=== PATIENT | male | born 1945 | race Caucasian/White ===

== ENCOUNTER 2020-01-22 16:27 | Inpatient (IN) | payer MEDICARE, SELFPAY ==
--- NOTE | ~2020-01-22 | NM_ITS ---
EXAMINATION: NM pulmonary perfusion DATE: 01/27/2020 12:18 INDICATION: Chest pain. TECHNIQUE: 5.2 mCi Tc-99m MAA was administered intravenously for perfusion images. Scintigraphic im ages of the chest were obtained. COMPARISON: chest single view 01/26/20 FINDINGS: Perfusion images show matched large defects throughout the lower lobes. There are matched moderate-si zed defects in the upper lobes. ] IMPRESSION: 1. Nondiagnostic (intermediate probability for pulmonary embolism). Reviewed, dictated and finalized at location B. RAFT INSPECTOR
--- NOTE | ~2020-01-22 | CT_ITS ---
EXAMINATION: CT abdomen pelvis w con DATE: 02/04/2020 10:04 INDICATION: Abdominal abscess. Increased drainage. TECHNIQUE: Computed tomography (CT) of the abdomen and pelvis was performed with 100 mL Omnipaque 350 intravenous contrast. Automated exposure control and iterative reconstruction technique were employe d. The dose-length product was 779.47 mGy-cm. COMPARISON: CT abdomen and pelvis 02/01/2020 FINDINGS: The visualized portions of the lung bases demonstrate emphysema. There are moderate-sized p leural effusions. There is dependent atelectasis bilaterally. Calcified left lung nodules and calcifi ed bilateral hilar and mediastinal lymph nodes are consistent with old granulomatous disease. The hea rt size is normal. There are coronary artery calcifications. No pericardial effusion. There are calci fications of aortic valve. The liver and spleen are normal. The gallbladder is normal in size. There is wall thickening of the gallbladder, likely serosal inflammation or interstitial edema. The pancrea s, adrenal glands, and kidneys are normal. There is a 4.4 cm infrarenal aortic aneurysm with hyperden se crescent sign. There is moderate stenosis of the common iliac arteries and external iliac arteries . There is severe stenosis of right superficial femoral artery and moderate stenosis of left superfic ial femoral artery. There is diffuse fat stranding in the peritoneum, consistent with inflammation an d edema. There are numerous small rim-enhancing fluid collections around the liver. There is a rim-en hancing fluid collection between and deep to the right abdominal muscles measuring up to 5.6 x 1.5 cm . There is a percutaneous drain within this collection. There is an anterior midline incision with sk in samson. There is a small volume of fluid and gas within the incision. There is a rim-enhancing fl uid collection in the pelvis measuring 4.4 x 2.2 cm. There is a percutaneous surgical drain with tip in the left abdomen. There is no fluid next to this drain. There is a percutaneous drain in left uppe r quadrant. There is no residual fluid adjacent to this drain. There is wall thickening of many areas of bowel, consistent with serosal inflammation. There is mild dilatation of a loop of small bowel, c onsistent with adynamic ileus. There is a small right inguinal hernia containing fat. There are no pa thologically enlarged lymph nodes. There is severe thoracic and lumbar spondylosis. IMPRESSION: 1. Multiple intra-abdominal abscesses, most of which are small. The largest abscess without a drain m easures 4.4 x 2.2 cm in the pelvis. 2. 4.4 cm fusiform infrarenal aortic aneurysm with hyperdense crescent sign, stable from 01/22/2020. T he hyperdense crescent sign may be a sign of impending rupture. 3. Stable moderate-sized pleural effusions. 4. Peripheral arterial disease. Reviewed, dictated and finalized at location A. NOMY RESEARCH MANAGER IMPRESSION: 1. Multiple intra-abdominal abscesses, most of which are small. The largest abs cess without a drain measures 4.4 x 2.2 cm in the pelvis. 2. 4.4 cm fusiform infrarenal aortic aneurysm with hyperdense crescent sign, st able from 01/22/2020. The hyperdense crescent sign may be a sign of impending ru pture. 3. Stable moderate-sized pleural effusions. 4. Peripheral arterial disease.
--- NOTE | ~2020-01-22 | US_ITS ---
EXAMINATION: US renal BI DATE: 01/23/2020 16:57 INDICATION: Acute kidney injury. TECHNIQUE: Multiple ultrasound grayscale images of the kidneys were obtained. COMPARISON: CT abdomen and pelvis 01/22/2020 FINDINGS: The right kidney measures 9.0 x 3.8 x 5.6 cm. The left kidney measures 10.1 x 4.5 x 6.1 cm. The kidne ys demonstrate normal parenchymal echogenicity. There is no hydronephrosis. The bladder is decompress ed and not visualized. IMPRESSION: 1. Normal kidney sizes. No hydronephrosis. Reviewed, dictated and finalized at location A. L BLENDER
--- NOTE | ~2020-01-22 | XR_ITS ---
EXAMINATION: XR abdomen NG/feed tube insert INDICATION: Nasogastric tube insertion TECHNIQUE: Portable AP KUB-NG at 0349 hours COMPARISON: None available FINDINGS: The nasogastric tube is in the stomach. There are multiple dilated loops of small bowel. Th ere is atelectasis of the left lung base. No free intraperitoneal gas is identified. IMPRESSION: 1. Nasogastric tube in the stomach. 2. Dilated small bowel, consistent with obstruction. Reviewed, dictated and finalized at location A. F COMMUNICATIONS OFFICER
--- NOTE | ~2020-01-22 | CT_ITS ---
EXAMINATION: CT abdomen pelvis w con EXAM DATE: 02/01/2020 14:59 INDICATION: Ileus, leukocytosis. TECHNIQUE: Spiral CT of the abdomen and pelvis was performed following intravenous injection of 100 m L Omnipaque 350. Axial, coronal and sagittal images were reviewed. The dose-length product (DLP) fo r this examination was 1238.44 mGy-cm. The exposure was tailored according to patient size (auto mA exposure control), and iterative reconstruction (ASIR) was used as additional dose reduction techniqu e. Comparison is made to prior examination from 01/24/2020. FINDINGS: There are laparotomy samson. There is a pelvic drain. Small bowel anastomosis sites. Along the left side of the abdomen there is phlegmonous appearance to several small bowel loops, which hav e wall thickening. Multiple loops of moderately distended air-filled small bowel with small amount of fluid, probably ileus. There is extensive mesenteric fat stranding, with small scattered pockets of fluid along the liver, some causing scalloping of the liver margin. There is small pocket of fluid in the left upper quadrant where there is substantial inflammation, having a thin enhancing wall and me asuring about 3.5 cm in diameter (see axial image 56). Couple of other tracks of fluid suspected in t he left upper quadrant, one identified on image 95. Contained pocket of gas and fluid anterior to the gastric antrum measuring up to 5 cm (axial image 65). Contained pocket of fluid along the right side of the anterior abdominal wall measuring about 1 cm in thickness, and up to about 8 cm in diameter ( see axial image 111). Some small pockets of mesenteric fluid which are not contained. Small amount of pelvic fluid without continuous organized wall. Colonic fluid, correlate for diarrhea. No free intra peritoneal gas. The liver, spleen, adrenal glands and pancreas are unremarkable. Gallbladder is unremarkable. No bi liary obstruction. Portal and splenic veins are patent. Kidneys enhance symmetrically. There is no hydronephrosis. The prostate is unremarkable. The bladder is unremarkable. There is no retroperi toneal or pelvic lymphadenopathy. There is 4.4 cm fusiform infrarenal aneurysm. There is near compl ete occlusion of the right common iliac arteries, and moderate to severe stenosis of the left common iliac artery. There is severe stenosis of the left external iliac artery. Hypodensity within the cent ral aspects of both iliac veins most likely unopacified blood. Probable 4 cm duodenal diverticulum. The heart is normal in size. There are no pericardial or pleural effusions. Small to moderate bilat eral pleural effusions with nearly collapsed lower lobes bilaterally. There is mild emphysema. Ther e are no osteoblastic or osteolytic lesions identified. IMPRESSION: 1. Development of multiple scattered contained pockets of abdominal fluid, appearance is suspicious for early abscesses. 2. Dilated small bowel probably postoperative ileus. Left upper quadrant loop of small bowel with in flammation, wall thickening. 3. Fusiform infrarenal abdominal aortic 4.4 cm aneurysm. 4. Severe arterial sclerosis with significant iliac narrowing. After acute symptoms resolve, a follo w-up vascular consult is recommended. 5. Increasing pleural effusions, now small to moderate, with near collapse of both lower lobes. Reviewed, dictated and finalized at location A. ING DIE FINISHER IMPRESSION: 1. Development of multiple scattered contained pockets of abdominal fluid, nj earance is suspicious for early abscesses. 2. Dilated small bowel probably postoperative ileus. Left upper quadrant loop of small bowel with inflammation, wall thickening. 3. Fusiform infrarenal abdominal aortic 4.4 cm aneurysm. 4. Severe arterial sclerosis with signif
--- NOTE | ~2020-01-22 | XR_ITS ---
EXAMINATION: XR abdomen NG/feed tube insert EXAM DATE: 02/04/2020 16:43 INDICATION: Nasogastric tube placement. TECHNIQUE: Frontal projection(s) of the abdomen for interpretation. Comparison is made to prior exami nation from 01/31/2020. FINDINGS: Feeding tube tip and side-port project over left upper quadrant, expected position of oneyda glen cardia, adequate. There is a surgical drain. Laparotomy samson. Cardiomegaly, left pleural effus ion and adjacent atelectasis. Nonobstructive upper abdominal bowel gas pattern. IMPRESSION: 1. Feeding tube in position. 2. Cardiomegaly, left pleural effusion, adjacent atelectasis. Reviewed, dictated and finalized at location A. AL FUND SALES AGENT
--- NOTE | ~2020-01-22 | XR_ITS ---
EXAMINATION: XR chest 1V portable DATE: 02/09/2020 12:49 INDICATION: Shortness of breath. TECHNIQUE: A single frontal view of the chest was obtained on 2 radiographs. COMPARISON: Chest single view 02/01/2020, CT abdomen and pelvis 02/04/2020 FINDINGS: The patient is rotated to his left. There are lucencies in the lungs, consistent with emphy sema. A calcified right lung nodule is consistent with old granulomatous disease. There are airspace opacities in the lower lung zones. There are small pleural effusions. No pneumothorax. The heart size is normal. The nasogastric tube tip is in the stomach. IMPRESSION: 1. Airspace opacities in the lower lung zones, consistent with atelectasis versus pneumonia. 2. Emphysema. 3. Small pleural effusions. Reviewed, dictated and finalized at location A. OR MANAGING DIRECTOR IMPRESSION: 1. Airspace opacities in the lower lung zones, consistent with atelectasis vers us pneumonia. 2. Emphysema. 3. Small pleural effusions.
--- NOTE | ~2020-01-22 | XR_ITS ---
EXAMINATION: XR chest 1V portable INDICATION: Leukocytosis TECHNIQUE: Portable AP chest at 0859 hours COMPARISON: 01/26/2020 FINDINGS: A nasogastric tube is in the stomach. A right upper extremity PICC has been inserted which ends with its tip in the midsuperior vena cava. The heart size is normal for technique. There are sma ll pleural effusions. Bibasilar airspace opacities persist with slight worsening. No pneumothorax is identified. IMPRESSION: 1. Small pleural effusions with interval worsening. 2. Bibasilar airspace opacities, consistent with atelectasis versus pneumonia. Reviewed, dictated and finalized at location A. OSIVES MIXER OPERATOR
--- NOTE | ~2020-01-22 | CT_ITS ---
EXAMINATION: CT abdomen pelvis wo con DATE: 01/22/2020 18:15 INDICATION: Abdominal pain. Nausea and vomiting. TECHNIQUE: Computed tomography (CT) of the abdomen and pelvis was performed without intravenous contr ast. Automated exposure control and iterative reconstruction technique were employed. The dose-length product was 460.53 mGy-cm. COMPARISON: None. FINDINGS: The visualized portions of the lung bases demonstrate emphysema. There is elevation of left hemidiaphragm. There are airspace opacities in basilar left lower lobe with volume loss, likely atel ectasis. No pleural effusion. The heart size is normal. There are coronary artery calcifications. No pericardial effusion. The liver is normal. Calcifications in the spleen are consistent with old granu lomatous disease. Calcifications in the tail of the pancreas are consistent with chronic pancreatitis . The adrenal glands are normal. There is a 6 mm hemorrhagic cyst in right kidney. A 9 mm mass in lef t kidney is too small to characterize, but likely a cyst. There is a 4.4 cm fusiform aneurysm of infr arenal aorta. There is diverticulosis of the colon without evidence of diverticulitis. There is a div erticulum of the second portion of the duodenum. There are multiple dilated loops of small bowel with transition point in right abdomen. The distal small bowel is decompressed. The appendix is not visua lized. There are no pathologically enlarged lymph nodes. There is no free intraperitoneal fluid. Ther e is severe lumbar spondylosis. IMPRESSION: 1. High-grade small bowel obstruction with transition point in right abdomen. 2. 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 3. Emphysema. Reviewed, dictated and finalized at location A. SPOTTER
--- NOTE | ~2020-01-22 | XR_ITS ---
EXAMINATION: XR chest 1V portable DATE: 01/25/2020 07:55 INDICATION: Hypoxia. TECHNIQUE: A single frontal view of the chest was obtained. COMPARISON: CT abdomen and pelvis 01/24/2020 FINDINGS: There are lucencies in the lungs, consistent with emphysema. There are airspace opacities i n the mid and lower lung zones with a basilar predominance, left worse than right. There is a small l eft pleural effusion. No pneumothorax. The heart size is normal. The nasogastric tube tip is in the s tomach. IMPRESSION: 1. Airspace opacities in the mid and lower lung zones with a basilar predominance, left worse than ri ght, consistent with atelectasis versus pneumonia. 2. Small left pleural effusion. 3. Emphysema. Reviewed, dictated and finalized at location A. NDIARIES SUPERVISOR IMPRESSION: 1. Airspace opacities in the mid and lower lung zones with a basilar predominan ce, left worse than right, consistent with atelectasis versus pneumonia. 2. Small left pleural effusion. 3. Emphysema.
--- NOTE | ~2020-01-22 | CT_ITS ---
EXAMINATION: 1. CT guide absc cath placement 2. CT guide absc cath placement DATE: 02/02/2020 14:07 INDICATION: Intra-abdominal abscesses. TECHNIQUE: The procedure including the risks, benefits, and alternatives was discussed with the patie nt. Risks discussed included bleeding and infection. The patient understood the risks and benefits an d agreed to proceed. The patient was confirmed to be receiving appropriate antibiotic coverage. The skin overlying the abdomen was prepped and draped in usual sterile fashion. Anesthetic was administe red with 1% lidocaine subcutaneously. Mild sedation was achieved with 100 mcg fentanyl IV. An 18 gaug e trochar needle was inserted into the right abdominal abscess with CT guidance. The needle was excha nged over a wire for 6 Mexican, 8 Mexican, and 9 Mexican dilators and then for an 8.5 Mexican pigtail cat heter. The catheter was stitched to the skin, and a sterile dressing was applied. An 18 gauge trochar needle was inserted into the left abdominal abscess with CT guidance. The needle was exchanged over a wire for 6 Mexican, 8 Mexican, and 9 Mexican dilators and then for an 8.5 Mexican pi gtail catheter. The catheter was stitched to the skin, and a sterile dressing was applied. The mA was adjusted according to patient size. Iterative reconstruction technique was employed. The dose-lengt h product was 263.73 mGy-cm. There were no immediate complications. FINDINGS: CT images demonstrate the catheter within the right abdominal abscess. 5 mL foul-smelling, opaque red fluid was aspirated. CT images demonstrate the catheter within the left upper quadrant abd ominal abscess. 10 mL foul-smelling opaque lopez fluid was aspirated. IMPRESSION: 1. Successful CT-guided right abdominal abscess drainage. 2. Successful CT-guided left abdominal abscess drainage. 3. 10 mL foul-smelling, opaque, lopez fluid from the left abdominal abscess was sent for aerobic and an aerobic cultures. Reviewed, dictated and finalized at location A. ING METER INSTALLER IMPRESSION: 1. Successful CT-guided right abdominal abscess drainage. 2. Successful CT-guided left abdominal abscess drainage. 3. 10 mL foul-smelling, opaque, lopez fluid from the left abdominal abscess was s ent for aerobic and anaerobic cultures.
--- NOTE | ~2020-01-22 | XR_ITS ---
EXAMINATION: XR chest 1V portable DATE: 01/26/2020 09:05 INDICATION: Pneumonia. TECHNIQUE: A single frontal view of the chest was obtained. COMPARISON: Chest single view 01/25/2020, CT abdomen and pelvis 01/24/2020 FINDINGS: There are small pleural effusions. There are airspace opacities at the lung bases. There is a diffuse interstitial pattern in the lungs, consistent with mild pulmonary edema. No pneumothorax. The heart size is normal. The nasogastric tube tip is in the stomach. IMPRESSION: 1. Small pleural effusions. 2. Airspace opacities at the lung bases, consistent with atelectasis versus pneumonia. 3. Mild pulmonary edema. Reviewed, dictated and finalized at location B. RYING MANAGER IMPRESSION: 1. Small pleural effusions. 2. Airspace opacities at the lung bases, consistent with atelectasis versus pne umonia. 3. Mild pulmonary edema.
--- NOTE | ~2020-01-22 | XR_ITS ---
EXAMINATION: XR abdomen obstructive series DATE: 01/26/2020 09:05 INDICATION: Adynamic ileus. TECHNIQUE: Upright and supine views of the abdomen were obtained. COMPARISON: CT abdomen and pelvis 01/24/2020 FINDINGS: There are multiple dilated loops of small bowel. There is free intraperitoneal gas, consist ent with recent surgery. Skin samson are noted. The nasogastric tube tip is in the stomach. There is a right groin central venous catheter. There is a surgical drain with tip in left abdomen. IMPRESSION: 1. Dilated small bowel, consistent with adynamic ileus. Reviewed, dictated and finalized at location B. UTER INFORMATION SYSTEMS INSTRUCTOR
--- NOTE | ~2020-01-22 | XR_ITS ---
EXAMINATION: XR abdomen/kub 1V INDICATION: Abdominal distention, ileus TECHNIQUE: Supine view of the abdomen is obtained. COMPARISON: 01/26/2020 FINDINGS: Persistent mildly dilated loop of small bowel are again noted. A surgical drain is present in the left abdomen. No free intraperitoneal gas is identified. Surgical skin samson are noted. The previously described right groin central venous catheter has been removed. There is severe lumbar spo ndylosis. IMPRESSION: 1. Unchanged mildly dilated small bowel, consistent with adynamic ileus. Reviewed, dictated and finalized at location A. S PRODUCT ANALYST
--- NOTE | ~2020-01-22 | XR_ITS ---
EXAMINATION: XR abdomen/kub 1V EXAM DATE: 02/08/2020 13:05 INDICATION: Postoperative ileus, bleeding from drain site. Left lower abdominal pain. TECHNIQUE: Frontal projection of the upper abdomen, frontal projection lower abdomen/pelvis for inter pretation. Comparison is made to prior examination from 02/04/2020. FINDINGS: Feeding tube is in position. There is a surgical drain position unchanged. Small amount of dense material in the colon. No dilated small bowel. There is no organomegaly. There are bony degene rative changes. IMPRESSION: 1. Tubes in position. 2. Nonobstructive bowel gas pattern. Reviewed, dictated and finalized at location A. KDOWN MILL OPERATOR
--- NOTE | ~2020-01-22 | CT_ITS ---
EXAMINATION: CT abdomen pelvis wo con DATE: 01/24/2020 19:48 INDICATION: Generalized abdominal pain. TECHNIQUE: Computed tomography (CT) of the abdomen and pelvis was performed without intravenous contr ast. Automated exposure control and iterative reconstruction technique were employed. The dose-length product was 521.52 mGy-cm. COMPARISON: CT abdomen and pelvis 01/22/2020 FINDINGS: The visualized portions of the lung bases demonstrate moderate emphysema. Calcified lung no dules and calcified hilar lymph nodes are consistent with old granulomatous disease. There are depend ent airspace opacities in the lower lobes, left worse than right. There are small pleural effusions. The heart size is normal. There are coronary artery calcifications. No pericardial effusion. The naso gastric tube tip is in the stomach. Again seen is elevation of left hemidiaphragm. The liver and sple en are normal. There is contrast in the gallbladder. The pancreas, adrenal glands, and left kidney ar e normal. There is a 6 mm hyperdense cyst in right kidney. There is a small right inguinal hernia con taining fat. The prostate is mildly enlarged. There is a Whiting catheter in expected position. There a re multiple dilated loops of small bowel. There are anastomoses in the small bowel. There is a small volume of free intraperitoneal gas and gas in the body wall, consistent with recent surgery. Anterior skin samson are noted. There is trace ascites. There is widespread fat stranding in the peritoneum, consistent with inflammation versus edema. There is a surgical drain in left abdomen. There are no p athologically enlarged lymph nodes. There is a 4.4 cm fusiform aneurysm of infrarenal aorta. There is severe thoracolumbar spondylosis. IMPRESSION: 1. Dilated small bowel, consistent with adynamic ileus. 2. Widespread fat stranding in the peritoneum, consistent with inflammation versus edema. Trace ascit es. 3. 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 4. Small pleural effusions. 5. Dependent airspace opacities in the lower lobes, consistent with atelectasis versus pneumonia. 6. Emphysema. Reviewed, dictated and finalized at location A. TE CASE MANAGER IMPRESSION: 1. Dilated small bowel, consistent with adynamic ileus. 2. Widespread fat stranding in the peritoneum, consistent with inflammation lori earnest edema. Trace ascites. 3. 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 4. Small pleural effusions. 5. Dependent airspace opacities in the lower lobes, consistent with atelectasis versus pneumonia. 6. Emphysema.
--- NOTE | ~2020-01-22 | XR_ITS ---
EXAMINATION: XR sm bowel follow through DATE: 01/23/2020 18:07 INDICATION: Small bowel obstruction. TECHNIQUE: Oral contrast was administered, and a time course of radiographs of the abdomen was obtain ed. Fluoroscopy of the small bowel was performed. Fluoroscopy exposure time was 0.6 minutes. The tota l number of images was 14. COMPARISON: CT abdomen and pelvis 01/22/2020 FINDINGS: The nasogastric tube tip is in the stomach. There are multiple dilated loops of small bowel. Contrast remained in dilated proximal small bowel at 4.5 hours. There is a diverticulum of the third portion of the duodenum. IMPRESSION: 1. Small bowel obstruction. Reviewed, dictated and finalized at location A. INUOUS IMPROVEMENT DIRECTOR IMPRESSION: 1. Small bowel obstruction.
--- NOTE | ~2020-01-22 | US_ITS ---
EXAMINATION: US venous doppler [facility] DATE: 01/27/2020 09:55 INDICATION: Chest pain TECHNIQUE: Grayscale ultrasound images without and with compression and Doppler ultrasound images of the bilateral lower extremity veins were obtained. COMPARISON: None. FINDINGS: The visualized portions of right common femoral vein, profunda (deep) femoral vein, femoral vein, pop liteal vein, posterior tibial veins, peroneal veins, gastrocnemius vein and greater saphenous vein ou tflow are patent. The visualized portions of left common femoral vein, profunda femoral vein, femoral vein, popliteal v ein, posterior tibial veins, peroneal veins, gastrocnemius vein and greater saphenous vein outflow ar e patent. IMPRESSION: 1. No deep venous thrombosis in either lower limb. Reviewed, dictated and finalized at location A. RACTER
--- NOTE | ~2020-01-22 | US_ITS ---
EXAMINATION: US venous doppler [facility] DATE: 02/16/2020 15:26 INDICATION: Lower limb pain. TECHNIQUE: Grayscale ultrasound images without and with compression and Doppler ultrasound images of the bilateral lower extremity veins were obtained. COMPARISON: Ultrasound 01/27/2020 FINDINGS: The visualized portions of right common femoral vein, profunda (deep) femoral vein, femoral vein, pop liteal vein, peroneal veins, posterior tibial veins, and greater saphenous vein outflow are patent. The visualized portions of left common femoral vein, profunda femoral vein, femoral vein, popliteal v ein, peroneal veins, posterior tibial veins, and greater saphenous vein outflow are patent. IMPRESSION: 1. No deep venous thrombosis. Reviewed, dictated and finalized at location A. OGEN PLANT OPERATOR
[2020-01-22 16:29] VITALS: BP 125/77; PULSE 94; RESP 18; TEMP 36.4; O2SAT 95
[2020-01-22] MEDS: ONDANSETRON INJ 4 MG/2 ML VIAL IV PUSH ×2 (17:20→20:19)
[2020-01-22 17:24] LABS: Basophils Percent Auto 0.2 % (0.2-1.2); Eosinophils Percent Auto 0.2 % (0-4.4); Hematocrit 53.6 % (42.0-52.0); Hemoglobin 18.9 g/dL (14.0-18.0); Immature Granulocyte Absolute 0.02 K/mm3 (0.00-0.031); Immature Granulocyte Percent A 0.2 % (0-0.5); Lymphocytes Percent Auto 15.7 % (18.3-44.2); Mean Corpuscular HGB Conc 35.3 g/dl (32-36); Mean Platelet Volume 11.3 fl (7.4-10.4); Monocytes Absolute Auto 1.4 K/mm3 (0.1-0.6); Monocytes Percent Auto 13.7 % (2.6-8.5); Neutrophils Absolute Auto 7.2 K/mm3 (1.3-6.7); Platelet Count Result 245 k/mm3 (150-375); Red Blood Count 6.09 M/mm3 (4.6-6.20); Red Cell Distribution Width 13.6 % (11.5-14.5); White Blood Count 10.2 K/mm3 (4.5-10.0)
[2020-01-22 17:38] LABS: Alanine Aminotransferase 21 U/L (4-50); Albumin Level 4.7 g/dL (3.5-5.1); Alkaline Phosphatase 69 U/L (38-126); Anion Gap 14 mmol/L (8-16); Aspartate Amino Transferase 31 U/L (17-59); Bilirubin,Total 1.3 mg/dL (0.2-1.3); Blood Urea Nitrogen 62 mg/dL (9-20); Carbon Dioxide 29 mmol/L (22-30); Chloride 91 mmol/L (98-107); Estimated CRCL calculation 26 ml/min; Estimated Glomerular Filt Rate 28; Glucose 132 mg/dL (75-110); Lipase 81 U/L (23-300); Potassium 4.7 mmol/L (3.4-5.0); Sodium 134 mmol/L (137-145)
[2020-01-22] MEDS: SODIUM CHLORIDE 0.9% IV 1,000 ML 999 ML IV CONT (18:15)
--- NOTE | 2020-01-22 18:32 | ED.GENADULT ---
HPI - General Adult General Chief complaint: Nausea/Vomiting/Diarrhea Stated complaint: vomiting Time Seen by Provider: 01/22/20 16:37 Source: patient Mode of arrival: ambulatory Limitations: no limitations History of Present Illness HPI narrative: Patient presents with chief complaint of abdominal pain, bloating, nausea, vomiting, constipation for the past 3 days. Patient states that he took some milk of magnesia today and it made him vomit. Patient states that he has been taking some Maalox which has helped him feel a little more comfortable but has not completely relieved his symptoms. Patient denies fever, chills. Patient denies drinking alcohol and denies recreational drug usage. Patient denies having symptoms such as this before patient reports that the majority of his discomfort is in the right upper quadrant. Patient denies chest pain or shortness of breath. Patient denies syncope, dizziness, lethargy. Related Data Home Medications Medication Instructions Recorded Confirmed lisinopril 01/22/20 Allergies Allergy/AdvReac Type Severity Reaction Status Date / Time No Known Allergies Allergy Unknown NONE Verified 01/22/20 16:32 Review of Systems Review of Systems: Narrative: CONSTITUTIONAL: Denies fever, chills, or sweats. EYES: Denies visual changes, redness, or discharge. ENT: Denies rhinorrhea, congestion, sore throat, or otalgia. CARDIOVASCULAR: Denies chest pain, palpitations, or edema. RESPIRATORY: Denies cough or dyspnea. GASTROINTESTINAL: Reports abdominal pain, nausea, vomiting, constipation denies diarrhea. GENITOURINARY: Denies dysuria or hematuria. SKIN: Denies rash or itching. MUSCULOSKELETAL: Denies back pain, joint pain, or myalgia. NEUROLOGIC: Denies headache, numbness, dizziness, or weakness. PSYCHIATRIC: Denies anxiety or depression. [facility] Past Medical History Medical History (Updated 01/22/20 @ 19:12 by Emre Parisi PA-C) Hypertension Surgical History Surgical History (Updated 01/22/20 @ 18:53 by Emre Parisi PA-C) History of appendectomy Social History Social History (Updated 01/22/20 @ 18:53 by Emre Parisi PA-C) Smoking status: Current every day smoker Alcohol intake: former Substance use: never Gender identity (if verbalized by the patient): Male Exam Narrative: Exam Narrative: GENERAL: Patient appears unkempt and disheveled. HEAD: Normocephalic, atraumatic. EYES: PERRLA and EOMI. ENT: Nares clear, no rhinorrhea or epistaxis. Mucous membranes moist. Oropharynx without tonsillar hypertrophy exudate or other lesions. Bilateral TMs pearly siegel nonbulging CHEST: Clear to auscultation. No respiratory distress. HEART: Regular rate and rhythm. ABDOMEN: Firm, distended, tender to palpation in the right upper quadrant, hyper active bowel sounds in upper abdomen. EXTREMITIES: Normal range of motion. No edema. SKIN: Warm, dry, no rash. NEURO: No focal deficits. Alert and oriented x3. PSYCH: Normal mood and affect. Course Vital Signs Vital signs: Vital Signs Temperature 97.6 F 01/22/20 16:29 Pulse Rate 94 01/22/20 16:29 Respiratory Rate 18 01/22/20 16:29 Blood Pressure 125/77 01/22/20 16:29 Pulse Oximetry 95 01/22/20 16:29 Temperature 97.6 F 01/22/20 16:29 Pulse Rate 94 01/22/20 16:29 Respiratory Rate 18 01/22/20 16:29 Blood Pressure 125/77 01/22/20 16:29 Pulse Oximetry 95 01/22/20 16:29 Medical Decision Making MDM Narrative Medical decision making narrative: Consult with general surgeon Dr. Perez who states to observe patient overnight and they will evaluate in the morning after small bowel series was performed. He states that since the patient has not been vomiting while in the emergency department we can hold off on the NG tube. Patient has been started on fluids as it appears he may have some acute renal injury. Consult with hospitalist Dr. Conrad and inform him that Dr. Perez wants a small bowel series ordere
[2020-01-22 19:00] VITALS: BP 104/59; PULSE 80; RESP 15; O2SAT 91
--- NOTE | 2020-01-22 19:34 | PM.IMHP ---
H&P: HPI History of Present Illness Date/Time: 01/22/20 19:34 Chief complaint: Small Bowel Obstr w/acute on Chronic Renal Injury Narrative: This is a pleasant 74 year old male with known history of HTN and who is a chronic smoker who presented to the hospital with a complaint of diffuse abdominal discomfort, bloating, nausea, vomiting and constipation for the past 3 days. He noticed on Sunday that he was getting nauseated with food and fluid intake. His last meal was tuvaluan fries today which he states he managed to keep down. He last vomited this morning. The patient is known to have had a prior appendectomy but denies any previous bowel obstructions or history of hernias. He denies any fevers, chills, coughing, shortness of breath, chest pain, dysuria, hematuria or rectal bleeding. CT abd/pelvis demonstrated a hiigh-grade small bowel obstruction with transition point in right abdomen. General surgery was consulted by ER provider. The patient was also found to be in acute renal failure with a Cr of 2.30. He was treated w/ IV fluids. We have been asked to admit him to the hospital for further care. He has no other complaints. Review of Systems Review of Systems: All systems reviewed & are unremarkable except as noted in HPI and below PMFSH Past Medical History Medical History Hypertension Surgical History Surgical History History of appendectomy Family History Family History (Updated 01/22/20 @ 21:08 by Joanne Salcido RN) Mother Acute myocardial infarction Congestive heart failure Diabetes mellitus Hypertension Father Chronic obstructive pulmonary disease Sibling Congestive heart failure Sibling Diabetes mellitus Social History Social History Smoking packs per day: 1.5 Smoking cigarettes per day: 30.0 Smoking status: Current every day smoker Tobacco type: cigarettes Alcohol intake: never Substance use: never Gender identity (if verbalized by the patient): Male Sexual Orientation (if Verbalized by the Patient): Straight or Heterosexual Spiritual care concerns: No Meds Home Medications and Allergies Home Medications Medication Instructions Recorded Confirmed Type lisinopril 30 mg PO DAILY 11/05/20 11/05/20 History Allergies Allergy/AdvReac Type Severity Reaction Status Date / Time No Known Allergies Allergy Unknown NONE Verified 01/22/20 21:20 Vital Signs Vital Signs - 24 hr 01/22/20 16:29 Temperature 36.4 C Pulse Rate 94 Respiratory Rate 18 Blood Pressure 125/77 Pulse Oximetry 95 Exam Const: General: cooperative, alert and awake Nutritional Appearance: well nourished Orientation/consciousness: patient oriented x3 HENMT: Head: normal to inspection General nose exam: Normal external nose present Face and sinus: normal facial exam Mouth: Yes Normal oral and palatal mucosa present and Yes oropharynx normal Eyes: Pupils: Equal, round and reactive pupils present EOM: EOMs intact bilaterally Neck: Neck: supple and no JVD Thyroid: thyroid normal Lymphatic: lymphadenopathy not noted Resp: Effort & Inspection: normal respiratory effort Auscultation: clear to auscultation bilaterally Cardio: Rate: regular rate Rhythm: regular rhythm Heart sounds: no murmurs GI: Inspection: distended GI Palp: Yes abdominal tenderness (diffuse w/ light palpation++ ), Yes Tenderness to palpation present (GI) and No Guarding due to palpation present (GI) Auscultation: Hypoactive bowel sounds present Rectal Exam: deferred Skin: General skin exam: normal color and no rashes or lesions noted Neuro: General: patient oriented x3 Cranial nerves: Yes CN's II-XII intact bilaterally and Yes Equal, round and reactive pupils present Speech: normal speech Motor exam (neuro): 5/5 motor strength present throughout
[2020-01-22 19:50] LABS: Add Urine Microscopic? YES; Appearance Urine Cloudy (Clear); Bacteria Urine Trace /hpf; Bilirubin Urine 1+ (Negative); Blood Urine Negative (Negative); Color Urine Amber (Yellow); Glucose Urine UA Negative (Negative); Ketones Urine Negative (Negative); Leukocyte Esterase Ur 1+ LEU/UL (Negative); Mucus Urine Rare /lpf; Nitrate Urine Negative (Negative); Protein Urine 1+ mg/dL (Negative); RBC Urine 0-2 /hpf (0-2); Specific Grav Ur 1.021 (1.001-1.035); Squamous Epithelial Cell Urine Many /hpf (Few)
--- NOTE | 2020-01-22 20:04 | PC.NURSE ---
Assumed care of pt. Report from kayla Jacome RN
[2020-01-22 20:40] VITALS: BP 104/53; PULSE 75; RESP 15; O2SAT 92
--- NOTE | 2020-01-22 21:05 | ADMGEN ---
This patient, Jacob Tam, was admitted to Medical Room 255-. Patient/family oriented to hospital policies and general routines including ID bracelet, bed and alarms, visiting hours, pain management, procedures, bathroom and other care routines, personal items, smoking policy, room service/diet, and visiting hours. Information on how to activate the Rapid Response Team has been discussed. Patient/Family are encouraged to report perceived risks to care and to ask questions if they do not understand what they are told or what they should do.
[2020-01-22] MEDS: SODIUM CHLORIDE 0.9% IV 1,000 ML 100 ML IV CONT (21:26)
[2020-01-22] MEDS: MORPHINE SULFATE (*CRX) 2 MG/ML INJ IV PUSH (21:26)
[2020-01-22 22:00] VITALS: BP 121/61; PULSE 84; RESP 16; TEMP 36.4; O2SAT 93
[2020-01-23] VITALS (13 sets, daily range): BP systolic 118–168; BP diastolic 54–74; PULSE 20–110; RESP 16–93; TEMP 35.9–36.6; O2SAT 90–98
[2020-01-23] MEDS: MORPHINE SULFATE (*CRX) 2 MG/ML INJ IV PUSH ×3 (01:28→22:52)
[2020-01-23] MEDS: ONDANSETRON INJ 4 MG/2 ML VIAL IV PUSH (01:28)
[2020-01-23 05:53] LABS: Basophils Percent Auto 0.3 % (0.2-1.2); Eosinophils Percent Auto 0.1 % (0-4.4); Hematocrit 55.1 % (42.0-52.0); Hemoglobin 18.5 g/dL (14.0-18.0); Immature Granulocyte Absolute 0.02 K/mm3 (0.00-0.031); Immature Granulocyte Percent A 0.2 % (0-0.5); Lymphocytes Absolute Auto 1.05 K/mm3 (0.9-3.2); Lymphocytes Percent Auto 10.5 % (18.3-44.2); Mean Corpuscular HGB Conc 33.6 g/dl (32-36); Mean Corpuscular Volume 89.3 fl (80-100); Mean Platelet Volume 10.8 fl (7.4-10.4); Monocytes Absolute Auto 1.3 K/mm3 (0.1-0.6); Monocytes Percent Auto 13.4 % (2.6-8.5); Neutrophils Absolute Auto 7.5 K/mm3 (1.3-6.7); Neutrophils Percent Auto 75.5 % (45.5-73.1); Platelet Count Result 205 k/mm3 (150-375); Red Blood Count 6.17 M/mm3 (4.6-6.20); Red Cell Distribution Width 13.5 % (11.5-14.5)
[2020-01-23] MEDS: SODIUM CHLORIDE 0.9% IV 1,000 ML 100 ML IV CONT ×2 (05:57→16:07)
[2020-01-23 06:00] LABS: Anion Gap 12 mmol/L (8-16); Blood Urea Nitrogen 72 mg/dL (9-20); Calcium 9.2 mg/dL (8.4-10.2); Carbon Dioxide 30 mmol/L (22-30); Chloride 93 mmol/L (98-107); Estimated CRCL calculation 30 ml/min; Estimated Glomerular Filt Rate 33; Glucose 131 mg/dL (75-110); Potassium 5.1 mmol/L (3.4-5.0); Sodium 135 mmol/L (137-145)
--- NOTE | 2020-01-23 08:58 | PM.CNGS ---
Assessment and Plan Assessment and plan (1) Small bowel obstruction: Code(s): K56.609 - Unspecified intestinal obstruction, unspecified as to partial versus complete obstruction Status: Acute Assessment and Plan: NG decompression, bowel rest, will get SBS for further eval (2) Acute kidney injury: Code(s): N17.9 - Acute kidney failure, unspecified Status: Acute Assessment and Plan: IV hydration (3) Tobacco dependence: Code(s): F17.200 - Nicotine dependence, unspecified, uncomplicated Status: Chronic Assessment and Plan: will discuss cessation (4) Aortic aneurysm: Qualifiers: Aortic location: abdominal aorta Presence of rupture: without rupture Qualified Code(s): I71.4 - Abdominal aortic aneurysm, without rupture Code(s): I71.9 - Aortic aneurysm of unspecified site, without rupture Status: Acute Assessment and Plan: stable (5) Hypertension: Qualifiers: Hypertension type: unspecified Qualified Code(s): I10 - Essential (primary) hypertension Code(s): I10 - Essential (primary) hypertension Status: Chronic Assessment and Plan: stable, cont meds per primary team History of Present Illness Consult details Consult date: 01/23/20 Reason for consult: abdominal pain Requesting physician: Bishop Conrad MD Narrative: Pt is a 74 y/o M presenting c crampy abd pain, intractable N/V over last few days. Pt reports pain is now largely constant and quite severe. Pt reports abd bloating, dist. Pt reports last good bowel movt was at least a few days ago and not really passing any gas. Pt denies previous episodes. Pt reports only abd surgery was open appendectomy. Review of Systems Constitutional: Constitutional: Reports anorexia, Denies chills, Denies fatigue, Denies fever(s), Denies headache(s), Denies increased appetite, Denies lethargy, Denies malaise, Reports poor appetite, Denies weakness, Denies weight gain and Denies weight loss Eyes: Eyes: Reports no additional eye complaints ENT: Reports system reviewed and no additional complaints, except as documented and Reports Normal hearing present Cardiovascular: Cardiovascular: Reports no additional cardiovascular complaints Respiratory: Respiratory: Reports no additional respiratory complaints Gastrointestinal: Gastrointestinal: Reports abdominal pain, Reports belching, Reports bloating, Reports change in bowel habits, Reports constipation, Reports early satiety, Reports dyspepsia, Reports heartburn, Reports nausea and Reports vomiting Genitourinary: Genitourinary: Reports no additional male genitourinary complaints Musculoskeletal: Musculoskeletal: Reports no additional musculoskeletal complaints Integumentary/Breasts: Skin/Breast: Reports system reviewed and no additional complaints, except as docu Neurologic: Reports system reviewed and no additional complaints, except as documented Psychiatric: Psychiatric: Reports no additional psychiatric complaints Endocrine: Endocrine: Reports no additional endocrine complaints Hematologic/Lymphatic: Hematologic/Lymphatic: Reports no additional hematologic/lymphatic complaints Allergic/Immunologic: Allergic/Immunologic: Reports no additional allergic/immunologic complaints [facility] Past Medical History Medical History Hypertension Surgical History Surgical History History of appendectomy Family History Family History Mother Acute myocardial infarction Congestive heart failure Diabetes mellitus Hypertension Father Chronic obstructive pulmonary disease Sibling Congestive heart failure Sibling Diabetes mellitus Social History Social History Smoking packs per day: 1.5 Smoking cigarettes
--- NOTE | 2020-01-23 10:39 | PM.IMPN ---
Progress Note: A&P Assessment and Plan (1) Small bowel obstruction: Code(s): K56.609 - Unspecified intestinal obstruction, unspecified as to partial versus complete obstruction Status: Acute Assessment and Plan: CT abd/pelvis demonstrates high-grade small bowel obstruction with transition point in the right abdomen. He has a hx of open appendectomy so etiology may be adhesions. He has no other hx of abdominal surgeries. Continue NPO, bowel rest with NG tube decompression, and IV fluids. Continue IV morphine as needed for pain. Continue IV antiemetics as needed. General surgery is following. Management per general surgery. He is undergoing small bowel series with follow through today. (2) Acute kidney injury: Code(s): N17.9 - Acute kidney failure, unspecified Status: Acute Assessment and Plan: Likely secondary to acute dehydration from decreased PO intake. BUN is very high at 72 with ratio >20:1 suggesting pre-renal etiology. Cr has improved to 2.0 today with IV fluids. Will request records to determine baseline renal function from Dr. Pepe's office. Continue gentle IV fluids. Continue to monitor renal function and urine output. Avoid nephrotoxic agents. Will order renal ultrasound. (3) Aortic aneurysm: Qualifiers: Aortic location: abdominal aorta Presence of rupture: without rupture Qualified Code(s): I71.4 - Abdominal aortic aneurysm, without rupture Code(s): I71.9 - Aortic aneurysm of unspecified site, without rupture Status: Acute Assessment and Plan: Infrarenal 4.4 cm fusiform aneurysm of the infrarenal aorta was visualized on CT abd/pelvis. He will need repeat imaging in 6 months - 1 year and would benefit from referral to vascular surgery at discharge. (4) Hypertension: Qualifiers: Hypertension type: unspecified Qualified Code(s): I10 - Essential (primary) hypertension Code(s): I10 - Essential (primary) hypertension Status: Chronic Assessment and Plan: Blood pressures are reasonably controlled. Lisinopril is currently held given JOHNNIE and NPO status. Resume when clinically appropriate. (5) Tobacco dependence: Code(s): F17.200 - Nicotine dependence, unspecified, uncomplicated Status: Chronic Assessment and Plan: I advised that the patient needs to stop smoking immediately. I discussed potential risks including adverse cardiopulmonary and . (6) Renal cyst: Code(s): N28.1 - Cyst of kidney, acquired Status: Acute Assessment and Plan: 6mm hemorrhagic cyst of right kidney and 9mm mass in left kidney read by radiology as too small to characterize but likely a cyst . He will need outpatient follow-up for surveillance. (7) Chronic pancreatitis: Code(s): K86.1 - Other chronic pancreatitis Status: Acute Assessment and Plan: Noted on CT abd/pelvis with pancreatic tail calcifications. He will need to follow-up with his PCP outpatient. Lipase was normal. Subjective Date/time seen: 01/23/20 10:39 Mr. Tam is a 74 y.o. male with PMH significant for hypertension, aortic aneurysm, and tobacco dependence who is seen in follow-up for small bowel obstruction. His primary complaint is discomfort from his NG tube. He notes no nausea today. He states lower abdominal pain is rated 2-3. Pain is cramping in nature. He denies fever and chills. He is not passing flatus and his last bowel movement was 3 days ago. He notes bloating and distention. He is not interested in smoking cessation and is uninterested in listening to me discuss reasons it is important to stop smoking. I reiterated the risk of adverse cardiopulmonary outcomes including . He notes that his urine has been a darker yellow recently with minimal output and he thinks he is dehydrated as he noted very poor PO intake given his GI discomfort. He is not having any shortness of breath or estella
[2020-01-23 14:26] LABS: Potassium 4.9 mmol/L (3.4-5.0)
--- NOTE | 2020-01-23 17:40 | PC.NURSE ---
IV protonix and acetaminophen were not available on the floor at 1740 when the PACU nurse called for report on the patient. I notified the nurse that I would not be able to administer these medications to the patient before he was taken for surgery. I will pass it along to the nightshift nurse that these medications were not administered to the patient due to being unavailable.
--- NOTE | 2020-01-23 17:55 | PC.NURSE ---
Addendum entered by Stephanie Knott RN 01/23/20 17:57: FRANCISCO Johnson stated that he would have the patient sign the consent for the exploratory laparotomy in the preop area. Original Note: To OR per bed, IV saline locked. Report given to FRANCISCO Johnson .
--- NOTE | 2020-01-23 18:01 | WPDANESEPPF ---
Anes - Initial Pre Proc Eval Procedure: Operation Date: 01/23/20 19:00 Proposed Procedures p Exploratory Laparotomy, Possible Bowel Resection, Possible Ostomy - Eulalia Perez MD Date/Time: 01/23/20 18:01 Surgeon: Stacey Cruz PA-C Pre Op Diagnosis: Small Bowel Obstr w/acute on Chronic Renal Injury Patient Data Age: 74 Gender: M Height: 1.78 m Weight: 76.4 kg Last Vital Signs Temp 36.1 C L 01/23/20 14:00 Pulse 80 01/23/20 14:00 Resp 18 01/23/20 14:00 BP 133/74 01/23/20 14:00 Pulse Ox 91 01/23/20 14:00 Allergies Allergy/AdvReac Type Severity Reaction Status Date / Time No Known Allergies Allergy Unknown NONE Verified 01/22/20 21:20 Home Medications Medication Instructions Recorded Confirmed Type lisinopril 30 mg PO DAILY 01/22/20 01/22/20 History Laboratory Tests 01/22/20 01/23/20 01/23/20 19:40 05:32 05:32 WBC 10.0 K/mm3 K/mm3 (4.5-10.0) RBC 6.17 M/mm3 M/mm3 (4.6-6.20) Hgb 18.5 g/dL H g/dL (14.0-18.0) Hct 55.1 % H % (42.0-52.0) MCV 89.3 fl fl (80-100) MCH 30.0 pg pg (26-34) MCHC 33.6 g/dl g/dl (32-36) RDW 13.5 % % (11.5-14.5) Plt Count 205 k/mm3 k/mm3 (150-375) MPV 10.8 fl H fl (7.4-10.4) Immature Gran % (Auto) 0.2 % % (0-0.5) Neut % (Auto) 75.5 % H % (45.5-73.1) Lymph % (Auto) 10.5 % L % (18.3-44.2) [place] % (Auto) 13.4 % H % (2.6-8.5) Eos % (Auto) 0.1 % % (0-4.4) Baso % (Auto) 0.3 % % (0.2-1.2) Lymph # (Auto) 1.05 K/mm3 K/mm3 (0.9-3.2) [place] # (Auto) 1.3 K/mm3 H K/mm3 (0.1-0.6) Eos # (Auto) 0.0 K/mm3 K/mm3 (0-0.3) Baso # (Auto) 0.0 K/mm3 K/mm3 (0.0-0.1) Abs Immat Gran (auto) 0.02 K/mm3 K/mm3 (0.00-0.031) Absolute Neuts (auto) 7.5 K/mm3 H K/mm3 (1.3-6.7) Absolute Nucleated RBC 0.0 K/mm3 K/mm3 (0.0-0.012) Nucleated RBC % 0.0 % % (0.0-0.2) Sodium 135 mmol/L L mmol/L (137-145) Potassium 5.1 mmol/L H mmol/L (3.4-5.0) Chloride 93 mmol/L L mmol/L (98-107) Carbon Dioxide 30 mmol/L mmol/L (22-30) Anion Gap 12 mmol/L mmol/L (8-16) BUN 72 mg/dL H D mg/dL (9-20) Creatinine 2.00 mg/dL H mg/dL (0.7-1.3) Estim Creat Clear Calc 30 ml/min ml/min Estimated GFR 33 L (59 - ) Glucose 131 mg/dL H mg/dL (75-110) Calcium 9.2 mg/dL mg/dL (8.4-10.2) Urine Color [place] (Yellow) Urine Appearance Cloudy H (Clear) Urine pH 5.0 (5.0-9.0) Ur Specific [place] 1.021 (1.001-1.035) Urine Protein 1+ mg/dL H mg/dL (Negative) Urine Glucose (UA) Negative mg/dL mg/dL (Negative) Urine Ketones Negative mg/dL mg/dL (Negative) Ur Blood (Man) Negative (Negative) Urine Nitrate Negative (Negative) Urine Bilirubin 1+ H (Negative) Urine Urobilinogen 4.0 mg/dL H mg/dL (<2.0) Leukocyte Esterase Rfl 1+ ALONA/UL H ALONA/UL (Negative) Urine RBC 0-2 /hpf /hpf (0-2) Urine WBC 7-9 /hpf H /hpf Ur Squamous Epith Cells Many /hpf H /hpf (Few) Urine Bacteria Trace /hpf /hpf Hyaline Casts 3-4 /lpf H /lpf (None) Urine Mucus Rare /lpf /lpf 01/23/20 14:08 WBC RBC Hgb Hct MCV MCH MCHC RDW Plt Count MPV Immature Gran % (Auto) Neut % (Auto) Lymph % (Auto) [place] % (Auto) Eos % (Auto) Baso % (Auto) Lymph # (Auto) [place] # (Auto) Eos # (Auto) Baso # (Auto) Abs Immat Gran (auto) Absolute Neuts (auto) Absolute Nucleated RBC Nucleated RBC % Sodium Potassium
[2020-01-23] MEDS: LACTATED RINGERS 1,000 ML 30 ML IV CONT (18:21)
[2020-01-23] MEDS: ceFAZolin 2 GM/D5W 50 ML 2 GM/50 ML BAG IVPB (18:23)
--- NOTE | 2020-01-23 20:07 | P.OP_ITS ---
Procedure Note - Detailed Date of procedure: 01/23/20 Pre-op diagnosis: Small Bowel Obstr w/acute on Chronic Renal Injury Post-op diagnosis: other (sbo c evidence of necrosis, perforation) Procedure performed: Exploratory laparotomy with extensive lysis of adhesion of approximately 1/2 hour, small bowel resection x2 Description of procedure: The patient was taken to the operating room placed in the supine position. After adequate induction of general anesthesia, the patient was prepped and draped in the normal sterile fashion. A time-out was then done to verify the patient's identity, as well as the procedure being performed. I began by making a midline incision around the umbilicus. Was taken down into the peritoneal cavity. Upon entering the peritoneal cavity, there was noted to be a moderate amount of ascitic fluid. It was noted that the bowel was massively distended. Upon running the small intestine, there is noted to be dense adhesion in the right lower quadrant at the area of his previous open appendectomy. Upon doing some gentle traction of the adhesed bowel, areas of necrosis and perforation were noted. This was largely due to the amount of pressure and distention of the small intestine. The small intestine was noted to be very friable and there was evidence of necrosis. A large amount of succus was decompressed at this point. This was noted to be around 2 L. I was able to take down all the adhesions in this area with both blunt and sharp dissection. This took approximately 1/2 hour. Once done, there is noted to be multiple perforations and necrosis in the proximal ileum. Most of this was centered around a approximately 20 cm segment. At this point, I went ahead and resected this segment. I then did a [id number] functional end-to-end anastomosis. I did over-sew the staple line with interrupted 3 0 silk sutures. The anastomosis was noted to be widely patent. There was a another small perforation distal to this area. I went ahead and resected this area which measured approximately 9 cm. Again a [id number] functional end-to-end anastomosis was done. I again over sewed the staple line with 3 0 silk sutures. At this point is able to run the entirety of the small bowel. No other adhesions or pathology was noted. An extensive washout was then done and no other pathology. I then left a 19 [place] drain in the right lower quadrant given the large amount of contamination. I then closed the fascia with a 1. PDS. The skin was closed with skin samson. The patient tolerated the procedure well and was extubated in the operating room postoperatively. He will be transferred to the recovery room in stable condition. Implants: none Anesthesia: GETA Surgeon: Eulalia Perez MD Estimated blood loss (mL): 50 Drains: Yes Packing: No Pathology: yes Complications: No immediate complications Condition: stable Disposition: PACU Findings: extensive adhesions in right lower quadrant proximal ileum with evidence of necrosis and perforation
[2020-01-23] MEDS: fentaNYL CITRATE INJ (*CRX) 100 MCG/2 ML VIAL 25 MCG IV PUSH ×4 (20:25→20:53)
[2020-01-23] MEDS: PANTOPRAZOLE SODIUM IV 40 MG VIAL IV PUSH (22:55)
[2020-01-23] MEDS: ENOXAPARIN 40 MG/0.4 ML SYRINGE SUB-Q (22:56)
[2020-01-24] VITALS (27 sets, daily range): BP systolic 53–105; BP diastolic 30–82; PULSE 83–110; RESP 16–24; TEMP 35.8–36.4; O2SAT 91–100
[2020-01-24] MEDS: HYDROmorphone HCL INJ (*CRX) 1 MG/ML SYR IV PUSH ×6 (00:01→12:37)
--- NOTE | 2020-01-24 03:11 | PC.NURSE ---
patient back from surgery at 21:40. vital signs stable
--- NOTE | 2020-01-24 05:28 | PC.NURSE ---
dr bowman was notified at 11:30 01/23/2020 because pts pain was not controlled with morphine, see MAR for new pain med order. pts pain has been relieved and is sleeping well.
[2020-01-24] MEDS: SODIUM CHLORIDE 0.9% IV 1,000 ML 100 ML IV CONT ×2 (06:25→17:32)
[2020-01-24 08:11] LABS: Basophils Percent Auto 0.6 % (0.2-1.2); Hematocrit 52.3 % (42.0-52.0); Hemoglobin 17.4 g/dL (14.0-18.0); Immature Granulocyte Absolute 0.06 K/mm3 (0.00-0.031); Immature Granulocyte Percent A 1.7 % (0-0.5); Lymphocytes Absolute Auto 0.37 K/mm3 (0.9-3.2); Lymphocytes Percent Auto 10.3 % (18.3-44.2); Mean Corpuscular HGB Conc 33.3 g/dl (32-36); Mean Corpuscular Hemoglobin 30.2 pg (26-34); Mean Corpuscular Volume 90.6 fl (80-100); Mean Platelet Volume 12.1 fl (7.4-10.4); Monocytes Absolute Auto 0.5 K/mm3 (0.1-0.6); Monocytes Percent Auto 12.6 % (2.6-8.5); Neutrophils Absolute Auto 2.7 K/mm3 (1.3-6.7); Neutrophils Percent Auto 74.8 % (45.5-73.1); Platelet Count Result 151 k/mm3 (150-375); Red Blood Count 5.77 M/mm3 (4.6-6.20); Red Cell Distribution Width 13.7 % (11.5-14.5); White Blood Count 3.6 K/mm3 (4.5-10.0)
[2020-01-24 08:33] LABS: Alanine Aminotransferase 13 U/L (4-50); Albumin Level 2.8 g/dL (3.5-5.1); Alkaline Phosphatase 46 U/L (38-126); Anion Gap 11 mmol/L (8-16); Aspartate Amino Transferase 23 U/L (17-59); Bilirubin,Total 1.4 mg/dL (0.2-1.3); Blood Urea Nitrogen 95 mg/dL (9-20); Calcium 7.9 mg/dL (8.4-10.2); Carbon Dioxide 27 mmol/L (22-30); Chloride 99 mmol/L (98-107); Estimated CRCL calculation 24 ml/min; Estimated Glomerular Filt Rate 25; Glucose 105 mg/dL (75-110); Magnesium 3.8 mg/dL (1.6-2.3); Sodium 137 mmol/L (137-145)
[2020-01-24] MEDS: NICOTINE (*PBKC) 21 MG PATCH 1 PATCH TRANSDERM (09:33)
[2020-01-24] MEDS: PANTOPRAZOLE SODIUM IV 40 MG VIAL IV PUSH (09:36)
--- NOTE | 2020-01-24 09:38 | PM.PNGS ---
Progress Note: A&P Assessment and Plan (1) Small bowel obstruction: Code(s): K56.609 - Unspecified intestinal obstruction, unspecified as to partial versus complete obstruction Status: Acute Assessment and Plan: s/p ex lap, SBR x 2, stable, cont pain control, encourage OOB/IS, cont abx Subjective Subjective Date/Time Seen: 01/24/20 09:38 c/o soreness, incisional pain Review of Systems Review of Systems: All systems reviewed & are unremarkable except as noted in HPI and below Exam Const: General: cooperative and acute distress mild Resp: Effort & Inspection: normal respiratory effort Auscultation: clear to auscultation bilaterally Cardio: Rate: regular rate Rhythm: regular rhythm GI: Inspection: normal to inspection, distended and incision GI Palp: Yes abdominal tenderness, Yes Soft to palpation, Yes Tenderness to palpation present (GI) and No Guarding due to palpation present (GI) Objective Data Vital Signs Vital Signs: Vital Signs - 24 hr 01/23/20 14:00 01/23/20 18:15 01/23/20 20:05 Temperature 36.1 C L 36.2 C L 36.6 C Pulse Rate 80 71 88 Respiratory Rate 18 16 24 H Blood Pressure 133/74 139/72 168/67 H Pulse Oximetry 91 92 96 01/23/20 20:20 01/23/20 20:35 01/23/20 20:50 Temperature Pulse Rate 92 88 88 Respiratory Rate 22 H 23 H 18 Blood Pressure 167/63 H 153/61 H 142/54 H Pulse Oximetry 90 90 01/23/20 21:05 01/23/20 21:20 01/23/20 21:45 Temperature 36.1 C L Pulse Rate 93 90 93 Respiratory Rate 20 22 H 20 Blood Pressure 129/64 140/58 L 136/64 Pulse Oximetry 92 93 92 01/23/20 22:00 01/23/20 22:15 01/23/20 22:45 Temperature 35.9 C L 36.2 C L 36.2 C L Pulse Rate 22 L 20 L 110 H Respiratory Rate 90 H 93 H 20 Blood Pressure 136/67 126/59 L 130/65 Pulse Oximetry 93 90 94 01/24/20 02:09 01/24/20 06:00 Temperature 36.1 C L 36.1 C L Pulse Rate 95 94 Respiratory Rate 20 22 H Blood Pressure 104/62 96/57 L Pulse Oximetry 92 92 Intake/Output Intake/Output: Intake & Output 01/21/20 01/22/20 01/23/20 01/24/20 23:59 23:59 23:59 23:59 Intake Total 1000 2227 1000 Output Total 2440 520 Balance 1000 -213 480 Meds/Results Medications: Active Medications Generic Name Dose Route Start Last Admin Trade Name Freq PRN Reason Stop Dose Admin Enoxaparin Sodium 40 mg 01/23/20 21:00 01/23/20 22:56 Enoxaparin 40 Mg/0.4 Ml Syringe SUB-Q 40 mg HS JORJE Administration Hydromorphone HCl 1 mg 01/23/20 23:36 01/24/20 04:03 Hydromorphone Hcl Inj (*Crx) 1 Mg/Ml Syr IV PUSH 1 mg Q1H PRN Administration Pain Rated 7-10 Sodium Chloride 1,000 mls @ 100 mls/hr 01/22/20 19:05 01/24/20 06:25 Normal Saline Iv IV CONT 100 mls/hr .Q10H JORJE Administration Acetaminophen 1,000 mg in 100 mls @ 400 mls/hr 01/23/20 18:00 01/24/20 06:23 Ofirmev 1,000 Mg Ivpb IVPB 01/24/20 18:01 400 mls/hr Q6HR JORJE Administration Nicotine 1 patch 01/24/20 09:00 01/24/20 09:33 Nicotine (*Pbkc) 21 Mg Patch TRANSDERM 1 patch QAM JORJE Administration Ondansetron HCl 4 mg 01/22/20 19:05 01/23/20 01:28 Ondansetron Inj 4 Mg/2 Ml Vial IV PUSH 4 mg Q4H PRN Administration Nausea Pantoprazole Sodium 40 mg 01/23/20 16:30 01/24/20 09:36 Pantoprazole Sodium Iv 40 Mg Vial IV PUSH 40 mg QAM JORJE Administration Radiology Results: ITS Impressions Abdomen/Pelvis CT 01/22/20 18:16 IMPRESSION: 1. High-grade small bowel obstruction with transition point in right abdomen. 2. 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 3. Emphysema. Abdomen X-Ray 01/23/20 07:50 IMPRESSION: 1. Nasogastric tube in the stomach. 2. Dilated small bowel, consistent with obstruction. Renal Ultrasound 01/23/20 17:05 IMPRESSION: 1. Normal kidney sizes. No hydronephrosis. Small Bowel X-Ray 01/23/20 18:08 IMPRESSION: 1. Small bowel obstruction. Labs Labs: Laboratory Results - last 24 hr 01/23/20 01/24/20
[2020-01-24] MEDS: CIPROFLOXACIN 400 MG/D5W 200ML 200 ML 200 MG IVPB (10:45)
--- NOTE | 2020-01-24 13:27 | PM.IMPN ---
Progress Note: A&P Assessment and Plan (1) Small bowel obstruction: Code(s): K56.609 - Unspecified intestinal obstruction, unspecified as to partial versus complete obstruction Status: Acute Assessment and Plan: CT abd/pelvis demonstrates high-grade small bowel obstruction with transition point in the right abdomen. POD1 ex lap extensive lysis of adhesion, small bowel resection x2 per Dr. Perez. Appears to be overally sedated at time of visit. Continue NPO, bowel rest with NG tube decompression, and IV fluids. Pain management per General Surgery. Continue IV antiemetics as needed. General surgery is following. (2) Acute kidney injury: Code(s): N17.9 - Acute kidney failure, unspecified Status: Acute Assessment and Plan: Likely secondary to acute dehydration from decreased PO intake. BUN is very high at 95 with ratio >20:1 suggesting pre-renal etiology. Cr also elevated at 2.50. Will request records to determine baseline renal function from Dr. Pepe's office. Renal US unremarkable. Will repeat BMP this afternoon to ensure improvement in renal function with IVF Continue gentle IV fluids. Continue to monitor renal function and urine output. Avoid nephrotoxic agents. Consider Nephrology consultation if no improvement (3) Aortic aneurysm: Qualifiers: Aortic location: abdominal aorta Presence of rupture: without rupture Qualified Code(s): I71.4 - Abdominal aortic aneurysm, without rupture Code(s): I71.9 - Aortic aneurysm of unspecified site, without rupture Status: Acute Assessment and Plan: Infrarenal 4.4 cm fusiform aneurysm of the infrarenal aorta was visualized on CT abd/pelvis. He will need repeat imaging in 6 months - 1 year and would benefit from referral to vascular surgery at discharge; this was discussed with Daughter who was at bedside at time of visit. She understood instructions (4) Hypertension: Qualifiers: Hypertension type: unspecified Qualified Code(s): I10 - Essential (primary) hypertension Code(s): I10 - Essential (primary) hypertension Status: Chronic Assessment and Plan: Blood pressures are reasonably controlled but a bit soft this morning; last was 96/57. Lisinopril is currently held given JOHNNIE and NPO status. Resume when clinically appropriate. (5) Tobacco dependence: Code(s): F17.200 - Nicotine dependence, unspecified, uncomplicated Status: Chronic Assessment and Plan: Advised that the patient needs to stop smoking immediately. Discussed potential risks including adverse cardiopulmonary and . (6) Renal cyst: Code(s): N28.1 - Cyst of kidney, acquired Status: Acute Assessment and Plan: 6mm hemorrhagic cyst of right kidney and 9mm mass in left kidney read by radiology as too small to characterize but likely a cyst . He will need outpatient follow-up for surveillance. (7) Chronic pancreatitis: Code(s): K86.1 - Other chronic pancreatitis Status: Acute Assessment and Plan: Noted on CT abd/pelvis with pancreatic tail calcifications. He will need to follow-up with his PCP outpatient. Lipase was normal. Subjective Date/time seen: 01/24/20 13:27 Interval history: Patient is a 74 yo M with PMH significant for hypertension, aortic aneurysm, and tobacco dependence who is seen in follow-up for small bowel obstruction; patient POD 1 exploratory laparotomy with extensive lysis of adhesion of approximately 1/2 hour, small bowel resection x2. Patient is very lethargic and awakes to verbal stimuli but goes back to sleep easily. Daughter in room visiting who states his pain medication
--- NOTE | 2020-01-24 13:53 | P.PNAN_ITS ---
Anes - Prog Note Post-Op Date/Time: 01/24/20 13:53 Cardiovascular status: normal Respiratory status: normal Airway patency: baseline Mental status: baseline Post-Op hydration status: normal Vital Signs: Last Vital Signs Temp 36.1 C L 01/24/20 06:00 Pulse 94 01/24/20 06:00 Resp 22 H 01/24/20 06:00 BP 96/57 L 01/24/20 06:00 Pulse Ox 92 01/24/20 06:00 Pain Score (VAS): 04/28 I/O: Intake & Output 01/23/20 01/24/20 01/24/20 23:59 07:59 15:59 Intake Total 400 1100 Output Total 140 520 Balance 260 580 Laboratory Tests 01/24/20 07:51 01/24/20 07:51 01/23/20 01/24/20 01/24/20 14:08 07:51 07:51 WBC 3.6 L RBC 5.77 Hgb 17.4 Hct 52.3 H MCV 90.6 MCH 30.2 MCHC 33.3 RDW 13.7 Plt Count 151 MPV 12.1 H Immature Gran % (Auto) 1.7 H Neut % (Auto) 74.8 H Lymph % (Auto) 10.3 L [place] % (Auto) 12.6 H Eos % (Auto) 0.0 Baso % (Auto) 0.6 Lymph # (Auto) 0.37 L [place] # (Auto) 0.5 Eos # (Auto) 0.0 Baso # (Auto) 0.0 Abs Immat Gran (auto) 0.06 H Absolute Neuts (auto) 2.7 Absolute Nucleated RBC 0.0 Nucleated RBC % 0.0 Sodium 137 Potassium 4.9 4.0 Chloride 99 Carbon Dioxide 27 Anion Gap 11 BUN 95 H D Creatinine 2.50 H Estim Creat Clear Calc 24 Estimated GFR 25 L Glucose 105 Calcium 7.9 L Magnesium 3.8 H Total Bilirubin 1.4 H AST 23 ALT 13 Alkaline Phosphatase 46 Total Protein 5.0 L Albumin 2.8 L Microbiology 01/22/20 19:40 Urine Clean Catch Urine Culture - Final Post-procedural complaints: none Patient Feedback: Patient satisfied with anesthetic care.
[2020-01-24 14:10] LABS: Anion Gap 11 mmol/L (8-16); Blood Urea Nitrogen 96 mg/dL (9-20); Calcium 7.7 mg/dL (8.4-10.2); Carbon Dioxide 26 mmol/L (22-30); Chloride 98 mmol/L (98-107); Estimated CRCL calculation 19 ml/min; Estimated Glomerular Filt Rate 19; Glucose 90 mg/dL (75-110); Magnesium 3.8 mg/dL (1.6-2.3); Potassium 4.4 mmol/L (3.4-5.0); Sodium 135 mmol/L (137-145)
[2020-01-24] MEDS: NALOXONE HCL 0.4 MG/ML VIAL IV PUSH (14:20)
[2020-01-24] MEDS: SODIUM CHLORIDE 0.9% IV 1,000 ML 999 ML IV CONT ×4 (14:20→19:26)
[2020-01-24 16:14] LABS: Glucose Point of Care 83 (65-105)
[2020-01-24] MEDS: metroNIDAZOLE 500 MG/ISO 100ML 500 MG/100 ML BAG 100 MG IVPB ×2 (17:32→21:38)
--- NOTE | 2020-01-24 17:36 | PC.NURSE ---
Patient transferred from 255 to 231. Patient belongings transferred with patient.
[2020-01-24 19:09] LABS: Hematocrit 48.1 % (42.0-52.0); Mean Corpuscular HGB Conc 33.3 g/dl (32-36); Mean Corpuscular Hemoglobin 30.4 pg (26-34); Mean Corpuscular Volume 91.4 fl (80-100); Mean Platelet Volume 12.1 fl (7.4-10.4); Platelet Count Result 118 k/mm3 (150-375); Red Blood Count 5.26 M/mm3 (4.6-6.20); White Blood Count 5.8 K/mm3 (4.5-10.0)
[2020-01-24] MEDS: SODIUM CHLORIDE 0.9% IV 1,000 ML 150 ML IV CONT (20:09)
--- NOTE | 2020-01-24 21:09 | P.PCNBED_ITS ---
Procedures Central Line Placement Left Femoral: Central Line Date: 01/24/20 Central Line Time: 21:10 Discussed w/ the patient/family/POA,the placement of a central venous catheter, including its clinical necessity/indication & associated potential risks, benifits and alternatives.: Yes Time Out Performed: Yes Patient Position: supine Patient placed on monitor/pulse ox: Yes Provider Prep: mask, sterile gown, sterile gloves, Max. sterile barrier precautions, cap and hand hygiene with conventional soap/water or alcohol based hand rub Central line prep: 2% Chlorhexidine scrub and sterile full body sheet applied Local anesthesia used: lidocaine 1% Amount of anesthesia used (ml): 4 Sterile US Technique with sterile gel/sterile probe covers: Yes Portuguese: 7 Length (cm): 20 Depth of Insertion (cm): 20 Post procedure: sutured in place, good blood return, all ports aspirated, flushed, capped, tegaderm and aseptic technique maintained throughout procedure Patient tolerated procedure: well Complications: none Additional comments: Date of service was 01/24/2020 at 20:50 hrs.
[2020-01-24] MEDS: NOREPINEPHRINE 8 MG/D5W 250 ML 8 MG/250 ML BAG 9.38 MG IV CONT (21:37)
--- NOTE | 2020-01-24 22:21 | PC.NURSE ---
[facility]ra held tonight per Dr Conrad, PLT trending down.
[2020-01-25] VITALS (35 sets, daily range): BP systolic 71–181; BP diastolic 46–79; PULSE 79–108; RESP 17–32; TEMP 36.2–36.7; O2SAT 91–96
[2020-01-25] MEDS: SODIUM CHLORIDE 0.9% IV 1,000 ML 150 ML IV CONT (03:56)
[2020-01-25 05:16] LABS: Basophils Percent Auto 0.3 % (0.2-1.2); Eosinophils Percent Auto 0.2 % (0-4.4); Hematocrit 47.6 % (42.0-52.0); Hemoglobin 15.7 g/dL (14.0-18.0); Immature Granulocyte Absolute 0.52 K/mm3 (0.00-0.031); Immature Granulocyte Percent A 8.2 % (0-0.5); Lymphocytes Absolute Auto 0.37 K/mm3 (0.9-3.2); Lymphocytes Percent Auto 5.8 % (18.3-44.2); Mean Corpuscular Hemoglobin 29.6 pg (26-34); Mean Corpuscular Volume 89.8 fl (80-100); Mean Platelet Volume 12.7 fl (7.4-10.4); Monocytes Absolute Auto 0.4 K/mm3 (0.1-0.6); Monocytes Percent Auto 6.3 % (2.6-8.5); Neutrophils Percent Auto 79.2 % (45.5-73.1); Platelet Count Result 128 k/mm3 (150-375); White Blood Count 6.4 K/mm3 (4.5-10.0)
[2020-01-25 05:58] LABS: Glucose Point of Care 49 (65-105)
[2020-01-25] MEDS: DEXTROSE 50% 25 GM/50 ML SYRINGE IV PUSH (06:12)
[2020-01-25] MEDS: metroNIDAZOLE 500 MG/ISO 100ML 500 MG/100 ML BAG 100 MG IVPB ×2 (06:13→14:33)
[2020-01-25] MEDS: DEXTROSE 5% 1,000 ML 1,000 ML 100 ML IV CONT (06:38)
[2020-01-25 06:48] LABS: Glucose Point of Care 73 (65-105)
[2020-01-25] MEDS: NOREPINEPHRINE 8 MG/D5W 250 ML 8 MG/250 ML BAG 24.38 MG IV CONT (08:15)
[2020-01-25 08:20] LABS: Glucose Point of Care 87 (65-105)
[2020-01-25 08:48] LABS: Lactic Acid Reflex 3.7 mmol/L (0.7-2.1)
[2020-01-25 08:54] LABS: NT Pro B Type Natriuretic Pept 4600 PG/ML (5-100)
[2020-01-25 09:21] LABS: Anion Gap 8 mmol/L (8-16); Blood Urea Nitrogen 81 mg/dL (9-20); Calcium 6.9 mg/dL (8.4-10.2); Carbon Dioxide 24 mmol/L (22-30); Chloride 106 mmol/L (98-107); Estimated CRCL calculation 27 ml/min; Estimated Glomerular Filt Rate 29; Glucose 114 mg/dL (75-110); Magnesium 3.3 mg/dL (1.6-2.3); Phosphorus 4.9 mg/dL (2.5-4.5); Potassium 4.7 mmol/L (3.4-5.0); Sodium 138 mmol/L (137-145)
[2020-01-25 09:27] LABS: Creatine Kinase 2130 U/L (55-170)
[2020-01-25] MEDS: CIPROFLOXACIN 400 MG/D5W 200ML 200 ML 200 MG IVPB (09:43)
[2020-01-25] MEDS: NICOTINE (*PBKC) 21 MG PATCH 1 PATCH TRANSDERM (09:44)
[2020-01-25] MEDS: PANTOPRAZOLE SODIUM IV 40 MG VIAL IV PUSH (09:44)
--- NOTE | 2020-01-25 09:47 | WPDCNINT ---
Assessment and Plan Assessment and plan (1) Shock: Code(s): R57.9 - Shock, unspecified Status: Acute Assessment and Plan: septic versus hypovolemia versus cardiogenic versus combination CTA IMPRESSION: 1. Dilated small bowel, consistent with adynamic ileus. 2. Widespread fat stranding in the peritoneum, consistent with inflammation versus edema. Trace ascites. 3. 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 4. Small pleural effusions. 5. Dependent airspace opacities in the lower lobes, consistent with atelectasis versus pneumonia. 6. Emphysema. CXR 1. Airspace opacities in the mid and lower lung zones with a basilar predominance, left worse than right, consistent with atelectasis versus pneumonia. 2. Small left pleural effusion. 3. Emphysema. ? Aspiration check blood, UA and urine culture check lactic acid level patient on ciprofloxacin and Flagyl. changed to vancomycin and Zosyn received close to 4 L of fluid bolus yesterday. continue maintenance IV fluids continue Levophed titration to maintain map [place]et[place]/ NICOM assessment for fluid responsiveness as BNP is elevated at 4600 check echocardiogram (2) Small bowel obstruction: Code(s): K56.609 - Unspecified intestinal obstruction, unspecified as to partial versus complete obstruction Status: Acute Assessment and Plan: CT abd/pelvis demonstrates high-grade small bowel obstruction with transition point in the right abdomen. 01/22 ex lap extensive lysis of adhesion, small bowel resection x2 per Dr. Perez. now has adynamic ileus Continue NPO, bowel rest with NG tube decompression, and IV fluids. Continue IV antiemetics as needed. General surgery is following. (3) Acute kidney injury: Code(s): N17.9 - Acute kidney failure, unspecified Status: Acute Assessment and Plan: Likely secondary to acute dehydration from decreased PO intake which may now has progress to ATN. patient also has mild rhabdo continue cautious IV fluid baseline creatinine unknown at this time Renal US unremarkable. (4) Aortic aneurysm: Qualifiers: Aortic location: abdominal aorta Presence of rupture: without rupture Qualified Code(s): I71.4 - Abdominal aortic aneurysm, without rupture Code(s): I71.9 - Aortic aneurysm of unspecified site, without rupture Status: Acute Assessment and Plan: Infrarenal 4.4 cm fusiform aneurysm of the infrarenal aorta was visualized on CT abd/pelvis. He will need follow-up as an up. Patient and use family is aware of the findings (5) Tobacco dependence: Code(s): F17.200 - Nicotine dependence, unspecified, uncomplicated Status: Chronic Assessment and Plan: patient has nicotine patch on I have encouraged him to quit (6) Chronic pancreatitis: Code(s): K86.1 - Other chronic pancreatitis Status: Acute Assessment and Plan: lipase was normal on presentation NPO (7) Ileus: Code(s): K56.7 - Ileus, unspecified Status: Acute Assessment and Plan: NG tube to suction NPO (8) Rhabdomyolysis: Code(s): M62.82 - Rhabdomyolysis Status: Acute Assessment and Plan: continue IV fluids monitor CK level Additional Plan DVT prophylaxis - change Lovenox dose Stress ulcer prophylaxis - PPI Nutrition - NPO Code Status - Full Code Total Critical Care Time - 35 minutes Due to a high probability of clinically significant, life threatening deterioration, the patient required my highest level of preparedness to intervene emergently and I personally spent this critical care time directly and personally managing the patient. This critical care time included obtaining a history; examining the patient; pulse oximetry; ordering and review of studies; arranging urgent treatment with development of a management plan; evaluation of patient's response to treatment; frequent reassessm
[2020-01-25] MEDS: CALCIUM CHLOR 1,000MG/100ML NS 1,000 MG/100 ML BAG 100 MG IVPB (11:18)
[2020-01-25] MEDS: DEXTROSE 5%/0.9% SOD CHL 1,000 ML 50 ML IV CONT (11:18)
[2020-01-25 11:32] LABS: Reflex Lactic Acid Yes or No Add Lactic
[2020-01-25 12:00] LABS: Glucose Point of Care 77 (65-105)
--- NOTE | 2020-01-25 12:10 | PM.PNGS ---
Progress Note: A&P Assessment and Plan (1) Shock: Code(s): R57.9 - Shock, unspecified Status: Acute Assessment and Plan: likely secondary to volume depletion, cont resus, wean pressor as rosendo (2) Acute kidney injury: Code(s): N17.9 - Acute kidney failure, unspecified Status: Acute Assessment and Plan: see above (3) Small bowel obstruction: Code(s): K56.609 - Unspecified intestinal obstruction, unspecified as to partial versus complete obstruction Status: Acute Assessment and Plan: cont NG decompression, await bowel fxn Subjective Subjective Date/Time Seen: 01/25/20 12:10 feels sl improved today, very weak and sore Review of Systems Review of Systems: All systems reviewed & are unremarkable except as noted in HPI and below Exam Const: General: alert, awake, acute distress mild and ill appearing Resp: Effort & Inspection: normal respiratory effort Auscultation: diminished lung sounds Cardio: Rate: regular rate Rhythm: regular rhythm GI: Inspection: normal to inspection, Abdominal wall edema, distended and incision GI Palp: Yes abdominal tenderness, Yes Soft to palpation, Yes Tenderness to palpation present (GI) and No Guarding due to palpation present (GI) Objective Data Vital Signs Vital Signs: Vital Signs - 24 hr 01/24/20 14:00 01/24/20 14:25 01/24/20 14:30 Temperature 36.2 C L Pulse Rate 89 85 85 Respiratory Rate 16 24 H 24 H Blood Pressure 53/33 L 67/48 L 63/39 L Pulse Oximetry 96 95 96 01/24/20 14:45 01/24/20 14:50 01/24/20 15:05 Temperature 36.2 C L Pulse Rate 83 88 89 Respiratory Rate 20 20 20 Blood Pressure 63/40 L 97/48 L 68/46 L Pulse Oximetry 96 98 98 01/24/20 15:30 01/24/20 15:59 01/24/20 16:00 Temperature Pulse Rate 85 90 Respiratory Rate 24 H Blood Pressure 87/45 L 70/30 L Pulse Oximetry 95 01/24/20 16:43 01/24/20 18:00 01/24/20 18:46 Temperature 35.8 C L Pulse Rate 90 84 Respiratory Rate 24 H Blood Pressure 105/82 78/43 L Pulse Oximetry 100 01/24/20 19:38 01/24/20 20:00 01/24/20 20:35 Temperature 36.4 C L Pulse Rate 94 97 Respiratory Rate 18 Blood Pressure 88/45 L 75/52 L Pulse Oximetry 95 95 91 01/24/20 21:37 01/24/20 21:41 01/24/20 21:55 Temperature Pulse Rate 97 98 101 H Respiratory Rate Blood Pressure 81/50 L 84/53 L 86/53 L Pulse Oximetry 01/24/20 22:00 01/24/20 22:07 01/24/20 22:24 Temperature Pulse Rate 100 100 100 Respiratory Rate Blood Pressure 90/56 L 97/52 L Pulse Oximetry 01/24/20 22:38 01/24/20 22:53 01/24/20 23:04 Temperature Pulse Rate 97 Respiratory Rate Blood Pressure 93/61 L 94/59 L 101/59 L Pulse Oximetry 01/24/20 23:30 01/25/20 00:00 01/25/20 01:00 Temperature 36.3 C L Pulse Rate 110 H 102 H 100 Respiratory Rate 24 H 20 20 Blood Pressure 101/58 L 109/61 97/54 L Pulse Oximetry 93 93 96 01/25/20 02:00 01/25/20 02:56 01/25/20 03:00 Temperature Pulse Rate 105 H 105 H 106 H Respiratory Rate 20 20 Blood Pressure 99/66 L 99/66 L 103/63 Pulse Oximetry 91 95 01/25/20 04:00 01/25/20 05:00 01/25/20 06:00 Temperature 36.2 C L Pulse Rate 107 H 108 H 100 Respiratory Rate 24 H 20 24 H Blood Pressure 99/63 L 99/57 L 109/62 Pulse Oximetry 92 92 92 01/25/20 08:00 01/25/20 08:15 01/25/20 08:51 Temperature 36.7 C Pulse Rate 104 H 103 H 104 H Respiratory Rate 32 H Blood Pressure 103/63 103/61 103/63 Pulse Oximetry 91 01/25/20 09:33 01/25/20 10:00 01/25/20 10:06 Temperature Pulse Rate 106 H 103 H 104 H Respiratory Rate 17 Blood Pressure 111/62 111/67 111/67 Pulse Oximetry 92 01/25/20 11:00 01/25/20 11:50 Temperature 36.4 C Pulse Rate 103 H 96 Respiratory Rate 28 H 28 H Blood Pressure 97/57 L 107/63 Pulse Oximetry 91 92 Intake/Output Intake/Output: Intake & Output 01/22/20 01/23/20 01/24/20 01/25/20 23:59 23:59 23:59 23:59 Intake Total 1000 2227 7
[2020-01-25 12:14] LABS: Lactic Acid 3.3 mmol/L (0.7-2.1)
[2020-01-25 12:38] LABS: Add Urine Microscopic? YES; Appearance Urine Clear (Clear); Bacteria Urine Trace /hpf; Bilirubin Urine Negative (Negative); Blood Urine 3+ (Negative); Color Urine Yellow (Yellow); Glucose Urine UA Negative (Negative); Ketones Urine Negative (Negative); Leukocyte Esterase Ur Negative LEU/UL (Negative); Nitrate Urine Negative (Negative); Protein Urine 2+ mg/dL (Negative); Specific Grav Ur 1.024 (1.001-1.035); Urobilinogen Urine Negative mg/dL (<2.0)
--- NOTE | 2020-01-25 13:18 | PM.IMPN ---
Progress Note: A&P Assessment and Plan (1) Small bowel obstruction: Code(s): K56.609 - Unspecified intestinal obstruction, unspecified as to partial versus complete obstruction Status: Acute Assessment and Plan: CT abd/pelvis demonstrates high-grade small bowel obstruction with transition point in the right abdomen. POD2 ex lap extensive lysis of adhesion, small bowel resection x2 per Dr. Perez. Continue NPO, bowel rest with NG tube decompression, and IV fluids. Pain management per General Surgery. Continue IV antiemetics as needed. IV fluids and pressors now (2) Acute kidney injury: Code(s): N17.9 - Acute kidney failure, unspecified Status: Acute Assessment and Plan: Likely secondary to acute dehydration from decreased PO intake. BUN is very high at 95 with ratio >20:1 suggesting pre-renal etiology. Cr decreased to 2.2 today.. Renal US unremarkable. CK also elevated and continue hydration Continue IV fluids. Continue to monitor renal function and urine output. Avoid nephrotoxic agents. pressors to maitain bp (3) Aortic aneurysm: Qualifiers: Aortic location: abdominal aorta Presence of rupture: without rupture Qualified Code(s): I71.4 - Abdominal aortic aneurysm, without rupture Code(s): I71.9 - Aortic aneurysm of unspecified site, without rupture Status: Acute Assessment and Plan: Infrarenal 4.4 cm fusiform aneurysm of the infrarenal aorta was visualized on CT abd/pelvis. He will need repeat imaging in 6 months - 1 year and would benefit from referral to vascular surgery at discharge; this was discussed with Daughter who was at bedside at time of visit. She understood instructions should be on beta-jadyn and statin also (4) Hypertension: Qualifiers: Hypertension type: unspecified Qualified Code(s): I10 - Essential (primary) hypertension Code(s): I10 - Essential (primary) hypertension Status: Chronic Assessment and Plan: Blood pressures still low this morning; last was 104/62 o levophed . Lisinopril is currently held given JOHNNIE and NPO status. Resume when clinically appropriate. (5) Tobacco dependence: Code(s): F17.200 - Nicotine dependence, unspecified, uncomplicated Status: Chronic Assessment and Plan: Advised that the patient needs to stop smoking immediately. Discussed potential risks including adverse cardiopulmonary and . (6) Renal cyst: Code(s): N28.1 - Cyst of kidney, acquired Status: Acute Assessment and Plan: 6mm hemorrhagic cyst of right kidney and 9mm mass in left kidney read by radiology as too small to characterize but likely a cyst . He will need outpatient follow-up for surveillance. (7) Chronic pancreatitis: Code(s): K86.1 - Other chronic pancreatitis Status: Acute Assessment and Plan: Noted on CT abd/pelvis with pancreatic tail calcifications. He will need to follow-up with his PCP outpatient. Lipase was normal. (8) Shock: Code(s): R57.9 - Shock, unspecified Status: Acute Assessment and Plan: still appears secondary to volume depletion. But echo has been ordered and continue antibiotics continue hydration and pressors (9) DVT prophylaxis: Code(s): Z29.9 - Encounter for prophylactic measures, unspecified Status: Acute Assessment and Plan: Lovenox Subjective Date/time seen: 01/25/20 13:18 Interval history: date of visit 01/24. Patient is a 74 yo M with PMH significant for hypertension, aortic aneurysm, and tobacco dependence who is seen in follow-up for small bowel obstruction; patient POD 2 exploratory laparot
[2020-01-25 15:54] LABS: Glucose Point of Care 88 (65-105)
[2020-01-25] MEDS: NOREPINEPHRINE 8 MG/D5W 250 ML 8 MG/250 ML BAG 30 MG IV CONT (18:04)
[2020-01-25 18:56] LABS: Glucose Point of Care 91 (65-105)
[2020-01-25 19:07] LABS: Alveolar/Arterial O2 Gradient 162.2 mmHg; Base Excess ABG -3.1 mEq/l (+/-2.0); Device NASAL CANNULA; Fractional Inspired Oxygen 40 %; HCO3 ABG 22.4 mEq/l (22.0-26.0); Modified Allen's Test Pass; Oxygen Content ABG 20.7 %vol (16.0-22.0); Oxygen Saturation ABG 94.4 % (95.0-100.0); Oxyhemoglobin 93.1 % THb (90.0-100.0); PCO2 ABG 41.8 mmHg (35.0-45.0); PO2 ABG 74.9 mmHg (80.0-100.0); PO2 FiO2 Ratio Arterial Blood 1.87 %; Site Drawn LEFT RADIAL; Total Hemoglobin 15.8 g/dL (12.0-18.0); pH ABG 7.347 (7.350-7.450)
[2020-01-25] MEDS: SODIUM CHLORIDE 0.9% IV 500 ML IV CONT ×2 (19:20→19:55)
[2020-01-25 19:22] LABS: Lactic Acid Reflex 3.1 mmol/L (0.7-2.1)
--- NOTE | 2020-01-25 19:26 | PC.NURSE ---
Stat abg and lactic called to Dr. Escobedo. Orders obtained to increase D5NS to 100 ml/hr, obtain a Lactic with am labs 01/26/20, and an additional Normal Saline 500 ml iv bolus, for a total bolus of 1,000 ml.
[2020-01-25] MEDS: HYDROCORTISONE SODIUM SUCCINATE 100 MG/2 ML VIAL 50 MG IV PUSH (19:49)
[2020-01-25] MEDS: VASOPRESSIN INJ 100 UNITS in DEXTROSE 5% 95 ML IV CONT (19:49)
[2020-01-25] MEDS: ENOXAPARIN 30 MG/0.3 ML SYRINGE SUB-Q (19:58)
[2020-01-25 23:44] LABS: Glucose Point of Care 101 (65-105)
[2020-01-26] VITALS (38 sets, daily range): BP systolic 103–140; BP diastolic 40–84; PULSE 58–93; RESP 20–29; TEMP 36.3–37.1; O2SAT 88–98; BMI 26.2
--- NOTE | 2020-01-26 | ECHO_ITS ---
Patient Info Name: Jacob Tam Age: 74 years : 1945 Gender: Male Ht: 70 in Wt: 168 lbs BSA: 1.95 m2 HR: 97 bpm BP: 130 / 74 mmHg Heart Rhythm: Sinus Rhythm Technical Quality: Good Exam Date: 01/26/2020 2:08 PM Exam Location: [facility] Patient Status: Inpatient Admit Date: 01/22/2020 Staff Ordering Physician: Kendell Escobedo MD Industrial Robotics Mechanic: Bro Ocasio, BYRONCS, RT Attending Provider: Gunner Rhoades MD Exam Type: CA echo doppler color flow Study Info Indications R06.02 - Shortness of breath Complete two-dimensional, color flow and Doppler transthoracic echocardiogram is performed. Summary 1. Complete two-dimensional, color flow and Doppler transthoracic echocardiogram is performed. 2. Left ventricular systolic function is normal, estimated at 55-60%. 3. There is no increased left ventricular wall thickness. 4. Left ventricular septal wall motion is abnormal with septal motion related to bundle branch block. 5. The left ventricular diastolic function is grade I diastolic dysfunction. 6. Right atrial chamber dimension is mildly enlarged. 7. There is no aortic valve regurgitation. 8. There is trace mitral valve regurgitation. 9. Unable to estimate PA systolic pressure due to poor spectral resolution of tricuspid regurgitant jet velocity. 10. Dilated inferior vena cava with <50% collapse upon inspiration consistent with normal right atrial pressure, 10 mmHg. Left Ventricle Left ventricular chamber dimension is normal. Left ventricular systolic function is normal, estimated at 55-60%. There is no increased left ventricular wall thickness. Left ventricular septal wall motion is abnormal with septal motion related to bundle branch block. The left ventricular diastolic function is grade I diastolic dysfunction. Right Ventricle Right ventricular chamber dimension is normal. Right ventricular systolic function is normal. Left Atria Left atrial chamber dimension is normal. Right Atria Right atrial chamber dimension is mildly enlarged. Aortic Valve The aortic valve is trileaflet. There is no aortic valve stenosis. There is no aortic valve regurgitation. There is mild aortic valve calcification. Pulmonic Valve The pulmonic valve is not well visualized. There is trace pulmonic regurgitation. Mitral Valve The mitral valve has normal leaflets. There is trace mitral valve regurgitation. The mitral valve annulus is mildly calcified. Tricuspid Valve The tricuspid valve leaflets are normal. There is trace tricuspid valve regurgitation. Unable to estimate PA systolic pressure due to poor spectral resolution of tricuspid regurgitant jet velocity. Pericardium/Pleural The pericardium appears normal. There is trivial pericardial effusion. Inferior Vena Cava Dilated inferior vena cava with <50% collapse upon inspiration consistent with normal right atrial pressure, 10 mmHg. Aorta The aortic root size at the sinus of Valsalva is normal. Left Ventricular Outflow Tract Name Value Normal LVOT 2D LVOT Diameter 2.1 cm LVOT Doppler LVOT Peak Gradient 4 mmHg
[2020-01-26] MEDS: HYDROCORTISONE SODIUM SUCCINATE 100 MG/2 ML VIAL 50 MG IV PUSH ×5 (00:34→23:16)
[2020-01-26] MEDS: NOREPINEPHRINE 8 MG/D5W 250 ML 8 MG/250 ML BAG 22.5 MG IV CONT (03:09)
[2020-01-26] MEDS: DEXTROSE 5%/0.9% SOD CHL 1,000 ML 100 ML IV CONT ×2 (05:04→15:33)
[2020-01-26 05:15] LABS: Hemoglobin 14.4 g/dL (14.0-18.0); Mean Corpuscular HGB Conc 32.7 g/dl (32-36); Mean Corpuscular Volume 91.7 fl (80-100); Mean Platelet Volume 12.6 fl (7.4-10.4); Platelet Count Result 103 k/mm3 (150-375); Red Cell Distribution Width 14.3 % (11.5-14.5); White Blood Count 9.7 K/mm3 (4.5-10.0)
[2020-01-26 05:23] LABS: Lactic Acid Reflex 2.7 mmol/L (0.7-2.1)
[2020-01-26 05:35] LABS: Alanine Aminotransferase 16 U/L (4-50); Albumin Level 2.3 g/dL (3.5-5.1); Alkaline Phosphatase 36 U/L (38-126); Anion Gap 6 mmol/L (8-16); Aspartate Amino Transferase 62 U/L (17-59); Bilirubin,Total 0.6 mg/dL (0.2-1.3); Blood Urea Nitrogen 66 mg/dL (9-20); Calcium 7.6 mg/dL (8.4-10.2); Carbon Dioxide 25 mmol/L (22-30); Chloride 108 mmol/L (98-107); Estimated CRCL calculation 37 ml/min; Estimated Glomerular Filt Rate 42; Glucose 144 mg/dL (75-110); Potassium 4.6 mmol/L (3.4-5.0); Sodium 139 mmol/L (137-145)
[2020-01-26 08:08] LABS: Reflex Lactic Acid Yes or No Add Lactic
[2020-01-26] MEDS: PANTOPRAZOLE SODIUM IV 40 MG VIAL IV PUSH (09:09)
[2020-01-26] MEDS: SODIUM CHLORIDE 0.9% IV 500 ML IV CONT (09:09)
[2020-01-26] MEDS: NICOTINE (*PBKC) 21 MG PATCH 1 PATCH TRANSDERM (09:09)
[2020-01-26 09:22] LABS: Lactic Acid 2.5 mmol/L (0.7-2.1)
--- NOTE | 2020-01-26 11:50 | PM.PNGS ---
Progress Note: A&P Assessment and Plan (1) Shock: Code(s): R57.9 - Shock, unspecified Status: Acute Assessment and Plan: Likely due to volume depletion. Continue IV fluids. Wean vasopressors as tolerated per Outside Collector. Echo ordered. (2) Small bowel obstruction: Code(s): K56.609 - Unspecified intestinal obstruction, unspecified as to partial versus complete obstruction Status: Acute Assessment and Plan: Abd x-ray this morning shows dilated small bowel. Continue NG tube decompression and await return of bowel function. Post-op ileus is not surprising. Discussed with Dr. Patel and Dr. Perez, will add Reglan IV. Encouraged IS. Initiate ambulation once safe. PT/OT evaluating for bed exercises. (3) Acute kidney injury: Code(s): N17.9 - Acute kidney failure, unspecified Status: Acute Assessment and Plan: Creatinine improving. Likely related to dehydration. Continue IV fluids. See plan above. Additional Plan Discussed the patient's case and plan of care with Dr. Perez. Subjective Subjective Date/Time Seen: 01/26/20 11:50 Post Op day: 3 Patient reports: pain is less, no flatus and no bowel movement Interval history: Patient seen and examined. Reports feeling thirsty. Reports abdominal pain has improved some. Reports nausea earlier today with NG tube on suction. No other complaints at this time. Has not ambulated due to right femoral line. Still on vasopressors. Per the nurse, vasopressin was discontinued this morning and he is currently on levophed. Review of Systems Review of Systems: All systems reviewed & are unremarkable except as noted in HPI and below Constitutional: Constitutional: Denies chills, Denies fever(s) and Denies headache(s) Cardiovascular: Cardiovascular: Reports no additional cardiovascular complaints, Denies chest pain and Denies leg edema Respiratory: Respiratory: Reports no additional respiratory complaints, Denies cough and Denies dyspnea Gastrointestinal: Gastrointestinal: Reports as per HPI and Reports no additional gastrointestinal complaints Genitourinary: Genitourinary: Reports other (Whiting in place) Neurologic: Denies Abnormal speech present, Denies confusion, Denies dizziness and Denies headache(s) Exam Const: General: comfortable, no acute distress, alert and awake Orientation/consciousness: patient oriented x3 Resp: Effort & Inspection: normal respiratory effort Auscultation: rhonchi Cardio: Rate: regular rate Rhythm: regular rhythm GI: Inspection: incision (Midline incision clean, dry, and samson intact, no signs of infection) and other (mildly distended) GI Palp: Yes Soft to palpation, Yes Tenderness to palpation present (GI) (diffusely tender, worse at incision), No Guarding due to palpation present (GI), No Rebound tenderness present and Yes Other GI palpation findings present (RLQ MAHAD drain serosanguineous output) Auscultation: Hypoactive bowel sounds present Urinary Catheter: Urinary Catheter: patent and draining and urine dark Skin: General skin exam: normal color Rashes: no rashes Neuro: General: patient oriented x3 and moves all extremities Cranial nerves: Yes CN's II-XII intact bilaterally Speech: normal speech Extrem: General: no calf tenderness and no edema Psych: Mental Status: mental status grossly normal Attitude: cooperative Thought process: Normal thought process present Thought content: Yes Normal thought content present Objective Data Vital Signs Vital Signs: Vital Signs - 24 hr 01/25/20 12:00 01/25/20 13:04 01/25/20 14:00 Temperature Pulse Rate 96 98 96 Respiratory Rate 28 H 24 H Blood Pressure 107/63 88/47 L 100/60 Pulse Oximetry 92 91 01/25/20 15:00 01/25/20 16:00 01/25/20 16:02 Temperature 98.0 F Pulse Rate 99 98 98 Respiratory Rate 28 H Blood Pressure 113/56 L 71/55 L 71/55 L Pulse Oximetry 92 01/25/20 16:40 01/25/20 17:27 01/25/20 18:00 Temperature Pulse Rate
[2020-01-26 11:56] LABS: Glucose Point of Care 138 (65-105)
[2020-01-26] MEDS: METOCLOPRAMIDE HCL INJ 10 MG/2 ML VIAL 5 MG IV PUSH ×3 (12:23→23:16)
[2020-01-26] MEDS: CENTRAL LINE FLUSH 10 ML IV PUSH ×3 (15:34→19:23)
--- NOTE | 2020-01-26 16:35 | PM.IMPN ---
Progress Note: A&P Assessment and Plan (1) Small bowel obstruction: Code(s): K56.609 - Unspecified intestinal obstruction, unspecified as to partial versus complete obstruction Status: Acute Assessment and Plan: CT abd/pelvis demonstrated high-grade small bowel obstruction with transition point in the right abdomen. POD 3 ex lap extensive lysis of adhesion, small bowel resection x2 per Dr. Perez. Continue NPO, bowel rest with NG tube decompression, . Continue IV antiemetics as needed. IV fluids and pressors still but have taper pressor almost off (2) Acute kidney injury: Code(s): N17.9 - Acute kidney failure, unspecified Status: Acute Assessment and Plan: Likely secondary to acute dehydration from decreased PO intake. BUN was very high at 95 with ratio >20:1 suggesting pre-renal etiology. Cr decreased to 1.6 today.. Renal US unremarkable. CK also elevated and continue hydration Continue IV fluids. 100 mL/hour and a receive another L bolus last p.m. Continue to monitor renal function and urine output. pressors to maitain bp and tapering today recheck CK a.m. (3) Aortic aneurysm: Qualifiers: Aortic location: abdominal aorta Presence of rupture: without rupture Qualified Code(s): I71.4 - Abdominal aortic aneurysm, without rupture Code(s): I71.9 - Aortic aneurysm of unspecified site, without rupture Status: Acute Assessment and Plan: Infrarenal 4.4 cm fusiform aneurysm of the infrarenal aorta was visualized on CT abd/pelvis. He will need repeat imaging in 6 months - 1 year and would benefit from referral to vascular surgery at discharge; this was discussed with Daughter . She understood instructions should be on beta-jadyn and statin also (4) Hypertension: Qualifiers: Hypertension type: unspecified Qualified Code(s): I10 - Essential (primary) hypertension Code(s): I10 - Essential (primary) hypertension Status: Chronic Assessment and Plan: Blood pressures still low this morning; last was 118/62 on low dose levophed . Lisinopril is currently held given JOHNNIE and NPO status. (5) Tobacco dependence: Code(s): F17.200 - Nicotine dependence, unspecified, uncomplicated Status: Chronic Assessment and Plan: Advised that the patient needs to stop smoking immediately. Discussed potential risks including adverse cardiopulmonary and . (6) Renal cyst: Code(s): N28.1 - Cyst of kidney, acquired Status: Acute Assessment and Plan: 6mm hemorrhagic cyst of right kidney and 9mm mass in left kidney read by radiology as too small to characterize but likely a cyst . He will need outpatient follow-up for surveillance. (7) Chronic pancreatitis: Code(s): K86.1 - Other chronic pancreatitis Status: Acute Assessment and Plan: Noted on CT abd/pelvis with pancreatic tail calcifications. He will need to follow-up with his PCP outpatient. Lipase was normal. (8) Shock: Code(s): R57.9 - Shock, unspecified Status: Acute Assessment and Plan: still appears secondary to volume depletion. But continue antibiotics, vanc and zosyn continue hydration and pressors echo normal EF 55% (9) DVT prophylaxis: Code(s): Z29.9 - Encounter for prophylactic measures, unspecified Status: Acute Assessment and Plan: Lovenox Subjective Date/time seen: 01/26/20 16:35 Interval history: date of visit 01/25. Patient is a 74 yo M with PMH significant for hypertension, aortic aneurysm, and tobacco dependence who is seen in follow-up for small bowel obstruction; patient POD 3 exploratory laparo
--- NOTE | 2020-01-26 17:00 | WPDINTPN ---
Progress Note: A&P Assessment and Plan (1) Shock: Code(s): R57.9 - Shock, unspecified Status: Acute Assessment and Plan: septic versus hypovolemia versus cardiogenic versus combination CT a and chest x-ray reviewed - adequately fluid-resuscitated, continue maintenance IV fluids - continue vasopressin and Levophed. Will wean vasopressin to off and thereafter titrate Levophed ? Aspiration UA within normal limits, blood cultures pending lactic acid elevated but trending down this morning patient currently on vancomycin and Zosyn echocardiogram done on 01/26/2020 showed EF of 55-60% LV septal wall motion is abnormal with septal motion related to bundle branch block. Grade 1 diastolic dysfunction (2) Small bowel obstruction: Code(s): K56.609 - Unspecified intestinal obstruction, unspecified as to partial versus complete obstruction Status: Acute Assessment and Plan: CT abd/pelvis demonstrates high-grade small bowel obstruction with transition point in the right abdomen. 01/22 ex lap extensive lysis of adhesion, small bowel resection x2 per Dr. Perez. now has adynamic ileus Continue NPO, bowel rest with NG tube decompression, and IV fluids. Continue IV antiemetics as needed. discuss with surgery regarding Reglan which was started this morning. (3) Acute kidney injury: Code(s): N17.9 - Acute kidney failure, unspecified Status: Acute Assessment and Plan: Likely secondary to acute dehydration from decreased PO intake which may now has progress to ATN. patient also has mild rhabdo continue cautious IV fluid baseline creatinine unknown at this time Renal US unremarkable. - Creatinine trending down 1.6 this morning from 3.2 on 01/24/2020 (4) Aortic aneurysm: Qualifiers: Aortic location: abdominal aorta Presence of rupture: without rupture Qualified Code(s): I71.4 - Abdominal aortic aneurysm, without rupture Code(s): I71.9 - Aortic aneurysm of unspecified site, without rupture Status: Acute Assessment and Plan: Infrarenal 4.4 cm fusiform aneurysm of the infrarenal aorta was visualized on CT abd/pelvis. He will need follow-up as an up. Patient and family is aware of the findings (5) Tobacco dependence: Code(s): F17.200 - Nicotine dependence, unspecified, uncomplicated Status: Chronic Assessment and Plan: patient has nicotine patch on I have encouraged him to quit (6) Chronic pancreatitis: Code(s): K86.1 - Other chronic pancreatitis Status: Acute Assessment and Plan: lipase was normal on presentation NPO (7) Ileus: Code(s): K56.7 - Ileus, unspecified Status: Acute Assessment and Plan: NG tube to suction NPO (8) Rhabdomyolysis: Code(s): M62.82 - Rhabdomyolysis Status: Acute Assessment and Plan: continue IV fluids monitor CK level Additional Plan DVT prophylaxis - change Lovenox dose Stress ulcer prophylaxis - PPI Nutrition - NPO discussed with patient and his daughter and updated them with patient's condition and plan of care. I answered all questions Code Status - Full Code Total Critical Care Time - 34 minutes Due to a high probability of clinically significant, life threatening deterioration, the patient required my highest level of preparedness to intervene emergently and I personally spent this critical care time directly and personally managing the patient. This critical care time included obtaining a history; examining the patient; pulse oximetry; ordering and review of studies; arranging urgent treatment with development of a management plan; evaluation of patient's response to treatment; frequent reassessment; and discussions with other providers. It was exclusive of separately billable procedures and treating other patients and teaching time. Please see Assessment and Plan section and the rest of the note
[2020-01-26 18:03] LABS: Glucose Point of Care 112 (65-105)
--- NOTE | 2020-01-26 19:15 | ECG_ITS ---
Measurements Intervals [place] Rate: 86 P: 34 MD: 167 QRS: 15 QRSD: 118 T: -5 QT: 364 QTc: 437 Interpretive Statements SINUS RHYTHM INTRAVENTRICULAR CONDUCTION DELAY DELAYED PRECORDIAL R/S TRANSITION BORDERLINE T WAVE ABNORMALITY- INFERIOR LEADS BORDERLINE ECG Electronically Signed On 01-26-2020 20:12:00 [employer]IC[employer] by Ashish Salguero D.O.
[2020-01-26] MEDS: ENOXAPARIN 30 MG/0.3 ML SYRINGE SUB-Q (20:26)
[2020-01-26] MEDS: ALBUTEROL SULFATE (*SP) AEROSOL 1 PUFF 2 PUFF INHALATION (20:28)
[2020-01-26 20:34] LABS: Anion Gap 3 mmol/L (8-16); Blood Urea Nitrogen 56 mg/dL (9-20); Calcium 7.8 mg/dL (8.4-10.2); Carbon Dioxide 28 mmol/L (22-30); Chloride 111 mmol/L (98-107); Estimated CRCL calculation 45 ml/min; Estimated Glomerular Filt Rate 54; Glucose 120 mg/dL (75-110); Magnesium 2.7 mg/dL (1.6-2.3); Potassium 4.2 mmol/L (3.4-5.0); Sodium 142 mmol/L (137-145)
--- NOTE | 2020-01-26 20:37 | PC.NURSE ---
Irregular cardiac rhythm noted at 1900. Santa Flannery NP notified - orders obtained for stat ekg, mag, troponin, cardiology consult. Dr. Patel also notified,and orders obtained to stat bmp. Patient did not have complaints of chest pain or shortness of breath at that time. Will continue to monitor closely.
[2020-01-26 20:54] LABS: Troponin I 0.704 ng/mL (0.000-0.034)
[2020-01-27] VITALS (14 sets, daily range): BP systolic 110–174; BP diastolic 52–86; PULSE 62–85; RESP 18–28; TEMP 36.1–36.9; O2SAT 92–97
[2020-01-27] MEDS: DEXTROSE 5%/0.9% SOD CHL 1,000 ML 100 ML IV CONT ×3 (01:18→20:43)
[2020-01-27] MEDS: HYDROCORTISONE SODIUM SUCCINATE 100 MG/2 ML VIAL 50 MG IV PUSH ×3 (05:57→17:37)
[2020-01-27] MEDS: METOCLOPRAMIDE HCL INJ 10 MG/2 ML VIAL 5 MG IV PUSH ×3 (05:57→23:36)
[2020-01-27] MEDS: CENTRAL LINE FLUSH 10 ML IV PUSH ×2 (05:58→19:26)
[2020-01-27 06:05] LABS: Hematocrit 43.3 % (42.0-52.0); Hemoglobin 14.5 g/dL (14.0-18.0); Mean Corpuscular HGB Conc 33.5 g/dl (32-36); Mean Corpuscular Hemoglobin 30.1 pg (26-34); Mean Platelet Volume 12.8 fl (7.4-10.4); Platelet Count Result 95 k/mm3 (150-375); Red Blood Count 4.81 M/mm3 (4.6-6.20); Red Cell Distribution Width 14.6 % (11.5-14.5); White Blood Count 10.2 K/mm3 (4.5-10.0)
[2020-01-27 06:26] LABS: Alanine Aminotransferase 16 U/L (4-50); Albumin Level 2.2 g/dL (3.5-5.1); Alkaline Phosphatase 38 U/L (38-126); Anion Gap 4 mmol/L (8-16); Aspartate Amino Transferase 48 U/L (17-59); Bilirubin,Total 0.7 mg/dL (0.2-1.3); Blood Urea Nitrogen 53 mg/dL (9-20); Carbon Dioxide 27 mmol/L (22-30); Chloride 112 mmol/L (98-107); Creatine Kinase 199 U/L (55-170); Estimated CRCL calculation 48 ml/min; Estimated Glomerular Filt Rate 59; Glucose 115 mg/dL (75-110); Magnesium 2.6 mg/dL (1.6-2.3); Potassium 4.3 mmol/L (3.4-5.0); Sodium 143 mmol/L (137-145)
[2020-01-27 06:29] LABS: Lactic Acid Reflex 1.7 mmol/L (0.7-2.1)
--- NOTE | 2020-01-27 08:12 | PM.IMPN ---
Progress Note: A&P Assessment and Plan (1) Non-ST elevation DC (NSTEMI): Code(s): I21.4 - Non-ST elevation (NSTEMI) myocardial infarction Status: Acute Assessment and Plan: Patietn with CP and associated VTach at that time. EKG showing delayed R wave progression with R strain (S1Q3T3). No old EKG to compare. Trop up to 2.25. Mag 2.7 and K+ 4.2 at the time of the VTach, CP. On Reglan which we will hold. Echo yesterday showing EF 55-60% and grade I DD. Unable to assess PASP but normal RAP. Cards consulted. Add rectal ASA. Renal function better but plt count now 95K. Check LE dopplers and VQ scan (in case [facility] planned and try to minimize dye exposure). VQ nondiagnostic for PE. Doppler of the LE negative for DVT. Repeat plt count 94K. Spoke with nuclear monitoring technician with plans to change to Arixtra. Reluctant to fully anticoagulate given recent surgery, low plt. Repeat Trop 3.02 (2) Shock: Code(s): R57.9 - Shock, unspecified Status: Acute Assessment and Plan: Still appears secondary to volume depletion but can not exclude sepsis. Pressors weaned off. Continue antibiotics with vanc and zosyn. Continue hydration. Echo normal EF 55%. Remove central line later today if remains stable. If BP remains okay, start to wean off steroids. (3) Small bowel obstruction: Code(s): K56.609 - Unspecified intestinal obstruction, unspecified as to partial versus complete obstruction Status: Acute Assessment and Plan: CT abd/pelvis 01/22/20 demonstrated high-grade small bowel obstruction with transition point in the right abdomen. POD 4 ex lap extensive lysis of adhesion, small bowel resection x2 per Dr. Perez on 01/23/20. NGT output 500mL yesterday but 600mL overnight. Hold Reglan related to above. Continue NPO and bowel rest with NG tube decompression. Continue IV antiemetics as needed. Have patient up to chair and ambulating once central line is out. PT/OT (4) Acute kidney injury: Code(s): N17.9 - Acute kidney failure, unspecified Status: Acute Assessment and Plan: Likely secondary to acute dehydration from decreased PO intake. BUN was very high at 95 with ratio >20:1 suggesting pre-renal etiology. Cr decreased to 1.2 today. BUN still elevated but related to steroids. Renal US unremarkable. TCK elevated at 2130 but better to 199 today with hydration Continue IV fluids. 100 mL/hour Continue to monitor renal function and urine output. (5) Aortic aneurysm: Qualifiers: Aortic location: abdominal aorta Presence of rupture: without rupture Qualified Code(s): I71.4 - Abdominal aortic aneurysm, without rupture Code(s): I71.9 - Aortic aneurysm of unspecified site, without rupture Status: Acute Assessment and Plan: Infrarenal 4.4 cm fusiform aneurysm of the infrarenal aorta was visualized on CT abd/pelvis. He will need repeat imaging in 6 months - 1 year and would benefit from referral to vascular surgery at discharge; this has been discussed with Daughter . She understood instructions. (6) Hypertension: Qualifiers: Hypertension type: unspecified Qualified Code(s): I10 - Essential (primary) hypertension Code(s): I10 - Essential (primary) hypertension Status: Chronic Assessment and Plan: As above. Blood pressures stable off pressors. Lisinopril is currently held given shock, JOHNNIE and NPO status. (7) Tobacco dependence: Code(s): F17.200 - Nicotine dependence, unspecified, uncomplicated Status: Chronic Assessment and Plan: Pt has been advised the need to stop smoking immediately. Potential risks including adverse cardiopulmonary and discussed. (8) Renal cyst: Code(s)
--- NOTE | 2020-01-27 08:47 | ECG_ITS ---
Measurements Intervals [place] Rate: 79 P: 56 [place]: 166 QRS: 49 QRSD: 114 T: 6 QT: 391 QTc: 449 Interpretive Statements SINUS RHYTHM INTRAVENTRICULAR CONDUCTION DELAY DELAYED PRECORDIAL R/S TRANSITION BORDERLINE T WAVE ABNORMALITY- INFERIOR LEADS BASELINE WANDER- V3 BORDERLINE ECG Electronically Signed On 01-27-2020 9:25:16 CRISIS MANAGER by Ashish Salguero D.O.
[2020-01-27] MEDS: ALBUTEROL SULFATE (*SP) AEROSOL 1 PUFF 2 PUFF INHALATION ×4 (09:03→21:39)
[2020-01-27] MEDS: NICOTINE (*PBKC) 21 MG PATCH 1 PATCH TRANSDERM (09:25)
[2020-01-27] MEDS: PANTOPRAZOLE SODIUM IV 40 MG VIAL IV PUSH (09:25)
--- NOTE | 2020-01-27 10:21 | PM.CNCAR ---
Assessment and Plan Assessment and plan (1) Non-ST elevation VT (NSTEMI): Code(s): I21.4 - Non-ST elevation (NSTEMI) myocardial infarction Status: Acute Assessment and Plan: Transient symptoms in association with elevated troponin several days postop without concomitant shock or hypotension. As such, this appears to be consistent with ACS/NSTEMI. Currently asymptomatic, hemodynamically stable. EKG without ST elevation or significant depression. Aspirin per rectum. Ideally, would recommend systemic anticoagulation with heparin gtt, however, progressive thrombocytopenia and recent postoperative status place patient at significant bleeding risk. Clarify with surgery if systemic A/C an option, but will hold off until platelet trend stabilizes. In other circumstances, I would initial DAPT, A/C, and proceed to coronary angiography if no surgical contraindication. Discussed with pt extensively Verbalized understanding and agreed with plan of care. Discussed with Dr. Saucedo. -Low dose BB as BP allows particularly if recurrent ventricular arrhythmias. 12 lead EKG in AM. -Repeat Trop I for trend. Suspect next Trop to be lightly higher but near plateau. -Conservative management and observation most appropriate given circumstances, asymptomatic status, and hemodynamic stability. (2) AIVR (accelerated idioventricular rhythm): Code(s): I44.2 - Atrioventricular block, complete Status: Acute Assessment and Plan: Telemetry revealed transient episodes of aberrantly conducted sinus rhythm with ventricular bigeminy followed by wide complex ventricular couplet probable idioventricular rhythm returning to sinus rhythm with aberrancy transiently. no sustained or clear nonsustained VT thus far. Continue telemetry. Potassium and magnesium stable. Likely consequence of myocardial ischemia. Continue to observe closely. LV function preserved on echo prior to NSTEMI. If significant recurrence and/or ventricular tachycardia repeat 2D echocardiogram. (3) Thrombocytopenia: Code(s): D69.6 - Thrombocytopenia, unspecified Status: Acute Assessment and Plan: Etiology unclear less likely DIC, HIT although normal at admission with progressive decline to 95 this AM. Patient received DVT dose of Enoxaparin on January 22, January 24, and . Continue to follow platelet count closely. Mild coagulopathy INR 1.3. Workup underway. (4) Acute kidney injury: Code(s): N17.9 - Acute kidney failure, unspecified Status: Acute Assessment and Plan: Creatinine peaked at 3.2 on January 23 1.1 today, resolving nicely. continue to follow routine. (5) Shock: Code(s): R57.9 - Shock, unspecified Status: Acute Assessment and Plan: Resolved. Off pressors as of 01/26/2020. (6) Aortic aneurysm: Qualifiers: Aortic location: abdominal aorta Presence of rupture: without rupture Qualified Code(s): I71.4 - Abdominal aortic aneurysm, without rupture Code(s): I71.9 - Aortic aneurysm of unspecified site, without rupture Status: Acute Assessment and Plan: Stable. (7) Tobacco dependence: Code(s): F17.200 - Nicotine dependence, unspecified, uncomplicated Status: Chronic Assessment and Plan: Smoking cessation. (8) Rhabdomyolysis: Code(s): M62.82 - Rhabdomyolysis Status: Acute Assessment and Plan: CK initially over 1999, 199 today. (9) Small bowel obstruction: Code(s): K56.609 - Unspecified intestinal obstruction, unspecified as to partial versus complete obstruction Status: Acute Assessment and Plan: As above, resolved postop adhesiolysis. History of Present Illness History of Present Illness Consult date/time: Date of Service: 01/27/20 10:21 Cardiology consultation [facility] elevated troponin, chest pain,
--- NOTE | 2020-01-27 10:33 | PM.PNGS ---
Progress Note: A&P Assessment and Plan (1) Small bowel obstruction: Code(s): K56.609 - Unspecified intestinal obstruction, unspecified as to partial versus complete obstruction Status: Acute Assessment and Plan: POD#4 Continue NG tube decompression and bowel rest. Await return of bowel function. It will benefit patient to start ambulating once femoral line is removed. May consider trickle tube feedings tomorrow depending on how the patient progresses. IV Reglan now on hold. PT/OT following patient. Encouraged IS use. (2) Shock: Code(s): R57.9 - Shock, unspecified Status: Acute Assessment and Plan: Likely due to volume depletion. He was fluid resuscitated, continue IV fluids. On broad spectrum IV abx to cover for possible sepsis. Vasopressors were weaned off around 7 pm last night and BP stable. Hopefully his femoral central line can be removed today if okay with other services. (3) Acute kidney injury: Code(s): N17.9 - Acute kidney failure, unspecified Status: Acute Assessment and Plan: Creatinine continues to improve, 1.2 today. Likely related to dehydration. Continue IV fluids and monitor. (4) Non-ST elevation VT (NSTEMI): Code(s): I21.4 - Non-ST elevation (NSTEMI) myocardial infarction Status: Acute Assessment and Plan: Episode of chest pain last night. Elevated troponins and echo results noted. Appreciate Hospitalist help. Cardiology has been consulted. (5) Thrombocytopenia: Code(s): D69.6 - Thrombocytopenia, unspecified Status: Acute Additional Plan Discussed the patient's case and plan of care with Dr. Perez. Subjective Subjective Date/Time Seen: 01/27/20 09:30 Post Op day: 4 Patient reports: no new complaints, no flatus and no bowel movement Interval history: Patient reports feeling better this morning. He had an episode of chest pain last night, which has since resolved. He denies flatus. Still unable to ambulate due to right femoral line. Denies shortness of breath or chest pain for me this morning. No other complaints at this time. Review of Systems Review of Systems: All systems reviewed & are unremarkable except as noted in HPI and below Constitutional: Constitutional: Denies chills and Denies fever(s) Cardiovascular: Cardiovascular: Reports no additional cardiovascular complaints, Denies chest pain and Denies leg edema Respiratory: Respiratory: Reports no additional respiratory complaints, Denies cough and Denies dyspnea Gastrointestinal: Gastrointestinal: Reports as per HPI and Reports no additional gastrointestinal complaints Genitourinary: Genitourinary: Reports other (Whiting in place) Neurologic: Denies confusion, Denies dizziness and Denies headache(s) Exam Const: General: comfortable, no acute distress, alert and awake Orientation/consciousness: patient oriented x3 Resp: Effort & Inspection: normal respiratory effort Auscultation: rhonchi Cardio: Rate: regular rate Rhythm: regular rhythm GI: Inspection: other (mildly distended) GI Palp: Yes Soft to palpation, Yes Tenderness to palpation present (GI) (diffusely tender, worse near incision), No Guarding due to palpation present (GI) and No Rebound tenderness present Auscultation: Hypoactive bowel sounds present Other: Midline incision with serosanguineous drainage from the base, no erythema or signs of infection, samson intact. RLQ MAHAD drain with serous drainage in bulb Urinary Catheter: Urinary Catheter: patent and draining and urine dark Neuro: General: patient oriented x3, moves all extremities and No confusion Speech: normal speech Extrem: General: normal to inspection, no calf tenderness and no edema Psych: Appearance: grossly normal Mental Status: mental status grossly normal Attitude: cooperative Thought process: Normal thought process present Objective Data Vital Signs Vital Signs: Vital Signs - 24 hr 01/26/20 10:34 01/26/20 10:35
--- NOTE | 2020-01-27 10:48 | PCOTNOTE ---
per RN hold occupational therapy today due to medical condition. will attempt OT treatment tomorrow
--- NOTE | 2020-01-27 11:05 | PCPTNOTE ---
Per RN: Hold therapy for today due to medical condition.
[2020-01-27 12:10] LABS: Platelet Count Result 94 k/mm3 (150-375)
[2020-01-27 12:20] LABS: INR 1.3; Prothrombin Time 16.6 Seconds (11.1-14.7)
[2020-01-27 12:59] LABS: Glucose Point of Care 140 (65-105)
[2020-01-27] MEDS: ASPIRIN 300 MG SUPPOSITORY RECTAL (13:43)
--- NOTE | 2020-01-27 15:07 | WPDINTPN ---
Progress Note: A&P Assessment and Plan (1) AIVR (accelerated idioventricular rhythm): Code(s): I44.2 - Atrioventricular block, complete Status: Acute Assessment and Plan: ventricular arrhythmia on the tele - likely related to ischemic disease given elevation of troponins, chest pain. LV function preserved on echo prior to NSTEMI. - Will repeat 2D echo if recurrent ventricular arrhythmias occur (2) Non-ST elevation CA (NSTEMI): Code(s): I21.4 - Non-ST elevation (NSTEMI) myocardial infarction Status: Acute Assessment and Plan: patient with ventricular arrhythmia overnight, elevated troponins, EKG did not show any ST elevations. - Diagnosed with NSTEMI, Cardiology has evaluated the patient, - awaiting surgery clearance for anticoagulation for NSTEMI, coronary angiogram - cardiology recommended low-dose beta-jadyn if blood pressures tolerate (3) Thrombocytopenia: Code(s): D69.6 - Thrombocytopenia, unspecified Status: Acute Assessment and Plan: platelets have dropped over the last 5 days which could be related DIC, HIT. patient has received Lovenox for DVT prophylaxis on 01/22, 01/24, 01/25 - HIT antibodies and JON has been ordered - will discontinue enoxaparin and start fondaparinux, (4) Shock: Code(s): R57.9 - Shock, unspecified Status: Acute Assessment and Plan: septic versus hypovolemia versus cardiogenic versus combination CT a and chest x-ray reviewed - adequately fluid-resuscitated, continue maintenance IV fluids - OFF PRESSORS since 01/26/2020 in the evening UA within normal limits, blood cultures pending lactic acid elevated but trending down this morning patient currently on vancomycin and Zosyn - will decrease stress dose steroids echocardiogram done on 01/26/2020 showed EF of 55-60% LV septal wall motion is abnormal with septal motion related to bundle branch block. Grade 1 diastolic dysfunction (5) Small bowel obstruction: Code(s): K56.609 - Unspecified intestinal obstruction, unspecified as to partial versus complete obstruction Status: Acute Assessment and Plan: CT abd/pelvis demonstrates high-grade small bowel obstruction with transition point in the right abdomen. 01/22 ex lap extensive lysis of adhesion, small bowel resection x2 per Dr. Perez. now has adynamic ileus Continue NPO, bowel rest with NG tube decompression, and IV fluids. Continue IV antiemetics as needed. continue Reglan (6) Acute kidney injury: Code(s): N17.9 - Acute kidney failure, unspecified Status: Acute Assessment and Plan: Likely secondary to acute dehydration from decreased PO intake which may now has progress to ATN. continue cautious IV fluid baseline creatinine unknown at this time Renal US unremarkable. - Creatinine trending down 1.2 this morning from 3.2 on 01/24/2020 (7) Aortic aneurysm: Qualifiers: Aortic location: abdominal aorta Presence of rupture: without rupture Qualified Code(s): I71.4 - Abdominal aortic aneurysm, without rupture Code(s): I71.9 - Aortic aneurysm of unspecified site, without rupture Status: Acute Assessment and Plan: Infrarenal 4.4 cm fusiform aneurysm of the infrarenal aorta was visualized on CT abd/pelvis. He will need follow-up as an up. Patient and family is aware of the findings (8) Tobacco dependence: Code(s): F17.200 - Nicotine dependence, unspecified, uncomplicated Status: Chronic Assessment and Plan: patient has nicotine patch on I have encouraged him to quit (9) Chronic pancreatitis: Code(s): K86.1 - Other chronic pancreatitis Status: Acute Assessment and Plan: lipase was normal on presentation NPO (10) Ileus: Code(s): K56.7 - Ileus, unspecified Status: Acute Assessment and Plan: NG tube to suction NPO (11) Rhabdomyolysis: Code(s
--- NOTE | 2020-01-27 16:05 | PC.NURSE ---
CHANGED TO IMU STATUS ORDERED
[2020-01-27 18:01] LABS: Glucose Point of Care 96 (65-105)
[2020-01-27 23:33] LABS: Glucose Point of Care 98 (65-105)
[2020-01-28] VITALS (18 sets, daily range): BP systolic 110–180; BP diastolic 60–88; PULSE 64–742; RESP 18–24; TEMP 36.2–36.9; O2SAT 90–96
[2020-01-28 04:47] LABS: Hematocrit 50.7 % (42.0-52.0); Hemoglobin 16.9 g/dL (14.0-18.0); Mean Corpuscular HGB Conc 33.3 g/dl (32-36); Mean Corpuscular Hemoglobin 30.5 pg (26-34); Mean Corpuscular Volume 91.4 fl (80-100); Mean Platelet Volume 12.4 fl (7.4-10.4); Platelet Count Result 108 k/mm3 (150-375); Red Blood Count 5.55 M/mm3 (4.6-6.20); Red Cell Distribution Width 14.7 % (11.5-14.5); White Blood Count 10.4 K/mm3 (4.5-10.0)
[2020-01-28 04:55] LABS: INR 1.3; Prothrombin Time 16.7 Seconds (11.1-14.7)
[2020-01-28 05:05] LABS: Alanine Aminotransferase 18 U/L (4-50); Albumin Level 2.5 g/dL (3.5-5.1); Alkaline Phosphatase 59 U/L (38-126); Anion Gap 5 mmol/L (8-16); Aspartate Amino Transferase 51 U/L (17-59); Bilirubin,Total 1.2 mg/dL (0.2-1.3); Blood Urea Nitrogen 52 mg/dL (9-20); Calcium 8.2 mg/dL (8.4-10.2); Carbon Dioxide 30 mmol/L (22-30); Chloride 112 mmol/L (98-107); Estimated CRCL calculation 57 ml/min; Estimated Glomerular Filt Rate > 60; Glucose 98 mg/dL (75-110); Magnesium 2.1 mg/dL (1.6-2.3); Phosphorus 3.1 mg/dL (2.5-4.5); Potassium 3.8 mmol/L (3.4-5.0); Sodium 147 mmol/L (137-145)
[2020-01-28] MEDS: LABETALOL HCL INJ 100 MG/20 ML VIAL 10 MG IV PUSH (05:24)
[2020-01-28] MEDS: HYDROCORTISONE SODIUM SUCCINATE 100 MG/2 ML VIAL 50 MG IV PUSH ×2 (05:24→17:21)
[2020-01-28] MEDS: METOCLOPRAMIDE HCL INJ 10 MG/2 ML VIAL 5 MG IV PUSH ×4 (05:24→23:27)
[2020-01-28] MEDS: DEXTROSE 5%/0.9% SOD CHL 1,000 ML 100 ML IV CONT (05:25)
[2020-01-28] MEDS: NICOTINE (*PBKC) 21 MG PATCH 1 PATCH TRANSDERM (08:30)
[2020-01-28] MEDS: ASPIRIN 300 MG SUPPOSITORY RECTAL (08:30)
[2020-01-28] MEDS: PANTOPRAZOLE SODIUM IV 40 MG VIAL IV PUSH (08:31)
[2020-01-28] MEDS: FONDAPARINUX SODIUM 2.5 MG/0.5 ML SYRINGE SUB-Q (08:31)
[2020-01-28] MEDS: ONDANSETRON INJ 4 MG/2 ML VIAL IV PUSH (08:38)
[2020-01-28] MEDS: ALBUTEROL SULFATE (*SP) AEROSOL 1 PUFF 2 PUFF INHALATION ×4 (09:23→21:27)
--- NOTE | 2020-01-28 09:39 | PCOTNOTE ---
Attempted to see patient for OT, patient very irritable and asking for food. Therapist unable to encourage patient to participate in any exercises, etc. at this time. Will attempt later today if time permits.
--- NOTE | 2020-01-28 11:05 | PM.PNGS ---
Progress Note: A&P Assessment and Plan (1) Small bowel obstruction: Code(s): K56.609 - Unspecified intestinal obstruction, unspecified as to partial versus complete obstruction Status: Acute Assessment and Plan: await bowel fxn, cont NG decompression for now, will get PICC and start TPN (2) Non-ST elevation ME (NSTEMI): Code(s): I21.4 - Non-ST elevation (NSTEMI) myocardial infarction Status: Acute Assessment and Plan: observation per cardiology Subjective Subjective Date/Time Seen: 01/28/20 11:05 still awaiting bowel fxn, NG clamped overnight and pt c nausea, bloating Review of Systems Review of Systems: All systems reviewed & are unremarkable except as noted in HPI and below Exam Const: General: alert, awake, Physically active and acute distress mild Orientation/consciousness: patient oriented x3 and lethargic Resp: Effort & Inspection: normal respiratory effort Auscultation: diminished lung sounds Cardio: Rate: regular rate Rhythm: regular rhythm GI: Inspection: normal to inspection, distended and incision GI Palp: Yes abdominal tenderness, Yes Soft to palpation, Yes Tenderness to palpation present (GI) and No Guarding due to palpation present (GI) Objective Data Vital Signs Vital Signs: Vital Signs - 24 hr 01/27/20 12:00 01/27/20 14:00 01/27/20 16:00 Temperature 36.2 C L 36.1 C L 36.9 C Pulse Rate 76 77 76 Respiratory Rate 23 H 28 H 22 H Blood Pressure 140/79 149/70 H 174/84 H Pulse Oximetry 97 94 93 01/27/20 19:39 01/27/20 20:00 01/27/20 22:00 Temperature 36.4 C Pulse Rate 85 82 77 Respiratory Rate 20 18 Blood Pressure 163/86 H Pulse Oximetry 93 94 01/27/20 23:53 01/28/20 00:00 01/28/20 01:58 Temperature 36.7 C Pulse Rate 62 76 72 Respiratory Rate 18 20 Blood Pressure 165/79 H Pulse Oximetry 95 93 01/28/20 04:00 01/28/20 05:00 01/28/20 05:24 Temperature 36.6 C Pulse Rate 81 81 85 Respiratory Rate 20 Blood Pressure 166/77 H 166/77 H Pulse Oximetry 96 01/28/20 06:00 01/28/20 06:43 01/28/20 08:00 Temperature 36.9 C Pulse Rate 64 74 Respiratory Rate 22 H Blood Pressure 158/72 H 180/88 H Pulse Oximetry 01/28/20 09:27 Temperature Pulse Rate 82 Respiratory Rate Blood Pressure Pulse Oximetry 92 Intake/Output Intake/Output: Intake & Output 01/25/20 01/26/20 01/27/20 01/28/20 23:59 23:59 23:59 23:59 Intake Total 4845 2930 3200 1100 Output Total 2260 2610 3070 1760 Balance 2585 320 130 -660 Meds/Results Medications: Active Medications Generic Name Dose Route Start Last Admin Trade Name Freq PRN Reason Stop Dose Admin Albuterol 2 puff 01/26/20 20:00 01/28/20 09:23 Albuterol Sulfate (*Sp) Aerosol 1 Puff INHALATION 2 puff QIDRT JORJE Administration Aspirin 300 mg 01/27/20 09:00 01/28/20 08:30 Aspirin 300 Mg Suppository RECTAL 300 mg DAILY JORJE Administration Dextrose 12.5 gm 01/25/20 06:01 01/25/20 06:12 Dextrose 50% 25 Gm/50 Ml Syringe IV PUSH 12.5 gm PRN PRN Administration Hypoglycemia Protocol Fondaparinux 2.5 mg 01/28/20 09:00 01/28/20 08:31 Fondaparinux Sodium 2.5 Mg/0.5 Ml Syringe SUB-Q 2.5 mg DAILY JORJE Administration Glucagon 1 mg 01/25/20 06:01 Glucagon For Inj 1 Mg Vial IM PRN PRN Hypoglycemia Protocol Glucose 15 gm 01/25/20 06:01 Glucose Oral Gel 15 Gm Of Glucse In 37.5 Gm Tube PO PRN PRN Hypoglycemia Protocol Hydrocortisone Sodium Succinate 50 mg 01/27/20 18:00 01/28/20 05:24 Hydrocortisone Sodium Succinate 100 Mg/2 Ml Vial IV PUSH 50 mg Q12H JORJE Administration Hydromorphone HCl 1 mg 01/23/20 23:36 01/24/20 12:37 Hydromorphone Hcl Inj (*Crx) 1 Mg/Ml Syr IV PUSH 1 mg Q1H PRN Administration Pain Rated 7-10 Dextrose/Sodium Chloride 1,000 mls @ 100 mls/hr 01/25/20 10:00 01/28/20 05:25 Dextrose 5% Sodium Chloride 0.9% IV CONT 100 mls/hr .Q10H JORJE A
--- NOTE | 2020-01-28 11:40 | PM.IMPN ---
Progress Note: A&P Assessment and Plan (1) Non-ST elevation MD (NSTEMI): Code(s): I21.4 - Non-ST elevation (NSTEMI) myocardial infarction Status: Acute Assessment and Plan: Patient with VTach and associated CP on 01/25. EKG showing delayed R wave progression with Rt strain (S1Q3T3). No old EKG to compare. Trop up to 3.0. Mag 2.7 and K+ 4.2 at the time of the VTach, CP. On Reglan which was held but resumed by surgery- no further episodes of prolonged VTach. Echo 01/25 showing EF 55-60% and grade I DD. LE doppler negative and VQ scan nondiagnostic for PE. Continue telemetry. If BP more elevated at a sustained level, will add metoprolol. (2) Shock: Code(s): R57.9 - Shock, unspecified Status: Acute Assessment and Plan: Still appears secondary to volume depletion but can not exclude sepsis. Pressors weaned off. Continue antibiotics with vanc and zosyn. Echo normal EF 55%. Central line has been removed. Steroids decreased yesterday. Will stop IV fluids in lieu of TPN. If BP remains okay, wean steroids tomorrow. (3) Small bowel obstruction: Code(s): K56.609 - Unspecified intestinal obstruction, unspecified as to partial versus complete obstruction Status: Acute Assessment and Plan: CT abd/pelvis 01/22/20 demonstrated high-grade small bowel obstruction with transition point in the right abdomen. POD 5 from exploratory lap with extensive lysis of adhesion, small bowel resection x2 per Dr. Perez on 01/23/20. NGT output 1000mL yesterday but only 50mL recorded for today so far. Reglan was held related to above but resumed. Continue NPO and bowel rest with NG tube decompression. Continue IV antiemetics as needed. Continue PT/OT. Continue to have patient up to the chair and walking as much as possible (4) Acute kidney injury: Code(s): N17.9 - Acute kidney failure, unspecified Status: Acute Assessment and Plan: Cr peaked at 3.2. Likely secondary to acute dehydration from decreased PO intake. BUN was very high at 95 with ratio >20:1 suggesting pre-renal etiology. Cr decreased to 1.0 today with hydration. BUN still elevated but related to steroids. Renal US unremarkable. TCK elevated at 2130 but better to 199 with hydration. Agree with TPN. Stop IV fluids. (5) Aortic aneurysm: Qualifiers: Aortic location: abdominal aorta Presence of rupture: without rupture Qualified Code(s): I71.4 - Abdominal aortic aneurysm, without rupture Code(s): I71.9 - Aortic aneurysm of unspecified site, without rupture Status: Acute Assessment and Plan: Infrarenal 4.4 cm fusiform aneurysm of the infrarenal aorta was visualized on CT abd/pelvis. He will need repeat imaging in 6 months - 1 year and would benefit from referral to vascular surgery at discharge; this has been discussed with Daughter . She understood instructions. (6) Hypertension: Qualifiers: Hypertension type: unspecified Qualified Code(s): I10 - Essential (primary) hypertension Code(s): I10 - Essential (primary) hypertension Status: Chronic Assessment and Plan: Blood pressure reviewed on 01/27 BP more elevated overnight but better this afternoon. Lisinopril is currently held given shock, JOHNNIE and NPO status. Continue to monitor. (7) Tobacco dependence: Code(s): F17.200 - Nicotine dependence, unspecified, uncomplicated Status: Chronic Assessment and Plan: Pt has been advised the need to stop smoking immediately. Potential risks including adverse cardiopulmonary and discussed. (8) Renal cyst: Code(s): N28.1 - Cyst of kidney, acquired Status: Acute Assessment and Plan: 6mm hemorrhagic cyst of right
--- NOTE | 2020-01-28 12:42 | PM.PNCARD ---
Progress Note: A&P Assessment and Plan (1) Non-ST elevation ME (NSTEMI): Code(s): I21.4 - Non-ST elevation (NSTEMI) myocardial infarction Status: Acute Assessment and Plan: Transient symptoms in association with elevated troponin several days postop without concomitant shock or hypotension. As such, this appears to be consistent with ACS/NSTEMI. Currently asymptomatic, hemodynamically stable. Statin, BB when able. Intermittently bradycardic overnight. PT still has significant drainage per NG, NPO, no flatus as yet pt relates. -Conservative management and observation most appropriate given circumstances, asymptomatic status, and hemodynamic stability. -Continue telemetry (2) AIVR (accelerated idioventricular rhythm): Code(s): I44.2 - Atrioventricular block, complete Status: Acute Assessment and Plan: Telemetry with only occ PVC's, no recurrent ventricular bigeminy, ventricular couplets, idioventricular rhythm. no sustained or clear nonsustained VT thus far. Continue telemetry. Potassium and magnesium stable. Likely consequence of myocardial ischemia. Continue to observe closely. LV function preserved on echo prior to NSTEMI. If significant recurrence and/or ventricular tachycardia repeat 2D echocardiogram. (3) Thrombocytopenia: Code(s): D69.6 - Thrombocytopenia, unspecified Status: Acute Assessment and Plan: Etiology unclear less likely DIC, HIT although normal at admission with progressive declined mild improvement today 108. ASA per rectum, monitor platelets very closely. (4) Acute kidney injury: Code(s): N17.9 - Acute kidney failure, unspecified Status: Acute Assessment and Plan: Creatinine peaked at 3.2, resolved now at baseline. (5) Shock: Code(s): R57.9 - Shock, unspecified Status: Acute Assessment and Plan: Resolved. Off pressors as of 01/26/2020. (6) Aortic aneurysm: Qualifiers: Aortic location: abdominal aorta Presence of rupture: without rupture Qualified Code(s): I71.4 - Abdominal aortic aneurysm, without rupture Code(s): I71.9 - Aortic aneurysm of unspecified site, without rupture Status: Acute Assessment and Plan: Stable. BB when able. (7) Tobacco dependence: Code(s): F17.200 - Nicotine dependence, unspecified, uncomplicated Status: Chronic Assessment and Plan: Smoking cessation. (8) Rhabdomyolysis: Code(s): M62.82 - Rhabdomyolysis Status: Acute Assessment and Plan: CK initially over 2000 initially, resolved. (9) Small bowel obstruction: Code(s): K56.609 - Unspecified intestinal obstruction, unspecified as to partial versus complete obstruction Status: Acute Assessment and Plan: As above, resolved postop adhesiolysis. Nutritional support per Surgery/Primary service. Subjective Date/time seen: Date of service: 01/28/20 12:42 Follow-up for NSTEMI with transient chest pain and elevated troponin. Feels fatigued, weak and would like to eat. Denies recurrent chest pain, shortness of breath. No new issues overnight. Abdominal discomfort persists although improving. Denies flatus. NG tube remains in place. Apparently, was not to continuous suction overnight significant amount of bilious drainage this morning with improvement in generalized ill feeling. Review of Systems Review of Systems: All systems reviewed & are unremarkable except as noted in HPI and below Constitutional: Constitutional: Reports as per HPI, Reports no additional constitutional complaints, Denies excessive sweating, Reports fatigue and Reports weakness Eyes: Eyes: Reports as per HPI and Reports no additional eye complaints ENT: Reports system reviewed and no additional complaints, except as documented and Reports as per HPI Cardiovascular: Cardiovascular: Reports as per HPI, Reports no additional cardiovascular complaints, Reports
--- NOTE | 2020-01-28 12:46 | ECG_ITS ---
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
[2020-01-28 12:53] LABS: Glucose Point of Care 102 (65-105)
[2020-01-28] MEDS: LIDOCAINE HCL 1% PF INJ 5 ML VIAL INFILTRATE (14:00)
--- NOTE | 2020-01-28 14:15 | PCOTNOTE ---
Attempted OT treatment, but unable to complete as patient getting a PICC line placed.
[2020-01-28] MEDS: FAT EMULSIONS IV 20% 250 ML 20.83 ML IVPB (17:18)
[2020-01-28 18:13] LABS: Glucose Point of Care 114 (65-105)
[2020-01-28] MEDS: CENTRAL LINE FLUSH 10 ML IV PUSH (20:36)
[2020-01-29] VITALS (17 sets, daily range): BP systolic 144–173; BP diastolic 55–73; PULSE 62–93; RESP 16–20; TEMP 35.8–36.6; O2SAT 92–98
[2020-01-29] MEDS: ONDANSETRON INJ 4 MG/2 ML VIAL IV PUSH (00:32)
[2020-01-29 00:43] LABS: Glucose Point of Care 137 (65-105)
[2020-01-29] MEDS: HYDROCORTISONE SODIUM SUCCINATE 100 MG/2 ML VIAL 50 MG IV PUSH ×2 (04:43→18:17)
[2020-01-29] MEDS: METOCLOPRAMIDE HCL INJ 10 MG/2 ML VIAL 5 MG IV PUSH (04:43)
[2020-01-29] MEDS: CENTRAL LINE FLUSH 10 ML IV PUSH ×3 (04:44→20:36)
[2020-01-29 04:58] LABS: Basophils Absolute Auto 0.1 K/mm3 (0.0-0.1); Basophils Percent Auto 0.7 % (0.2-1.2); Eosinophils Percent Auto 0.2 % (0-4.4); Hematocrit 48.2 % (42.0-52.0); Hemoglobin 15.6 g/dL (14.0-18.0); Immature Granulocyte Absolute 0.31 K/mm3 (0.00-0.031); Immature Granulocyte Percent A 2.2 % (0-0.5); Lymphocytes Absolute Auto 0.84 K/mm3 (0.9-3.2); Lymphocytes Percent Auto 5.9 % (18.3-44.2); Mean Corpuscular HGB Conc 32.4 g/dl (32-36); Mean Corpuscular Hemoglobin 30.1 pg (26-34); Mean Corpuscular Volume 93.1 fl (80-100); Mean Platelet Volume 12.1 fl (7.4-10.4); Monocytes Absolute Auto 0.8 K/mm3 (0.1-0.6); Monocytes Percent Auto 5.4 % (2.6-8.5); Neutrophils Absolute Auto 12.2 K/mm3 (1.3-6.7); Neutrophils Percent Auto 85.6 % (45.5-73.1); Nucleated Red Blood Cells Perc 0.1 % (0.0-0.2); Platelet Count Result 112 k/mm3 (150-375); Red Blood Count 5.18 M/mm3 (4.6-6.20); Red Cell Distribution Width 14.6 % (11.5-14.5); White Blood Count 14.2 K/mm3 (4.5-10.0)
[2020-01-29 05:16] LABS: Alanine Aminotransferase 21 U/L (4-50); Albumin Level 2.3 g/dL (3.5-5.1); Alkaline Phosphatase 47 U/L (38-126); Anion Gap 4 mmol/L (8-16); Aspartate Amino Transferase 33 U/L (17-59); Bilirubin,Total 1.2 mg/dL (0.2-1.3); Blood Urea Nitrogen 40 mg/dL (9-20); Calcium 8.2 mg/dL (8.4-10.2); Carbon Dioxide 30 mmol/L (22-30); Chloride 115 mmol/L (98-107); Estimated CRCL calculation 71 ml/min; Estimated Glomerular Filt Rate > 60; Glucose 110 mg/dL (75-110); Magnesium 1.9 mg/dL (1.6-2.3); Phosphorus 3.6 mg/dL (2.5-4.5); Sodium 149 mmol/L (137-145)
[2020-01-29] MEDS: ALBUTEROL SULFATE (*SP) AEROSOL 1 PUFF 2 PUFF INHALATION ×4 (08:27→21:15)
[2020-01-29 08:41] LABS: Vancomycin Trough 5.5 ug/mL (10.0-20.0)
[2020-01-29 09:14] LABS: Glucose Point of Care 124 (65-105)
[2020-01-29] MEDS: NICOTINE (*PBKC) 21 MG PATCH 1 PATCH TRANSDERM (10:29)
[2020-01-29] MEDS: FONDAPARINUX SODIUM 2.5 MG/0.5 ML SYRINGE SUB-Q (10:29)
[2020-01-29] MEDS: PANTOPRAZOLE SODIUM IV 40 MG VIAL IV PUSH (10:30)
[2020-01-29] MEDS: ASPIRIN 300 MG SUPPOSITORY RECTAL (10:30)
[2020-01-29 11:28] LABS: Triglycerides 250 mg/dL (<150)
--- NOTE | 2020-01-29 11:52 | PM.PNCARD ---
Progress Note: A&P Assessment and Plan (1) Non-ST elevation [place] (NSTEMI): Code(s): I21.4 - Non-ST elevation (NSTEMI) myocardial infarction Status: Acute Assessment and Plan: Transient symptoms in association with elevated troponin several days postop without concomitant shock or hypotension. As such, this appears to be consistent with ACS/NSTEMI. Currently asymptomatic, hemodynamically stable. Intermittently bradycardic overnight. Patient remains NPO. begin statin when able. Continue aspirin per rectum. Off systemic anticoagulation due to thrombocytopenia. PT intermittently bradycardic HR 40's, hold off on BB for now. -Conservative management and observation most appropriate given circumstances provided patient remains hemodynamically stable and asymptomatic. -Continue telemetry (2) AIVR (accelerated idioventricular rhythm): Code(s): I44.2 - Atrioventricular block, complete Status: Acute Assessment and Plan: No recurrence. Telemetry with only occ PVC's (3) Thrombocytopenia: Code(s): D69.6 - Thrombocytopenia, unspecified Status: Acute Assessment and Plan: Remains low but stable. ASA per rectum, continue to monitor platelets. (4) Acute kidney injury: Code(s): N17.9 - Acute kidney failure, unspecified Status: Acute Assessment and Plan: resolved. (5) Shock: Code(s): R57.9 - Shock, unspecified Status: Acute Assessment and Plan: Resolved. Off pressors as of 01/26/2020. (6) Aortic aneurysm: Qualifiers: Aortic location: abdominal aorta Presence of rupture: without rupture Qualified Code(s): I71.4 - Abdominal aortic aneurysm, without rupture Code(s): I71.9 - Aortic aneurysm of unspecified site, without rupture Status: Acute Assessment and Plan: Stable. BB when able as tolerated. (7) Tobacco dependence: Code(s): F17.200 - Nicotine dependence, unspecified, uncomplicated Status: Chronic Assessment and Plan: Smoking cessation. (8) Rhabdomyolysis: Code(s): M62.82 - Rhabdomyolysis Status: Acute Assessment and Plan: CK initially over 2000 initially, resolved. (9) Small bowel obstruction: Code(s): K56.609 - Unspecified intestinal obstruction, unspecified as to partial versus complete obstruction Status: Acute Assessment and Plan: As above, resolved postop adhesiolysis. Nutritional support per Surgery/Primary service. Subjective Date/time seen: date of service: 01/29/20 11:52 Follow-up for NSTEMI, chest pain, ventricular arrhythmia new issues overnight. Patient denies recurrent chest pain or shortness of breath. Feels weak. Notes some abdominal discomfort. No BM as yet. Started on TPN yesterday. No nausea vomiting. NG tube in place. Review of Systems Review of Systems: All systems reviewed & are unremarkable except as noted in HPI and below Constitutional: Constitutional: Reports as per HPI, Reports no additional constitutional complaints, Denies excessive sweating, Reports fatigue and Reports weakness Eyes: Eyes: Reports as per HPI and Reports no additional eye complaints ENT: Reports system reviewed and no additional complaints, except as documented and Reports as per HPI Cardiovascular: Cardiovascular: Reports as per HPI, Reports no additional cardiovascular complaints, Reports chest pain and Reports dyspnea on exertion Respiratory: Respiratory: Reports as per HPI, Reports no additional respiratory complaints and Reports dyspnea on exertion Gastrointestinal: Gastrointestinal: Reports as per HPI, Reports no additional gastrointestinal complaints, Reports abdominal pain, Denies melena, Denies hematochezia and Reports heartburn Genitourinary: Genitourinary: Reports no additional male genitourinary complaints, Reports as per HPI and Denies hematuria Musculoskeletal: Musculoskeletal: Reports no additional muscul
--- NOTE | 2020-01-29 13:01 | PM.IMPN ---
Progress Note: A&P Assessment and Plan (1) Non-ST elevation [place] (NSTEMI): Code(s): I21.4 - Non-ST elevation (NSTEMI) myocardial infarction Status: Acute Assessment and Plan: Patient with VTach and associated CP on 01/25. EKG showing delayed R wave progression with Rt strain (S1Q3T3). No old EKG to compare. Trop up to 3.0. Mag 2.7 and K+ 4.2 at the time of the VTach, CP. On Reglan which was held but resumed by surgery - no further episodes of prolonged VTach by tele. Echo 01/25 showing EF 55-60% and grade I DD. LE doppler negative and VQ scan nondiagnostic for PE. Continue telemetry. Bradycardic at times so need to be careful about betablocker. (2) Shock: Code(s): R57.9 - Shock, unspecified Status: Acute Assessment and Plan: Still appears secondary to volume depletion but can not exclude sepsis. Pressors weaned off. Continue antibiotics with vanc and zosyn. Echo normal EF 55%. Central line has been removed. Weaning steroids. (3) Small bowel obstruction: Code(s): K56.609 - Unspecified intestinal obstruction, unspecified as to partial versus complete obstruction Status: Acute Assessment and Plan: CT abd/pelvis 01/22/20 demonstrated high-grade small bowel obstruction with transition point in the right abdomen. POD 6 from exploratory lap with extensive lysis of adhesion, small bowel resection x2 per Dr. Perez on 01/23/20. NGT output 650mL yesterday and 800mL recorded for today so far. Reglan was held related to above but resumed. Continue NPO and bowel rest with NG tube decompression. Continue IV antiemetics as needed. Continue PT/OT. Continue to have patient up to the chair and walking as much as possible (4) Acute kidney injury: Code(s): N17.9 - Acute kidney failure, unspecified Status: Acute Assessment and Plan: Cr peaked at 3.2. Likely secondary to acute dehydration from decreased PO intake. BUN was very high at 95 with ratio >20:1 suggesting pre-renal etiology. Cr decreased to 0.8 today with hydration. BUN still elevated but related to steroids. Renal US unremarkable. TCK elevated at 2130 but better to 199 with hydration. Continue TPN. (5) Aortic aneurysm: Qualifiers: Aortic location: abdominal aorta Presence of rupture: without rupture Qualified Code(s): I71.4 - Abdominal aortic aneurysm, without rupture Code(s): I71.9 - Aortic aneurysm of unspecified site, without rupture Status: Acute Assessment and Plan: Infrarenal 4.4 cm fusiform aneurysm of the infrarenal aorta was visualized on CT abd/pelvis. He will need repeat imaging in 6 -12 months and would benefit from referral to vascular surgery at discharge; this has been discussed with salome . She understood instructions. (6) Hypertension: Qualifiers: Hypertension type: unspecified Qualified Code(s): I10 - Essential (primary) hypertension Code(s): I10 - Essential (primary) hypertension Status: Chronic Assessment and Plan: Blood pressure reviewed on 01/28 BP more elevated overnight again. Lisinopril is currently held given shock, JOHNNIE and NPO status. Probably mobilizing fluids and/.or related to steroids. Wean steroids which should help. Continue to monitor. (7) Tobacco dependence: Code(s): F17.200 - Nicotine dependence, unspecified, uncomplicated Status: Chronic Assessment and Plan: Pt has been advised the need to stop smoking immediately. Potential risks including adverse cardiopulmonary and discussed. (8) Renal cyst: Code(s): N28.1 - Cyst of kidney, acquired Status: Acute Assessment and Plan: 6mm hemorrhagic cyst of right kidney and 9mm mass in left kidney read by
[2020-01-29] MEDS: FAT EMULSIONS IV 20% 250 ML 20.83 ML IVPB (13:54)
--- NOTE | 2020-01-29 13:54 | PM.PNGS ---
Progress Note: A&P Assessment and Plan (1) Small bowel obstruction: Code(s): K56.609 - Unspecified intestinal obstruction, unspecified as to partial versus complete obstruction Status: Acute Assessment and Plan: Continue NG decompression and bowel rest for now. Awaiting return of bowel function. Continue TPN for nutrition. Encouraged increased activity/ambulation. Enocuraged IS use. (2) Non-ST elevation [place] (NSTEMI): Code(s): I21.4 - Non-ST elevation (NSTEMI) myocardial infarction Status: Acute Assessment and Plan: Observation per cardiology Additional Plan Discussed the patient's case and plan of care with Dr. Perez. Subjective Subjective Date/Time Seen: 01/29/20 11:50 Post Op day: 6 Patient reports: no new complaints, no flatus and no bowel movement Interval history: Patient lying in bed and states he feels about the same. Reports abdominal pain has improved, no nausea or bloating. He was able to get up and walk in the room to the bathroom yesterday. Reports sitting in the chair this morning for under an hour. No other complaints at this time. Review of Systems Review of Systems: All systems reviewed & are unremarkable except as noted in HPI and below Constitutional: Constitutional: Reports as per HPI, Reports no additional constitutional complaints and Denies fever(s) Cardiovascular: Cardiovascular: Reports no additional cardiovascular complaints and Denies chest pain Respiratory: Respiratory: Reports no additional respiratory complaints, Denies cough and Denies dyspnea Gastrointestinal: Gastrointestinal: Reports as per HPI and Reports no additional gastrointestinal complaints Exam Const: General: comfortable, no acute distress, alert and awake Orientation/consciousness: patient oriented x3 Resp: Effort & Inspection: normal respiratory effort Auscultation: clear to auscultation bilaterally Cardio: Rate: regular rate Rhythm: regular rhythm GI: Inspection: incision (Midline incision clean, dry, intact. minimal serosang. drainage) and other (mildly distended) GI Palp: Yes Soft to palpation, Yes Tenderness to palpation present (GI) (incisional), No Guarding due to palpation present (GI) and No Rebound tenderness present Auscultation: Hypoactive bowel sounds present Other: RLQ MAHAD drain with minimal serosang. drainage Skin: General skin exam: normal color Neuro: General: patient oriented x3 and moves all extremities Cranial nerves: Yes CN's II-XII intact bilaterally Speech: normal speech Extrem: General: no calf tenderness and no edema Psych: Mental Status: mental status grossly normal Attitude: cooperative Thought process: Normal thought process present Thought content: Yes Normal thought content present Objective Data Vital Signs Vital Signs: Vital Signs - 24 hr 01/28/20 14:00 01/28/20 16:00 01/28/20 18:00 Temperature 97.2 F L Pulse Rate 88 78 85 Respiratory Rate 24 H Blood Pressure 110/66 Pulse Oximetry 92 01/28/20 19:58 01/28/20 20:00 01/28/20 22:00 Temperature 97.8 F Pulse Rate 80 80 80 Respiratory Rate 20 18 Blood Pressure 158/75 H Pulse Oximetry 93 94 01/28/20 23:27 01/29/20 00:00 01/29/20 02:00 Temperature 97.7 F Pulse Rate 85 62 80 Respiratory Rate 20 18 Blood Pressure 154/76 H Pulse Oximetry 91 95 01/29/20 04:00 01/29/20 05:46 01/29/20 07:40 Temperature 97.9 F 97.9 F Pulse Rate 77 91 84 Respiratory Rate 20 18 Blood Pressure 148/73 H 169/69 H Pulse Oximetry 93 92 01/29/20 08:00 01/29/20 10:07 01/29/20 12:00 Temperature 96.5 F L Pulse Rate 84 86 Respiratory Rate 18 16 Blood Pressure 144/55 H Pulse Oximetry 92 92 98 Intake/Output Intake/Output: Intake & Output 01/26/20 01/27/20 01/28/20 01/29/20 23:59 23:59 23:59 23:59 Intake Total 2930 3200 1650 350 Output Total 2610 3070 3167 1655 Balance 320 727 -[phone] -[phone] Meds/Results Medications: Active Medications Generic Name Dose Rout
[2020-01-29 15:04] LABS: UFH SRA Result Interpretation Negative (Negative)
--- NOTE | 2020-01-29 15:36 | PCDIET ---
Nutrition Consult Complete: Inadequate oral intake related to small bowel obstruction, ileus as evidenced by day 5 NPO diet. Patient to meet estimated nutritional needs. Goal: Progressing towards goal. Continue goal. Pt current nutrition is 2000ml Clinimix 5/15 +250ml 20% lipids at 40m/hr Nutrition recommendation: Recommend goal of 70ml/hr to better meet pt needs Last recorded weight is 83 kg, steady from assessed wt of 82.9kg Bowel Motility: No BM since 01/18 Labs Reviewed:WBC 14.2, Albumin 2.3, Protein 5.0, Na 149, BUN 40, 250 triglycerides, 124 glucose Meds Noted:Albumin, Zofran, Protonix, Vancomycin, Reglan Additional Notes: Pt with TPN added due to inability to feed into gut due to obstruction. Pt is tolerating TPN at 40ml/hr providing 1182 calories meeting 63% of kcal needs. Recommend increasing to goal of 70ml/hr of Clinimix 5/15 with 250ml 20 lipids to provide 1693 calories, 84g protein and 1930ml of free water. We will f/u tomorrow.
[2020-01-29 17:40] LABS: Glucose Point of Care 119 (65-105)
[2020-01-29 21:53] LABS: Heparin Induced Platelet Antib Negative (Negative)
[2020-01-30] VITALS (18 sets, daily range): BP systolic 136–162; BP diastolic 66–83; PULSE 60–84; RESP 14–20; TEMP 36.1–36.7; O2SAT 90–97
[2020-01-30 00:17] LABS: Glucose Point of Care 139 (65-105)
[2020-01-30] MEDS: CENTRAL LINE FLUSH 10 ML IV PUSH ×3 (05:17→21:42)
[2020-01-30 05:24] LABS: Hematocrit 43.4 % (42.0-52.0); Hemoglobin 14.1 g/dL (14.0-18.0); Mean Corpuscular HGB Conc 32.5 g/dl (32-36); Mean Corpuscular Hemoglobin 30.4 pg (26-34); Mean Corpuscular Volume 93.5 fl (80-100); Mean Platelet Volume 11.8 fl (7.4-10.4); Platelet Count Result 124 k/mm3 (150-375); Red Blood Count 4.64 M/mm3 (4.6-6.20); Red Cell Distribution Width 14.3 % (11.5-14.5); White Blood Count 17.2 K/mm3 (4.5-10.0)
[2020-01-30 05:38] LABS: Alanine Aminotransferase 21 U/L (4-50); Albumin Level 2.1 g/dL (3.5-5.1); Alkaline Phosphatase 52 U/L (38-126); Anion Gap 1 mmol/L (8-16); Aspartate Amino Transferase 26 U/L (17-59); Bilirubin,Total 2.4 mg/dL (0.2-1.3); Blood Urea Nitrogen 32 mg/dL (9-20); Calcium 7.9 mg/dL (8.4-10.2); Carbon Dioxide 35 mmol/L (22-30); Chloride 111 mmol/L (98-107); Estimated CRCL calculation 71 ml/min; Estimated Glomerular Filt Rate > 60; Glucose 110 mg/dL (75-110); Magnesium 1.9 mg/dL (1.6-2.3); Phosphorus 3.5 mg/dL (2.5-4.5); Potassium 3.8 mmol/L (3.4-5.0); Sodium 147 mmol/L (137-145)
[2020-01-30 06:19] LABS: Glucose Point of Care 108 (65-105)
[2020-01-30] MEDS: ALBUTEROL SULFATE (*SP) AEROSOL 1 PUFF 2 PUFF INHALATION ×3 (08:16→20:23)
[2020-01-30 08:26] LABS: Glucose Point of Care 116 (65-105)
[2020-01-30] MEDS: FONDAPARINUX SODIUM 2.5 MG/0.5 ML SYRINGE SUB-Q (08:31)
[2020-01-30] MEDS: NICOTINE (*PBKC) 21 MG PATCH 1 PATCH TRANSDERM (08:32)
[2020-01-30] MEDS: PANTOPRAZOLE SODIUM IV 40 MG VIAL IV PUSH (08:32)
[2020-01-30] MEDS: HYDROCORTISONE SODIUM SUCCINATE 100 MG/2 ML VIAL 25 MG IV PUSH ×2 (08:32→21:26)
[2020-01-30] MEDS: ASPIRIN 300 MG SUPPOSITORY RECTAL (08:32)
--- NOTE | 2020-01-30 09:18 | PM.PNCARD ---
Progress Note: A&P Assessment and Plan (1) Non-ST elevation [place] (NSTEMI): Code(s): I21.4 - Non-ST elevation (NSTEMI) myocardial infarction Status: Acute Assessment and Plan: Transient symptoms in association with elevated troponin several days postop without concomitant shock or hypotension. ACS/NSTEMI. Currently asymptomatic, hemodynamically stable. Patient remains NPO. -Continue aspirin per rectum. Off systemic anticoagulation due to thrombocytopenia. -Conservative management and observation most appropriate. -Continue telemetry -Add statin when able. Add BB when able to take po or IV if significant ventricular ectopy. -At this time, plan for ischemic workup when pt has further recovered. (2) AIVR (accelerated idioventricular rhythm): Code(s): I44.2 - Atrioventricular block, complete Status: Acute Assessment and Plan: No recurrence. Telemetry with occ PVC's (3) Thrombocytopenia: Code(s): D69.6 - Thrombocytopenia, unspecified Status: Acute Assessment and Plan: Remains low but stable. ASA per rectum, continue to monitor platelets. Tolerating thus far. (4) Acute kidney injury: Code(s): N17.9 - Acute kidney failure, unspecified Status: Acute Assessment and Plan: Resolved. (5) Shock: Code(s): R57.9 - Shock, unspecified Status: Acute Assessment and Plan: Resolved. Off pressors as of 01/26/2020. (6) Aortic aneurysm: Qualifiers: Aortic location: abdominal aorta Presence of rupture: without rupture Qualified Code(s): I71.4 - Abdominal aortic aneurysm, without rupture Code(s): I71.9 - Aortic aneurysm of unspecified site, without rupture Status: Acute Assessment and Plan: Stable. BB when able as tolerated. (7) Tobacco dependence: Code(s): F17.200 - Nicotine dependence, unspecified, uncomplicated Status: Chronic Assessment and Plan: Smoking cessation. (8) Rhabdomyolysis: Code(s): M62.82 - Rhabdomyolysis Status: Acute Assessment and Plan: Resolved. CK initially over 2000 initially. (9) Small bowel obstruction: Code(s): K56.609 - Unspecified intestinal obstruction, unspecified as to partial versus complete obstruction Status: Acute Assessment and Plan: As above, resolved postop adhesiolysis. Nutritional support per Surgery/Primary service. Mildly progressive leukocytosis, afebrile. Defer to primary service and surgery. Subjective Date/time seen: date of service: 01/30/20 09:18 Follow-up for NSTEMI feels better today. States his energy is improving. No new issues overnight. Denies shortness of breath, chest pain. CT has some gurgling in his abdomen no flatus as yet. Wants to know when his NG tube can be removed. Review of Systems Review of Systems: All systems reviewed & are unremarkable except as noted in HPI and below Constitutional: Constitutional: Reports as per HPI, Reports no additional constitutional complaints, Denies excessive sweating, Reports fatigue and Reports weakness Eyes: Eyes: Reports as per HPI and Reports no additional eye complaints ENT: Reports system reviewed and no additional complaints, except as documented and Reports as per HPI Cardiovascular: Cardiovascular: Reports as per HPI, Reports no additional cardiovascular complaints, Reports chest pain and Reports dyspnea on exertion Respiratory: Respiratory: Reports as per HPI, Reports no additional respiratory complaints and Reports dyspnea on exertion Gastrointestinal: Gastrointestinal: Reports as per HPI, Reports no additional gastrointestinal complaints, Reports abdominal pain, Denies melena, Denies hematochezia and Reports heartburn Genitourinary: Genitourinary: Reports no additional male genitourinary complaints, Reports as per HPI and Denies hematuria Musculoskeletal: Musculoskeletal: Reports no additional musculoskeletal complai
--- NOTE | 2020-01-30 11:09 | PM.PNGS ---
Progress Note: A&P Assessment and Plan (1) Small bowel obstruction: Code(s): K56.609 - Unspecified intestinal obstruction, unspecified as to partial versus complete obstruction Status: Acute Assessment and Plan: cont to await bowel fxn, cont PPN for now, encourage OOB/IS Subjective Subjective Date/Time Seen: 01/30/20 11:09 looks much better today, reports he feels better overall, still awaiting bowel fxn Review of Systems Review of Systems: All systems reviewed & are unremarkable except as noted in HPI and below Exam Const: General: cooperative, comfortable and no acute distress Orientation/consciousness: patient oriented x3 Resp: Effort & Inspection: normal respiratory effort Auscultation: diminished lung sounds Cardio: Rate: regular rate Rhythm: regular rhythm GI: Inspection: normal to inspection and distended GI Palp: Yes Soft to palpation, No Tenderness to palpation present (GI) and No Guarding due to palpation present (GI) Other: soft, decreased dist, nj TTP, incision C/D/I Objective Data Vital Signs Vital Signs: Vital Signs - 24 hr 01/29/20 12:00 01/29/20 14:00 01/29/20 15:05 Temperature 35.8 C L 36.4 C Pulse Rate 86 83 81 Respiratory Rate 16 18 Blood Pressure 144/55 H 152/72 H Pulse Oximetry 98 94 01/29/20 16:00 01/29/20 18:00 01/29/20 20:00 Temperature 35.9 C L Pulse Rate 81 82 71 Respiratory Rate 18 18 Blood Pressure 154/73 H Pulse Oximetry 94 93 01/29/20 21:36 01/29/20 22:00 01/29/20 23:58 Temperature 36.0 C L Pulse Rate 83 81 Respiratory Rate 18 Blood Pressure 173/71 H Pulse Oximetry 92 96 01/30/20 00:00 01/30/20 02:00 01/30/20 03:53 Temperature 36.1 C L Pulse Rate 76 81 64 Respiratory Rate 18 18 Blood Pressure 153/66 H Pulse Oximetry 94 94 01/30/20 04:00 01/30/20 06:00 01/30/20 08:00 Temperature 36.6 C Pulse Rate 72 77 77 Respiratory Rate 18 20 Blood Pressure 162/83 H Pulse Oximetry 95 94 Intake/Output Intake/Output: Intake & Output 11/10/20 01/28/20 01/29/20 01/30/20 23:59 23:59 23:59 23:59 Intake Total 3200 1650 1145 900 Output Total 3070 5711 2478 1405 Balance 019 -2807 -2318 -505 Meds/Results Medications: Active Medications Generic Name Dose Route Start Last Admin Trade Name Freq PRN Reason Stop Dose Admin Albuterol 2 puff 01/26/20 20:00 01/29/20 21:15 Albuterol Sulfate (*Sp) Aerosol 1 Puff INHALATION 2 puff QIDRT JORJE Administration Aspirin 300 mg 01/27/20 09:00 01/30/20 08:32 Aspirin 300 Mg Suppository RECTAL 300 mg DAILY JORJE Administration Dextrose 12.5 gm 01/25/20 06:01 01/25/20 06:12 Dextrose 50% 25 Gm/50 Ml Syringe IV PUSH 12.5 gm PRN PRN Administration Hypoglycemia Protocol Fondaparinux 2.5 mg 01/28/20 09:00 01/30/20 08:31 Fondaparinux Sodium 2.5 Mg/0.5 Ml Syringe SUB-Q 2.5 mg DAILY JORJE Administration Glucagon 1 mg 01/25/20 06:01 Glucagon For Inj 1 Mg Vial IM PRN PRN Hypoglycemia Protocol Glucose 15 gm 01/25/20 06:01 Glucose Oral Gel 15 Gm Of Glucse In 37.5 Gm Tube PO PRN PRN Hypoglycemia Protocol Hydrocortisone Sodium Succinate 25 mg 01/30/20 08:00 01/30/20 08:32 Hydrocortisone Sodium Succinate 100 Mg/2 Ml Vial IV PUSH 25 mg Q12H JORJE Administration Hydromorphone HCl 1 mg 01/23/20 23:36 01/24/20 12:37 Hydromorphone Hcl Inj (*Crx) 1 Mg/Ml Syr IV PUSH 1 mg Q1H PRN Administration Pain Rated 7-10 Piperacillin/Tazobactam/Dextrose 3.375 gm in 50 mls @ 100 mls/hr 01/27/20 12:00 01/30/20 06:34 Zosyn 3.375 Gm/D5w 50ml Pm IVPB Infused Q6HR JORJE Infusion Dextrose 1,000 mls @ 50 mls/hr 01/28/20 11:07 Dextrose 10% IV CONT .Q20H PRN if PN is interrupted Multivitamins 5 ml/ Amino 2,005 mls @ 40 mls/hr 01/28/20 12:00 01/29/20 13:53 Acids/Electrolytes/Dextrose IV CONT 40 mls/hr .Q24H JORJE Administration Protocol Fat Emulsion Intrave
--- NOTE | 2020-01-30 11:54 | PM.IMPN ---
Progress Note: A&P Assessment and Plan (1) Non-ST elevation [place] (NSTEMI): Code(s): I21.4 - Non-ST elevation (NSTEMI) myocardial infarction Status: Acute Assessment and Plan: Patient with VTach and associated CP on 01/25. EKG showing delayed R wave progression with Rt strain (S1Q3T3). No old EKG to compare. Trop up to 3.0. Mag 2.7 and K+ 4.2 at the time of the VTach, CP. On Reglan which was held but resumed by surgery- no further episodes of prolonged VTach. Echo 01/25 showing EF 55-60% and grade I DD. LE doppler negative and VQ scan nondiagnostic for PE. Continue telemetry. Will add metoprolol IV. (2) Shock: Code(s): R57.9 - Shock, unspecified Status: Acute Assessment and Plan: Appears secondary to volume depletion but can not exclude sepsis. Pressors weaned off. Patient was on Flagyl/Cipro 01/23-01/24 but changed to Vanc and Zosyn 01/24 (Day 6). Echo normal EF 55%. Central line has been removed. WBC elevated now as we are weaning steroids - delayed response? Contine to wean steroids. (3) Small bowel obstruction: Code(s): K56.609 - Unspecified intestinal obstruction, unspecified as to partial versus complete obstruction Status: Acute Assessment and Plan: CT abd/pelvis 01/22/20 demonstrated high-grade small bowel obstruction with transition point in the right abdomen. POD 7 from exploratory lap with extensive lysis of adhesion, small bowel resection x2 per Dr. Perez on 01/23/20. NGT output 1700mL yesterday and 750mL recorded for today so far. Reglan was held related to above but resumed. Continue NPO and bowel rest with NG tube decompression. Continue IV antiemetics as needed. Continue PT/OT. Continue to have patient up to the chair and walking as much as possible (4) Acute kidney injury: Code(s): N17.9 - Acute kidney failure, unspecified Status: Acute Assessment and Plan: Cr peaked at 3.2. Likely secondary to acute dehydration from decreased PO intake. BUN was very high at 95 with ratio >20:1 suggesting pre-renal etiology. Cr decreased to 0.8 today with hydration. BUN better but still elevated but related to steroids. Renal US unremarkable. TCK elevated at 2130 but better to 199 with hydration. Continue TPN. (5) Aortic aneurysm: Qualifiers: Aortic location: abdominal aorta Presence of rupture: without rupture Qualified Code(s): I71.4 - Abdominal aortic aneurysm, without rupture Code(s): I71.9 - Aortic aneurysm of unspecified site, without rupture Status: Acute Assessment and Plan: Infrarenal 4.4 cm fusiform aneurysm of the infrarenal aorta was visualized on CT abd/pelvis. He will need repeat imaging in 6 -12 months and would benefit from referral to vascular surgery at discharge; this has been discussed with daughter. She understood instructions. (6) Hypertension: Qualifiers: Hypertension type: unspecified Qualified Code(s): I10 - Essential (primary) hypertension Code(s): I10 - Essential (primary) hypertension Status: Chronic Assessment and Plan: Blood pressure reviewed on 01/29 BP more elevated overnight again. Lisinopril is currently held given shock, JOHNNIE and NPO status. Probably mobilizing fluids and/or related to steroids. Wean steroids which should help. Add Lopressor IV. Continue to monitor. (7) Tobacco dependence: Code(s): F17.200 - Nicotine dependence, unspecified, uncomplicated Status: Chronic Assessment and Plan: Pt has been advised the need to stop smoking immediately. Potential risks including adverse cardiopulmonary and discussed. (8) Renal cyst: Code(s): N28.1 - Cyst of kidney, acquired Status: Acute Ass
[2020-01-30] MEDS: FAT EMULSIONS IV 20% 250 ML 20.83 ML IVPB (12:59)
[2020-01-30] MEDS: METOPROLOL TARTRATE INJ 5 MG/5 ML VIAL IV PUSH ×2 (13:00→17:23)
[2020-01-30] MEDS: METOCLOPRAMIDE HCL INJ 10 MG/2 ML VIAL 5 MG IV PUSH ×3 (13:18→23:26)
--- NOTE | 2020-01-30 13:44 | PCDIET ---
Nutrition follow up Complete: Inadequate oral intake related to small bowel obstruction, ileus as evidenced by day 5 NPO diet. Patient to meet estimated nutritional needs. Goal: Progressing towards goal. Continue goal. Pt current nutrition is 2000ml Clinimix 5/15 +250ml 20% lipids at 40m/hr Nutrition recommendation: Recommend goal of 70ml/hr to better meet pt needs Last recorded weight is 83 kg, unchanged from yesterday Bowel Motility: No BM since 01/18, hypoactive bowel sounds with NG to suction Labs Reviewed:WBC 17.2, Albumin 2.1, Protein 5.0, Na 147, 2.4 bilirubin, BUN 32, Glucose 116, PO4 and potassium normal today Meds Noted:Albumin, Zofran, Protonix, Vancomycin, Zosyn Additional Notes: Agree with TPN at this time due to obstruction and inability to feed into gut. Recommend increasing TPN to 70ml/hr. Pt is tolerating TPN at 40ml/hr providing 1182 calories meeting 63% of kcal needs and no signs of refeeding syndrome. Recommend increasing to goal of 70ml/hr of Clinimix 5/15 with 250ml 20 lipids to provide 1693 calories, 84g protein and 1930ml of free water. Recommend daily weight. Following every T/F.
--- NOTE | 2020-01-30 13:53 | PCOTNOTE ---
OT reviewed patient's medical record and discussed treatment with BARRETT. Patient demonstrates improved tolerance and participation with OT treatment. Increase OT frequency from 2-3 days per week to 5-7 days per week.
[2020-01-30 18:14] LABS: Platelet Antibody, Direct IgG NEGATIVE (NEGATIVE)
[2020-01-30 19:53] LABS: Glucose Point of Care 117 (65-105)
[2020-01-30 23:58] LABS: Glucose Point of Care 145 (65-105)
[2020-01-31] VITALS (16 sets, daily range): BP systolic 129–156; BP diastolic 48–84; PULSE 41–98; RESP 16–24; TEMP 35.9–37; O2SAT 92–96
[2020-01-31] MEDS: METOCLOPRAMIDE HCL INJ 10 MG/2 ML VIAL 5 MG IV PUSH ×4 (05:10→23:27)
[2020-01-31] MEDS: CENTRAL LINE FLUSH 10 ML IV PUSH ×3 (05:11→23:27)
[2020-01-31 05:32] LABS: Glucose Point of Care 123 (65-105)
[2020-01-31 05:48] LABS: Hematocrit 42.1 % (42.0-52.0); Hemoglobin 13.7 g/dL (14.0-18.0); Mean Corpuscular HGB Conc 32.5 g/dl (32-36); Mean Corpuscular Hemoglobin 30.1 pg (26-34); Mean Corpuscular Volume 92.5 fl (80-100); Mean Platelet Volume 11.8 fl (7.4-10.4); Platelet Count Result 172 k/mm3 (150-375); Red Blood Count 4.55 M/mm3 (4.6-6.20); Red Cell Distribution Width 13.7 % (11.5-14.5); White Blood Count 23.2 K/mm3 (4.5-10.0)
[2020-01-31 06:05] LABS: Alanine Aminotransferase 25 U/L (4-50); Albumin Level 2.2 g/dL (3.5-5.1); Alkaline Phosphatase 61 U/L (38-126); Anion Gap 1 mmol/L (8-16); Aspartate Amino Transferase 31 U/L (17-59); Bilirubin Indirect 0.9 mg/dL (0-1.1); Bilirubin,Total 3.3 mg/dL (0.2-1.3); Blood Urea Nitrogen 25 mg/dL (9-20); Calcium 7.9 mg/dL (8.4-10.2); Carbon Dioxide 37 mmol/L (22-30); Chloride 105 mmol/L (98-107); Estimated CRCL calculation 80 ml/min; Estimated Glomerular Filt Rate > 60; Glucose 125 mg/dL (75-110); Phosphorus 3.5 mg/dL (2.5-4.5); Potassium 3.5 mmol/L (3.4-5.0); Sodium 143 mmol/L (137-145)
[2020-01-31] MEDS: PANTOPRAZOLE SODIUM IV 40 MG VIAL IV PUSH (08:33)
[2020-01-31] MEDS: NICOTINE (*PBKC) 21 MG PATCH 1 PATCH TRANSDERM (08:33)
[2020-01-31] MEDS: ASPIRIN 300 MG SUPPOSITORY RECTAL (08:34)
[2020-01-31] MEDS: FONDAPARINUX SODIUM 2.5 MG/0.5 ML SYRINGE SUB-Q (08:34)
[2020-01-31] MEDS: HYDROCORTISONE SODIUM SUCCINATE 100 MG/2 ML VIAL 25 MG IV PUSH (08:34)
[2020-01-31] MEDS: ALBUTEROL SULFATE (*SP) AEROSOL 1 PUFF 2 PUFF INHALATION ×4 (08:40→21:27)
--- NOTE | 2020-01-31 09:38 | PM.PNGS ---
Progress Note: A&P Assessment and Plan (1) Small bowel obstruction: Code(s): K56.609 - Unspecified intestinal obstruction, unspecified as to partial versus complete obstruction Status: Acute Assessment and Plan: WBC up today, removed 4 samson from inferior edge of incision and drained scant serous purulent fluid. Wound tracks deep and superior along incision. Continue IV antibiotics, if WBC still going up tomorrow, will get a repeat CT abd/pelvis (2) Ileus: Code(s): K56.7 - Ileus, unspecified Status: Acute Assessment and Plan: Continue PPN, will clamp NG today and give Milk of Mag Remove NG once ileus resolved Subjective Subjective Date/Time Seen: 01/31/20 09:38 Patient passing some flatus. No BM yet. Pain controlled. No fevers. Exam GI: Inspection: incision (serous purulent drainage coming from inferior edge of incision) and other (MAHAD serosanguinous) Objective Data Vital Signs Vital Signs: Vital Signs - 24 hr 01/30/20 10:00 01/30/20 12:00 01/30/20 13:00 Temperature 36.7 C Pulse Rate 80 78 79 Respiratory Rate 14 Blood Pressure 150/76 H Pulse Oximetry 95 01/30/20 14:00 01/30/20 14:55 01/30/20 16:00 Temperature Pulse Rate 80 60 Respiratory Rate Blood Pressure Pulse Oximetry 90 96 01/30/20 17:23 01/30/20 19:31 01/30/20 20:00 Temperature 36.4 C L Pulse Rate 69 65 73 Respiratory Rate 16 Blood Pressure 136/67 Pulse Oximetry 96 96 01/30/20 20:27 01/30/20 22:00 01/30/20 23:25 Temperature Pulse Rate 72 64 Respiratory Rate Blood Pressure Pulse Oximetry 97 01/31/20 00:00 01/31/20 02:00 01/31/20 03:58 Temperature 36.6 C 37.0 C Pulse Rate 67 79 56 L Respiratory Rate 18 16 Blood Pressure 148/67 H 156/65 H Pulse Oximetry 92 93 01/31/20 04:00 01/31/20 04:52 01/31/20 06:00 Temperature Pulse Rate 72 41 L 75 Respiratory Rate Blood Pressure Pulse Oximetry 93 01/31/20 08:00 01/31/20 08:46 Temperature 36.5 C Pulse Rate 74 Respiratory Rate 24 H Blood Pressure 130/68 Pulse Oximetry 94 94 Intake/Output Intake/Output: Intake & Output 01/28/20 01/29/20 01/30/20 01/31/20 23:59 23:59 23:59 23:59 Intake Total 1650 1145 2127 1359 Output Total 3168 1660 2405 1928 [facility] [id number] -[id number] [id number] [phone] Meds/Results Medications: Active Medications Generic Name Dose Route Start Last Admin Trade Name Freq PRN Reason Stop Dose Admin Albuterol 2 puff 01/26/20 20:00 01/31/20 08:40 Albuterol Sulfate (*Sp) Aerosol 1 Puff INHALATION 2 puff QIDRT JORJE Administration Aspirin 300 mg 01/27/20 09:00 01/31/20 08:34 Aspirin 300 Mg Suppository RECTAL 300 mg DAILY JORJE Administration Dextrose 12.5 gm 01/25/20 06:01 01/25/20 06:12 Dextrose 50% 25 Gm/50 Ml Syringe IV PUSH 12.5 gm PRN PRN Administration Hypoglycemia Protocol Fondaparinux 2.5 mg 01/28/20 09:00 01/31/20 08:34 Fondaparinux Sodium 2.5 Mg/0.5 Ml Syringe SUB-Q 2.5 mg DAILY JORJE Administration Glucagon 1 mg 01/25/20 06:01 Glucagon For Inj 1 Mg Vial IM PRN PRN Hypoglycemia Protocol Glucose 15 gm 01/25/20 06:01 Glucose Oral Gel 15 Gm Of Glucse In 37.5 Gm Tube PO PRN PRN Hypoglycemia Protocol Hydrocortisone Sodium Succinate 25 mg 01/30/20 08:00 01/31/20 08:34 Hydrocortisone Sodium Succinate 100 Mg/2 Ml Vial IV PUSH 25 mg Q12H JORJE Administration Hydromorphone HCl 1 mg 01/23/20 23:36 01/24/20 12:37 Hydromorphone Hcl Inj (*Crx) 1 Mg/Ml Syr IV PUSH 1 mg Q1H PRN Administration Pain Rated 7-10 Piperacillin/Tazobactam/Dextrose 3.375 gm in 50 mls @ 100 mls/hr 01/27/20 12:00 01/31/20 08:07 Zosyn 3.375 Gm/D5w 50ml Pm IVPB Infused Q6HR JORJE Infusion Dextrose 1,000 mls @ 50 mls/hr 01/28/20 11:07 Dextrose 10% IV CONT .Q20H PRN if PN is interrupted Multivitamins 5 ml/ Amino 2,005 mls @ 40 mls/hr 01/28/20 12:00
--- NOTE | 2020-01-31 10:33 | PM.PNCARD ---
Progress Note: A&P Assessment and Plan (1) Non-ST elevation [place] (NSTEMI): Code(s): I21.4 - Non-ST elevation (NSTEMI) myocardial infarction Status: Acute Assessment and Plan: Patient currently does not have any ongoing chest pain. LVEF is preserved on surface echocardiogram. Patient remains NPO. -Continue aspirin per rectum. Off systemic anticoagulation due to thrombocytopenia. -Conservative cardiac management at this time. -Continue telemetry for any recurrent arrhythmias. -may use IV beta jadyn with holding parameters if significant ventricular ectopy. Patient had episodes of sinus bradycardia with heart rate in 30s and 40s on telemetry. -plan for ischemic workup when patient has recovered from current postop surgical status (2) AIVR (accelerated idioventricular rhythm): Code(s): I44.2 - Atrioventricular block, complete Status: Acute Assessment and Plan: No recurrence. Telemetry with occ PVC's (3) Thrombocytopenia: Code(s): D69.6 - Thrombocytopenia, unspecified Status: Acute Assessment and Plan: Remains low but stable. ASA per rectum, continue to monitor platelets. Tolerating thus far. (4) Acute kidney injury: Code(s): N17.9 - Acute kidney failure, unspecified Status: Acute Assessment and Plan: Resolved. (5) Shock: Code(s): R57.9 - Shock, unspecified Status: Acute Assessment and Plan: Resolved. Off pressors as of 01/26/2020. (6) Aortic aneurysm: Qualifiers: Aortic location: abdominal aorta Presence of rupture: without rupture Qualified Code(s): I71.4 - Abdominal aortic aneurysm, without rupture Code(s): I71.9 - Aortic aneurysm of unspecified site, without rupture Status: Acute Assessment and Plan: Stable. BB when able as tolerated. (7) Tobacco dependence: Code(s): F17.200 - Nicotine dependence, unspecified, uncomplicated Status: Chronic Assessment and Plan: Smoking cessation. (8) Rhabdomyolysis: Code(s): M62.82 - Rhabdomyolysis Status: Acute Assessment and Plan: Resolved. CK initially over 2000 initially. (9) Small bowel obstruction: Code(s): K56.609 - Unspecified intestinal obstruction, unspecified as to partial versus complete obstruction Status: Acute Assessment and Plan: Management as per primary team and surgery. Subjective Date/time seen: 01/31/20 10:33 Date of service: 01/31/2020 Chief complaint: Chest congestion Interval history: Patient is status post exploratory lap with extensive lysis of adhesion, small bowel resection. Reports chest congestion. Denies any ongoing chest pain at present. No dyspnea at rest. Is currently NPO and has NG tube in place. On tele, patient had episodes of sinus bradycardia with heart rate in 30s and 40s. Exam Narrative: Exam Narrative: PHYSICAL EXAMINATION: GENERAL: Alert, anxious MENTAL STATUS: Anxious EYES: Extraocular movements intact, pallor EARS: External ears appear normal, hearing grossly normal NOSE: Normal and patent, no discharge MOUTH: Mucous membranes moist, tongue normal NECK: Supple, no JVD CHEST: Decreased breath sounds, decrease of HEART: Normal rate, regular rhythm, normal S1 and S2 ABDOMEN: Surgical wound with dressing in place NEUROLOGICAL: Alert, normal speech MUSCULOSKELETAL: No major deformity, no amputation EXTREMITIES: No pedal edema SKIN: no rash on the exposed area, no cyanosis PSYCHIATRIC: Anxious Objective Data Vital Signs Vital Signs: Vital Signs - 24 hr 01/30/20 12:00 01/30/20 13:00 01/30/20 14:00 Temperature 36.7 C Pulse Rate 78 79 80 Respiratory Rate 14 Blood Pressure 150/76 H Pulse Oximetry 95 01/30/20 14:55 01/30/20 16:00 01/30/20 17:23 Temperature Pulse Rate 60 69 Respiratory Rate Blood Pressure Pulse Oximetry 90 96 01/30/20 19:31 01/30/20 20:00 01/30/20 20
[2020-01-31] MEDS: MAGNESIUM HYDROXIDE SUSP 30 ML UDC FEED TUBE (10:44)
[2020-01-31 10:52] LABS: Triglycerides 211 mg/dL (<150)
--- NOTE | 2020-01-31 12:19 | PM.IMPN ---
Progress Note: A&P Assessment and Plan (1) Non-ST elevation [place] (NSTEMI): Code(s): I21.4 - Non-ST elevation (NSTEMI) myocardial infarction Status: Acute Assessment and Plan: Patient with VTach and associated CP on 01/25. EKG showing delayed R wave progression with Rt strain (S1Q3T3). No old EKG to compare. Trop up to 3.0. Mag 2.7 and K+ 4.2 at the time of the VTach, CP. On Reglan which was held but resumed by surgery- no further episodes of prolonged VTach. Echo 01/25 showing EF 55-60% and grade I DD. LE doppler negative and VQ scan nondiagnostic for PE. Continue ASA. Continue telemetry. metoprolol held. (2) Shock: Code(s): R57.9 - Shock, unspecified Status: Acute Assessment and Plan: Appears secondary to volume depletion but can not exclude sepsis. Pressors weaned off. Patient was on Flagyl/Cipro 01/23-01/24 but changed to Vanc and Zosyn 01/24 (Day 7). Echo normal EF 55%. Central line has been removed. WBC elevated now to 23K as we are weaning steroids - delayed response? occult infection? Abd more tender today. Stop steroids. (3) Small bowel obstruction: Code(s): K56.609 - Unspecified intestinal obstruction, unspecified as to partial versus complete obstruction Status: Acute Assessment and Plan: CT abd/pelvis 01/22/20 demonstrated high-grade small bowel obstruction with transition point in the right abdomen. POD 8 from exploratory lap with extensive lysis of adhesion, small bowel resection x2 per Dr. Perez on 01/23/20. NGT output 1450mL yesterday and 1025mL recorded for today so far. Reglan was held related to above but resumed. Continue NPO and bowel rest. NG tube has been clamped to see how he toelrates. Continue IV antiemetics as needed. Continue TPN. Continue PT/OT. Continue to have patient up to the chair and walking as much as possible (4) Acute kidney injury: Code(s): N17.9 - Acute kidney failure, unspecified Status: Acute Assessment and Plan: Cr peaked at 3.2. Likely secondary to acute dehydration from decreased PO intake. BUN was very high at 95 with ratio >20:1 suggesting pre-renal etiology. Cr decreased to 0.7 today with hydration. BUN better but still mildly elevated but related to steroids. Renal US unremarkable. TCK elevated at 2130 but better to 199 with hydration. Continue TPN. (5) Aortic aneurysm: Qualifiers: Aortic location: abdominal aorta Presence of rupture: without rupture Qualified Code(s): I71.4 - Abdominal aortic aneurysm, without rupture Code(s): I71.9 - Aortic aneurysm of unspecified site, without rupture Status: Acute Assessment and Plan: Infrarenal 4.4 cm fusiform aneurysm of the infrarenal aorta was visualized on CT abd/pelvis. He will need repeat imaging in 6 -12 months and would benefit from referral to vascular surgery at discharge; this was discussed with daughter. She understood instructions. (6) Hypertension: Qualifiers: Hypertension type: unspecified Qualified Code(s): I10 - Essential (primary) hypertension Code(s): I10 - Essential (primary) hypertension Status: Chronic Assessment and Plan: Blood pressure reviewed on 01/30 BP elevated at times. Lisinopril is currently held given shock, JOHNNIE and NPO status. Probably mobilizing fluids and/or related to steroids. Lopressor IV added but caused bradycardia so this was stopped. Will stop steroids. Continue to monitor. Ad hydralaizne prn. (7) Tobacco dependence: Code(s): F17.200 - Nicotine dependence, unspecified, uncomplicated Status: Chronic Assessment and Plan: Pt has been advised the need to stop smoking immediately. (8) Renal cyst: Code(s): N2
[2020-01-31 13:06] LABS: Glucose Point of Care 124 (65-105)
[2020-01-31] MEDS: FAT EMULSIONS IV 20% 250 ML 20.8 ML IVPB (14:35)
[2020-01-31 16:19] LABS: Vancomycin Trough 5.8 ug/mL (10.0-20.0)
[2020-01-31] MEDS: ONDANSETRON INJ 4 MG/2 ML VIAL IV PUSH (16:45)
[2020-01-31 17:19] LABS: Glucose Point of Care 133 (65-105)
--- NOTE | 2020-01-31 18:03 | PC.NURSE ---
This patient, Jacob Tam, was transferred to [facility] on 01/31/20 at 1800. Personal belongings sent with patient. Report given to Desire RN. Appropriate documentation sent with patient.
[2020-02-01] VITALS (15 sets, daily range): BP systolic 104–156; BP diastolic 41–73; PULSE 56–78; RESP 16–20; TEMP 35.6–36.6; O2SAT 85–96
[2020-02-01 00:15] LABS: Glucose Point of Care 40 (65-105)
[2020-02-01 00:15] LABS: Glucose Point of Care 126 (65-105)
[2020-02-01] MEDS: CENTRAL LINE FLUSH 20 ML IV PUSH (05:25)
[2020-02-01] MEDS: METOCLOPRAMIDE HCL INJ 10 MG/2 ML VIAL 5 MG IV PUSH ×4 (05:29→23:04)
[2020-02-01] MEDS: CENTRAL LINE FLUSH 10 ML IV PUSH ×3 (05:30→22:04)
[2020-02-01 06:02] LABS: Basophils Absolute Auto 0.1 K/mm3 (0.0-0.1); Basophils Percent Auto 0.2 % (0.2-1.2); Eosinophils Absolute Auto 0.3 K/mm3 (0-0.3); Eosinophils Percent Auto 1.2 % (0-4.4); Hematocrit 42.1 % (42.0-52.0); Hemoglobin 13.5 g/dL (14.0-18.0); Immature Granulocyte Absolute 0.31 K/mm3 (0.00-0.031); Immature Granulocyte Percent A 1.3 % (0-0.5); Lymphocytes Absolute Auto 0.58 K/mm3 (0.9-3.2); Lymphocytes Percent Auto 2.4 % (18.3-44.2); Mean Corpuscular HGB Conc 32.1 g/dl (32-36); Mean Corpuscular Hemoglobin 29.8 pg (26-34); Mean Corpuscular Volume 92.9 fl (80-100); Mean Platelet Volume 12.1 fl (7.4-10.4); Monocytes Absolute Auto 0.9 K/mm3 (0.1-0.6); Monocytes Percent Auto 3.6 % (2.6-8.5); Neutrophils Absolute Auto 22.2 K/mm3 (1.3-6.7); Neutrophils Percent Auto 91.3 % (45.5-73.1); Platelet Count Result 200 k/mm3 (150-375); Red Blood Count 4.53 M/mm3 (4.6-6.20); Red Cell Distribution Width 13.8 % (11.5-14.5); White Blood Count 24.3 K/mm3 (4.5-10.0)
[2020-02-01] MEDS: HYDROmorphone HCL INJ (*CRX) 1 MG/ML SYR IV PUSH (06:13)
[2020-02-01 06:29] LABS: Anion Gap 3 mmol/L (8-16); Blood Urea Nitrogen 24 mg/dL (9-20); Calcium 7.7 mg/dL (8.4-10.2); Carbon Dioxide 38 mmol/L (22-30); Chloride 103 mmol/L (98-107); Estimated CRCL calculation 92 ml/min; Estimated Glomerular Filt Rate > 60; Glucose 127 mg/dL (75-110); Phosphorus 3.5 mg/dL (2.5-4.5); Potassium 3.5 mmol/L (3.4-5.0); Sodium 144 mmol/L (137-145)
[2020-02-01 06:48] LABS: Glucose Point of Care 134 (65-105)
[2020-02-01] MEDS: ALBUTEROL SULFATE (*SP) AEROSOL 1 PUFF 2 PUFF INHALATION ×3 (07:57→22:14)
[2020-02-01] MEDS: FONDAPARINUX SODIUM 2.5 MG/0.5 ML SYRINGE SUB-Q (08:35)
[2020-02-01] MEDS: ASPIRIN 300 MG SUPPOSITORY RECTAL (08:35)
[2020-02-01] MEDS: NICOTINE (*PBKC) 21 MG PATCH 1 PATCH TRANSDERM (08:35)
[2020-02-01] MEDS: PANTOPRAZOLE SODIUM IV 40 MG VIAL IV PUSH (08:51)
[2020-02-01 09:44] LABS: Alanine Aminotransferase 30 U/L (4-50); Albumin Level 2.1 g/dL (3.5-5.1); Alkaline Phosphatase 64 U/L (38-126); Aspartate Amino Transferase 34 U/L (17-59); Bilirubin Direct 0.1 mg/dL (0-0.3); Bilirubin,Total 2.1 mg/dL (0.2-1.3)
[2020-02-01 10:49] LABS: Glucose Point of Care 107 (65-105)
--- NOTE | 2020-02-01 11:00 | PM.IMPN ---
Progress Note: A&P Assessment and Plan (1) Altered mental status: Code(s): R41.82 - Altered mental status, unspecified Status: Acute Assessment and Plan: Patietn arouses and no focal weakness. Suspect related to narcotics. Will give Narcan once to ensure he improves. Stop Dilaudid. Tylenol available for pain now (2) AIVR (accelerated idioventricular rhythm): Code(s): I44.2 - Atrioventricular block, complete Status: Acute Assessment and Plan: Patient with VTach/AIVR and associated CP on 01/25. EKG showing delayed R wave progression with Rt strain (S1Q3T3). No old EKG to compare. Trop up to 3.0. Mag 2.7 and K+ 4.2 at the time of the event. On Reglan which was held but resumed by surgery- no further episodes of the AIVR. Echo 01/25 showing EF 55-60% and grade I DD. LE doppler negative and VQ scan nondiagnostic for PE. Continue ASA. Continue telemetry. (3) Non-ST elevation [place] (NSTEMI): Code(s): I21.4 - Non-ST elevation (NSTEMI) myocardial infarction Status: Acute Assessment and Plan: Patient with CP on 01/25 associated with the AIVR. EKG showing delayed R wave progression with Rt strain (S1Q3T3). No old EKG to compare. Trop up to 3.0. Continue ASA. Continue telemetry. Metoprolol started but patient became bradycardic so this was stopped. (4) Shock: Code(s): R57.9 - Shock, unspecified Status: Acute Assessment and Plan: Appears secondary to volume depletion but can not exclude sepsis. Weaned off ARBORER and then Levophed on the evening on 01/25. Patient was on Flagyl/Cipro 01/23-01/24 but changed to Vanc and Zosyn 01/24 (Day 8). Echo normal EF 55%. Central line has been removed. WBC elevated now to 24K and now off steroids. BP remaining stable off steroids. Discussed with surgeon who stated that there was spillage so concern for occult abd infection of fungal infection. Continue IV abx for now. Follow up on CT scan results. (5) Small bowel obstruction: Code(s): K56.609 - Unspecified intestinal obstruction, unspecified as to partial versus complete obstruction Status: Acute Assessment and Plan: CT abd/pelvis 01/22/20 demonstrated high-grade small bowel obstruction with transition point in the right abdomen. The SB was distended with areas of necrosis and perforation. POD 9 from exploratory lap with extensive lysis of adhesion, small bowel resection x2 per Dr. Perez on 01/23/20. NGT output 1375mL yesterday and 850mL recorded for today so far. Reglan was held related to above but resumed. Continue NPO and bowel rest. Continue IV antiemetics as needed. Continue TPN. Continue PT/OT. Continue to have patient up to the chair and walking as much as possible once his mental status improves. (6) Ileus: Code(s): K56.7 - Ileus, unspecified Status: Acute Assessment and Plan: Post-op ileus related to SBO. As above. (7) Acute kidney injury: Code(s): N17.9 - Acute kidney failure, unspecified Status: Acute Assessment and Plan: Cr peaked at 3.2. Likely secondary to acute dehydration from decreased PO intake. BUN was very high at 95 with ratio >20:1 suggesting pre-renal etiology. Cr decreased to 0.6 today with hydration. BUN almost normal as well. Renal US unremarkable. Continue TPN. (8) Rhabdomyolysis: Code(s): M62.82 - Rhabdomyolysis Status: Acute Assessment and Plan: TCK elevated at 2130 but better to 199 with hydration. Etiology unclear but felt related to the sepsis. (9) Aortic aneurysm: Qualifiers: Aortic location: abdominal aorta Presence of rupture: without rupture Qualified Code(s): I71.4 - Abdominal aortic aneurysm, without rupture Code(s): I71.9 - Aortic aneurysm of unspecified site, without rupture Status: Acute Assessment and Plan
--- NOTE | 2020-02-01 11:09 | PM.PNGS ---
Progress Note: A&P Assessment and Plan (1) Small bowel obstruction: Code(s): K56.609 - Unspecified intestinal obstruction, unspecified as to partial versus complete obstruction Status: Acute Assessment and Plan: Still no resolution of ileus and WBC continues to rise, will get a CT abd/pelvis today. Continue daily dressing changes Continue Zosyn and Vancomycin, discussed with Dr. Saucedo--could consider antifungal coverage but will await CT results (2) Ileus: Code(s): K56.7 - Ileus, unspecified Status: Acute Subjective Subjective Date/Time Seen: 02/01/20 11:09 Patient somnolent this AM. Received Dilaudid overnight. No BM or Flatus. Says he's hungry and thirsty. Exam GI: Inspection: distended, incision (mostly serous drainage coming from inferior edge of incision, no erythema) and other (MAHAD serosanguinous) GI Palp: Yes Tenderness to palpation present (GI) (mild lower) and No Guarding due to palpation present (GI) Auscultation: Hypoactive bowel sounds present Objective Data Vital Signs Vital Signs: Vital Signs - 24 hr 01/31/20 11:54 01/31/20 12:00 01/31/20 16:00 Temperature 36.3 C L 35.9 C L Pulse Rate 98 64 50 L Respiratory Rate 20 22 H Blood Pressure 153/84 H 129/48 L Pulse Oximetry 93 94 93 01/31/20 19:51 01/31/20 20:00 01/31/20 21:28 Temperature 36.8 C Pulse Rate 78 78 95 Respiratory Rate 20 Blood Pressure 136/52 L Pulse Oximetry 93 96 02/01/20 00:00 02/01/20 04:00 02/01/20 04:09 Temperature 36.6 C 36.3 C L Pulse Rate 78 75 76 Respiratory Rate 18 20 Blood Pressure 121/51 L 156/73 H Pulse Oximetry 91 92 02/01/20 07:57 02/01/20 07:59 02/01/20 08:00 Temperature Pulse Rate 60 Respiratory Rate 18 Blood Pressure Pulse Oximetry 85 L 92 91 02/01/20 08:53 Temperature 35.7 C L Pulse Rate 60 Respiratory Rate 18 Blood Pressure 116/55 L Pulse Oximetry 91 Intake/Output Intake/Output: Intake & Output 11/1201/30/20 01/31/20 02/01/20 23:59 23:59 23:59 23:59 Intake Total 1145 2127 3945.2 471.8 Output Total 3463 9310 1785 1150 [facility]8936 -964 808.2 -678.2 Meds/Results Medications: Active Medications Generic Name Dose Route Start Last Admin Trade Name Freq PRN Reason Stop Dose Admin Albuterol 2 puff 01/26/20 20:00 02/01/20 07:57 Albuterol Sulfate (*Sp) Aerosol 1 Puff INHALATION 2 puff QIDRT JORJE Administration Aspirin 300 mg 01/27/20 09:00 02/01/20 08:35 Aspirin 300 Mg Suppository RECTAL 300 mg DAILY JORJE Administration Dextrose 12.5 gm 01/25/20 06:01 01/25/20 06:12 Dextrose 50% 25 Gm/50 Ml Syringe IV PUSH 12.5 gm PRN PRN Administration Hypoglycemia Protocol Fondaparinux 2.5 mg 01/28/20 09:00 02/01/20 08:35 Fondaparinux Sodium 2.5 Mg/0.5 Ml Syringe SUB-Q 2.5 mg DAILY JORJE Administration Glucagon 1 mg 01/25/20 06:01 Glucagon For Inj 1 Mg Vial IM PRN PRN Hypoglycemia Protocol Glucose 15 gm 01/25/20 06:01 Glucose Oral Gel 15 Gm Of Glucse In 37.5 Gm Tube PO PRN PRN Hypoglycemia Protocol Hydralazine HCl 10 mg 01/31/20 12:35 Hydralazine Hcl 20 Mg/Ml Vial IV PUSH Q8H PRN Blood Pressure - High Piperacillin/Tazobactam/Dextrose 3.375 gm in 50 mls @ 100 mls/hr 01/27/20 12:00 02/01/20 05:55 Zosyn 3.375 Gm/D5w 50ml Pm IVPB Infused Q6HR JORJE Infusion Dextrose 1,000 mls @ 50 mls/hr 01/28/20 11:07 Dextrose 10% IV CONT .Q20H PRN if PN is interrupted Multivitamins 5 ml/ Amino 2,005 mls @ 40 mls/hr 01/28/20 12:00 01/31/20 17:55 Acids/Electrolytes/Dextrose IV CONT 40 mls/hr .Q24H JORJE Infusion Protocol Fat Emulsion Intravenous 250 mls @ 20.833 mls/hr 01/28/20 12:00 02/01/20 02:44 Lipids 20% IVPB Infused Q24H JORJE Infusion Vancomycin HCl 1,250 mg in 250 mls @ 200 mls/hr 02/01/20 04:00 02/01/20 07:00 Vancomycin 1,250 Mg/D5w 250 Ml IVPB 200 mls/hr Q12H JORJE Infusi
--- NOTE | 2020-02-01 11:25 | PM.PNCARD ---
Progress Note: A&P Assessment and Plan (1) Non-ST elevation [place] (NSTEMI): Code(s): I21.4 - Non-ST elevation (NSTEMI) myocardial infarction Status: Acute Assessment and Plan: Patient currently does not have any ongoing chest pain. LVEF is preserved on surface echocardiogram. Patient remains NPO. -Continue aspirin per rectum. Off systemic anticoagulation due to thrombocytopenia. -Conservative cardiac management at this time. -Continue telemetry for any recurrent arrhythmias. -may use IV beta jadyn with holding parameters if significant ventricular ectopy. Patient had episodes of sinus bradycardia with heart rate in 30s and 40s on telemetry, currently heart rates are in 60s. -plan for ischemic workup when patient has recovered from current postop surgical status (2) AIVR (accelerated idioventricular rhythm): Code(s): I44.2 - Atrioventricular block, complete Status: Acute Assessment and Plan: No recurrence. <del>Telem</del>etry sinus rhythm (3) Thrombocytopenia: Code(s): D69.6 - Thrombocytopenia, unspecified Status: Acute Assessment and Plan: Remains low but stable. ASA per rectum, continue to monitor platelets. Tolerating thus far. (4) Acute kidney injury: Code(s): N17.9 - Acute kidney failure, unspecified Status: Acute Assessment and Plan: Resolved. (5) Shock: Code(s): R57.9 - Shock, unspecified Status: Acute Assessment and Plan: Resolved. Off pressors as of 01/26/2020. (6) Aortic aneurysm: Qualifiers: Aortic location: abdominal aorta Presence of rupture: without rupture Qualified Code(s): I71.4 - Abdominal aortic aneurysm, without rupture Code(s): I71.9 - Aortic aneurysm of unspecified site, without rupture Status: Acute Assessment and Plan: Stable. BB when able as tolerated. (7) Tobacco dependence: Code(s): F17.200 - Nicotine dependence, unspecified, uncomplicated Status: Chronic Assessment and Plan: Smoking cessation. (8) Rhabdomyolysis: Code(s): M62.82 - Rhabdomyolysis Status: Acute Assessment and Plan: Resolved. CK initially over 2000 initially. (9) Small bowel obstruction: Code(s): K56.609 - Unspecified intestinal obstruction, unspecified as to partial versus complete obstruction Status: Acute Assessment and Plan: Management as per primary team and surgery. Subjective Date/time seen: 02/01/20 11:25 date of service 02/01/2020-patient was transferred to the telemetry floor. He is somnolent, denies any ongoing chest pain or shortness of breath. He has NG tube in place. Yesterday, his heart rates but low in 30s and 40s. Today on telemetry, his heart rates are in 60s in sinus rhythm. Exam Narrative: Exam Narrative: PHYSICAL EXAMINATION: GENERAL: Somnolent MENTAL STATUS: somnolent EYES: pallor EARS: External ears appear normal, hearing grossly normal NOSE: NG tube in place MOUTH: dry mucous membrane NECK: Supple, no JVD CHEST: Decreased breath sounds, decrease effort HEART: Normal rate, regular rhythm, normal S1 and S2 ABDOMEN: Surgical wound with dressing in place NEUROLOGICAL: somnolent MUSCULOSKELETAL: No major deformity, no amputation EXTREMITIES: No pedal edema SKIN: no rash on the exposed area, no cyanosis PSYCHIATRIC: somnolent Objective Data Vital Signs Vital Signs: Vital Signs - 24 hr 01/31/20 11:54 01/31/20 12:00 01/31/20 16:00 Temperature 36.3 C L 35.9 C L Pulse Rate 98 64 50 L Respiratory Rate 20 22 H Blood Pressure 153/84 H 129/48 L Pulse Oximetry 93 94 93 01/31/20 19:51 01/31/20 20:00 01/31/20 21:28 Temperature 36.8 C Pulse Rate 78 78 95 Respiratory Rate 20 Blood Pressure 136/52 L Pulse Oximetry 93 96 02/01/20 00:00 02/01/20 04:00 02/01/20 04:09 Temperature 36.6 C 36.3 C L Pulse Rate 78 75 76 Respiratory Rate 18 20
[2020-02-01] MEDS: NALOXONE HCL 0.4 MG/ML VIAL 0.1 MG IV PUSH (11:28)
[2020-02-01 12:02] LABS: Glucose Point of Care 106 (65-105)
[2020-02-01] MEDS: FAT EMULSIONS IV 20% 250 ML 20.8 ML IVPB (12:19)
[2020-02-01 13:27] LABS: Add Urine Microscopic? YES; Appearance Urine Clear (Clear); Bilirubin Urine Negative (Negative); Blood Urine Negative (Negative); Color Urine Amber (Yellow); Glucose Urine UA Negative (Negative); Ketones Urine Negative (Negative); Leukocyte Esterase Ur Negative LEU/UL (Negative); Mucus Urine Rare /lpf; Nitrate Urine Negative (Negative); Protein Urine 1+ mg/dL (Negative); RBC Urine 0-2 /hpf (0-2); Squamous Epithelial Cell Urine Few /hpf (Few); Urobilinogen Urine Negative mg/dL (<2.0)
[2020-02-01 13:39] LABS: Specific Grav Ur 1.032 (1.001-1.035)
[2020-02-01 17:26] LABS: Glucose Point of Care 106 (65-105)
--- NOTE | 2020-02-01 17:43 | PCRCNOTE ---
Window of time for administration has passed. See next scheduled administration.
[2020-02-01] MEDS: MICAFUNGIN SODIUM 100 MG in SODIUM CHLORIDE 0.9% IV 100 ML IVPB (18:29)
[2020-02-02] VITALS (25 sets, daily range): BP systolic 122–151; BP diastolic 45–75; PULSE 64–83; RESP 15–23; TEMP 36.1–36.8; O2SAT 91–99
[2020-02-02 00:16] LABS: Glucose Point of Care 120 (65-105)
[2020-02-02] MEDS: CENTRAL LINE FLUSH 20 ML IV PUSH (03:15)
[2020-02-02 03:42] LABS: Basophils Absolute Auto 0.1 K/mm3 (0.0-0.1); Basophils Percent Auto 0.2 % (0.2-1.2); Eosinophils Absolute Auto 0.3 K/mm3 (0-0.3); Eosinophils Percent Auto 1.4 % (0-4.4); Hematocrit 38.7 % (42.0-52.0); Hemoglobin 12.4 g/dL (14.0-18.0); Immature Granulocyte Absolute 0.27 K/mm3 (0.00-0.031); Immature Granulocyte Percent A 1.2 % (0-0.5); Lymphocytes Percent Auto 2.7 % (18.3-44.2); Mean Corpuscular Hemoglobin 30.1 pg (26-34); Mean Corpuscular Volume 93.9 fl (80-100); Mean Platelet Volume 12.1 fl (7.4-10.4); Monocytes Percent Auto 4.5 % (2.6-8.5); Partial Thromboplastin Time 31.5 SECONDS (22.3-36.8); Platelet Count Result 193 k/mm3 (150-375); Prothrombin Time 13.8 Seconds (11.1-14.7); Red Blood Count 4.12 M/mm3 (4.6-6.20); Red Cell Distribution Width 14.1 % (11.5-14.5); White Blood Count 22.2 K/mm3 (4.5-10.0)
[2020-02-02 03:57] LABS: Alanine Aminotransferase 18 U/L (4-50); Albumin Level 2.1 g/dL (3.5-5.1); Alkaline Phosphatase 53 U/L (38-126); Anion Gap 1 mmol/L (8-16); Aspartate Amino Transferase 21 U/L (17-59); Bilirubin,Total 2.2 mg/dL (0.2-1.3); Blood Urea Nitrogen 23 mg/dL (9-20); Calcium 7.8 mg/dL (8.4-10.2); Carbon Dioxide 37 mmol/L (22-30); Chloride 101 mmol/L (98-107); Estimated CRCL calculation 80 ml/min; Estimated Glomerular Filt Rate > 60; Glucose 216 mg/dL (75-110); Magnesium 2.3 mg/dL (1.6-2.3); Phosphorus 3.7 mg/dL (2.5-4.5); Potassium 3.9 mmol/L (3.4-5.0); Sodium 139 mmol/L (137-145)
[2020-02-02 04:04] LABS: Transferrin 119 mg/dL (206-381)
[2020-02-02 04:25] LABS: Vancomycin Trough 13.3 ug/mL (10.0-20.0)
[2020-02-02 05:39] LABS: Glucose Point of Care 123 (65-105)
[2020-02-02] MEDS: METOCLOPRAMIDE HCL INJ 10 MG/2 ML VIAL 5 MG IV PUSH ×4 (06:00→23:15)
[2020-02-02] MEDS: CENTRAL LINE FLUSH 10 ML IV PUSH ×3 (06:00→20:13)
--- NOTE | 2020-02-02 08:32 | PM.IMPN ---
Progress Note: A&P Assessment and Plan (1) Altered mental status: Code(s): R41.82 - Altered mental status, unspecified Status: Acute Assessment and Plan: Patient difficult to arouse yesterday felt related to narcotics. Narcotcs stopped. Mental status back to normal now. Tylenol available for pain now (2) AIVR (accelerated idioventricular rhythm): Code(s): I44.2 - Atrioventricular block, complete Status: Acute Assessment and Plan: Patient with VTach/AIVR and associated CP on 01/25. EKG showing delayed R wave progression with Rt strain (S1Q3T3). No old EKG to compare. Trop up to 3.0. Mag 2.7 and K+ 4.2 at the time of the event. On Reglan which was held but resumed by surgery- no further episodes of the AIVR. Echo 01/25 showing EF 55-60% and grade I DD. LE doppler negative and VQ scan nondiagnostic for PE. Continue ASA. Continue telemetry. Cardiology following (3) Non-ST elevation [place] (NSTEMI): Code(s): I21.4 - Non-ST elevation (NSTEMI) myocardial infarction Status: Acute Assessment and Plan: Patient with CP on 01/25 associated with the AIVR. EKG showing delayed R wave progression with Rt strain (S1Q3T3). No old EKG to compare. Trop up to 3.0. Continue ASA. Continue telemetry. Metoprolol started but patient became bradycardic so this was stopped. Appearing more fluid overloaded so will give Lasix IV once. (4) Shock: Code(s): R57.9 - Shock, unspecified Status: Acute Assessment and Plan: Appears secondary to volume depletion but can not exclude sepsis. Weaned off [employer] and then Levophed on the evening on 01/25. Patient was on Flagyl/Cipro 01/23-01/24 but changed to Vanc and Zosyn 01/24 (Day 9). Echo normal EF 55%. Central line has been removed. WBC better at 22K and now off steroids. BP remaining stable off steroids. Continue IV abx for now. Antifungal treatment started. Drains placed. Pedro consult ID. (5) Small bowel obstruction: Code(s): K56.609 - Unspecified intestinal obstruction, unspecified as to partial versus complete obstruction Status: Acute Assessment and Plan: CT abd/pelvis 01/22/20 demonstrated high-grade small bowel obstruction with transition point in the right abdomen. The SB was distended with areas of necrosis and perforation. POD 10 from exploratory lap with extensive lysis of adhesion, small bowel resection x2 per Dr. Perez on 01/23/20. NGT output 1100mL yesterday and 1300mL recorded for today so far. Reglan was held related to above but resumed. Repeat CT Abd/pelvis 01/31 showing multiple scattered pockets of abdominal fluid suspicious of abscess. Continue NPO and bowel rest. Continue IV antiemetics as needed. Continue TPN. Continue PT/OT. Continue to have patient up to the chair and walking as much as possible. (6) Ileus: Code(s): K56.7 - Ileus, unspecified Status: Acute Assessment and Plan: CT scan yesterday showing dilated small bowel probably postoperative ileus and left upper quadrant loop of small bowel with inflammation, wall thickening. As above. (7) Acute kidney injury: Code(s): N17.9 - Acute kidney failure, unspecified Status: Acute Assessment and Plan: Cr peaked at 3.2. Likely secondary to acute dehydration from decreased PO intake. BUN was very high at 95 with ratio >20:1 suggesting pre-renal etiology. Cr decreased to 0.7 today with hydration. BUN almost normal as well. Renal US unremarkable. Continue TPN. (8) Rhabdomyolysis: Code(s): M62.82 - Rhabdomyolysis Status: Acute Assessment and Plan: TCK elevated at 2130 but better to 199 with hydration. Etiology unclear but felt related to the sepsis. (9) Aortic aneurysm: Qualifiers: Aortic location: abdominal aorta Presence of rupture: without rupture Qualified Code(s): I71.4 - Abdominal aortic aneurysm, without rupture Code(s): I71.9 - Aort
[2020-02-02] MEDS: ALBUTEROL SULFATE (*SP) AEROSOL 1 PUFF 2 PUFF INHALATION ×4 (08:34→21:36)
[2020-02-02] MEDS: NICOTINE (*PBKC) 21 MG PATCH 1 PATCH TRANSDERM (09:05)
[2020-02-02] MEDS: FONDAPARINUX SODIUM 2.5 MG/0.5 ML SYRINGE SUB-Q (09:05)
[2020-02-02] MEDS: PANTOPRAZOLE SODIUM IV 40 MG VIAL IV PUSH (09:05)
[2020-02-02] MEDS: FUROSEMIDE INJ 40 MG/4 ML VIAL 20 MG IV PUSH (09:06)
[2020-02-02] MEDS: ASPIRIN 300 MG SUPPOSITORY RECTAL (09:06)
--- NOTE | 2020-02-02 09:39 | PCOTNOTE ---
Per RN, try back later to see patient. Will attempt later today to see for OT.
[2020-02-02 11:51] LABS: Glucose Point of Care 102 (65-105)
[2020-02-02 12:10] LABS: Triglycerides 146 mg/dL (<150)
--- NOTE | 2020-02-02 12:11 | WPDMODSED ---
Moderate Sedation Note-Pt Data Patient Data Diagnosis: Abdominal abscesses. Present Complaint: Abdominal abscesses. Procedure to be performed/Plan: CT-guided abdominal abscess drainage. Allergies Allergy/AdvReac Type Severity Reaction Status Date / Time No Known Allergies Allergy Unknown NONE Verified 01/22/20 21:20 Home Medications Medication Instructions Recorded Confirmed Type lisinopril 30 mg PO DAILY 01/22/20 01/22/20 History Current Medications: Active Medications Albuterol (Albuterol Sulfate (*Sp) Aerosol 1 Puff) 2 puff INHALATION QIDRT [facility] Last Admin: 02/02/20 11:42 Dose: 2 puff Documented by: Aspirin (Aspirin 300 Mg Suppository) 300 mg RECTAL DAILY [facility] Last Admin: 02/02/20 09:06 Dose: 300 mg Documented by: Dextrose (Dextrose 50% 25 Gm/50 Ml Syringe) 12.5 gm IV PUSH PRN PRN; Protocol PRN Reason: Hypoglycemia Last Admin: 01/25/20 06:12 Dose: 12.5 gm Documented by: Fondaparinux (Fondaparinux Sodium 2.5 Mg/0.5 Ml Syringe) 2.5 mg SUB-Q DAILY [facility] Last Admin: 02/02/20 09:05 Dose: 2.5 mg Documented by: Glucagon (Glucagon For Inj 1 Mg Vial) 1 mg IM PRN PRN; Protocol PRN Reason: Hypoglycemia Glucose (Glucose Oral Gel 15 Gm Of Glucse In 37.5 Gm Tube) 15 gm PO PRN PRN; Protocol PRN Reason: Hypoglycemia Hydralazine HCl (Hydralazine Hcl 20 Mg/Ml Vial) 10 mg IV PUSH Q8H PRN PRN Reason: Blood Pressure - High Piperacillin/Tazobactam/Dextrose (Zosyn 3.375 Gm/D5w 50ml Pm) 3.375 gm in 50 mls @ 100 mls/hr IVPB Q6HR [facility] Last Infusion: 02/02/20 06:29 Dose: Infused Documented by: Dextrose (Dextrose 10%) 1,000 mls @ 50 mls/hr IV CONT .Q20H PRN PRN Reason: if PN is interrupted Multivitamins 5 ml/ Amino (Acids/Electrolytes/Dextrose) 2,005 mls @ 40 mls/hr IV CONT .Q24H JORJE; Protocol Last Infusion: 02/02/20 06:49 Dose: 40 mls/hr Documented by: Fat Emulsion Intravenous (Lipids 20%) 250 mls @ 20.833 mls/hr IVPB Q24H [facility] Last Infusion: 02/02/20 00:21 Dose: Infused Documented by: Vancomycin HCl (Vancomycin 1,250 Mg/D5w 250 Ml) 1,250 mg in 250 mls @ 200 mls/hr IVPB Q12H [facility] Last Infusion: 02/02/20 05:47 Dose: Infused Documented by: Micafungin Sodium 100 mg/ (Sodium Chloride) 100 mls @ 100 mls/hr IVPB QPM [facility] Last Infusion: 02/01/20 19:29 Dose: Infused Documented by: Metoclopramide HCl (Metoclopramide Hcl Inj 10 Mg/2 Ml Vial) 5 mg IV PUSH Q6HR [facility] Last Admin: 02/02/20 06:00 Dose: 5 mg Documented by: Naloxone HCl (Naloxone Hcl 0.4 Mg/Ml Vial) 0.1 mg IV PUSH Q5MIN PRN PRN Reason: Sedation Last Admin: 02/01/20 11:28 Dose: 0.1 mg Documented by: Nicotine (Nicotine (*Pbkc) 21 Mg Patch) 1 patch TRANSDERM QAM [facility] Last Admin: 02/02/20 09:05 Dose: 1 patch Documented by: Ondansetron HCl (Ondansetron Inj 4 Mg/2 Ml Vial) 4 mg IV PUSH Q4H PRN PRN Reason: Nausea Last Admin: 01/31/20 16:45 Dose: 4 mg Documented by: Pantoprazole Sodium (Pantoprazole Sodium Iv 40 Mg Vial) 40 mg IV PUSH QAM [facility] Last Admin: 02/02/20 09:05 Dose: 40 mg Documented by: Sodium Chloride (Central Line Flush) 20 ml IV PUSH PRN PRN PRN Reason: after blood draws Last Admin: 02/02/20 03:15 Dose: 20 ml Documented by: Sodium Chloride (Central Line Flush) 10 ml IV PUSH Q8HR [facility] Last Admin: 02/02/20 06:00 Dose: 10 ml Documented by: Sodium Chloride (Central Line Flush) 10 ml IV PUSH PRN PRN PRN Reason: with TPN bag changes Sodium Chloride (Central Line Flush) 20 ml IV PUSH PRN PRN PRN Reason: after blood draws Sedation/Anesthesia: No previous sedation/anesthesia problems (including family history). PMFSH Past Medical History Medical History Acute kidney injury Hypertension Surgical History Surgical History History of appendectomy Family History Family History Mother Acute myocardial infarction Congestive heart failure Diabet
--- NOTE | 2020-02-02 12:25 | PM.PNGS ---
Progress Note: A&P Assessment and Plan (1) Small bowel obstruction: Code(s): K56.609 - Unspecified intestinal obstruction, unspecified as to partial versus complete obstruction Status: Acute Assessment and Plan: CT abd/pelvis reviewed and discussed with the patient. Dr. Perez reviewed the CT with the Radiologist. Will plan for percutaneous drain placement today into [address] MAHAD drain output dark brown/green today. Will await the results of CT-guided perc. drain placement. Continue IV Zosyn/Vancomycin and IV Micafungin. WBC down to 22,000 today. Remains afebrile. Dressing changes daily to midline incision. (2) Ileus: Code(s): K56.7 - Ileus, unspecified Status: Acute Assessment and Plan: Still with high NG output but now with flatus and BM this morning. Continue NG tube decompression and bowel rest today for procedure. Will continue TPN/lipids for nutrition. Encouraged increased activity, OOB/ambulation, IS use. (3) Non-ST elevation [place] (NSTEMI): Code(s): I21.4 - Non-ST elevation (NSTEMI) myocardial infarction Status: Acute Assessment and Plan: Cardiology following. Conservative treatment and rectal ASA at this time. Additional Plan Discussed the patient's case and plan of care with Dr. Perez. Subjective Subjective Date/Time Seen: 02/02/20 10:05 Post Op day: 10 Patient reports: flatus, bowel movement and nausea Interval history: Patient seen and examined. Reports flatus and had a BM this morning. Patient has been able to sit up in chair but very minimal ambulation in room due to generalized weakness. Reports nausea with NG in place but no vomiting. Reports feeling bloated and some mild abdominal pain. No other complaints at this time. Review of Systems Review of Systems: All systems reviewed & are unremarkable except as noted in HPI and below Constitutional: Constitutional: Denies chills and Denies fever(s) Cardiovascular: Cardiovascular: Reports no additional cardiovascular complaints, Denies chest pain and Denies pedal edema Respiratory: Respiratory: Reports no additional respiratory complaints and Denies dyspnea Gastrointestinal: Gastrointestinal: Reports as per HPI and Reports no additional gastrointestinal complaints Exam Const: General: no acute distress, alert and awake Orientation/consciousness: patient oriented x3 Resp: Auscultation: rhonchi and diminished lung sounds Cardio: Rate: regular rate Rhythm: regular rhythm GI: Inspection: distended and other (MAHAD dark brown bilious-appearing output) GI Palp: Yes Soft to palpation, Yes Tenderness to palpation present (GI) (diffusely tender, no focal tenderness), No Guarding due to palpation present (GI) and No Rebound tenderness present Auscultation: Hypoactive bowel sounds present Other: Midline incision with opening at the base of the incision and mostly serosanguineous drainage, samson above the opening are intact. Minimal erythema noted around the base of the incision. Neuro: General: patient oriented x3 and moves all extremities Speech: normal speech Extrem: General: normal to inspection, no calf tenderness and no edema Psych: Appearance: grossly normal Mental Status: mental status grossly normal Attitude: cooperative Thought process: Normal thought process present Objective Data Vital Signs Vital Signs: Vital Signs - 24 hr 02/01/20 14:25 02/01/20 16:00 02/01/20 16:43 Temperature 96.0 F L 96.9 F L Pulse Rate 74 67 63 Respiratory Rate 18 16 Blood Pressure 104/41 L 107/51 L Pulse Oximetry 91 96 02/01/20 20:00 02/01/20 20:16 02/01/20 22:09 Temperature 97 F L Pulse Rate 64 56 L Respiratory Rate 18 Blood Pressure 112/60 Pulse Oximetry 96 96 02/01/20 22:14 02/02/20 00:00 02/02/20 04:18 Temperature Pulse Rate 67 83 Respiratory Rate Blood Pressure Pulse Oximetry 90 02/02/20 05:14 02/02/20 08:00 02/02/20 08:39 Temperature 9
--- NOTE | 2020-02-02 13:06 | PCOTNOTE ---
Patient unavailable to be seen for OT this date. In procedure to place drains. Will continue plan of care tomorrow, 02/03/2020.
[2020-02-02] MEDS: FAT EMULSIONS IV 20% 250 ML 20.8 ML IVPB (14:27)
--- NOTE | 2020-02-02 15:44 | PM.PNCARD ---
Progress Note: A&P Assessment and Plan (1) Non-ST elevation [place] (NSTEMI): Code(s): I21.4 - Non-ST elevation (NSTEMI) myocardial infarction Status: Acute Assessment and Plan: Denies chest pain. LVEF is preserved on surface echocardiogram. Remains NPO. Continue aspirin per rectum. Off systemic anticoagulation due to thrombocytopenia. Conservative cardiac management at this time. Continue telemetry for any recurrent arrhythmias. May use IV beta jadyn with holding parameters if significant ventricular ectopy. He had episodes of sinus bradycardia with heart rate in 30s and 40s on telemetry, currently heart rates are in 60s. Plan for ischemic workup when he has recovered from current surgical status (2) AIVR (accelerated idioventricular rhythm): Code(s): I44.2 - Atrioventricular block, complete Status: Acute Assessment and Plan: No recurrence. Telemetry reviewed. Sinus rhythm occasional PVCs including bigeminy. No sustained episodes. (3) Thrombocytopenia: Code(s): D69.6 - Thrombocytopenia, unspecified Status: Acute Assessment and Plan: Stable. ASA per rectum, continue to monitor platelets. (4) Acute kidney injury: Code(s): N17.9 - Acute kidney failure, unspecified Status: Acute Assessment and Plan: Resolved. (5) Shock: Code(s): R57.9 - Shock, unspecified Status: Acute Assessment and Plan: Resolved. Off pressors as of 01/26/2020. (6) Aortic aneurysm: Qualifiers: Aortic location: abdominal aorta Presence of rupture: without rupture Qualified Code(s): I71.4 - Abdominal aortic aneurysm, without rupture Code(s): I71.9 - Aortic aneurysm of unspecified site, without rupture Status: Acute Assessment and Plan: Stable. BB when able as tolerated. (7) Tobacco dependence: Code(s): F17.200 - Nicotine dependence, unspecified, uncomplicated Status: Chronic Assessment and Plan: Smoking cessation. (8) Rhabdomyolysis: Code(s): M62.82 - Rhabdomyolysis Status: Acute Assessment and Plan: Resolved. CK initially over 1999. (9) Small bowel obstruction: Code(s): K56.609 - Unspecified intestinal obstruction, unspecified as to partial versus complete obstruction Status: Acute Assessment and Plan: Management as per primary team and surgery. Still has NG tube to suction. Additional Plan Plan discussed with Dr. Ramirez [id number] 02/02/2020 Subjective Date/time seen: 02/02/20 15:44 Interval history: Follow-up for: HTN, aortic aneurysm, tobacco dependence here for small bowel obstruction s/p exploratory laparotomy with extensive lysis of adhesions, small bowel resection x2. Non ST-elevation myocardial infarction Review of Systems Constitutional: Constitutional: Reports as per HPI, Denies excessive sweating, Reports fatigue and Reports weakness Eyes: Eyes: Denies blind spots and Denies blurry vision ENT: Denies dizziness and Reports hearing loss Cardiovascular: Cardiovascular: Denies chest pain, Denies pedal edema, Denies leg edema, Denies palpitations and Denies dyspnea on exertion Respiratory: Respiratory: Denies dyspnea on exertion and Denies wheezing Gastrointestinal: Gastrointestinal: Reports abdominal pain, Denies melena, Denies hematochezia and Denies heartburn Genitourinary: Genitourinary: Denies hematuria Musculoskeletal: Musculoskeletal: Denies back pain Integumentary/Breasts: Skin/Breast: Denies pruritus, Denies erythema and Denies rash Neurologic: Reports abnormal gait, Reports confusion and Reports weakness Psychiatric: Psychiatric: Reports confusion Endocrine: Endoc
[2020-02-02 16:34] LABS: Glucose Point of Care 120 (65-105)
[2020-02-02] MEDS: MICAFUNGIN SODIUM 100 MG in SODIUM CHLORIDE 0.9% IV 100 ML IVPB (19:09)
[2020-02-02] MEDS: ONDANSETRON INJ 4 MG/2 ML VIAL IV PUSH (20:14)
[2020-02-02 23:23] LABS: Glucose Point of Care 122 (65-105)
[2020-02-03] VITALS (10 sets, daily range): BP systolic 115–134; BP diastolic 49–51; PULSE 57–76; RESP 16–20; TEMP 36.1–37.1; O2SAT 91–96
[2020-02-03] MEDS: CENTRAL LINE FLUSH 10 ML IV PUSH ×3 (05:41→22:04)
[2020-02-03] MEDS: CENTRAL LINE FLUSH 20 ML IV PUSH (05:41)
[2020-02-03] MEDS: METOCLOPRAMIDE HCL INJ 10 MG/2 ML VIAL 5 MG IV PUSH ×4 (05:42→23:13)
[2020-02-03 05:55] LABS: Glucose Point of Care 136 (65-105)
[2020-02-03 06:02] LABS: Basophils Percent Auto 0.2 % (0.2-1.2); Eosinophils Absolute Auto 0.2 K/mm3 (0-0.3); Hematocrit 39.1 % (42.0-52.0); Hemoglobin 12.4 g/dL (14.0-18.0); Immature Granulocyte Absolute 0.12 K/mm3 (0.00-0.031); Immature Granulocyte Percent A 0.7 % (0-0.5); Lymphocytes Percent Auto 2.8 % (18.3-44.2); Mean Corpuscular HGB Conc 31.7 g/dl (32-36); Mean Corpuscular Hemoglobin 30.1 pg (26-34); Mean Corpuscular Volume 94.9 fl (80-100); Mean Platelet Volume 11.9 fl (7.4-10.4); Monocytes Absolute Auto 1.1 K/mm3 (0.1-0.6); Monocytes Percent Auto 5.9 % (2.6-8.5); Neutrophils Percent Auto 89.4 % (45.5-73.1); Platelet Count Result 229 k/mm3 (150-375); Red Blood Count 4.12 M/mm3 (4.6-6.20); Red Cell Distribution Width 13.8 % (11.5-14.5); White Blood Count 17.9 K/mm3 (4.5-10.0)
[2020-02-03 06:15] LABS: Anion Gap 1 mmol/L (8-16); Blood Urea Nitrogen 21 mg/dL (9-20); Calcium 7.6 mg/dL (8.4-10.2); Carbon Dioxide 38 mmol/L (22-30); Chloride 98 mmol/L (98-107); Estimated CRCL calculation 80 ml/min; Estimated Glomerular Filt Rate > 60; Glucose 145 mg/dL (75-110); Magnesium 2.3 mg/dL (1.6-2.3); Phosphorus 4.5 mg/dL (2.5-4.5); Potassium 3.7 mmol/L (3.4-5.0); Sodium 137 mmol/L (137-145)
[2020-02-03] MEDS: FONDAPARINUX SODIUM 2.5 MG/0.5 ML SYRINGE SUB-Q (08:40)
[2020-02-03] MEDS: NICOTINE (*PBKC) 21 MG PATCH 1 PATCH TRANSDERM (08:42)
[2020-02-03] MEDS: PANTOPRAZOLE SODIUM IV 40 MG VIAL IV PUSH (08:46)
[2020-02-03] MEDS: ASPIRIN 300 MG SUPPOSITORY RECTAL (08:57)
--- NOTE | 2020-02-03 09:18 | PM.PNCARD ---
Progress Note: A&P Assessment and Plan (1) Non-ST elevation [place] (NSTEMI): Code(s): I21.4 - Non-ST elevation (NSTEMI) myocardial infarction Status: Acute Assessment and Plan: Denies chest pain. LVEF is preserved on surface echocardiogram. Remains NPO. Continue aspirin per rectum. Off systemic anticoagulation due to thrombocytopenia. Conservative cardiac management at this time. Continue telemetry for any recurrent arrhythmias. Beta-jadyn on hold. He had episodes of sinus bradycardia with heart rate in 30s and 40s on telemetry, currently heart rates are in 60s. Plan for ischemic workup when he has recovered from current surgical status. Discussed the recent AR with the patient. (2) Pleural effusion: Code(s): J90 - Pleural effusion, not elsewhere classified Status: Acute Assessment and Plan: Volume overload w/ increasing pleural effusions noted. Tolerated Fursemide 20mg IVP yesterday; will give another dose today. (3) AIVR (accelerated idioventricular rhythm): Code(s): I44.2 - Atrioventricular block, complete Status: Acute Assessment and Plan: AIVR, Bradycardia, PVCs. No recurrence. Telemetry reviewed. Sinus rhythm occasional PVCs persist. No sustained episodes. (4) Small bowel obstruction: Code(s): K56.609 - Unspecified intestinal obstruction, unspecified as to partial versus complete obstruction Status: Acute Assessment and Plan: Management as per primary team and surgery. Still has NG tube to suction. (5) Thrombocytopenia: Code(s): D69.6 - Thrombocytopenia, unspecified Status: Acute Assessment and Plan: Resolved. ASA per rectum. (6) Acute kidney injury: Code(s): N17.9 - Acute kidney failure, unspecified Status: Acute Assessment and Plan: Resolved. (7) Shock: Code(s): R57.9 - Shock, unspecified Status: Acute Assessment and Plan: Resolved. Off pressors as of 01/26/2020. (8) Aortic aneurysm: Qualifiers: Aortic location: abdominal aorta Presence of rupture: without rupture Qualified Code(s): I71.4 - Abdominal aortic aneurysm, without rupture Code(s): I71.9 - Aortic aneurysm of unspecified site, without rupture Status: Acute Assessment and Plan: 4.4 cm AAA found on this admission. Also has claudication and bilateral iliac stenosis. Stable. BB when able as tolerated. (9) Tobacco dependence: Code(s): F17.200 - Nicotine dependence, unspecified, uncomplicated Status: Chronic Assessment and Plan: Smoking cessation. (10) Rhabdomyolysis: Code(s): M62.82 - Rhabdomyolysis Status: Acute Assessment and Plan: Resolved. CK initially over 1999. Subjective Date/time seen: 02/03/20 09:18 Interval history: Follow-up for: Non ST-elevation myocardial infartction. Admitted with small bowel obstruction s/p exploratory laparotomy with extensive lysis of adhesions, small bowel resection Also: HTN, aortic aneurysm, tobacco dependence. x2. Date of service: 02/03/2020 ?When do I get to eat? Patient is concerned because he says he hasn't eaten for week. Patient had 2 more drains placed is abdomen yesterday by Radiology for abscesses. Has some abdominal pain particularly the left lateral rib area drain is bothering him. No shortness of breath or chest discomfort. Received furosemide 20 mg IV push yesterday x1, I's and O's yesterday were: 2600 cc's In, 2600 cc's Out. Chest x-ray 02/01/2020 shows small pleural effusions and bibasilar airspace opacities consistent with atelectasis versus pneumonia, personally reviewed. CT of the chest a
[2020-02-03] MEDS: ALBUTEROL SULFATE (*SP) AEROSOL 1 PUFF 2 PUFF INHALATION ×3 (09:58→16:40)
[2020-02-03] MEDS: FUROSEMIDE INJ 40 MG/4 ML VIAL 20 MG IV PUSH (11:20)
--- NOTE | 2020-02-03 11:33 | PM.PNGS ---
Progress Note: A&P Assessment and Plan (1) Small bowel obstruction: Code(s): K56.609 - Unspecified intestinal obstruction, unspecified as to partial versus complete obstruction Status: Acute Assessment and Plan: CT-guided perc. drain x 2 placed yesterday. WBC continues to trend down to 17,900 today and patient remains afebrile. Very minimal dark brown/green output from both the MAHAD drain and LUQ perc. drain - no concerning findings on CT. Discussed with Dr. Perez. Continue to monitor output. Continue IV Zosyn/Vancomycin and IV Micafungin. Encouraged increased activity/ambulation and OOB with meals, encouraged IS. (2) Ileus: Code(s): K56.7 - Ileus, unspecified Status: Acute Assessment and Plan: Showing some signs of clinical improvement. 1 BM yesterday morning with flatus, NG output declining. Will try NG clamping trial today to see how the patient tolerates. If he does well, may be able to remove and start clear liquids. Continue TPN until tolerating a substantial diet. (3) Non-ST elevation [place] (NSTEMI): Code(s): I21.4 - Non-ST elevation (NSTEMI) myocardial infarction Status: Acute Assessment and Plan: Cardiology following. Conservative treatment and rectal ASA at this time. Additional Plan Discussed the patient's case and plan of care with Dr. Perez. Subjective Subjective Date/Time Seen: 02/03/20 11:33 Post Op day: 11 Patient reports: still having pain and bowel movement (x 1 yesterday) Interval history: Patient sitting in the chair today. He reports feeling tired today and with the same amount of generalized abdominal pain as yesterday. He reports that most of his pain is coming from the new percutaneous drain in the LUQ. He denies flatus today, but was having a lot of flatus and had one BM yesterday morning. No nausea today. NG output decreased to 225 cc overnight. No other complaints at this time. Review of Systems Review of Systems: All systems reviewed & are unremarkable except as noted in HPI and below Constitutional: Constitutional: Reports as per HPI, Denies chills and Denies fever(s) Cardiovascular: Cardiovascular: Reports no additional cardiovascular complaints, Denies chest pain, Denies leg edema and Denies dyspnea Respiratory: Respiratory: Reports no additional respiratory complaints, Denies cough and Denies dyspnea Gastrointestinal: Gastrointestinal: Reports as per HPI and Reports no additional gastrointestinal complaints Exam Const: General: no acute distress, alert and awake Orientation/consciousness: patient oriented x3 Resp: Effort & Inspection: normal respiratory effort and able to speak in complete sentences Auscultation: diminished lung sounds bilateral in the lower lung herrera Cardio: Rate: regular rate Rhythm: regular rhythm GI: Inspection: distended and other (MAHAD drain with dark brown bilious-appearing output) GI Palp: Yes Soft to palpation, Yes Tenderness to palpation present (GI) (diffusely tender, no focal tenderness), No Guarding due to palpation present (GI) and No Rebound tenderness present Auscultation: Hypoactive bowel sounds present Other: Midline incision with opening at the base of the incision and minimal purulent drainage, samson above the opening are intact. Improved erythema around base of the incision, no warmth. Perc. drain x 2 - #1 in RUQ with serosanguineous drainage and #2 in the lateral LUQ with dark brown/green appearing drainage. Skin: General skin exam: normal color Neuro: General: patient oriented x3, moves all extremities and no focal motor deficits Extrem: General: normal to inspection, no calf tenderness and no edema Psych: Appearance: grossly normal Mental Status: mental status grossly normal Attitude: cooperative Thought process: Normal thought process present Objective Data Vital Signs Vital Signs: Vital Signs - 24 hr 02/02/20 12:00 02/02/20 12:30 02/02/20 13:00 Temperature Pulse Rate 69 7
[2020-02-03 11:54] LABS: Glucose Point of Care 92 (65-105)
--- NOTE | 2020-02-03 11:56 | PM.IMPN ---
Progress Note: A&P Assessment and Plan (1) Altered mental status: Code(s): R41.82 - Altered mental status, unspecified Status: Acute Assessment and Plan: Patient arouses and no focal weakness. Suspect related to narcotics. . Stopped Dilaudid. Tylenol available for pain now (2) AIVR (accelerated idioventricular rhythm): Code(s): I44.2 - Atrioventricular block, complete Status: Acute Assessment and Plan: Patient with VTach/AIVR and associated CP on 01/25. EKG showing delayed R wave progression with Rt strain (S1Q3T3). No old EKG to compare. On Reglan which was held but resumed by surgery- no further episodes of the AIVR. Echo 01/25 showing EF 55-60% and grade I DD. LE doppler negative and VQ scan nondiagnostic for PE. Continue ASA. Continue telemetry. (3) Non-ST elevation OR (NSTEMI): Code(s): I21.4 - Non-ST elevation (NSTEMI) myocardial infarction Status: Acute Assessment and Plan: Patient with CP on 01/25 associated with the AIVR. EKG showing delayed R wave progression with Rt strain (S1Q3T3). No old EKG to compare. Trop up to 3.0. Continue ASA. Continue telemetry. Metoprolol started but patient became bradycardic so this was stopped. (4) Shock: Code(s): R57.9 - Shock, unspecified Status: Acute Assessment and Plan: Appears secondary to volume depletion but can not exclude sepsis. 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 Patient was on Flagyl/Cipro 01/23-01/24 but changed to Vanc and Zosyn 01/24 (Day 11). Echo normal EF 55%. Central line has been removed. WBC decreased and now off steroids. BP remaining stable off steroids. Discussed with surgeon who stated that there was spillage so concern for occult abd infection of fungal infection. Continue IV abx for now. Drains placed and abscess drained 02/01 in IR. Micafungin started and ID consulted. (5) Small bowel obstruction: Code(s): K56.609 - Unspecified intestinal obstruction, unspecified as to partial versus complete obstruction Status: Acute Assessment and Plan: CT abd/pelvis 01/22/20 demonstrated high-grade small bowel obstruction with transition point in the right abdomen. The SB was distended with areas of necrosis and perforation. POD 11 from exploratory lap with extensive lysis of adhesion, small bowel resection x2 per Dr. Perez on 01/23/20. NGT output 1375mL yesterday and 850mL recorded for today so far. Reglan was held related to above but resumed. Continue NPO and bowel rest. Continue IV antiemetics as needed. Continue TPN. Continue PT/OT. Continue to have patient up to the chair and walking as much as possible once his mental status improves. (6) Ileus: Code(s): K56.7 - Ileus, unspecified Status: Acute Assessment and Plan: Post-op ileus related to SBO. As above. (7) Acute kidney injury: Code(s): N17.9 - Acute kidney failure, unspecified Status: Acute Assessment and Plan: Cr peaked at 3.2. Likely secondary to acute dehydration from decreased PO intake. BUN was very high at 95 with ratio >20:1 suggesting pre-renal etiology. Cr decreased to 0.7 today with hydration. BUN almost normal as well. Renal US unremarkable. Continue TPN. (8) Rhabdomyolysis: Code(s): M62.82 - Rhabdomyolysis Status: Acute Assessment and Plan: TCK elevated at 2130 but better to 199 with hydration. Etiology unclear but felt related to the sepsis. (9) Aortic aneurysm: Qualifiers: Aortic location: abdominal aorta Presence of rupture: without rupture Qualified Code(s): I71.4 - Abdominal aortic aneurysm, without rupture Code(s): I71.9 - Aortic aneurysm of unspecified site, without rupture Status: Acute Assessment and Plan: Infrarenal 4.4 cm fusiform aneurysm of the infrarenal
[2020-02-03] MEDS: FAT EMULSIONS IV 20% 250 ML 20.8 ML IVPB (12:14)
--- NOTE | 2020-02-03 12:33 | WPDINFPN2 ---
Progress Note: A&P Assessment and Plan (1) Postoperative intra-abdominal abscess: Code(s): T81.43XA - Infection following a procedure, organ and space surgical site, initial encounter Status: Acute Assessment and Plan: Post op abscess. SBO POD #11. REC PipTazo #8. Modify based on result of fluid culture. Subjective Date/time seen: 02/03/20 12:33 Objective Data Vital Signs Vital Signs: Vital Signs - 24 hr 02/02/20 13:00 02/02/20 13:05 02/02/20 13:10 Temperature Pulse Rate 72 70 72 Respiratory Rate 17 19 18 Blood Pressure 133/75 130/64 142/74 H Pulse Oximetry 96 98 96 02/02/20 13:15 02/02/20 13:20 02/02/20 13:25 Temperature Pulse Rate 71 78 73 Respiratory Rate 17 21 H 20 Blood Pressure 130/64 130/61 139/68 Pulse Oximetry 98 98 98 02/02/20 13:30 02/02/20 13:35 02/02/20 13:40 Temperature Pulse Rate 66 77 71 Respiratory Rate 19 23 H 19 Blood Pressure 125/56 L 128/68 131/71 Pulse Oximetry 97 99 98 02/02/20 13:45 02/02/20 13:50 02/02/20 14:10 Temperature 36.8 C Pulse Rate 78 77 70 Respiratory Rate 16 15 16 Blood Pressure 134/74 140/66 133/51 L Pulse Oximetry 98 98 96 02/02/20 14:25 02/02/20 16:00 02/02/20 20:00 Temperature 36.3 C L Pulse Rate 64 68 67 Respiratory Rate 16 Blood Pressure 122/50 L Pulse Oximetry 95 02/02/20 20:57 02/02/20 21:37 02/03/20 00:00 Temperature 36.1 C L Pulse Rate 76 76 65 Respiratory Rate 16 20 Blood Pressure 151/71 H Pulse Oximetry 96 91 02/03/20 04:19 02/03/20 04:51 02/03/20 09:59 Temperature 36.1 C L Pulse Rate 57 L 70 76 Respiratory Rate 17 20 Blood Pressure 134/50 L Pulse Oximetry 95 91 Intake/Output Intake/Output: Intake & Output 01/31/20 02/01/20 02/02/20 02/03/20 23:59 23:59 23:59 23:59 Intake Total 3945.2 2890.8 2572 2755 Output Total 7658 2305 2640 595 Balance 808.2 585.8 -68 2160 Meds/Results Medications: Active Medications Generic Name Dose Route Start Last Admin Trade Name Freq PRN Reason Stop Dose Admin Albuterol 2 puff 01/26/20 20:00 02/03/20 09:58 Albuterol Sulfate (*Sp) Aerosol 1 Puff INHALATION 2 puff QIDRT JORJE Administration Aspirin 300 mg 01/27/20 09:00 02/03/20 08:57 Aspirin 300 Mg Suppository RECTAL 300 mg DAILY JORJE Administration Dextrose 12.5 gm 01/25/20 06:01 01/25/20 06:12 Dextrose 50% 25 Gm/50 Ml Syringe IV PUSH 12.5 gm PRN PRN Administration Hypoglycemia Protocol Fondaparinux 2.5 mg 01/28/20 09:00 02/03/20 08:40 Fondaparinux Sodium 2.5 Mg/0.5 Ml Syringe SUB-Q 2.5 mg DAILY JORJE Administration Glucagon 1 mg 01/25/20 06:01 Glucagon For Inj 1 Mg Vial IM PRN PRN Hypoglycemia Protocol Glucose 15 gm 01/25/20 06:01 Glucose Oral Gel 15 Gm Of Glucse In 37.5 Gm Tube PO PRN PRN Hypoglycemia Protocol Hydralazine HCl 10 mg 01/31/20 12:35 Hydralazine Hcl 20 Mg/Ml Vial IV PUSH Q8H PRN Blood Pressure - High Piperacillin/Tazobactam/Dextrose 3.375 gm in 50 mls @ 100 mls/hr 01/27/20 12:00 02/03/20 12:32 Zosyn 3.375 Gm/D5w 50ml Pm IVPB 100 mls/hr Q6HR JORJE Administration Dextrose 1,000 mls @ 50 mls/hr 01/28/20 11:07 Dextrose 10% IV CONT .Q20H PRN if PN is interrupted Multivitamins 5 ml/ Amino 2,005 mls @ 70 mls/hr 01/28/20 12:00 02/03/20 12:13 Acids/Electrolytes/Dextrose IV CONT 70 mls/hr .Q24H JORJE Administration Protocol Fat Emulsion Intravenous 250 mls @ 20.833 mls/hr 01/28/20 12:00 02/03/20 12:14 Lipids 20% IVPB 20.8 mls/hr Q24H JORJE Administration Acetaminophen 1,000 mg in 100 mls @ 400 mls/hr 02/02/20 17:45 02/03/20 11:41 Ofirmev 1,000 Mg Ivpb IVPB 02/03/20 17:46 Infused Q6H PRN Infusion Pain Rated 4-6 Metoclopramide HCl 5 mg 01/26/20 12:00 02/03/20 12:28 Metoclopramide Hcl Inj 10 Mg/2 Ml Vial IV PUSH 5 mg Q6HR JORJE Administration Naloxone HCl 0.1 mg 02/01/20 11:16 02/01/20
--- NOTE | 2020-02-03 14:51 | CONS_ITS ---
DATE OF CONSULTATION: 02/03/2020 REASON FOR CONSULTATION: Abdominal abscess. HISTORY OF PRESENT ILLNESS: A 74-year-old male who has been hospitalized since January 21 re-presenting with abdominal bloating and abdominal pain. He was found to have a small-bowel obstruction, was taken to the operating room, is now postop day 11 from that procedure. Findings included small bowel obstruction, several areas of perforation, which were repaired and with bowel resection. He has had a drain in the right lower quadrant ever since. His postop course has been complicated by a brief episode of shock, which was believed to be due to sepsis. He received a brief course of vasopressors along with IV fluids. He has had no further shock or hypotension. Blood cultures drawn at that time, final no growth. He has been on a variety of antibiotics while here including piperacillin day #8 along with at various times, ciprofloxacin, metronidazole, vancomycin, and micafungin. Consultation requested late last evening after he had a CT-guided drainage procedure yesterday morning. The patient has pain in the left costal area at the site of one of his drains. He has poor appetite, generalized weakness. Denies any fever, chills, or sweats subjectively. ALLERGIES: NONE KNOWN. PRESENT MEDICATIONS: No immunosuppressants. No antibiotics prior to admission. HABITS: No alcohol. 1-1/2 packs of cigarettes per day actively. PAST MEDICAL HISTORY: Appendectomy and hypertension. FAMILY HISTORY: Heart disease, diabetes, COPD. SOCIAL HISTORY: Customarily sees Dr. Stanton. , retired, lives locally. REVIEW OF SYSTEMS: 14-point review otherwise negative. PHYSICAL EXAMINATION: GENERAL: This is an elderly male who appears in no respiratory distress. VITAL SIGNS: He has been afebrile throughout his hospital stay, currently 36.1, 134/50, 70, 17, 95% on 2-1/2 L. SKIN: Few ecchymoses, which appear traumatic in nature, not pathologic. No rashes. Warm and dry. NODES: No cervical adenopathy. EENT: Pupils equal, round, reactive to light. No petechial injection. Dry mucous membranes. No thrush. No ulcerations. Teeth in fair repair. NECK: No masses or thyromegaly. LUNGS: Diminished breath sounds, both lung bases. Clear to auscultation and percussion otherwise. CHEST: Equal expansion. Normal AP diameter. He has a PICC in the right upper extremity. CARDIAC: Regular rate and rhythm. No murmur, gallop, or ectopy. ABDOMEN: Distended. He has 3 drains, 1 in the right flank, 1 in the left subcostal area, and 1 in the right lower quadrant draining respectively black fluid, thin yellow fluid, and serosanguineous fluid. He has no bowel sounds. Abdomen is tender diffusely. No guarding. No masses. EXTREMITIES: No clubbing, cyanosis, edema. Muscle wasting. LABORATORY DATA: Blood cultures 01/24, final no growth. Gram stain of the fluid from yesterday, few white cells, few gram-negative rods. Culture in process. No cultures obtained at the time of his operation. Histopathology showed perforation, adhesions, ischemic mucosal changes, and viable margins. White blood cell count low on admission, has been high since 26 January, 17.9 today; hemoglobin 12.4; platelets are 229. Left shift is demonstrated. Chemistry with BUN 21, creatinine 0.7, glucose 145. Hemoglobin A1c not obtained. This urinalysis no evidence of infection. Albumin 2.1. RADIOLOGY: Multiple CTs and other studies as noted. His CT yesterday demonstrated left abdominal abscess, right abdominal abscess, dilated small bowel, left upper quadrant small-bowel inflammation, fusiform infrarenal aneurysm, atherosclerosis, pleural effusions. ASSESSMENT: 1. Postoperative intraabdominal abscesses, multiple, now drained the lar
--- NOTE | 2020-02-03 15:15 | PCDIET ---
Nutrition Follow-Up Complete: Inadequate oral intake related to small bowel obstruction, ileus as evidenced by day 5 NPO diet. Patient to meet estimated nutritional needs. Goal: Goal met. Continue goal. Pt current nutrition is Clinimix 07/31 with 20% lipids at 70ml/hr Nutrition recommendation: agree, consider starting PO intake of a regular diet when appropriate Last recorded weight is 84.2 kg (up from 82.9kg on assessment) I/O +1098ml today Bowel Motility: 02/01 Labs Reviewed:WBC 12.4, Glucose 145, BUN 21, Triglycerides 146 yesterday Meds Noted:Reglan, Zofran, Protonix, Vancomycin Additional Notes: Pt tolerating TPN at 70ml/hr providing 1693kcals, 84 g protein, and 1930ml of free water. Bowels moving. Intermittent emesis, with NG to suction. Recommend slowly increasing oral intake with regular diet when appropriate while titrating off of TPN. We will continue to follow every t/f. Follow up in 3 days.
[2020-02-03 18:24] LABS: Glucose Point of Care 116 (65-105)
[2020-02-03 23:32] LABS: Glucose Point of Care 119 (65-105)
[2020-02-04] VITALS (25 sets, daily range): BP systolic 90–182; BP diastolic 47–90; PULSE 55–77; RESP 18–26; TEMP 35.7–36.3; O2SAT 93–100
[2020-02-04] MEDS: METOCLOPRAMIDE HCL INJ 10 MG/2 ML VIAL 5 MG IV PUSH ×2 (05:29→12:16)
[2020-02-04] MEDS: CENTRAL LINE FLUSH 10 ML IV PUSH ×3 (05:30→20:39)
[2020-02-04] MEDS: CENTRAL LINE FLUSH 20 ML IV PUSH (05:30)
[2020-02-04 05:45] LABS: Anion Gap -1 mmol/L (8-16); Blood Urea Nitrogen 23 mg/dL (9-20); Calcium 7.6 mg/dL (8.4-10.2); Carbon Dioxide 38 mmol/L (22-30); Chloride 96 mmol/L (98-107); Estimated CRCL calculation 80 ml/min; Estimated Glomerular Filt Rate > 60; Glucose 120 mg/dL (75-110); Phosphorus 2.8 mg/dL (2.5-4.5); Sodium 133 mmol/L (137-145)
[2020-02-04] MEDS: ALBUTEROL SULFATE (*SP) AEROSOL 1 PUFF 2 PUFF INHALATION (08:44)
[2020-02-04 08:57] LABS: Glucose Point of Care 127 (65-105)
[2020-02-04] MEDS: PANTOPRAZOLE SODIUM IV 40 MG VIAL IV PUSH (09:14)
--- NOTE | 2020-02-04 09:14 | PM.PNGS ---
Progress Note: A&P Assessment and Plan (1) Small bowel obstruction: Code(s): K56.609 - Unspecified intestinal obstruction, unspecified as to partial versus complete obstruction Status: Acute Assessment and Plan: CT-guided perc. drain x 2 on 02/02/20. Now with bilious-appearing drainage from the LUQ perc drain, increased bilious-appearing drainage in the MAHAD drain and large amount of bilious-appearing drainage from the midline incision. Dr. Perez at the bedside to assess patient as well. Will get a stat CT abd/pelvis with contrast today. Ordered labs. Made NPO. Renewed TPN. Continue IV Zosyn/Vancomycin and IV Micafungin. Encouraged increased activity/ambulation and OOB with meals, encouraged IS. (2) Ileus: Code(s): K56.7 - Ileus, unspecified Status: Acute Assessment and Plan: Still showing some signs of improvement but now with bilious output from 2 drains and midline incision. See plan above. Continue TPN until tolerating a substantial diet. (3) Non-ST elevation [place] (NSTEMI): Code(s): I21.4 - Non-ST elevation (NSTEMI) myocardial infarction Status: Acute Assessment and Plan: Cardiology following. Conservative treatment and rectal ASA at this time. Additional Plan Discussed the patient's case and plan of care with Dr. Perez. Subjective Subjective Date/Time Seen: 02/04/20 09:14 Post Op day: 12 Patient reports: no new complaints, feels better, tolerating liquids well, no flatus and no bowel movement Interval history: Patient sitting in chair today. Overall feeling better and stronger. No flatus or BM since 2 days ago, but requesting the commode stating he feels like he could have a BM. Denies nausea, vomiting, or bloating. Per the nurse, when the patient got up to the bed, he had a sudden large amount of output that was dark/green drainage. Review of Systems Review of Systems: All systems reviewed & are unremarkable except as noted in HPI and below Constitutional: Constitutional: Reports no additional constitutional complaints, Denies chills and Denies fever(s) Cardiovascular: Cardiovascular: Reports no additional cardiovascular complaints, Denies chest pain and Reports pedal edema (minimal bilaterally) Respiratory: Respiratory: Reports as per HPI and Reports no additional respiratory complaints Gastrointestinal: Gastrointestinal: Reports as per HPI and Reports no additional gastrointestinal complaints Exam Const: General: no acute distress, alert and awake Orientation/consciousness: patient oriented x3 Resp: Auscultation: diminished lung sounds bilateral in the lower lung herrera Cardio: Rate: regular rate Rhythm: regular rhythm GI: Inspection: distended GI Palp: Yes Firmness to palpation present (GI), Yes Tenderness to palpation present (GI) (diffusely tender), No Guarding due to palpation present (GI) and No Rebound tenderness present Auscultation: normal bowel sounds Other: Midline incision with opening at the base of the incision with now copious amounts of bilious-appearing drainage. Perc. drain x 2 - #1 in RUQ with purulent dark red drainage and #2 in the lateral LUQ with dark brown/green appearing drainage. MAHAD drain with a full bulb of bilious-appearing drainage. Skin: General skin exam: normal color Neuro: General: moves all extremities, no focal motor deficits and No confusion Speech: normal speech Extrem: General: no calf tenderness and edema bilateral (mild, dependent) Psych: Appearance: grossly normal Mental Status: mental status grossly normal Attitude: cooperative Thought process: Normal thought process present Objective Data Vital Signs Vital Signs: Vital Signs - 24 hr 02/03/20 09:59 02/03/20 12:00 02/03/20 15:32 Temperature 97.7 F Pulse Rate 76 67 66 Respiratory Rate 20 16 Blood Pressure 117/49 L Pulse Oximetry 91 94 02/03/20 16:00 02/03/20 20:00 02/03/20 23:33 Temperature 98.8 F Pulse Rate 60 72 70 Respirato
[2020-02-04] MEDS: ASPIRIN 300 MG SUPPOSITORY RECTAL (09:17)
[2020-02-04] MEDS: FONDAPARINUX SODIUM 2.5 MG/0.5 ML SYRINGE SUB-Q (09:18)
[2020-02-04] MEDS: NICOTINE (*PBKC) 21 MG PATCH 1 PATCH TRANSDERM (09:18)
--- NOTE | 2020-02-04 09:36 | PCOTNOTE ---
Going for procedure, will attempt to see later for OT if available.
[2020-02-04 10:35] LABS: Basophils Percent Auto 0.2 % (0.2-1.2); Eosinophils Absolute Auto 0.2 K/mm3 (0-0.3); Hematocrit 35.6 % (42.0-52.0); Hemoglobin 11.6 g/dL (14.0-18.0); Immature Granulocyte Absolute 0.12 K/mm3 (0.00-0.031); Immature Granulocyte Percent A 0.8 % (0-0.5); Lymphocytes Absolute Auto 0.58 K/mm3 (0.9-3.2); Mean Corpuscular HGB Conc 32.6 g/dl (32-36); Mean Corpuscular Hemoglobin 30.4 pg (26-34); Mean Corpuscular Volume 93.2 fl (80-100); Mean Platelet Volume 12.3 fl (7.4-10.4); Monocytes Absolute Auto 1.1 K/mm3 (0.1-0.6); Monocytes Percent Auto 7.6 % (2.6-8.5); Neutrophils Absolute Auto 12.5 K/mm3 (1.3-6.7); Neutrophils Percent Auto 86.4 % (45.5-73.1); Platelet Count Result 267 k/mm3 (150-375); Red Blood Count 3.82 M/mm3 (4.6-6.20); Red Cell Distribution Width 13.6 % (11.5-14.5); White Blood Count 14.5 K/mm3 (4.5-10.0)
--- NOTE | 2020-02-04 11:00 | PC.NURSE ---
Dr. Perez's office called with cat scan results. Spoke with office and notified them we need to speak with Dr. Perez or Eulalia izquierdo in regards to CT report.
[2020-02-04 11:53] LABS: Glucose Point of Care 118 (65-105)
[2020-02-04] MEDS: FAT EMULSIONS IV 20% 250 ML 20.8 ML IVPB (12:26)
--- NOTE | 2020-02-04 13:00 | PM.IMPN ---
Progress Note: A&P Assessment and Plan (1) Altered mental status: Code(s): R41.82 - Altered mental status, unspecified Status: Acute Assessment and Plan: Patient arouses and no focal weakness. Suspect related to narcotics. . Stopped Dilaudid. Tylenol available for pain now (2) AIVR (accelerated idioventricular rhythm): Code(s): I44.2 - Atrioventricular block, complete Status: Acute Assessment and Plan: Patient with VTach/AIVR and associated CP on 01/25. EKG showing delayed R wave progression with Rt strain (S1Q3T3). No old EKG to compare. On Reglan which was held but resumed by surgery- no further episodes of the AIVR. Echo 01/25 showing EF 55-60% and grade I DD. LE doppler negative and VQ scan nondiagnostic for PE. Continue ASA. Continue telemetry. (3) Non-ST elevation CA (NSTEMI): Code(s): I21.4 - Non-ST elevation (NSTEMI) myocardial infarction Status: Acute Assessment and Plan: Patient with CP on 01/25 associated with the AIVR. EKG showing delayed R wave progression with Rt strain (S1Q3T3). No old EKG to compare. Trop up to 3.0. Continue ASA. Continue telemetry. Metoprolol started but patient became bradycardic so this was stopped. (4) Shock: Code(s): R57.9 - Shock, unspecified Status: Acute Assessment and Plan: Appears secondary to volume depletion but can not exclude sepsis. 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 Patient was on Flagyl/Cipro 01/23-01/24 but changed to Vanc and Zosyn 01/24 (Day 12). Echo normal EF 55%. Central line has been removed. WBC decreased and now off steroids. BP remaining stable off steroids. surgeon stated that there was spillage so concern for occult abd infection or fungal infection. Continue IV abx for now. Drains placed and abscess drained 02/01 in IR. ID consulted and continued zosyn.. (5) Small bowel obstruction: Code(s): K56.609 - Unspecified intestinal obstruction, unspecified as to partial versus complete obstruction Status: Acute Assessment and Plan: CT abd/pelvis 11/5/20 demonstrated high-grade small bowel obstruction with transition point in the right abdomen. The SB was distended with areas of necrosis and perforation. POD 12 from exploratory lap with extensive lysis of adhesion, small bowel resection x2 per Dr. Perez on 01/23/20. Reglan was held related to above but resumed. Given clear liquids this am. Continue IV antiemetics as needed. Continue TPN. Continue PT/OT. Continue to have patient up to the chair and walking as much as possible once his mental status improves. surgery to reevaluate wound today for fistula (6) Ileus: Code(s): K56.7 - Ileus, unspecified Status: Acute Assessment and Plan: Post-op ileus related to SBO. As above. (7) Acute kidney injury: Code(s): N17.9 - Acute kidney failure, unspecified Status: Acute Assessment and Plan: Cr peaked at 3.2. Likely secondary to acute dehydration from decreased PO intake. BUN was very high at 95 with ratio >20:1 suggesting pre-renal etiology. Cr decreased to 0.7 again today with hydration. BUN almost normal as well. Renal US unremarkable. Continue TPN. (8) Rhabdomyolysis: Code(s): M62.82 - Rhabdomyolysis Status: Acute Assessment and Plan: TCK elevated at 2130 but better to 199 with hydration. Etiology unclear but felt related to the sepsis. (9) Aortic aneurysm: Qualifiers: Aortic location: abdominal aorta Presence of rupture: without rupture Qualified Code(s): I71.4 - Abdominal aortic aneurysm, without rupture Code(s): I71.9 - Aortic aneurysm of unspecified site, without rupture Status: Acute Assessment and Plan: Infrarenal 4.4 cm fusiform aneurysm of the infrarenal aorta was visualized on CT ab
--- NOTE | 2020-02-04 13:41 | WPDINFPN2 ---
Progress Note: A&P Assessment and Plan (1) Postoperative intra-abdominal abscess: Code(s): T81.43XA - Infection following a procedure, organ and space surgical site, initial encounter Status: Acute Assessment and Plan: 1. Post op abscess. No predominant laron on culture of aspirate. WBC slow decline toward normal but incomplete 2. SBO POD #12. REC PipTazo #9. Anticipate another 5-7 days, depending on clinical course/repeat CT/drain monitoring. Subjective Date/time seen: 02/04/20 13:41 Interval history: L anterior costal pain better with analgesics Exam Narrative: Exam Narrative: afebrile Const: General: no acute distress Resp: Effort & Inspection: normal respiratory effort Auscultation: clear to auscultation bilaterally Other: LUQ drain site mildly tender to palpation Cardio: Rate: regular rate Rhythm: regular rhythm Heart sounds: no murmurs GI: Inspection: distended GI Palp: Yes Firmness to palpation present (GI), No Tenderness to palpation present (GI) and No Guarding due to palpation present (GI) Skin: General skin exam: normal color and no rashes or lesions noted Objective Data Vital Signs Vital Signs: Vital Signs - 24 hr 02/03/20 15:32 02/03/20 16:00 02/03/20 20:00 Temperature 36.5 C Pulse Rate 66 60 72 Respiratory Rate 16 Blood Pressure 117/49 L Pulse Oximetry 94 02/03/20 23:33 02/04/20 00:00 02/04/20 04:00 Temperature 37.1 C Pulse Rate 70 68 71 Respiratory Rate 16 Blood Pressure 115/51 L Pulse Oximetry 96 02/04/20 06:57 02/04/20 08:00 02/04/20 08:46 Temperature 36.1 C L Pulse Rate 66 67 Respiratory Rate 18 Blood Pressure 123/54 L Pulse Oximetry 93 93 02/04/20 09:10 02/04/20 10:36 02/04/20 12:00 Temperature 35.7 C L Pulse Rate 62 67 Respiratory Rate 18 Blood Pressure 128/53 L Pulse Oximetry 93 93 Intake/Output Intake/Output: Intake & Output 02/01/20 02/02/20 02/03/20 02/04/20 23:59 23:59 23:59 23:59 Intake Total 2890.8 2572 2905 2605 Output Total 2305 2640 1500 1155 Balance 585.8 -68 1405 1450 Meds/Results Medications: Active Medications Generic Name Dose Route Start Last Admin Trade Name Freq PRN Reason Stop Dose Admin Albuterol 2 puff 01/26/20 20:00 02/04/20 08:44 Albuterol Sulfate (*Sp) Aerosol 1 Puff INHALATION 2 puff QIDRT JORJE Administration Aspirin 300 mg 01/27/20 09:00 02/04/20 09:17 Aspirin 300 Mg Suppository RECTAL 300 mg DAILY JORJE Administration Dextrose 12.5 gm 01/25/20 06:01 01/25/20 06:12 Dextrose 50% 25 Gm/50 Ml Syringe IV PUSH 12.5 gm PRN PRN Administration Hypoglycemia Protocol Fondaparinux 2.5 mg 01/28/20 09:00 02/04/20 09:18 Fondaparinux Sodium 2.5 Mg/0.5 Ml Syringe SUB-Q 2.5 mg DAILY JORJE Administration Glucagon 1 mg 01/25/20 06:01 Glucagon For Inj 1 Mg Vial IM PRN PRN Hypoglycemia Protocol Glucose 15 gm 01/25/20 06:01 Glucose Oral Gel 15 Gm Of Glucse In 37.5 Gm Tube PO PRN PRN Hypoglycemia Protocol Hydralazine HCl 10 mg 01/31/20 12:35 Hydralazine Hcl 20 Mg/Ml Vial IV PUSH Q8H PRN Blood Pressure - High Piperacillin/Tazobactam/Dextrose 3.375 gm in 50 mls @ 100 mls/hr 01/27/20 12:00 02/04/20 12:49 Zosyn 3.375 Gm/D5w 50ml Pm IVPB Infused Q6HR JORJE Infusion Dextrose 1,000 mls @ 50 mls/hr 01/28/20 11:07 Dextrose 10% IV CONT .Q20H PRN if PN is interrupted Multivitamins 5 ml/ Amino 2,005 mls @ 70 mls/hr 01/28/20 12:00 02/04/20 12:23 Acids/Electrolytes/Dextrose IV CONT 70 mls/hr .Q24H JORJE Administration Protocol Fat Emulsion Intravenous 250 mls @ 20.833 mls/hr 01/28/20 12:00 02/04/20 12:26 Lipids 20% IVPB 20.8 mls/hr Q24H JORJE Administration Acetaminophen 1,000 mg in 100 mls @ 400 mls/hr 02/04/20 12:12 02/04/20 13:30 Ofirmev 1,000 Mg Ivpb IVPB 02/05/20 12:13 400 mls/hr Q6H PRN Administration Pain Rated 4-6 Me
--- NOTE | 2020-02-04 13:44 | PCPTNOTE ---
The PT treatment was unable to be completed today due to patient in procedure. Will continue per Plan of Care frequency and duration.
--- NOTE | 2020-02-04 14:19 | PCOTNOTE ---
Patient unavailable, in surgery. Will continue plan of care tomorrow for OT.
[2020-02-04] MEDS: LACTATED RINGERS 1,000 ML 30 ML IV CONT ×2 (14:25→16:30)
--- NOTE | 2020-02-04 14:26 | WPDANESEPPF ---
Anes - Initial Pre Proc Eval Procedure: Operation Date: 01/23/20 19:00 Proposed Procedures p Exploratory Laparotomy, Possible Bowel Resection, Possible Ostomy - Eulalia Perez MD Operation Date: 02/02/20 13:00 Proposed Procedures p Radiology Procedure Mod.Sed.Rn- Abscess Drain Placement - Prasad Villagran MD Operation Date: 02/04/20 14:45 Proposed Procedures p Closure Abdominal Wound Dehiscence - Eulalia Perez MD Date/Time: 02/04/20 14:26 Surgeon: Sanford Saucedo MD Pre Op Diagnosis: Small Bowel Obstr w/acute on Chronic Renal Injury Patient Data Age: 74 Gender: M Height: 1.78 m Weight: 82.4 kg Last Vital Signs Temp 35.7 C L 02/04/20 10:36 Pulse 67 02/04/20 12:00 Resp 18 02/04/20 10:36 BP 128/53 L 02/04/20 10:36 Pulse Ox 93 02/04/20 10:36 Allergies Allergy/AdvReac Type Severity Reaction Status Date / Time No Known Allergies Allergy Unknown NONE Verified 01/22/20 21:20 Home Medications Medication Instructions Recorded Confirmed Type lisinopril 30 mg PO DAILY 01/22/20 01/22/20 History Laboratory Tests 02/03/20 02/03/20 02/04/20 18:22 23:25 05:25 WBC RBC Hgb Hct MCV MCH MCHC RDW Plt Count MPV Immature Gran % (Auto) Neut % (Auto) Lymph % (Auto) [place] % (Auto) Eos % (Auto) Baso % (Auto) Lymph # (Auto) [place] # (Auto) Eos # (Auto) Baso # (Auto) Abs Immat Gran (auto) Absolute Neuts (auto) Absolute Nucleated RBC Nucleated RBC % Sodium 133 mmol/L L mmol/L (137-145) Potassium 4.0 mmol/L mmol/L (3.4-5.0) Chloride 96 mmol/L L mmol/L (98-107) Carbon Dioxide 38 mmol/L H mmol/L (22-30) Anion Gap -1 mmol/L L mmol/L (8-16) BUN 23 mg/dL H mg/dL (9-20) Creatinine 0.70 mg/dL mg/dL (0.7-1.3) Estim Creat Clear Calc 80 ml/min ml/min Estimated GFR > 60 (59 - ) Glucose 120 mg/dL H mg/dL (75-110) POC Capillary Glucose 116 mg/dl H mg/dl 119 mg/dl H mg/dl (65-105) (65-105) Calcium 7.6 mg/dL L mg/dL (8.4-10.2) Phosphorus 2.8 mg/dL mg/dL (2.5-4.5) 02/04/20 02/04/20 02/04/20 05:42 10:28 11:44 WBC 14.5 K/mm3 H K/mm3 (4.5-10.0) RBC 3.82 M/mm3 L M/mm3 (4.6-6.20) Hgb 11.6 g/dL L g/dL (14.0-18.0) Hct 35.6 % L % (42.0-52.0) MCV 93.2 fl fl (80-100) MCH 30.4 pg pg (26-34) MCHC 32.6 g/dl g/dl (32-36) RDW 13.6 % % (11.5-14.5) Plt Count 267 k/mm3 k/mm3 (150-375) MPV 12.3 fl H fl (7.4-10.4) Immature Gran % (Auto) 0.8 % H % (0-0.5) Neut % (Auto) 86.4 % H % (45.5-73.1) Lymph % (Auto) 4.0 % L % (18.3-44.2) [place] % (Auto) 7.6 % % (2.6-8.5) Eos % (Auto) 1.0 % % (0-4.4) Baso % (Auto) 0.2 % % (0.2-1.2) Lymph # (Auto) 0.58 K/mm3 L K/mm3 (0.9-3.2) [place] # (Auto) 1.1 K/mm3 H K/mm3 (0.1-0.6) Eos # (Auto) 0.2 K/mm3 K/mm3 (0-0.3) Baso # (Auto) 0.0 K/mm3 K/mm3 (0.0-0.1) Abs Immat Gran (auto) 0.12 K/mm3 H K/mm3 (0.00-0.031) Absolute Neuts (auto) 12.5 K/mm3 H K/mm3 (1.3-6.7) Absolute Nucleated RBC 0.0 K/mm3 K/mm3 (0.0-0.012) Nucleated RBC % 0.0 % % (0.0-0.2) Sodium Potassium Chloride Carbon Dioxide Anion Gap BUN Creatinine Estim Creat Clear Calc Estimated GFR Glucose POC Capillary Glucose 127 mg/dl H mg/dl 118 mg/dl H mg/dl (65-105) (65-105) Calcium P
[2020-02-04 14:39] LABS: Glucose Point of Care 95 (65-105)
--- NOTE | 2020-02-04 14:42 | WPDHPUPDATE1 ---
History and Physical Update Update Date/Time: 02/04/20 14:42 History and Physical has been reviewed, including an updated exam of the patient. There are NO changes in the patient's condition. Risks, benefits, and alternatives have been discussed and questions answered. Patient agrees to proceed with procedure. Pt c fascial dehiscence and bilious drainage, long d/w pt and decision to proceed to OR for ex lap, washout, possible further bowel resection, and possible fascial closure.
--- NOTE | 2020-02-04 14:47 | PCRCNOTE ---
Addendum entered by Adali Fragoso, [employer]UCKPOINTER [employer]KER 02/04/20 16:20: Pt. still in surgery, MDI not given. Original Note: Pt. in surgery, MDI not done at this time.
[2020-02-04] MEDS: metroNIDAZOLE 500 MG/ISO 100ML 500 MG/100 ML BAG 100 MG IVPB (15:50)
--- NOTE | 2020-02-04 16:28 | P.OP_ITS ---
Procedure Note - Detailed Date of procedure: 02/04/20 Pre-op diagnosis: Small Bowel Obstr w/acute on Chronic Renal Injury fascial dehiscence, bilious wound drainage Post-op diagnosis: other ( fascial dehiscence, noted enterotomy at previous anastomosis x2, incidental enterotomy x2, hostile abdomen) Procedure performed: exploratory laparotomy, extensive of lysis of adhesion of approximately 30 minutes, closure of enterotomy x4, washout, placement of drains x2, fascial closure Description of procedure: The patient was taken the operating room placed in a supine position. After adequate induction of general anesthesia, the patient was prepped and draped in the normal sterile fashion. A time-out was then done to verify the patient's identity, as well as the procedure being performed. I began by examining the wound. I noted that the patient had a fascial dehiscence with the previously placed suture unraveling. I removed the old suture and gained access into the abdominal cavity. Immediately there was noted to be some bilious drainage coming from enterotomy x2 near the previous anastomosis. It was also noted that the patient had a hostile abdomen. The abdomen was very inflamed and adhesed, as well as a very friable. I began by doing an extensive lysis of adhesions. I initially tried to take down the adhesions to the small bowel in an attempt to run the entirety of the small bowel, however the small bowel was noted to be friable and incidental enterotomy x2 was noted from just gentle traction. Given this, I aborted trying to take down these adhesions after about half an hour. The patient was also noted to be somewhat hypotensive and phenylephrine drip was started by Anesthesia. The decision was then made to close these enterotomies primarily and cover with omentum. This was done without issue with interrupted 3 0 silk sutures. I then extensively washed out the abdominal cavity removing all previous drains. Once done, I went ahead and placed 2x 19 [place] drains in the abdomen. I then closed the fascial with 1. PDS suture x2. The skin was closed with loosely approximated skin samson as well as Telfa reyes in between. The patient tolerated the procedure well and was extubated in the operating room postop. He was sent to the recovery room in stable condition. Implants: Anesthesia: GETA Surgeon: Eulalia Perez MD Estimated blood loss (mL): 10 Drains: Yes Packing: No Pathology: none sent Complications: No immediate complications Condition: stable Disposition: PACU Findings: fascial dehiscence, enterotomy x2 of previous anastomosis, incidental enterotomy x2
[2020-02-04] MEDS: LABETALOL HCL INJ 100 MG/20 ML VIAL IV PUSH ×2 (16:52→17:05)
[2020-02-04 17:15] LABS: Alveolar/Arterial O2 Gradient 79.4 mmHg; Base Excess ABG 3.3 mEq/l (+/-2.0); Fractional Inspired Oxygen 44 %; Oxygen Saturation ABG 93.7 % (95.0-100.0); Oxyhemoglobin 93.1 % THb (90.0-100.0); PO2 ABG 95.8 mmHg (80.0-100.0); PO2 FiO2 Ratio Arterial Blood 2.18 %; Total Hemoglobin 13.7 g/dL (12.0-18.0)
[2020-02-04 17:16] LABS: Device SIMPLE MASK; PCO2 ABG 121.5 mmHg (35.0-45.0); Site Drawn LEFT BRACHIAL; pH ABG 7.102 (7.350-7.450)
--- NOTE | 2020-02-04 17:25 | SUR.PHASEI ---
1630 - pt to pacu. dr. maguire and ambar LARRY at bedside. pt open eyes to verbal stimuli. 1635 - pt indicates pain. iv medication given for pain control by KENDY villalta 1642 - KUB for NG placement 1645 - b/p elevated. order received by dr maguire 1700 - pt restless, attempts to pull on tubes. nursing staff at bedside 1710 - ABGs obtained. 1715 - ABGs resulted, Ambar Espana aware 1720 - dr. bowman called and updated. order received for IMU 1725 - pt placed on Bipap
[2020-02-04 18:22] LABS: Alveolar/Arterial O2 Gradient 90.5 mmHg; Base Excess ABG 0.5 mEq/l (+/-2.0); Fractional Inspired Oxygen 40 %; HCO3 ABG 31.9 mEq/l (22.0-26.0); Oxygen Content ABG 18.1 %vol (16.0-22.0); PO2 ABG 90.4 mmHg (80.0-100.0); PO2 FiO2 Ratio Arterial Blood 2.26 %; Total Hemoglobin 13.8 g/dL (12.0-18.0)
[2020-02-04 18:23] LABS: Device NON-INVASIVE VENT; Non-Invasive Expiratory Pressure 8 CMH2O; Non-Invasive Inspiratory Pressure 18 CMH2O; Non-Invasive Vent Rate 15 /MIN; PCO2 ABG 90.7 mmHg (35.0-45.0); Site Drawn LEFT BRACHIAL; pH ABG 7.164 (7.350-7.450)
--- NOTE | 2020-02-04 18:25 | SUR.PHASEI ---
1823 - [facility] results noted. Tika Espana CRNA aware. ok for pt to go to floor
--- NOTE | 2020-02-04 18:30 | PC.NURSE ---
Pt not returning to pre surgery floor, report given to receiving nurse in IMU, Manuel SINGH.
[2020-02-04 19:58] LABS: Alveolar/Arterial O2 Gradient 126.7 mmHg; Base Excess ABG 1.2 mEq/l (+/-2.0); Carboxyhemoglobin 0.5 % THb (0-2.0); Fractional Inspired Oxygen 45 %; HCO3 ABG 31.6 mEq/l (22.0-26.0); Methemoglobin ABG 0.1 %THb (0-1.5); Modified Allen's Test Unable to perform; Oxygen Content ABG 18.5 %vol (16.0-22.0); Oxyhemoglobin 95.4 % THb (90.0-100.0); PCO2 ABG 81.9 mmHg (35.0-45.0); PO2 FiO2 Ratio Arterial Blood 2.24 %; Site Drawn RIGHT RADIAL; Total Hemoglobin 13.7 g/dL (12.0-18.0); pH ABG 7.204 (7.350-7.450)
[2020-02-04 19:59] LABS: Device NON-INVASIVE VENT; Non-Invasive Expiratory Pressure 8 CMH2O; Non-Invasive Inspiratory Pressure 18 CMH2O; Non-Invasive Vent Rate 15 /MIN
--- NOTE | 2020-02-04 20:04 | PCRCNOTE ---
UPON ASSESSING PT, HOSPITALIST JOHANNA JACKSON WAS CALLED AND ABG ORDERED ON SETTINGS OF 18/8 R15 40%. POST ABG RESULTS, PIP INCREASED TO 22 FOR VT NEAR 600MLS. JOHANNA NOTIFIED. BRANDAN VIDAL RN AT BEDSIDE.
[2020-02-04 20:26] LABS: Triglycerides 79 mg/dL (<150)
[2020-02-04 21:32] LABS: Base Excess ABG -0.8 mEq/l (+/-2.0); Fractional Inspired Oxygen 40 %; HCO3 ABG 30.4 mEq/l (22.0-26.0); Oxygen Content ABG 18.2 %vol (16.0-22.0); Oxyhemoglobin 95.1 % THb (90.0-100.0); PO2 ABG 106.4 mmHg (80.0-100.0); PO2 FiO2 Ratio Arterial Blood 2.66 %; Total Hemoglobin 13.5 g/dL (12.0-18.0)
[2020-02-04 21:34] LABS: Device NON-INVASIVE VENT; Non-Invasive Expiratory Pressure 8 CMH2O; Non-Invasive Inspiratory Pressure 22 CMH2O; Non-Invasive Vent Rate 15 /MIN; PCO2 ABG 88.5 mmHg (35.0-45.0); Site Drawn LEFT BRACHIAL; pH ABG 7.154 (7.350-7.450)
[2020-02-04] MEDS: NALOXONE HCL 0.4 MG/ML VIAL IV PUSH (22:04)
[2020-02-04] MEDS: NALOXONE HCL 0.4 MG/ML VIAL 0.1 MG IV PUSH (22:15)
[2020-02-04 23:00] LABS: Alveolar/Arterial O2 Gradient 107.6 mmHg; Base Excess ABG 1.5 mEq/l (+/-2.0); Carboxyhemoglobin 1.6 % THb (0-2.0); Fractional Inspired Oxygen 40 %; HCO3 ABG 30.5 mEq/l (22.0-26.0); Methemoglobin ABG 0.1 %THb (0-1.5); Oxygen Content ABG 17.8 %vol (16.0-22.0); Oxygen Saturation ABG 96.1 % (95.0-100.0); Oxyhemoglobin 94.6 % THb (90.0-100.0); PO2 ABG 96.8 mmHg (80.0-100.0); PO2 FiO2 Ratio Arterial Blood 2.42 %; Reduced Hemoglobin 3.7 %THb (0-5.0); Total Hemoglobin 13.3 g/dL (12.0-18.0)
[2020-02-04 23:01] LABS: Device NON-INVASIVE VENT; PCO2 ABG 70.3 mmHg (35.0-45.0); Site Drawn LEFT BRACHIAL; pH ABG 7.255 (7.350-7.450)
[2020-02-04 23:02] LABS: Non-Invasive Expiratory Pressure 8 CMH2O; Non-Invasive Inspiratory Pressure 22 CMH2O; Non-Invasive Vent Rate 20 /MIN
[2020-02-04 23:52] LABS: Glucose Point of Care 178 (65-105)
[2020-02-05] VITALS (21 sets, daily range): BP systolic 93–134; BP diastolic 42–58; PULSE 20–78; RESP 17–24; TEMP 36.3–37; O2SAT 91–100
[2020-02-05 00:20] LABS: Hematocrit 37.4 % (42.0-52.0); Hemoglobin 11.9 g/dL (14.0-18.0); Mean Corpuscular HGB Conc 31.8 g/dl (32-36); Mean Corpuscular Hemoglobin 30.5 pg (26-34); Mean Corpuscular Volume 95.9 fl (80-100); Mean Platelet Volume 12.1 fl (7.4-10.4); Platelet Count Result 272 k/mm3 (150-375); Red Cell Distribution Width 13.8 % (11.5-14.5); White Blood Count 15.3 K/mm3 (4.5-10.0)
[2020-02-05 00:32] LABS: Alanine Aminotransferase 21 U/L (4-50); Albumin Level 2.1 g/dL (3.5-5.1); Alkaline Phosphatase 60 U/L (38-126); Anion Gap 2 mmol/L (8-16); Aspartate Amino Transferase 22 U/L (17-59); Bilirubin,Total 1.4 mg/dL (0.2-1.3); Blood Urea Nitrogen 32 mg/dL (9-20); Calcium 7.8 mg/dL (8.4-10.2); Carbon Dioxide 34 mmol/L (22-30); Chloride 96 mmol/L (98-107); Estimated CRCL calculation 71 ml/min; Estimated Glomerular Filt Rate > 60; Glucose 188 mg/dL (75-110); Potassium 4.6 mmol/L (3.4-5.0); Sodium 132 mmol/L (137-145)
[2020-02-05 00:33] LABS: Lactic Acid Reflex 1.4 mmol/L (0.7-2.1)
[2020-02-05] MEDS: SODIUM CHLORIDE 0.9% IV 1,000 ML 999 ML IV CONT (01:21)
[2020-02-05] MEDS: CENTRAL LINE FLUSH 10 ML IV PUSH ×3 (05:02→20:24)
[2020-02-05 06:10] LABS: Basophils Percent Auto 0.2 % (0.2-1.2); Eosinophils Percent Auto 0.3 % (0-4.4); Hematocrit 32.3 % (42.0-52.0); Hemoglobin 10.5 g/dL (14.0-18.0); Immature Granulocyte Absolute 0.08 K/mm3 (0.00-0.031); Immature Granulocyte Percent A 0.8 % (0-0.5); Lymphocytes Absolute Auto 0.52 K/mm3 (0.9-3.2); Lymphocytes Percent Auto 5.2 % (18.3-44.2); Mean Corpuscular HGB Conc 32.5 g/dl (32-36); Mean Corpuscular Volume 92.3 fl (80-100); Mean Platelet Volume 12.4 fl (7.4-10.4); Monocytes Absolute Auto 0.8 K/mm3 (0.1-0.6); Monocytes Percent Auto 7.8 % (2.6-8.5); Neutrophils Absolute Auto 8.6 K/mm3 (1.3-6.7); Neutrophils Percent Auto 85.7 % (45.5-73.1); Platelet Count Result 263 k/mm3 (150-375); Red Cell Distribution Width 13.8 % (11.5-14.5)
[2020-02-05 06:16] LABS: Alveolar/Arterial O2 Gradient 133.5 mmHg; Base Excess ABG 1.7 mEq/l (+/-2.0); Fractional Inspired Oxygen 40 %; HCO3 ABG 27.2 mEq/l (22.0-26.0); Methemoglobin ABG 0.1 %THb (0-1.5); Oxygen Content ABG 18.2 %vol (16.0-22.0); Oxygen Saturation ABG 97.4 % (95.0-100.0); Oxyhemoglobin 96.3 % THb (90.0-100.0); PCO2 ABG 46.1 mmHg (35.0-45.0); PO2 ABG 98.7 mmHg (80.0-100.0); PO2 FiO2 Ratio Arterial Blood 2.47 %; Reduced Hemoglobin 2.6 %THb (0-5.0); Total Hemoglobin 13.4 g/dL (12.0-18.0); pH ABG 7.388 (7.350-7.450)
[2020-02-05 06:17] LABS: Device NON-INVASIVE VENT; Modified Allen's Test Pass; Site Drawn LEFT RADIAL
[2020-02-05 06:18] LABS: Non-Invasive Expiratory Pressure 8 CMH2O; Non-Invasive Inspiratory Pressure 22 CMH2O; Non-Invasive Vent Rate 20 /MIN
[2020-02-05 06:33] LABS: Alanine Aminotransferase 18 U/L (4-50); Albumin Level 1.9 g/dL (3.5-5.1); Alkaline Phosphatase 49 U/L (38-126); Anion Gap -3 mmol/L (8-16); Aspartate Amino Transferase 19 U/L (17-59); Bilirubin,Total 1.4 mg/dL (0.2-1.3); Blood Urea Nitrogen 31 mg/dL (9-20); Calcium 7.6 mg/dL (8.4-10.2); Carbon Dioxide 36 mmol/L (22-30); Chloride 99 mmol/L (98-107); Estimated CRCL calculation 63 ml/min; Estimated Glomerular Filt Rate > 60; Glucose 134 mg/dL (75-110); Magnesium 2.1 mg/dL (1.6-2.3); Potassium 4.7 mmol/L (3.4-5.0); Sodium 132 mmol/L (137-145)
--- NOTE | 2020-02-05 08:31 | WPDANESPN ---
Anes - Prog Note Post-Op Date/Time: 02/05/20 08:31 Cardiovascular status: normal Respiratory status: other (on BiPAP) Airway patency: baseline Mental status: baseline Post-Op hydration status: normal Vital Signs: Last Vital Signs Temp 36.5 C 02/05/20 04:00 Pulse 61 02/05/20 06:02 Resp 20 02/05/20 04:00 BP 100/47 L 02/05/20 04:00 Pulse Ox 99 02/05/20 04:00 Pain Score (VAS): 4 I/O: Intake & Output 02/04/20 02/05/20 02/05/20 23:59 07:59 15:59 Intake Total 350 2030 Output Total 305 670 Balance 45 1360 Laboratory Tests 02/05/20 06:00 02/05/20 06:00 02/04/20 02/04/20 02/04/20 05:19 05:42 10:28 WBC 14.5 H RBC 3.82 L Hgb 11.6 L Hct 35.6 L MCV 93.2 MCH 30.4 MCHC 32.6 RDW 13.6 Plt Count 267 MPV 12.3 H Immature Gran % (Auto) 0.8 H Neut % (Auto) 86.4 H Lymph % (Auto) 4.0 L [place] % (Auto) 7.6 Eos % (Auto) 1.0 Baso % (Auto) 0.2 Lymph # (Auto) 0.58 L [place] # (Auto) 1.1 H Eos # (Auto) 0.2 Baso # (Auto) 0.0 Abs Immat Gran (auto) 0.12 H Absolute Neuts (auto) 12.5 H Absolute Nucleated RBC 0.0 Nucleated RBC % 0.0 Puncture Site ABG pH ABG pCO2 ABG pO2 ABG PO2/FiO2 Ratio ABG HCO3 ABG O2 Saturation ABG O2 Content ABG Base Excess A-a Gradient Oxyhemoglobin Carboxyhemoglobin Methemoglobin Reduced Hemoglobin Total Hemoglobin O2 Delivery Device O2 Liters/Min Vent Rate FiO2 Expiratory Pressure Inspiratory Pressure Sodium Potassium Chloride Carbon Dioxide Anion Gap BUN Creatinine Estim Creat Clear Calc Estimated GFR Glucose POC Capillary Glucose 127 H Lactic Acid Calcium Magnesium Total Bilirubin AST ALT Alkaline Phosphatase Total Protein Albumin Triglycerides 79 02/04/20 02/04/20 02/04/20 11:44 14:37 17:09 WBC RBC Hgb Hct MCV MCH MCHC RDW Plt Count MPV Immature Gran % (Auto) Neut % (Auto) Lymph % (Auto) [place] % (Auto) Eos % (Auto) Baso % (Auto) Lymph # (Auto) [place] # (Auto) Eos # (Auto) Baso # (Auto) Abs Immat Gran (auto) Absolute Neuts (auto) Absolute Nucleated RBC Nucleated RBC % Puncture Site Left brachial ABG pH 7.102 L* ABG pCO2 121.5 H* ABG pO2 95.8 ABG PO2/FiO2 Ratio 2.18 ABG HCO3 37.0 H ABG O2 Saturation 93.7 L ABG O2 Content 18.0 ABG Base Excess 3.3 A-a Gradient 79.4 Oxyhemoglobin 93.1 Carboxyhemoglobin Methemoglobin Reduced Hemoglobin Total Hemoglobin 13.7 O2 Delivery Device Simple mask O2 Liters/Min 6.0 Vent Rate FiO2 44 Expiratory Pressure Inspiratory Pressure Sodium Potassium Chloride Carbon Dioxide Anion Gap BUN Creatinine Estim Creat Clear Calc Estimated GFR Glucose POC Capillary Glucose 118 H 95 Lactic Acid Calcium Magnesium Total Bilirubin AST ALT Alkaline Phosphatase Total Protein Albumin Triglycerides 02/04/20 02/04/20 02/04/20 18:12 19:54 21:27 WBC RBC Hgb Hct MCV MCH MCHC RDW Plt Count MPV Immature Gran % (Auto) Neut % (Auto) Lymph % (Auto) [place] % (Auto) Eos % (Auto) Baso % (Auto) Lymph # (Auto) [place] # (Auto) Eos # (Auto) Baso # (Auto) Abs Immat Gran (auto) Absolute Neuts (auto) Absolute Nucleated RBC Nucleated RBC % Puncture Site Left brachial Right radial Left brachial ABG pH 7.164 L* 7.204 L* 7.154 L* ABG pCO2 90.7 H* 81.9 H* 88.5 H* ABG pO2 90.4 101.0 H 106.4 H ABG PO2/FiO2 Ratio 2.26 2.24 2.66 ABG HCO3 31.9 H 31.6 H 30.4 H ABG O2 Saturation 94.0 L 96.0 96.0 ABG O2 Content 18.1 18.5 18.2 ABG Base Excess 0.5 1.2 -0.8 A-a Gradient 90.5 126.7 77.0 Oxyhemoglobin 93.0 95.4 95.1 Carboxyhemogl
--- NOTE | 2020-02-05 08:39 | P.CDI_ITS ---
CDI Query Clarification Request - You documented enterotomy at previous anastamosis X2. Please clarify etiology of enterotomies at anastamosis if known: * Incidental occurence inherent to the surgical procedure * Complication of the procedure * Other cause * Unable to determine <Hilaria Godinez RN - Last Filed: 02/05/20 08:43> complication of procedure, anastomotic breakdown <Eulalia Perez MD - Last Filed: 02/06/20 09:15>
--- NOTE | 2020-02-05 08:39 | WPDCDIQUERY2 ---
CDI Query Clarification Request - You documented enterotomy at previous anastamosis X2. Please clarify etiology of enterotomies at anastamosis if known: Incidental occurence inherent to the surgical procedure Complication of the procedure Other cause Unable to determine <Hilaria Godinez RN - Last Filed: 02/05/20 08:43> complication of procedure, anastomotic breakdown <Eulalia Perez MD - Last Filed: 02/06/20 09:15>
[2020-02-05] MEDS: PANTOPRAZOLE SODIUM IV 40 MG VIAL IV PUSH (09:50)
--- NOTE | 2020-02-05 09:59 | PM.PNGS ---
Progress Note: A&P Assessment and Plan (1) Dehiscence of fascia: Code(s): T81.30XA - Disruption of wound, unspecified, initial encounter Status: Acute Assessment and Plan: Found to have fascial dehiscence after removing samson yesterday and was taken back to the OR. Now POD#1 ex lap, adhesiolysis, closure of enterotomy x4, washout, placement of drains x2, fascial closure. All 3 previous drains were removed in surgery. 2 new MAHAD drains now with serosanguineous output today, continue to monitor output. Initially patient was on BiPAP post-op and is now on 3L NC. Continue PRN analgesics for pain control. Continue dressing changes. Encouraged OOB/IS. (2) Small bowel obstruction: Code(s): K56.609 - Unspecified intestinal obstruction, unspecified as to partial versus complete obstruction Status: Acute Assessment and Plan: Continue bowel rest and NG tube decompression. Absolutely no oral intake. Continue TPN for nutrition. Continue IV Zosyn. WBC now normal today, patient remains afebrile. Appreciate ID recommendations. (3) Ileus: Code(s): K56.7 - Ileus, unspecified Status: Acute Assessment and Plan: See plan above. (4) Non-ST elevation ID (NSTEMI): Code(s): I21.4 - Non-ST elevation (NSTEMI) myocardial infarction Status: Acute Assessment and Plan: Cardiology following. Conservative treatment and rectal ASA at this time. Additional Plan Discussed the patient's case and plan of care with Dr. Perez. Subjective Subjective Date/Time Seen: 02/05/20 09:59 Post Op day: 1 (Ex lap with washout, closure of enterotomies x 4, adhesiolysis, and fascial closure,) Patient reports: still having pain (abdominal pain), no flatus and no bowel movement Interval history: Patient seen and examined sitting in the chair this morning. Reports having abdominal pain. No nausea or bloating. No flatus or BM. Was on BiPAP overnight, now on 3L NC. No shortness of breath. No other complaints at this time. Review of Systems Review of Systems: All systems reviewed & are unremarkable except as noted in HPI and below Constitutional: Constitutional: Reports as per HPI, Reports no additional constitutional complaints, Denies chills and Denies fever(s) Cardiovascular: Cardiovascular: Reports no additional cardiovascular complaints, Denies chest pain and Denies leg edema Respiratory: Respiratory: Reports no additional respiratory complaints, Denies cough, Denies dyspnea and Denies wheezing Gastrointestinal: Gastrointestinal: Reports as per HPI, Reports no additional gastrointestinal complaints, Reports abdominal pain, Denies bloating, Denies nausea and Denies vomiting Genitourinary: Comments: Wh[place] in place. Neurologic: Reports system reviewed and no additional complaints, except as documented, Denies confusion and Denies dizziness Exam Const: General: no acute distress, alert and awake Orientation/consciousness: patient oriented x3 Resp: Effort & Inspection: normal respiratory effort and able to speak in complete sentences Auscultation: diminished lung sounds bilateral in the lower lung herrera Cardio: Rate: regular rate Rhythm: regular rhythm GI: Inspection: other (mildly distended) GI Palp: Yes Tenderness to palpation present (GI) (diffuse), Yes Guarding due to palpation present (GI), No Rigid due to palpation and No Rebound tenderness present Auscultation: Hypoactive bowel sounds present Other: Midline incision with few samson and telfa reyes, serosanguineous drainage. No significant erythema around wound. Two small scabbed openings of RUQ and LUQ from previous perc. drains. MAHAD drain x 2 of RLQ/LLQ with serosanguineous drainage. Urinary Catheter: Urinary Catheter: patent and draining and urine dark Skin: General skin exam: normal color Neuro: General: moves all extremities and no focal motor deficits Extrem: General: normal to inspection, no clubbing, cyanosis or edema a
[2020-02-05] MEDS: ALBUTEROL SULFATE (*SP) AEROSOL 1 PUFF 2 PUFF INHALATION ×4 (10:39→20:39)
[2020-02-05] MEDS: NICOTINE (*PBKC) 21 MG PATCH 1 PATCH TRANSDERM (12:27)
[2020-02-05] MEDS: FAT EMULSIONS IV 20% 250 ML 20.8 ML IVPB (12:27)
[2020-02-05] MEDS: FONDAPARINUX SODIUM 2.5 MG/0.5 ML SYRINGE SUB-Q (12:27)
[2020-02-05 12:55] LABS: Glucose Point of Care 127 (65-105)
--- NOTE | 2020-02-05 16:06 | PM.IMPN ---
Progress Note: A&P Assessment and Plan (1) Altered mental status: Code(s): R41.82 - Altered mental status, unspecified Status: Acute Assessment and Plan: Patient arouses and no focal weakness. Suspect related to narcotics after for surgery. . Stopped Dilaudid and use narcotics sparingly. Tylenol available for pain now (2) AIVR (accelerated idioventricular rhythm): Code(s): I44.2 - Atrioventricular block, complete Status: Acute Assessment and Plan: Patient with VTach/AIVR and associated CP on 01/25. EKG showing delayed R wave progression with Rt strain (S1Q3T3). No old EKG to compare. On Reglan which was held but resumed by surgery- no further episodes of the AIVR. Echo 01/25 showing EF 55-60% and grade I DD. LE doppler negative and VQ scan nondiagnostic for PE. Continue ASA. Continue telemetry. (3) Non-ST elevation [place] (NSTEMI): Code(s): I21.4 - Non-ST elevation (NSTEMI) myocardial infarction Status: Acute Assessment and Plan: Patient with CP on 01/25 associated with the AIVR. EKG showing delayed R wave progression with Rt strain (S1Q3T3). No old EKG to compare. Trop up to 3.0. Continue ASA. Continue telemetry. Metoprolol started but patient became bradycardic so this was stopped. (4) Shock: Code(s): R57.9 - Shock, unspecified Status: Acute Assessment and Plan: Appears secondary to volume depletion but can not exclude sepsis. 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 Patient was on Flagyl/Cipro 01/23-01/24 but changed to Vanc and Zosyn 01/24 (Day 13). Echo normal EF 55%. Central line has been removed. WBC decreased and now off steroids. BP remaining stable off steroids. Continue IV abx for now. Drains placed and abscess drained 02/01 in IR. ID consulted and continued zosyn.. Repeat laparotomy 02/03 with repair of anastomotic leak and washout of abdomen postop day 1. For 2nd surgery (5) Small bowel obstruction: Code(s): K56.609 - Unspecified intestinal obstruction, unspecified as to partial versus complete obstruction Status: Acute Assessment and Plan: CT abd/pelvis 01/22/20 demonstrated high-grade small bowel obstruction with transition point in the right abdomen. The SB was distended with areas of necrosis and perforation. POD 13 from exploratory lap with extensive lysis of adhesion, small bowel resection x2 per Dr. Perez on 01/23/20. Reglan was held related to above but resumed. Continue IV antiemetics as needed. Continue TPN. Continue PT/OT. Continue to have patient up to the chair and walking as much as possible . As above back to OR 02/03 for repair of anastomotic leak and washout of abscesses (6) Ileus: Code(s): K56.7 - Ileus, unspecified Status: Acute Assessment and Plan: Post-op ileus related to SBO. As above. (7) Acute kidney injury: Code(s): N17.9 - Acute kidney failure, unspecified Status: Acute Assessment and Plan: Cr peaked at 3.2. Likely secondary to acute dehydration from decreased PO intake. BUN was very high at 95 with ratio >20:1 suggesting pre-renal etiology. Cr decreased to 0.9 today with hydration. BUN almost normal as well. Renal US unremarkable. Continue TPN. (8) Rhabdomyolysis: Code(s): M62.82 - Rhabdomyolysis Status: Acute Assessment and Plan: TCK elevated at 2130 but better to 199 with hydration. Etiology unclear but felt related to the sepsis. 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
[2020-02-05 19:36] LABS: Platelet Ab,Indirect (IgA) NEGATIVE (NEGATIVE); Platelet Ab,Indirect (IgG) POSITIVE (NEGATIVE); Platelet Ab,Indirect (IgM) NEGATIVE (NEGATIVE)
[2020-02-05] MEDS: ONDANSETRON INJ 4 MG/2 ML VIAL IV PUSH (20:23)
[2020-02-05 23:33] LABS: Glucose Point of Care 122 (65-105)
[2020-02-06] VITALS (18 sets, daily range): BP systolic 112–139; BP diastolic 51–67; PULSE 62–80; RESP 16–28; TEMP 36.1–36.8; O2SAT 90–98
[2020-02-06] MEDS: CENTRAL LINE FLUSH 10 ML IV PUSH ×3 (05:19→20:57)
[2020-02-06 05:34] LABS: Basophils Percent Auto 0.4 % (0.2-1.2); Eosinophils Absolute Auto 0.2 K/mm3 (0-0.3); Eosinophils Percent Auto 2.2 % (0-4.4); Hematocrit 32.5 % (42.0-52.0); Hemoglobin 10.6 g/dL (14.0-18.0); Immature Granulocyte Absolute 0.07 K/mm3 (0.00-0.031); Immature Granulocyte Percent A 0.7 % (0-0.5); Lymphocytes Absolute Auto 0.59 K/mm3 (0.9-3.2); Lymphocytes Percent Auto 6.3 % (18.3-44.2); Mean Corpuscular HGB Conc 32.6 g/dl (32-36); Mean Corpuscular Hemoglobin 30.3 pg (26-34); Mean Corpuscular Volume 92.9 fl (80-100); Mean Platelet Volume 12.3 fl (7.4-10.4); Monocytes Absolute Auto 1.2 K/mm3 (0.1-0.6); Monocytes Percent Auto 12.9 % (2.6-8.5); Neutrophils Absolute Auto 7.3 K/mm3 (1.3-6.7); Neutrophils Percent Auto 77.5 % (45.5-73.1); Platelet Count Result 268 k/mm3 (150-375); Red Cell Distribution Width 13.8 % (11.5-14.5); White Blood Count 9.4 K/mm3 (4.5-10.0)
[2020-02-06 05:35] LABS: Glucose Point of Care 120 (65-105)
[2020-02-06 05:50] LABS: Anion Gap -4.00001 mmol/L (8-16); Blood Urea Nitrogen 24 mg/dL (9-20); Calcium 7.4 mg/dL (8.4-10.2); Carbon Dioxide > 40 mmol/L (22-30); Chloride 96 mmol/L (98-107); Estimated CRCL calculation 80 ml/min; Estimated Glomerular Filt Rate > 60; Glucose 108 mg/dL (75-110); Potassium 4.3 mmol/L (3.4-5.0); Sodium 132 mmol/L (137-145)
[2020-02-06] MEDS: ALBUTEROL SULFATE (*SP) AEROSOL 1 PUFF 2 PUFF INHALATION ×4 (07:26→19:38)
[2020-02-06 08:39] LABS: Glucose Point of Care 113 (65-105)
--- NOTE | 2020-02-06 09:11 | PM.PNGS ---
Progress Note: A&P Assessment and Plan (1) Dehiscence of fascia: Code(s): T81.30XA - Disruption of wound, unspecified, initial encounter Status: Acute Assessment and Plan: cont serial exam, bowel rest, NG decompression, cont drains, abx, TPN, PT/OT (2) Small bowel obstruction: Code(s): K56.609 - Unspecified intestinal obstruction, unspecified as to partial versus complete obstruction Status: Acute Assessment and Plan: see above Subjective Subjective Date/Time Seen: 02/06/20 09:11 feels better, decreased pain, no bowel fxn Review of Systems Review of Systems: All systems reviewed & are unremarkable except as noted in HPI and below Exam Const: General: cooperative, comfortable and no acute distress Resp: Effort & Inspection: normal respiratory effort Auscultation: diminished lung sounds Cardio: Rate: regular rate Rhythm: regular rhythm GI: Inspection: normal to inspection GI Palp: Yes abdominal tenderness, Yes Soft to palpation, Yes Tenderness to palpation present (GI), No Guarding due to palpation present (GI) and No Rigid due to palpation Other: soft, sl dist, nj TTP, incision unpacked, some s/s drainage, drain x 2 c s/s drainage Objective Data Vital Signs Vital Signs: Vital Signs - 24 hr 02/05/20 10:00 02/05/20 10:40 02/05/20 11:31 Temperature 36.9 C Pulse Rate 73 74 Respiratory Rate 17 Blood Pressure 93/42 L Pulse Oximetry 93 98 02/05/20 12:00 02/05/20 14:00 02/05/20 15:14 Temperature 37.0 C Pulse Rate 59 L 73 69 Respiratory Rate 24 H Blood Pressure 113/55 L Pulse Oximetry 98 91 02/05/20 16:00 02/05/20 18:00 02/05/20 19:59 Temperature 36.4 C Pulse Rate 74 72 73 Respiratory Rate 20 Blood Pressure 122/54 L Pulse Oximetry 91 91 02/05/20 20:00 02/05/20 20:41 02/05/20 22:00 Temperature Pulse Rate 71 72 78 Respiratory Rate 18 Blood Pressure Pulse Oximetry 94 93 02/05/20 23:19 02/05/20 23:32 02/06/20 00:00 Temperature 36.7 C Pulse Rate 77 68 Respiratory Rate 20 Blood Pressure 134/58 L Pulse Oximetry 92 94 02/06/20 00:25 02/06/20 02:00 02/06/20 02:32 Temperature Pulse Rate 67 62 Respiratory Rate 20 Blood Pressure Pulse Oximetry 90 97 02/06/20 03:52 02/06/20 03:53 02/06/20 04:00 Temperature 36.4 C L Pulse Rate 74 69 Respiratory Rate 20 Blood Pressure 139/56 L Pulse Oximetry 93 92 02/06/20 05:38 02/06/20 07:27 02/06/20 08:00 Temperature 36.6 C Pulse Rate 77 77 Respiratory Rate 26 H Blood Pressure 138/57 L Pulse Oximetry 94 98 Intake/Output Intake/Output: Intake & Output 02/03/20 02/04/20 02/05/20 02/06/20 23:59 23:59 23:59 23:59 Intake Total 2905 3040 3061 1084 Output Total 1500 1460 1955 1450 Balance 1405 1580 1106 -366 Meds/Results Medications: Active Medications Generic Name Dose Route Start Last Admin Trade Name Freq PRN Reason Stop Dose Admin Albuterol 2 puff 01/26/20 20:00 02/06/20 07:26 Albuterol Sulfate (*Sp) Aerosol 1 Puff INHALATION 2 puff QIDRT JORJE Administration Aspirin 300 mg 01/27/20 09:00 02/05/20 12:27 Aspirin 300 Mg Suppository RECTAL Not Given DAILY JORJE Dextrose 12.5 gm 01/25/20 06:01 01/25/20 06:12 Dextrose 50% 25 Gm/50 Ml Syringe IV PUSH 12.5 gm PRN PRN Administration Hypoglycemia Protocol Fondaparinux 2.5 mg 01/28/20 09:00 02/05/20 12:27 Fondaparinux Sodium 2.5 Mg/0.5 Ml Syringe SUB-Q 2.5 mg DAILY JORJE Administration Glucagon 1 mg 01/25/20 06:01 Glucagon For Inj 1 Mg Vial IM PRN PRN Hypoglycemia Protocol Glucose 15 gm 01/25/20 06:01 Glucose Oral Gel 15 Gm Of Glucse In 37.5 Gm Tube PO PRN PRN Hypoglycemia Protocol Hydralazine HCl 10 mg 01/31/20 12:35 Hydralazine Hcl 20 Mg/Ml Vial IV PUSH Q8H PRN Blood Pressure - High Piperacillin/Tazobactam/Dextrose 3.375 gm in 50 mls @ 100 mls/hr 01/27/20 12:00
--- NOTE | 2020-02-06 09:55 | PCOTNOTE ---
Per RN, patient on hold for today for therapy. Will continue plan of care when appropriate.
[2020-02-06] MEDS: PANTOPRAZOLE SODIUM IV 40 MG VIAL IV PUSH (10:21)
[2020-02-06] MEDS: NICOTINE (*PBKC) 21 MG PATCH 1 PATCH TRANSDERM (10:22)
[2020-02-06] MEDS: WATER FOR IRRIGATION, STERILE 1,000 ML BOTTLE 1000 ML (10:27)
[2020-02-06] MEDS: FONDAPARINUX SODIUM 2.5 MG/0.5 ML SYRINGE SUB-Q (11:30)
[2020-02-06] MEDS: ASPIRIN 300 MG SUPPOSITORY RECTAL (11:31)
[2020-02-06 11:43] LABS: Triglycerides 70 mg/dL (<150)
--- NOTE | 2020-02-06 11:58 | PCNFU ---
Nutrition Follow-Up Complete: Inadequate oral intake related to small bowel obstruction, ileus as evidenced by day 5 NPO diet. Goal:Patient to meet estimated nutritional needs. Progressing towards goal, we will continue current goal. Pt current nutrition is TPN. Last recorded weight is 83.1 kg, up from admit weight of 82.9 kg. Bowel Motility:No bowel function/hypoactive bowel sounds. Labs Reviewed:Na 132,BUN 24,Hct 32.5,Hgb 10.6 Meds Noted:Clinimix E 5/15 at 70 ml/hr and 250 ml 20% Lipid Emulsion,Protonix,Zosyn. Additional Notes: Nutrition follow up. NGT in place. TPN continues at this time providing 1693 kcals and 84 gms protein. Current diet orders are appropriate until bowel function returns and we can advance diet as tolerated. Monitoring: Follow up in Sunday/Sunday.
[2020-02-06 12:00] LABS: Glucose Point of Care 135 (65-105)
--- NOTE | 2020-02-06 12:03 | PM.IMPN ---
Progress Note: A&P Assessment and Plan (1) Altered mental status: Code(s): R41.82 - Altered mental status, unspecified Status: Acute Assessment and Plan: resolved and no focal weakness. Suspect related to narcotics after initial surgery. . Stopped Dilaudid and use narcotics sparingly. Tylenol available for pain now (2) AIVR (accelerated idioventricular rhythm): Code(s): I44.2 - Atrioventricular block, complete Status: Acute Assessment and Plan: Patient with VTach/AIVR and associated CP on 01/25 pm. EKG showing delayed R wave progression with Rt strain (S1Q3T3). No old EKG to compare. On Reglan which was held but resumed by surgery- no further episodes of the AIVR. Echo 01/25 showing EF 55-60% and grade I DD. LE doppler negative and VQ scan nondiagnostic for PE. Continue ASA. Continue telemetry. (3) Non-ST elevation MT (NSTEMI): Code(s): I21.4 - Non-ST elevation (NSTEMI) myocardial infarction Status: Acute Assessment and Plan: Patient with CP on 01/25 associated with the AIVR. EKG showing delayed R wave progression with Rt strain (S1Q3T3). No old EKG to compare. Trop up to 3.0. Continue ASA. Continue telemetry. Metoprolol started but patient became bradycardic so this was stopped. (4) Shock: Code(s): R57.9 - Shock, unspecified Status: Acute Assessment and Plan: Appears secondary to volume depletion but could not exclude sepsis. 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 Patient was on Flagyl/Cipro 01/23-01/24 but changed to Vanc and Zosyn 01/24 (Day 14). Echo normal EF 55%. Central line has been removed. WBC normal and now off steroids. BP remaining stable off steroids. Continue IV abx for now. Drains placed and abscess drained 02/01 in IR. ID consulted and continued zosyn.. Repeat laparotomy 02/03 with repair of anastomotic leak and washout of abdomen postop day 2. For 2nd surgery (5) Small bowel obstruction: Code(s): K56.609 - Unspecified intestinal obstruction, unspecified as to partial versus complete obstruction Status: Acute Assessment and Plan: CT abd/pelvis 01/22/20 demonstrated high-grade small bowel obstruction with transition point in the right abdomen. The SB was distended with areas of necrosis and perforation. POD 14 from exploratory lap with extensive lysis of adhesion, small bowel resection x2 per Dr. Perez on 01/23/20. Reglan was held related to above but resumed. Continue IV antiemetics as needed. Continue TPN. Continue PT/OT. Continue to have patient up to the chair and walking as much as possible . As above back to OR 02/03 for repair of anastomotic leak and washout of abscesses (6) Ileus: Code(s): K56.7 - Ileus, unspecified Status: Acute Assessment and Plan: Post-op ileus related to SBO. As above. (7) Acute kidney injury: Code(s): N17.9 - Acute kidney failure, unspecified Status: Acute Assessment and Plan: Cr peaked at 3.2. Likely secondary to acute dehydration from decreased PO intake. BUN was very high at 95 with ratio >20:1 suggesting pre-renal etiology. Cr decreased to 0.7 today with hydration. BUN almost normal as well. Renal US unremarkable. Continue TPN. (8) Rhabdomyolysis: Code(s): M62.82 - Rhabdomyolysis Status: Acute Assessment and Plan: TCK elevated at 2130 but better to 199 with hydration. Etiology unclear but felt related to the sepsis. (9) Aortic aneurysm: Qualifiers: Aortic location: abdominal aorta Presence of rupture: without rupture Qualified Code(s): I71.4 - Abdominal aortic aneurysm, without rupture Code(s): I71.9 - Aortic aneurysm of unspecified site, without rupture Status: Acute Assessment and Plan: Infrarenal 4.4 cm fusiform aneurysm of the infraren
[2020-02-06 16:40] LABS: Glucose Point of Care 114 (65-105)
[2020-02-06] MEDS: FAT EMULSIONS IV 20% 250 ML 20.8 ML IVPB (17:16)
[2020-02-06] MEDS: ONDANSETRON INJ 4 MG/2 ML VIAL IV PUSH (20:57)
[2020-02-07] VITALS (13 sets, daily range): BP systolic 107–130; BP diastolic 51–56; PULSE 59–90; RESP 16–22; TEMP 36.1–36.2; O2SAT 92–97
[2020-02-07 04:22] LABS: Glucose Point of Care 128 (65-105)
[2020-02-07] MEDS: CENTRAL LINE FLUSH 10 ML IV PUSH ×3 (04:55→21:35)
[2020-02-07] MEDS: CENTRAL LINE FLUSH 20 ML IV PUSH (04:55)
[2020-02-07 05:29] LABS: Glucose Point of Care 101 (65-105)
[2020-02-07 05:50] LABS: Anion Gap 2 mmol/L (8-16); Blood Urea Nitrogen 19 mg/dL (9-20); Calcium 7.7 mg/dL (8.4-10.2); Carbon Dioxide 36 mmol/L (22-30); Chloride 93 mmol/L (98-107); Estimated CRCL calculation 80 ml/min; Estimated Glomerular Filt Rate > 60; Glucose 111 mg/dL (75-110); Potassium 4.3 mmol/L (3.4-5.0); Sodium 131 mmol/L (137-145)
[2020-02-07] MEDS: NICOTINE (*PBKC) 21 MG PATCH 1 PATCH TRANSDERM (09:31)
[2020-02-07] MEDS: PANTOPRAZOLE SODIUM IV 40 MG VIAL IV PUSH (09:32)
[2020-02-07] MEDS: ASPIRIN 300 MG SUPPOSITORY RECTAL (09:32)
[2020-02-07] MEDS: FONDAPARINUX SODIUM 2.5 MG/0.5 ML SYRINGE SUB-Q (09:32)
--- NOTE | 2020-02-07 10:09 | PM.PNGS ---
Progress Note: A&P Assessment and Plan (1) Dehiscence of fascia: Code(s): T81.30XA - Disruption of wound, unspecified, initial encounter Status: Acute Assessment and Plan: POD #3 from dehiscence OR, cont serial exam, bowel rest, NG decompression, cont drains, abx, TPN,Wound vac, and PT/OT (2) Small bowel obstruction: Code(s): K56.609 - Unspecified intestinal obstruction, unspecified as to partial versus complete obstruction Status: Acute Assessment and Plan: see above Subjective Subjective Date/Time Seen: 02/07/20 10:09 Post Op day: 3 Patient reports: no new complaints, feels better and still having pain (Mainly incisional.) Interval history: No flatus or bowel movement yet. Patient lying in bed with nurse changing the MAHAD drain dressing when I saw him. Wound VAC functioning well. Review of Systems Review of Systems: All systems reviewed & are unremarkable except as noted in HPI and below Constitutional: Constitutional: Reports as per HPI, Reports no additional constitutional complaints, Reports anorexia, Denies chills, Denies fatigue, Denies fever(s), Denies headache(s), Denies increased appetite, Denies lethargy, Denies malaise, Reports poor appetite, Denies weakness, Denies weight gain and Denies weight loss Eyes: Eyes: Reports no additional eye complaints ENT: Reports system reviewed and no additional complaints, except as documented, Reports Normal hearing present, Denies dizziness and Denies headache(s) Cardiovascular: Cardiovascular: Reports no additional cardiovascular complaints, Denies chest pain, Reports pedal edema (minimal bilaterally), Denies leg edema and Denies dyspnea Respiratory: Respiratory: Reports as per HPI, Reports no additional respiratory complaints, Denies cough, Denies dyspnea and Denies wheezing Gastrointestinal: Gastrointestinal: Reports as per HPI, Reports no additional gastrointestinal complaints, Reports abdominal pain, Reports belching, Denies bloating, Reports change in bowel habits, Reports constipation, Reports early satiety, Reports dyspepsia, Reports heartburn, Denies nausea and Denies vomiting Genitourinary: Genitourinary: Reports no additional male genitourinary complaints and Reports other (Whiting in place) Musculoskeletal: Musculoskeletal: Reports no additional musculoskeletal complaints Integumentary/Breasts: Skin/Breast: Reports system reviewed and no additional complaints, except as docu Neurologic: Reports system reviewed and no additional complaints, except as documented, Reports Normal hearing present, Denies Abnormal speech present, Denies confusion, Denies dizziness, Denies headache(s) and Denies weakness Psychiatric: Psychiatric: Reports no additional psychiatric complaints and Denies confusion Endocrine: Endocrine: Reports no additional endocrine complaints and Denies fatigue Hematologic/Lymphatic: Hematologic/Lymphatic: Reports no additional hematologic/lymphatic complaints Allergic/Immunologic: Allergic/Immunologic: Reports no additional allergic/immunologic complaints and Denies wheezing Exam Const: General: cooperative, comfortable, no acute distress, well developed, alert, awake, Physically active, acute distress mild, ill appearing and lethargic; No confusion Orientation/consciousness: oriented to person, oriented to place, oriented to time, patient oriented x3, No confusion and lethargic Limitations: no limitations HENMT: Head: normal to inspection, normocephalic and atraumatic Ears: hearing grossly normal bilaterally Mouth: Yes moist mucous membranes Eyes: General: appearance normal, both eyes and all related structures Pupils: Equal, round and reactive pupils present EOM: EOMs intact bilaterally Neck: Neck: normal visual inspection, full ROM, no lymphadenopathy, trachea midline and supple Lymphatic: no lymphadenopathy noted Chest: Chest palpation & inspection: normal inspection of the chest Resp: Effort & Inspection: norm
[2020-02-07] MEDS: ALBUTEROL SULFATE (*SP) AEROSOL 1 PUFF 2 PUFF INHALATION ×3 (12:00→19:30)
[2020-02-07 12:19] LABS: Glucose Point of Care 118 (65-105)
--- NOTE | 2020-02-07 12:22 | PM.PNCARD ---
Progress Note: A&P Additional Plan 74-year-old gentleman with: Suspected type 2 RI following admission for small bowel obstruction requiring surgery. Patient had to be returned to the OR couple of days ago for anastomotic leak. He is now recovering reasonably well. No clinically active cardiac problems. He will require evaluation of his cardiovascular status likely undergoing angiography when he is stable and recovered from this illness. We will continue to follow the patient as needed during this hospitalization Porfirio Ramirez MD [facility] Subjective Date/time seen: date of service:02/07/20 12:22 Interval history: Follow-up for: Non ST-elevation myocardial infartction. Admitted with small bowel obstruction s/p exploratory laparotomy with extensive lysis of adhesions, small bowel resection Also: HTN, aortic aneurysm, tobacco dependence. x2. Date of service: 02/07/2020. Patient resting comfortably in bed offers no cardiovascular complaints. Follow-up visit for type 2 RI occurring in the setting of acutely ill with small-bowel obstruction exploratory laparotomy with adhesiolysis. Since we have seen the patient several days ago he was returned to the OR because of a anastomotic leak. Again the patient of course is now in p.o. in seems to be recovering satisfactorily. Exam Const: General: comfortable and no acute distress HENMT: Mouth: Yes dry mucous membranes Eyes: Sclera: sclerae normal Pupils: Equal, round and reactive pupils present Neck: Neck: supple and no JVD Resp: Effort & Inspection: normal respiratory effort Auscultation: clear to auscultation bilaterally Cardio: Rate: regular rate Rhythm: regular rhythm Other: No significant murmur or gallop GI: Auscultation: abnormal bowel sounds ( bowel sounds present but decreased) Skin: General skin exam: normal color Neuro: Cognition (Neuro): normal cognition Objective Data Vital Signs Vital Signs: Vital Signs - 24 hr 02/06/20 14:00 02/06/20 16:00 02/06/20 18:00 Temperature 36.1 C L Pulse Rate 65 63 67 Respiratory Rate 28 H Blood Pressure 112/54 L Pulse Oximetry 95 02/06/20 18:20 02/06/20 19:41 02/06/20 20:00 Temperature 36.2 C L 36.8 C Pulse Rate 67 80 70 Respiratory Rate 16 16 18 Blood Pressure 137/67 129/56 L Pulse Oximetry 95 94 95 02/07/20 00:00 02/07/20 04:00 02/07/20 04:31 Temperature 36.1 C L 36.2 C L Pulse Rate 71 70 59 L Respiratory Rate 16 16 Blood Pressure 129/53 L 123/56 L Pulse Oximetry 96 95 02/07/20 08:00 02/07/20 09:30 02/07/20 12:00 Temperature Pulse Rate 69 69 72 Respiratory Rate 16 Blood Pressure Pulse Oximetry 95 Intake/Output Intake/Output: Intake & Output 02/04/20 02/05/20 02/06/20 02/07/20 23:59 23:59 23:59 23:59 Intake Total 3040 3061 1486 350 Output Total 1460 1955 5115 1780 Balance 1580 2177 -0680 -3715 Meds/Results Medications: Active Medications Generic Name Dose Route Start Last Admin Trade Name Freq PRN Reason Stop Dose Admin Albuterol 2 puff 01/26/20 20:00 02/06/20 19:38 Albuterol Sulfate (*Sp) Aerosol 1 Puff INHALATION 2 puff QIDRT JORJE Administration Aspirin 300 mg 01/27/20 09:00 02/07/20 09:32 Aspirin 300 Mg Suppository RECTAL 300 mg DAILY JORJE Administration Dextrose 12.5 gm 01/25/20 06:01 01/25/20 06:12 Dextrose 50% 25 Gm/50 Ml Syringe IV PUSH 12.5 gm PRN PRN Administration Hypoglycemia Protocol Fondaparinux 2.5 mg 01/28/20 09:00 02/07/20 09:32 Fondaparinux Sodium 2.5 Mg/0.5 Ml Syringe SUB-Q 2.5 mg DAILY JORJE Administration Glucagon 1 mg 01/25/20 06:01 Glucagon For Inj 1 Mg Vial IM PRN PRN Hypoglycemia Protocol Glucose 15 gm 01/25/20 06:01 Glucose Oral Gel 15 Gm Of Glucse In 37.5 Gm Tube PO PRN PRN Hypoglycemia Protocol Hydralazine HCl 10 mg 01/31/20 12:35 Hydralazine Hcl 20 Mg/Ml Vial IV PUSH Q8H PRN Blood Pressure - H
--- NOTE | 2020-02-07 14:38 | PM.IMPN ---
Progress Note: A&P Assessment and Plan (1) Altered mental status: Code(s): R41.82 - Altered mental status, unspecified Status: Acute Assessment and Plan: resolved and no focal weakness. Suspect related to narcotics after initial surgery. . Stopped Dilaudid and use narcotics sparingly. Tylenol available for pain now (2) AIVR (accelerated idioventricular rhythm): Code(s): I44.2 - Atrioventricular block, complete Status: Acute Assessment and Plan: Patient with VTach/AIVR and associated CP on 01/25 pm. EKG showing delayed R wave progression with Rt strain (S1Q3T3). No old EKG to compare. On Reglan which was held but resumed by surgery- no further episodes of the AIVR. Echo 01/25 showing EF 55-60% and grade I DD. LE doppler negative and VQ scan nondiagnostic for PE. Continue ASA. Continue telemetry. (3) Non-ST elevation [place] (NSTEMI): Code(s): I21.4 - Non-ST elevation (NSTEMI) myocardial infarction Status: Acute Assessment and Plan: Patient with CP on 01/25 associated with the AIVR. EKG showing delayed R wave progression with Rt strain (S1Q3T3). No old EKG to compare. Trop up to 3.0. Continue ASA. Continue telemetry. Metoprolol started but patient became bradycardic so this was stopped. (4) Shock: Code(s): R57.9 - Shock, unspecified Status: Acute Assessment and Plan: Appears secondary to volume depletion but could not exclude sepsis. 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 Patient was on Flagyl/Cipro 01/23-01/24 but changed to Vanc and Zosyn 01/24 (Day 15). Echo normal EF 55%. Central line has been removed. WBC normal and now off steroids. BP remaining stable off steroids. Continue IV abx for now. Drains placed and abscess drained 02/01 in IR. ID consulted and continued zosyn.. Repeat laparotomy 02/03 with repair of anastomotic leak and washout of abdomen postop day 3. For 2nd surgery (5) Small bowel obstruction: Code(s): K56.609 - Unspecified intestinal obstruction, unspecified as to partial versus complete obstruction Status: Acute Assessment and Plan: CT abd/pelvis 01/22/20 demonstrated high-grade small bowel obstruction with transition point in the right abdomen. The SB was distended with areas of necrosis and perforation. POD 15 from exploratory lap with extensive lysis of adhesion, small bowel resection x2 per Dr. Perez on 01/23/20. Reglan was held related to above but resumed. Continue IV antiemetics as needed. Continue TPN. Continue PT/OT. Continue to have patient up to the chair and walking as much as possible . As above back to OR 02/03 for repair of anastomotic leak and washout of abscesses (6) Ileus: Code(s): K56.7 - Ileus, unspecified Status: Acute Assessment and Plan: Post-op ileus related to SBO. As above. (7) Acute kidney injury: Code(s): N17.9 - Acute kidney failure, unspecified Status: Acute Assessment and Plan: Cr peaked at 3.2. Likely secondary to acute dehydration from decreased PO intake. BUN was very high at 95 with ratio >20:1 suggesting pre-renal etiology. Cr decreased to 0.7 today with hydration. BUN normal as well. Renal US unremarkable. Continue TPN. (8) Rhabdomyolysis: Code(s): M62.82 - Rhabdomyolysis Status: Acute Assessment and Plan: TCK elevated at 2130 but better to 199 with hydration. Etiology unclear but felt related to the sepsis. (9) Aortic aneurysm: Qualifiers: Aortic location: abdominal aorta Presence of rupture: without rupture Qualified Code(s): I71.4 - Abdominal aortic aneurysm, without rupture Code(s): I71.9 - Aortic aneurysm of unspecified site, without rupture Status: Acute Assessment and Plan: Infrarenal 4.4 cm fusiform aneurysm of the infrarenal aor
[2020-02-07] MEDS: FAT EMULSIONS IV 20% 250 ML 20.8 ML IVPB (16:43)
[2020-02-07 18:43] LABS: Glucose Point of Care 130 (65-105)
[2020-02-08] VITALS (12 sets, daily range): BP systolic 98–123; BP diastolic 52–63; PULSE 58–71; RESP 16–23; TEMP 36.1–36.9; O2SAT 94–100
[2020-02-08 00:56] LABS: Glucose Point of Care 109 (65-105)
[2020-02-08] MEDS: CENTRAL LINE FLUSH 20 ML IV PUSH (05:48)
[2020-02-08] MEDS: CENTRAL LINE FLUSH 10 ML IV PUSH ×3 (05:48→22:45)
[2020-02-08 05:51] LABS: Basophils Percent Auto 0.6 % (0.2-1.2); Eosinophils Absolute Auto 0.2 K/mm3 (0-0.3); Eosinophils Percent Auto 2.7 % (0-4.4); Hemoglobin 10.8 g/dL (14.0-18.0); Immature Granulocyte Absolute 0.08 K/mm3 (0.00-0.031); Immature Granulocyte Percent A 1.2 % (0-0.5); Lymphocytes Absolute Auto 0.67 K/mm3 (0.9-3.2); Lymphocytes Percent Auto 9.7 % (18.3-44.2); Mean Corpuscular HGB Conc 32.7 g/dl (32-36); Mean Corpuscular Hemoglobin 29.8 pg (26-34); Mean Corpuscular Volume 90.9 fl (80-100); Mean Platelet Volume 12.1 fl (7.4-10.4); Monocytes Percent Auto 14.3 % (2.6-8.5); Neutrophils Percent Auto 71.5 % (45.5-73.1); Platelet Count Result 264 k/mm3 (150-375); Red Blood Count 3.63 M/mm3 (4.6-6.20); Red Cell Distribution Width 13.2 % (11.5-14.5); White Blood Count 6.9 K/mm3 (4.5-10.0)
[2020-02-08 06:12] LABS: Anion Gap 3 mmol/L (8-16); Blood Urea Nitrogen 20 mg/dL (9-20); Calcium 7.9 mg/dL (8.4-10.2); Carbon Dioxide 35 mmol/L (22-30); Chloride 92 mmol/L (98-107); Estimated CRCL calculation 80 ml/min; Estimated Glomerular Filt Rate > 60; Glucose 113 mg/dL (75-110); Potassium 4.5 mmol/L (3.4-5.0); Sodium 130 mmol/L (137-145)
[2020-02-08 07:03] LABS: Glucose Point of Care 117 (65-105)
[2020-02-08] MEDS: ALBUTEROL SULFATE (*SP) AEROSOL 1 PUFF 2 PUFF INHALATION ×4 (09:00→22:17)
[2020-02-08] MEDS: PANTOPRAZOLE SODIUM IV 40 MG VIAL IV PUSH (09:27)
[2020-02-08] MEDS: NICOTINE (*PBKC) 21 MG PATCH 1 PATCH TRANSDERM (09:27)
[2020-02-08] MEDS: ASPIRIN 300 MG SUPPOSITORY RECTAL (09:27)
[2020-02-08] MEDS: FONDAPARINUX SODIUM 2.5 MG/0.5 ML SYRINGE SUB-Q (09:28)
[2020-02-08 10:22] LABS: Triglycerides 101 mg/dL (<150)
--- NOTE | 2020-02-08 10:57 | PM.PNGS ---
Progress Note: A&P Assessment and Plan (1) Dehiscence of fascia: Code(s): T81.30XA - Disruption of wound, unspecified, initial encounter Status: Acute Assessment and Plan: POD #4 from dehiscence OR, cont serial exam, bowel rest, NG decompression, cont drains, abx, TPN,Wound vac, and PT/OT. Sineff courage patient to try to get up and walk with PT today. Will also place 30 cc milk of Mag down his NG tube and clamp it for 2 hours since he has bowel sounds and has yet to have a bowel movement. Will try to stimulate the bowels in this way. (2) Small bowel obstruction: Code(s): K56.609 - Unspecified intestinal obstruction, unspecified as to partial versus complete obstruction Status: Acute Assessment and Plan: Patient is on TPN and I noticed that his sodium chloride has been running low. Therefore, I talked pharmacy today and the best way to try to supplement this is to use separate IV fluid of normal saline rather than trying to add to the Clinimix. Therefore, I added normal saline to run at 40 cc along with the 70 cc/hour of the Clinimix for a total of 110 cc/hour for the patient's IV fluids. Rechecking electrolytes in the morning. Subjective Subjective Date/Time Seen: 02/08/20 10:57 POD # 4 Patient lying in bed when I saw him today. Still complain of some abdominal pain. Did get up to the chair yesterday and will try to walk today with PT. Denies nausea. Patient did not complain about it but the nurse found a blood saturated 4 x 4 dressing gauze around the left lower quadrant MAHAD drain this morning. She called me about this. See objective below. Review of Systems Review of Systems: All systems reviewed & are unremarkable except as noted in HPI and below Constitutional: Constitutional: Reports as per HPI, Reports no additional constitutional complaints, Reports anorexia, Denies chills, Denies fatigue, Denies fever(s), Denies headache(s), Denies increased appetite, Denies lethargy, Denies malaise, Reports poor appetite, Denies weakness, Denies weight gain and Denies weight loss Eyes: Eyes: Reports no additional eye complaints ENT: Reports system reviewed and no additional complaints, except as documented, Reports Normal hearing present, Denies dizziness and Denies headache(s) Cardiovascular: Cardiovascular: Reports no additional cardiovascular complaints, Denies chest pain, Reports pedal edema (minimal bilaterally), Denies leg edema and Denies dyspnea Respiratory: Respiratory: Reports as per HPI, Reports no additional respiratory complaints, Denies cough, Denies dyspnea and Denies wheezing Gastrointestinal: Gastrointestinal: Reports as per HPI, Reports no additional gastrointestinal complaints, Reports abdominal pain, Reports belching, Denies bloating, Reports change in bowel habits, Reports constipation, Reports early satiety, Reports dyspepsia, Reports heartburn, Denies nausea and Denies vomiting Genitourinary: Genitourinary: Reports no additional male genitourinary complaints and Reports other (Whiting in place) Musculoskeletal: Musculoskeletal: Reports no additional musculoskeletal complaints Integumentary/Breasts: Skin/Breast: Reports system reviewed and no additional complaints, except as docu Neurologic: Reports system reviewed and no additional complaints, except as documented, Reports Normal hearing present, Denies Abnormal speech present, Denies confusion, Denies dizziness, Denies headache(s) and Denies weakness Psychiatric: Psychiatric: Reports no additional psychiatric complaints and Denies confusion Exam Const: General: cooperative, comfortable, no acute distress, well developed, alert, awake, Physically active, acute distress mild, ill appearing and lethargic; No confusion Orientation/consciousness: oriented to person, oriented to place, oriented to time, patient oriented x3, No confusion and lethargic Limitations: no limitations HENMT: Head: normal to inspection, normocephalic and a
[2020-02-08 11:20] LABS: Glucose Point of Care 84 (65-105)
[2020-02-08] MEDS: SILVER NITRATE (*SP) STICK 1 EACH TOPICAL (11:22)
[2020-02-08] MEDS: SODIUM CHLORIDE 0.9% IV 1,000 ML 40 ML IV CONT (11:25)
--- NOTE | 2020-02-08 14:03 | PM.IMPN ---
Progress Note: A&P Assessment and Plan (1) Altered mental status: Code(s): R41.82 - Altered mental status, unspecified Status: Acute Assessment and Plan: resolved and no focal weakness. Suspect related to narcotics after initial surgery. . Stopped Dilaudid and use narcotics sparingly. Tylenol available for pain now (2) AIVR (accelerated idioventricular rhythm): Code(s): I44.2 - Atrioventricular block, complete Status: Acute Assessment and Plan: Patient with VTach/AIVR and associated CP on 01/25 pm. EKG showing delayed R wave progression with Rt strain (S1Q3T3). No old EKG to compare. On Reglan which was held but resumed by surgery- no further episodes of the AIVR. Echo 01/25 showing EF 55-60% and grade I DD. LE doppler negative and VQ scan nondiagnostic for PE. Continue ASA. Continue telemetry. (3) Non-ST elevation [place] (NSTEMI): Code(s): I21.4 - Non-ST elevation (NSTEMI) myocardial infarction Status: Acute Assessment and Plan: Patient with CP on 01/25 associated with the AIVR. EKG showing delayed R wave progression with Rt strain (S1Q3T3). No old EKG to compare. Trop up to 3.0. Continue ASA. Continue telemetry. Metoprolol started but patient became bradycardic so this was stopped. Ischemic eval later (4) Shock: Code(s): R57.9 - Shock, unspecified Status: Acute Assessment and Plan: Appears secondary to volume depletion but could not exclude sepsis. 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 Patient was on Flagyl/Cipro 01/23-01/24 but changed to Vanc and Zosyn 01/24 (Day 16). Echo normal EF 55%. Central line has been removed. WBC normal and now off steroids. BP remaining stable off steroids. Continue IV abx for now. Drains placed and abscess drained 02/01 in IR. ID consulted and continued zosyn.. Repeat laparotomy 02/03 with repair of anastomotic leak and washout of abdomen postop day 4. For 2nd surgery (5) Small bowel obstruction: Code(s): K56.609 - Unspecified intestinal obstruction, unspecified as to partial versus complete obstruction Status: Acute Assessment and Plan: CT abd/pelvis 01/22/20 demonstrated high-grade small bowel obstruction with transition point in the right abdomen. The SB was distended with areas of necrosis and perforation. POD 15 from exploratory lap with extensive lysis of adhesion, small bowel resection x2 per Dr. Perez on 01/23/20. Reglan was held related to above but resumed. Continue IV antiemetics as needed. Continue TPN. Continue PT/OT. Continue to have patient up to the chair and walking as much as possible . As above back to OR 02/03 for repair of anastomotic leak and washout of abscesses (6) Ileus: Code(s): K56.7 - Ileus, unspecified Status: Acute Assessment and Plan: Post-op ileus related to SBO. As above. (7) Acute kidney injury: Code(s): N17.9 - Acute kidney failure, unspecified Status: Acute Assessment and Plan: Cr peaked at 3.2. Likely secondary to acute dehydration from decreased PO intake. BUN was very high at 95 with ratio >20:1 suggesting pre-renal etiology. Cr decreased to 0.7 today with hydration. BUN normal as well. Renal US unremarkable. Continue TPN. (8) Rhabdomyolysis: Code(s): M62.82 - Rhabdomyolysis Status: Acute Assessment and Plan: TCK elevated at 2130 but better to 199 with hydration. Etiology unclear but felt related to the sepsis. (9) Aortic aneurysm: Qualifiers: Aortic location: abdominal aorta Presence of rupture: without rupture Qualified Code(s): I71.4 - Abdominal aortic aneurysm, without rupture Code(s): I71.9 - Aortic aneurysm of unspecified site, without rupture Status: Acute Assessment and Plan: Infrarenal 4.4 cm fusiform aneurysm o
--- NOTE | 2020-02-08 14:42 | PCOTNOTE ---
Patient declined treatment this pm due to fatigue. The nurse just finished bandaging me up
[2020-02-08] MEDS: MAGNESIUM HYDROXIDE SUSP 30 ML UDC FEED TUBE (16:01)
[2020-02-08] MEDS: FAT EMULSIONS IV 20% 250 ML 20.83 ML IVPB (16:09)
--- NOTE | 2020-02-08 17:09 | PC.NURSE ---
Patient continued to demonstrate active bleeding from left MAHAD drain insertion site. Dr. Willingham responded in person with every call to update on patient status. Attempt with silver nitrate proved ineffective. Dr. Willingham removed current stitch, withdrew MAHAD approx 2 inches and sutured drain in place. Dr. Willingham remained at bedside to monitor for continued bleeding, none was evidenced. New order for cathflo received r/t occlusion of white port of PICC line.
[2020-02-08 17:15] LABS: Glucose Point of Care 120 (65-105)
[2020-02-08] MEDS: ALTEPLASE 2 MG VIAL (CATHFLO) IV PUSH (17:23)
[2020-02-08 19:08] LABS: Hematocrit 35.8 % (42.0-52.0); Hemoglobin 11.8 g/dL (14.0-18.0)
[2020-02-09] VITALS (13 sets, daily range): BP systolic 109–122; BP diastolic 45–64; PULSE 61–88; RESP 16–20; TEMP 36–36.3; O2SAT 91–99
[2020-02-09 03:57] LABS: Glucose Point of Care 137 (65-105)
[2020-02-09 05:36] LABS: Basophils Percent Auto 0.6 % (0.2-1.2); Eosinophils Absolute Auto 0.2 K/mm3 (0-0.3); Eosinophils Percent Auto 2.6 % (0-4.4); Hematocrit 34.1 % (42.0-52.0); Hemoglobin 11.2 g/dL (14.0-18.0); Immature Granulocyte Absolute 0.09 K/mm3 (0.00-0.031); Immature Granulocyte Percent A 1.4 % (0-0.5); Lymphocytes Absolute Auto 0.63 K/mm3 (0.9-3.2); Lymphocytes Percent Auto 9.5 % (18.3-44.2); Mean Corpuscular HGB Conc 32.8 g/dl (32-36); Mean Corpuscular Hemoglobin 29.6 pg (26-34); Mean Corpuscular Volume 90.2 fl (80-100); Mean Platelet Volume 12.1 fl (7.4-10.4); Monocytes Percent Auto 15.5 % (2.6-8.5); Neutrophils Absolute Auto 4.7 K/mm3 (1.3-6.7); Neutrophils Percent Auto 70.4 % (45.5-73.1); Platelet Count Result 275 k/mm3 (150-375); Red Blood Count 3.78 M/mm3 (4.6-6.20); Red Cell Distribution Width 13.2 % (11.5-14.5); White Blood Count 6.6 K/mm3 (4.5-10.0)
[2020-02-09] MEDS: CENTRAL LINE FLUSH 10 ML IV PUSH ×3 (05:46→21:25)
[2020-02-09 05:47] LABS: Alanine Aminotransferase 35 U/L (4-50); Albumin Level 2.4 g/dL (3.5-5.1); Alkaline Phosphatase 84 U/L (38-126); Anion Gap 3 mmol/L (8-16); Aspartate Amino Transferase 40 U/L (17-59); Bilirubin,Total 1.3 mg/dL (0.2-1.3); Blood Urea Nitrogen 19 mg/dL (9-20); Calcium 7.9 mg/dL (8.4-10.2); Carbon Dioxide 32 mmol/L (22-30); Chloride 89 mmol/L (98-107); Estimated CRCL calculation 71 ml/min; Estimated Glomerular Filt Rate > 60; Glucose 447 mg/dL (75-110); Magnesium 2.5 mg/dL (1.6-2.3); Potassium 5.4 mmol/L (3.4-5.0); Sodium 124 mmol/L (137-145)
[2020-02-09 05:52] LABS: INR 0.9
[2020-02-09 05:53] LABS: Partial Thromboplastin Time 27.2 SECONDS (22.3-36.8)
[2020-02-09 05:54] LABS: Transferrin 158 mg/dL (206-381)
[2020-02-09 06:50] LABS: Glucose Point of Care 109 (65-105)
[2020-02-09 06:50] LABS: Glucose Point of Care > 500 (65-105)
--- NOTE | 2020-02-09 07:37 | PM.PNGS ---
Progress Note: A&P Assessment and Plan (1) Small bowel obstruction: Code(s): K56.609 - Unspecified intestinal obstruction, unspecified as to partial versus complete obstruction Status: Acute Assessment and Plan: await bowel fxn, will try suppository today, cont TPN (2) Dehiscence of fascia: Code(s): T81.30XA - Disruption of wound, unspecified, initial encounter Status: Acute Assessment and Plan: cont vac, encourage OOB Subjective Subjective Date/Time Seen: 02/09/20 07:37 feels good today, no further bleeding at MAHAD sites Review of Systems Constitutional: Constitutional: Reports body ache(s), Denies chills, Reports fatigue, Denies fever(s), Reports lethargy and Reports weakness Cardiovascular: Cardiovascular: Reports no additional cardiovascular complaints Respiratory: Respiratory: Reports no additional respiratory complaints Gastrointestinal: Gastrointestinal: Reports abdominal pain, Denies nausea and Denies vomiting Exam Const: General: comfortable and no acute distress Resp: Effort & Inspection: normal respiratory effort Auscultation: diminished lung sounds Cardio: Rate: regular rate Rhythm: regular rhythm GI: Inspection: normal to inspection, distended and incision GI Palp: Yes Soft to palpation, Yes Tenderness to palpation present (GI) and No Guarding due to palpation present (GI) Other: soft, sl dist, nj TTP, vac C/D/I, MAHAD x 2 c s/s output Objective Data Vital Signs Vital Signs: Vital Signs - 24 hr 02/08/20 08:00 02/08/20 09:00 02/08/20 09:40 Temperature Pulse Rate 60 68 Respiratory Rate 20 Blood Pressure Pulse Oximetry 95 94 02/08/20 12:00 02/08/20 13:04 02/08/20 15:58 Temperature 36.3 C L 36.4 C Pulse Rate 69 69 Respiratory Rate 18 18 Blood Pressure 123/57 L 117/63 Pulse Oximetry 96 94 96 02/08/20 16:00 02/08/20 20:00 02/08/20 21:42 Temperature 36.1 C L Pulse Rate 71 71 66 Respiratory Rate 23 H 17 Blood Pressure 98/62 L Pulse Oximetry 96 100 02/08/20 22:20 02/09/20 00:00 02/09/20 00:06 Temperature Pulse Rate 71 67 70 Respiratory Rate 23 H 18 Blood Pressure 113/60 Pulse Oximetry 96 99 02/09/20 04:00 02/09/20 06:27 Temperature 36.1 C L Pulse Rate 63 66 Respiratory Rate 18 Blood Pressure 112/45 L Pulse Oximetry 98 Intake/Output Intake/Output: Intake & Output 02/06/20 02/07/20 02/08/20 02/09/20 23:59 23:59 23:59 23:59 Intake Total 1486 2455 2455 50 Output Total 5114 6682 6362 1669 [id number] -[phone] -197 [phone] Meds/Results Medications: Active Medications Generic Name Dose Route Start Last Admin Trade Name Freq PRN Reason Stop Dose Admin Albuterol 2 puff 01/26/20 20:00 02/08/20 22:17 Albuterol Sulfate (*Sp) Aerosol 1 Puff INHALATION 2 puff QIDRT JORJE Administration Alteplase, Recombinant 2 mg 02/08/20 16:51 02/08/20 17:23 Alteplase 2 Mg Vial (Cathflo) IV PUSH 2 mg ONCE PRN Administration Line Occlusion Aspirin 300 mg 01/27/20 09:00 02/08/20 09:27 Aspirin 300 Mg Suppository RECTAL 300 mg DAILY JORJE Administration Dextrose 12.5 gm 01/25/20 06:01 01/25/20 06:12 Dextrose 50% 25 Gm/50 Ml Syringe IV PUSH 12.5 gm PRN PRN Administration Hypoglycemia Protocol Fondaparinux 2.5 mg 01/28/20 09:00 02/08/20 09:28 Fondaparinux Sodium 2.5 Mg/0.5 Ml Syringe SUB-Q 2.5 mg DAILY JORJE Administration Glucagon 1 mg 01/25/20 06:01 Glucagon For Inj 1 Mg Vial IM PRN PRN Hypoglycemia Protocol Glucose 15 gm 01/25/20 06:01 Glucose Oral Gel 15 Gm Of Glucse In 37.5 Gm Tube PO PRN PRN Hypoglycemia Protocol Hydralazine HCl 10 mg 01/31/20 12:35 Hydralazine Hcl 20 Mg/Ml Vial IV PUSH Q8H PRN Blood Pressure - High Piperacillin/Tazobactam/Dextrose 3.375 gm in 50 mls @ 100 mls/hr 01/27/20 12:00 02/09/20 05:50 Zosyn 3.375 Gm/D5w 50ml Pm IVPB 100 mls/hr Q6HR JORJE Administration
[2020-02-09] MEDS: NICOTINE (*PBKC) 21 MG PATCH 1 PATCH TRANSDERM (09:01)
[2020-02-09] MEDS: PANTOPRAZOLE SODIUM IV 40 MG VIAL IV PUSH (09:01)
[2020-02-09] MEDS: BISACODYL 10 MG SUPPOSITORY RECTAL (09:02)
[2020-02-09] MEDS: ASPIRIN 300 MG SUPPOSITORY RECTAL (09:02)
[2020-02-09] MEDS: ALBUTEROL SULFATE (*SP) AEROSOL 1 PUFF 2 PUFF INHALATION ×4 (09:48→20:16)
--- NOTE | 2020-02-09 12:10 | PM.IMPN ---
Progress Note: A&P Assessment and Plan (1) Altered mental status: Code(s): R41.82 - Altered mental status, unspecified Status: Acute Assessment and Plan: resolved and no focal weakness. Suspect related to narcotics after initial surgery. . Stopped Dilaudid and use narcotics sparingly. Tylenol available for pain now (2) AIVR (accelerated idioventricular rhythm): Code(s): I44.2 - Atrioventricular block, complete Status: Acute Assessment and Plan: Patient with VTach/AIVR and associated CP on 01/25 pm. EKG showing delayed R wave progression with Rt strain (S1Q3T3). No old EKG to compare. On Reglan which was held but resumed by surgery- no further episodes of the AIVR. Echo 01/25 showing EF 55-60% and grade I DD. LE doppler negative and VQ scan nondiagnostic for PE. Continue ASA. Continue telemetry. (3) Non-ST elevation [place] (NSTEMI): Code(s): I21.4 - Non-ST elevation (NSTEMI) myocardial infarction Status: Acute Assessment and Plan: Patient with CP on 01/25 associated with the AIVR. EKG showing delayed R wave progression with Rt strain (S1Q3T3). No old EKG to compare. Trop up to 3.0. Continue ASA. Continue telemetry. Metoprolol started but patient became bradycardic so this was stopped. Ischemic eval later (4) Shock: Code(s): R57.9 - Shock, unspecified Status: Acute Assessment and Plan: Appears secondary to volume depletion but could not exclude sepsis. Weaned off [employer] SU[employer]OR and then Levophed on the evening on 01/25. Patient was on Flagyl/Cipro 01/23-01/24 but changed to Vanc and Zosyn 01/24 (Day 17). Echo normal EF 55%. Central line has been removed. WBC normal and now off steroids. BP remaining stable off steroids. Continue IV abx for now. Drains placed and abscess drained 02/01 in IR. ID consulted and continued zosyn.. Repeat laparotomy 02/03 with repair of anastomotic leak and washout of abdomen postop day 5. For 2nd surgery (5) Small bowel obstruction: Code(s): K56.609 - Unspecified intestinal obstruction, unspecified as to partial versus complete obstruction Status: Acute Assessment and Plan: CT abd/pelvis 01/22/20 demonstrated high-grade small bowel obstruction with transition point in the right abdomen. The SB was distended with areas of necrosis and perforation. POD 17 from exploratory lap with extensive lysis of adhesion, small bowel resection x2 per Dr. Perez on 01/23/20. Reglan was held related to above but resumed. Continue IV antiemetics as needed. Continue TPN. Continue PT/OT. Continue to have patient up to the chair and walking as much as possible . As above back to OR 02/03 for repair of anastomotic leak and washout of abscesses (6) Ileus: Code(s): K56.7 - Ileus, unspecified Status: Acute Assessment and Plan: Post-op ileus related to SBO. As above. (7) Acute kidney injury: Code(s): N17.9 - Acute kidney failure, unspecified Status: Acute Assessment and Plan: Cr peaked at 3.2. Likely secondary to acute dehydration from decreased PO intake. BUN was very high at 95 with ratio >20:1 suggesting pre-renal etiology. Cr decreased to 0.8 today with hydration. BUN normal as well. Renal US unremarkable. Continue TPN. (8) Rhabdomyolysis: Code(s): M62.82 - Rhabdomyolysis Status: Acute Assessment and Plan: TCK elevated at 2130 but better to 199 with hydration. Etiology unclear but felt related to the sepsis. (9) Aortic aneurysm: Qualifiers: Aortic location: abdominal aorta Presence of rupture: without rupture Qualified Code(s): I71.4 - Abdominal aortic aneurysm, without rupture Code(s): I71.9 - Aortic aneurysm of unspecified site, without rupture Status: Acute Assessment and Plan: Infrarenal 4.4 cm fusiform aneurysm o
[2020-02-09 12:14] LABS: Glucose Point of Care 128 (65-105)
[2020-02-09] MEDS: SODIUM CHLORIDE 0.9% IV 1,000 ML 40 ML IV CONT (12:25)
--- NOTE | 2020-02-09 12:27 | PM.PNCARD ---
Progress Note: A&P Assessment and Plan (1) Non-ST elevation AL (NSTEMI): Code(s): I21.4 - Non-ST elevation (NSTEMI) myocardial infarction Status: Acute Assessment and Plan: Denies chest pain. LVEF is preserved on surface echocardiogram. Continue aspirin per rectum. Conservative cardiac management at this time. Continue telemetry for any recurrent arrhythmias. Beta-jadyn on hold. He had episodes of sinus bradycardia with heart rate in 30s and 40s on telemetry, currently heart rates are in 60s. Plan for ischemic workup when he has recovered from current surgical status. Discussed the recent AL with the patient. (2) Pleural effusion: Code(s): J90 - Pleural effusion, not elsewhere classified Status: Acute Assessment and Plan: Volume overload w/ increasing pleural effusions noted. (3) AIVR (accelerated idioventricular rhythm): Code(s): I44.2 - Atrioventricular block, complete Status: Acute Assessment and Plan: AIVR, Bradycardia, PVCs. No recurrence. Telemetry reviewed. Sinus rhythm occasional PVCs persist. No sustained episodes. (4) Small bowel obstruction: Code(s): K56.609 - Unspecified intestinal obstruction, unspecified as to partial versus complete obstruction Status: Acute Assessment and Plan: Management as per primary team and surgery. Still has NG tube to suction. (5) Thrombocytopenia: Code(s): D69.6 - Thrombocytopenia, unspecified Status: Acute Assessment and Plan: Resolved. ASA per rectum. (6) Acute kidney injury: Code(s): N17.9 - Acute kidney failure, unspecified Status: Acute Assessment and Plan: Resolved. (7) Shock: Code(s): R57.9 - Shock, unspecified Status: Acute Assessment and Plan: Resolved. Off pressors as of 01/26/2020. (8) Aortic aneurysm: Qualifiers: Aortic location: abdominal aorta Presence of rupture: without rupture Qualified Code(s): I71.4 - Abdominal aortic aneurysm, without rupture Code(s): I71.9 - Aortic aneurysm of unspecified site, without rupture Status: Acute Assessment and Plan: 4.4 cm AAA found on this admission. Also has claudication and bilateral iliac stenosis. Stable. BB when able as tolerated. (9) Tobacco dependence: Code(s): F17.200 - Nicotine dependence, unspecified, uncomplicated Status: Chronic Assessment and Plan: Smoking cessation. (10) Rhabdomyolysis: Code(s): M62.82 - Rhabdomyolysis Status: Acute Assessment and Plan: Resolved. CK initially over 2000. (11) Electrolyte imbalance: Code(s): E87.8 - Other disorders of electrolyte and fluid balance, not elsewhere classified Status: Acute Assessment and Plan: severely hyponatremic. Also hyperkalemic. Check a portable chest x-ray and may need Nephrology evaluation Subjective Date/time seen: 02/09/20 12:27 Interval history: Follow-up for: Non ST-elevation myocardial infartction. Admitted with small bowel obstruction s/p exploratory laparotomy with extensive lysis of adhesions, small bowel resection Also: HTN, aortic aneurysm, tobacco dependence. x2. Date of service: 02/09/2020. Follow-up visit for type 2 AL occurring in the setting of acutely ill with small-bowel obstruction exploratory laparotomy with adhesiolysis. Patient arousable but somnolent. No chest pain Review of Systems Review of Systems: All systems reviewed & are unremarkable except as noted in HPI and below Constitutional: Constitutional: Reports as per HPI, Denies excessive sweating, Reports fatigue and Reports weakness Ey
--- NOTE | 2020-02-09 13:22 | PCPTNOTE ---
The PT treatment was limited today due to bleeding from abdominal wounds. Will continue per Plan of Care frequency and duration.
[2020-02-09] MEDS: FAT EMULSIONS IV 20% 250 ML 20.83 ML IVPB (15:04)
[2020-02-09] MEDS: MORPHINE SULFATE (*CRX) 2 MG/ML INJ IV PUSH (17:13)
[2020-02-09 18:40] LABS: Anion Gap 3 mmol/L (8-16); Blood Urea Nitrogen 23 mg/dL (9-20); Calcium 7.4 mg/dL (8.4-10.2); Carbon Dioxide 30 mmol/L (22-30); Chloride 89 mmol/L (98-107); Estimated CRCL calculation 80 ml/min; Estimated Glomerular Filt Rate > 60; Glucose 480 mg/dL (75-110); Potassium 4.2 mmol/L (3.4-5.0); Sodium 122 mmol/L (137-145)
[2020-02-09 18:41] LABS: Glucose Point of Care 132 (65-105)
[2020-02-09 21:51] LABS: Sodium Urine Random 97 meq/L
[2020-02-09 23:38] LABS: Glucose Point of Care 119 (65-105)
[2020-02-10] VITALS (12 sets, daily range): BP systolic 109–130; BP diastolic 41–56; PULSE 58–72; RESP 16–20; TEMP 35.8–36.8; O2SAT 94–99
[2020-02-10 04:53] LABS: Anion Gap 2 mmol/L (8-16); Blood Urea Nitrogen 20 mg/dL (9-20); Calcium 7.9 mg/dL (8.4-10.2); Carbon Dioxide 34 mmol/L (22-30); Chloride 95 mmol/L (98-107); Estimated CRCL calculation 80 ml/min; Estimated Glomerular Filt Rate > 60; Glucose 125 mg/dL (75-110); Phosphorus 3.5 mg/dL (2.5-4.5); Potassium 4.2 mmol/L (3.4-5.0); Sodium 131 mmol/L (137-145)
[2020-02-10 06:50] LABS: Free T4 Free Thyroxine Reflex 0.89 ng/dL (0.78-2.19)
[2020-02-10] MEDS: ALBUTEROL SULFATE (*SP) AEROSOL 1 PUFF 2 PUFF INHALATION ×4 (08:04→22:14)
[2020-02-10 08:11] LABS: Total Triiodothyronine (T3) 0.88 NG/ML (0.97-1.69)
[2020-02-10] MEDS: CENTRAL LINE FLUSH 10 ML IV PUSH ×3 (08:32→21:36)
[2020-02-10] MEDS: ASPIRIN 300 MG SUPPOSITORY RECTAL (08:32)
[2020-02-10] MEDS: NICOTINE (*PBKC) 21 MG PATCH 1 PATCH TRANSDERM (08:32)
[2020-02-10] MEDS: PANTOPRAZOLE SODIUM IV 40 MG VIAL IV PUSH (08:33)
[2020-02-10] MEDS: DEXTROSE 5% 1,000 ML 1,000 ML 70 ML IV CONT (08:36)
[2020-02-10 09:36] LABS: Glucose Point of Care 144 (65-105)
--- NOTE | 2020-02-10 09:54 | PCPTNOTE ---
Held Therapy session per RN. Awaiting to hear from surgeon on whether or not Pt should get up due to wound splaying with therapy session yesterday. Will continue per POC, 02/11/2020.
--- NOTE | 2020-02-10 10:20 | PCNFU ---
Nutrition Follow-Up Complete: Inadequate oral intake related to small bowel obstruction, ileus as evidenced by day 5 NPO diet. Goal: Patient to meet estimated nutritional needs. Progressing towards goal. We will continue current goal. Pt current nutrition is TPN. Nutrition recommendation: advance as tolerated per MD orders. Last recorded weight is 74 kg, down from 82.9 kg today. Bowel Motility:+BM reported 02/08. Labs Reviewed: Na 131,Glu 125 Meds Noted:Dextrose 5% 1000 ml at 70 ml/hr, Zocyn,Protonix, Clinimix E 5/15 at 70 ml/hr and 250 ml of 20% Lipid Emulsion. Additional Notes:Bleeding from ab wound yesterday-noted. Patient remains NPO with TPN providing 1693 kcals and 84 gms protein. Recommending: advancing as tolerated per MD orders. If able to tolerate oral diet recommend d/c TPN. Monitoring: Follow up in Sunday and Sunday.
--- NOTE | 2020-02-10 10:20 | PM.PNCARD ---
Subjective Date/time seen: 02/10/20 10:20 Objective Data Vital Signs Vital Signs: Vital Signs - 24 hr 02/09/20 12:00 02/09/20 16:00 02/09/20 20:00 Temperature 36.2 C L 36.0 C L 36.3 C L Pulse Rate 67 77 66 Respiratory Rate 16 18 18 Blood Pressure 122/64 113/58 L 109/50 L Pulse Oximetry 97 97 96 02/09/20 20:13 02/09/20 20:17 02/09/20 20:41 Temperature Pulse Rate 88 88 Respiratory Rate 20 20 Blood Pressure Pulse Oximetry 96 96 02/10/20 00:00 02/10/20 04:00 02/10/20 05:51 Temperature 36.3 C L 36.1 C L Pulse Rate 61 60 61 Respiratory Rate 17 16 Blood Pressure 110/46 L 130/41 L Pulse Oximetry 96 97 Intake/Output Intake/Output: Intake & Output 02/07/20 02/08/20 02/09/20 02/10/20 23:59 23:59 23:59 23:59 Intake Total 2455 2455 1450 1900 Output Total 4100 5125 1764 1578 Balance -9987 -265 -0603 325 Meds/Results Medications: Active Medications Generic Name Dose Route Start Last Admin Trade Name Freq PRN Reason Stop Dose Admin Albuterol 2 puff 01/26/20 20:00 02/10/20 08:04 Albuterol Sulfate (*Sp) Aerosol 1 Puff INHALATION 2 puff QIDRT JORJE Administration Alteplase, Recombinant 2 mg 02/08/20 16:51 02/08/20 17:23 Alteplase 2 Mg Vial (Cathflo) IV PUSH 2 mg ONCE PRN Administration Line Occlusion Aspirin 300 mg 01/27/20 09:00 02/10/20 08:32 Aspirin 300 Mg Suppository RECTAL 300 mg DAILY JORJE Administration Dextrose 12.5 gm 01/25/20 06:01 01/25/20 06:12 Dextrose 50% 25 Gm/50 Ml Syringe IV PUSH 12.5 gm PRN PRN Administration Hypoglycemia Protocol Fondaparinux 2.5 mg 01/28/20 09:00 02/08/20 09:28 Fondaparinux Sodium 2.5 Mg/0.5 Ml Syringe SUB-Q 2.5 mg DAILY JORJE Administration Glucagon 1 mg 01/25/20 06:01 Glucagon For Inj 1 Mg Vial IM PRN PRN Hypoglycemia Protocol Glucose 15 gm 01/25/20 06:01 Glucose Oral Gel 15 Gm Of Glucse In 37.5 Gm Tube PO PRN PRN Hypoglycemia Protocol Hydralazine HCl 10 mg 01/31/20 12:35 Hydralazine Hcl 20 Mg/Ml Vial IV PUSH Q8H PRN Blood Pressure - High Piperacillin/Tazobactam/Dextrose 3.375 gm in 50 mls @ 100 mls/hr 01/27/20 12:00 02/10/20 06:25 Zosyn 3.375 Gm/D5w 50ml Pm IVPB Infused Q6HR JORJE Infusion Dextrose 1,000 mls @ 50 mls/hr 01/28/20 11:07 Dextrose 10% IV CONT .Q20H PRN if PN is interrupted Fat Emulsion Intravenous 250 mls @ 20.833 mls/hr 02/08/20 16:00 02/10/20 03:15 Lipids 20% IVPB Infused Q24H JORJE Infusion Multivitamins 5 ml/ Amino 2,005 mls @ 70 mls/hr 02/09/20 15:01 02/10/20 06:01 Acids/Dextrose IV CONT 70 mls/hr .Q24H JORJE Infusion Protocol Dextrose 1,000 mls @ 70 mls/hr 02/10/20 07:15 02/10/20 08:36 Dextrose 5% 1,000 Ml IV CONT 70 mls/hr .[id number] JORJE Administration Morphine Sulfate 2 mg 02/09/20 16:38 02/09/20 17:13 Morphine Sulfate (*Crx) 2 Mg/Ml Inj IV PUSH 2 mg Q1H PRN Administration Pain Naloxone HCl 0.1 mg 02/01/20 11:16 02/04/20 22:15 Naloxone Hcl 0.4 Mg/Ml Vial IV PUSH 0.1 mg Q5MIN PRN Administration Sedation Nicotine 1 patch 01/24/20 09:00 02/10/20 08:32 Nicotine (*Pbkc) 21 Mg Patch TRANSDERM 1 patch QAM JORJE Administration Ondansetron HCl 4 mg 01/22/20 19:05 02/06/20 20:57 Ondansetron Inj 4 Mg/2 Ml Vial IV PUSH 4 mg Q4H PRN Administration Nausea Pantoprazole Sodium 40 mg 01/23/20 16:30 02/10/20 08:33 Pantoprazole Sodium Iv 40 Mg Vial IV PUSH 40 mg QAM JORJE Administration Sodium Chloride 20 ml 01/26/20 13:51 02/08/20 05:48 Central Line Flush IV PUSH 20 ml PRN PRN Administration after blood draws Sodium Chloride 10 ml 01/28/20 22:00 02/10/20 08:32 Central Line Flush IV PUSH 10 ml Q8HR JORJE Administration Sodium Chloride 10 ml 01/28/20 14:37 Central Line Flush IV PUSH PRN PRN with TPN bag changes Sodium Chloride 20 ml 01/28/20 14:37
--- NOTE | 2020-02-10 10:21 | PM.PNCARD ---
Progress Note: A&P Assessment and Plan (1) Non-ST elevation AL (NSTEMI): Code(s): I21.4 - Non-ST elevation (NSTEMI) myocardial infarction Status: Acute Assessment and Plan: Denies chest pain. LVEF is preserved on surface echocardiogram. Continue aspirin per rectum. Conservative cardiac management at this time. Continue telemetry for any recurrent arrhythmias. Beta-jadyn on hold. He had episodes of sinus bradycardia with heart rate in 30s and 40s on telemetry, currently heart rates are in 60s. Plan for ischemic workup when he has recovered from current surgical status. Discussed the recent AL with the patient. (2) Pleural effusion: Code(s): J90 - Pleural effusion, not elsewhere classified Status: Acute Assessment and Plan: effusions remain small at this point (3) AIVR (accelerated idioventricular rhythm): Code(s): I44.2 - Atrioventricular block, complete Status: Acute Assessment and Plan: AIVR, Bradycardia, PVCs. No recurrence. Telemetry reviewed. Sinus rhythm occasional PVCs persist. No sustained episodes. (4) Small bowel obstruction: Code(s): K56.609 - Unspecified intestinal obstruction, unspecified as to partial versus complete obstruction Status: Acute Assessment and Plan: Management as per primary team and surgery. Still has NG tube to suction. (5) Thrombocytopenia: Code(s): D69.6 - Thrombocytopenia, unspecified Status: Acute Assessment and Plan: Resolved. ASA per rectum. (6) Acute kidney injury: Code(s): N17.9 - Acute kidney failure, unspecified Status: Acute Assessment and Plan: Resolved. (7) Shock: Code(s): R57.9 - Shock, unspecified Status: Acute Assessment and Plan: Resolved. Off pressors as of 01/26/2020. (8) Aortic aneurysm: Qualifiers: Aortic location: abdominal aorta Presence of rupture: without rupture Qualified Code(s): I71.4 - Abdominal aortic aneurysm, without rupture Code(s): I71.9 - Aortic aneurysm of unspecified site, without rupture Status: Acute Assessment and Plan: 4.4 cm AAA found on this admission. Also has claudication and bilateral iliac stenosis. Stable. BB when able as tolerated. (9) Tobacco dependence: Code(s): F17.200 - Nicotine dependence, unspecified, uncomplicated Status: Chronic Assessment and Plan: Smoking cessation. (10) Rhabdomyolysis: Code(s): M62.82 - Rhabdomyolysis Status: Acute Assessment and Plan: Resolved. CK initially over 2000. (11) Electrolyte imbalance: Code(s): E87.8 - Other disorders of electrolyte and fluid balance, not elsewhere classified Status: Acute Assessment and Plan: Improved Additional Plan 74-year-old gentleman with: Suspected type 2 AL following admission for small bowel obstruction requiring surgery. Patient had to be returned to the OR couple of days ago for anastomotic leak. He is now recovering reasonably well. No clinically active cardiac problems. He will require evaluation of his cardiovascular status likely undergoing angiography when he is stable and recovered from this illness. We will continue to follow the patient as needed during this hospitalization Subjective Date/time seen: 02/10/20 10:21 Interval history: Follow-up for: Non ST-elevation myocardial infartction. Admitted with small bowel obstruction s/p exploratory laparotomy with extensive lysis of adhesions, small bowel resection Also: HTN, aortic aneurysm, tobacco dependence. x2. Date of service: 02/10/2020. Follow-up visit for type 2
[2020-02-10 11:17] LABS: Triglycerides 89 mg/dL (<150)
[2020-02-10] MEDS: OCTREOTIDE ACETATE 100 MCG/ML VIAL SUB-Q ×2 (12:58→16:02)
[2020-02-10 13:50] LABS: Glucose Point of Care 162 (65-105)
[2020-02-10] MEDS: MORPHINE SULFATE (*CRX) 2 MG/ML INJ IV PUSH (14:23)
[2020-02-10 14:54] LABS: Triglycerides 70 mg/dL (<150)
[2020-02-10 15:01] LABS: Sodium 110 mmol/L (137-145)
--- NOTE | 2020-02-10 15:50 | PM.IMPN ---
Progress Note: A&P Assessment and Plan (1) Altered mental status: Code(s): R41.82 - Altered mental status, unspecified Status: Acute Assessment and Plan: Resolved and no focal weakness. Suspect related to narcotics after initial surgery. Dilaudid stopped and use narcotics sparingly. Tylenol available for pain now. (2) AIVR (accelerated idioventricular rhythm): Code(s): I44.2 - Atrioventricular block, complete Status: Acute Assessment and Plan: Patient with VTach/AIVR and associated CP on 01/25 pm. EKG showing delayed R wave progression. No old EKG to compare. On Reglan which was held but resumed by surgery - no further episodes of the AIVR. Echo 01/25 showing EF 55-60% and grade I DD. LE doppler negative and VQ scan nondiagnostic for PE. Continue ASA. Continue telemetry. (3) Non-ST elevation [place] (NSTEMI): Code(s): I21.4 - Non-ST elevation (NSTEMI) myocardial infarction Status: Acute Assessment and Plan: Patient with CP on 01/25 associated with the AIVR. EKG showing delayed R wave progression with Rt strain. No old EKG to compare. Trop up to 3.0. Metoprolol started but patient became bradycardic so this was stopped. Ischemic eval later. Continue ASA. Continue telemetry. (4) Shock: Code(s): R57.9 - Shock, unspecified Status: Acute Assessment and Plan: Appears secondary to volume depletion but could not exclude sepsis. Weaned off [employer]IST and then Levophed on the evening on 01/25. Patient was on Flagyl/Cipro 01/23-01/24 but changed to Vanc and Zosyn 01/24. Echo normal EF 55%. Central line has been removed. WBC normal and now off steroids. BP remaining stable off steroids. Continue IV abx for now. Drains placed and abscess drained 02/01 in IR. ID consulted and continued zosyn. Repeat laparotomy 02/03 with repair of anastomotic leak and washout of abdomen postop day 6 for 2nd surgery. (5) Small bowel obstruction: Code(s): K56.609 - Unspecified intestinal obstruction, unspecified as to partial versus complete obstruction Status: Acute Assessment and Plan: CT abd/pelvis 01/22/20 demonstrated high-grade small bowel obstruction with transition point in the right abdomen. The SB was distended with areas of necrosis and perforation. POD from exploratory lap with extensive lysis of adhesion, small bowel resection x2 per Dr. Perez on 01/23/20. Reglan was held related to above but resumed. Continue IV antiemetics as needed. Continue TPN. Continue PT/OT. Continue to have patient up to the chair and walking as much as possible . As above back to OR 02/03 for repair of anastomotic leak and washout of abscesses. (6) Ileus: Code(s): K56.7 - Ileus, unspecified Status: Acute Assessment and Plan: Post-op ileus related to SBO. As above. (7) Acute kidney injury: Code(s): N17.9 - Acute kidney failure, unspecified Status: Acute Assessment and Plan: Cr peaked at 3.2. Likely secondary to acute dehydration from decreased PO intake. BUN was very high at 95 with ratio >20:1 suggesting pre-renal etiology. Cr decreased to 0.7 today with hydration. BUN normal as well. Renal US unremarkable. Continue TPN. (8) Rhabdomyolysis: Code(s): M62.82 - Rhabdomyolysis Status: Acute Assessment and Plan: TCK elevated at 2130 but better to 199 with hydration. Etiology unclear but felt related to the sepsis. (9) Aortic aneurysm: Qualifiers: Aortic location: abdominal aorta Presence of rupture: without rupture Qualified Code(s): I71.4 - Abdominal aortic aneurysm, without rupture Code(s): I71.9 - Aortic aneurysm of unspecified site, without rupture Status: Acute Assessment and Plan: Infrarenal 4.4 cm fusiform aneurysm of the infrarenal aorta was visualized on CT abd/pelvis. Repeat imaging 02/[address] showed [address] from CT 01/21 but current report sugge
[2020-02-10] MEDS: FAT EMULSIONS IV 20% 250 ML 20.83 ML IVPB (16:01)
--- NOTE | 2020-02-10 16:31 | PM.PNGS ---
Progress Note: A&P Assessment and Plan (1) Small bowel obstruction: Code(s): K56.609 - Unspecified intestinal obstruction, unspecified as to partial versus complete obstruction Status: Acute Assessment and Plan: Bowel function returning, will continue TPN until tolerating a substantial diet, possibly start advancing diet tomorrow. Continue wound VAC therapy. Will change again Sunday. Continue octreotide. Encouraged increasing activity with PT/OT and IS. (2) Dehiscence of fascia: Code(s): T81.30XA - Disruption of wound, unspecified, initial encounter Status: Acute Assessment and Plan: Continue wound therapy with wound VAC. Wound VAC was changed today by Dr. Perez and wound care nurses. Additional Plan Discussed the patient's case and plan of care with Dr. Perez. Subjective Subjective Date/Time Seen: 02/10/20 16:31 Patient reports: no new complaints, flatus and no bowel movement Interval history: This is a 74-year-old male who presented with a small bowel obstruction and underwent the following procedures: 01/23/20 Exploratory laparotomy with extensive lysis of adhesions, small bowel resection x2 02/04/20 Exploratory laparotomy, extensive of lysis of adhesion of approximately 30 minutes, closure of enterotomy x4, washout, placement of drains x2, fascial closure Patient seen and examined today and he is feeling well. Denies any abdominal pain, nausea, or vomiting. Wound VAC in place and working well. Wound VAC changed earlier today by Dr. Perez and wound care nurses. Review of Systems Review of Systems: All systems reviewed & are unremarkable except as noted in HPI and below Constitutional: Constitutional: Denies chills and Denies fever(s) Cardiovascular: Cardiovascular: Reports no additional cardiovascular complaints and Denies chest pain Respiratory: Respiratory: Reports no additional respiratory complaints, Denies cough and Denies dyspnea Gastrointestinal: Gastrointestinal: Reports as per HPI and Reports no additional gastrointestinal complaints Exam Const: General: comfortable, no acute distress, alert and awake Orientation/consciousness: patient oriented x3 Resp: Effort & Inspection: normal respiratory effort and able to speak in complete sentences Auscultation: clear to auscultation bilaterally Cardio: Rate: regular rate Rhythm: regular rhythm GI: Inspection: non-distended and incision (wound VAC clean/dry) GI Palp: Yes Soft to palpation, Yes Tenderness to palpation present (GI) (near midline incision), No Guarding due to palpation present (GI) and No Rebound tenderness present Auscultation: Hypoactive bowel sounds present Other: Bilateral MAHAD drains with serosanguineous drainage. Neuro: General: patient oriented x3 and moves all extremities Cranial nerves: Yes CN's II-XII intact bilaterally Speech: normal speech Extrem: General: no calf tenderness Psych: Mental Status: mental status grossly normal Attitude: cooperative Thought process: Normal thought process present Thought content: Yes Normal thought content present Objective Data Vital Signs Vital Signs: Vital Signs - 24 hr 02/09/20 20:00 02/09/20 20:13 02/09/20 20:17 Temperature 97.4 F L Pulse Rate 66 88 88 Respiratory Rate 18 20 20 Blood Pressure 109/50 L Pulse Oximetry 96 96 02/09/20 20:41 02/10/20 00:00 02/10/20 04:00 Temperature 97.3 F L Pulse Rate 61 60 Respiratory Rate 17 Blood Pressure 110/46 L Pulse Oximetry 96 96 02/10/20 05:51 02/10/20 08:00 02/10/20 08:04 Temperature 97 F L Pulse Rate 61 58 L 66 Respiratory Rate 16 20 Blood Pressure 130/41 L Pulse Oximetry 97 95 02/10/20 08:20 02/10/20 12:00 Temperature 98 F Pulse Rate 68 68 Respiratory Rate 20 20 Blood Pressure 122/50 L Pulse Oximetry 94 98 Intake/Output Intake/Output: Intake & Output 02/07/20 02/08/20 02/09/20 02/10/20 23:59 23:59 23:59 23:59 Intake Total 2455 2455 1450 3105 Output Total 4100 2
[2020-02-10 16:34] LABS: Sodium 115 mmol/L (137-145)
[2020-02-10 18:16] LABS: Sodium 131 mmol/L (137-145)
[2020-02-10 19:38] LABS: Glucose Point of Care 168 (65-105)
[2020-02-10] MEDS: ONDANSETRON INJ 4 MG/2 ML VIAL IV PUSH (21:35)
[2020-02-11] VITALS (12 sets, daily range): BP systolic 96–100; BP diastolic 45–55; PULSE 42–73; RESP 16–20; TEMP 36.1–36.4; O2SAT 93–96
[2020-02-11] MEDS: MORPHINE SULFATE (*CRX) 2 MG/ML INJ IV PUSH ×2 (00:08→11:17)
[2020-02-11] MEDS: ALTEPLASE 2 MG VIAL (CATHFLO) IV PUSH (04:59)
[2020-02-11] MEDS: CENTRAL LINE FLUSH 10 ML IV PUSH ×3 (05:00→22:00)
[2020-02-11 05:49] LABS: Hematocrit 34.8 % (42.0-52.0); Hemoglobin 11.1 g/dL (14.0-18.0); Mean Corpuscular HGB Conc 31.9 g/dl (32-36); Mean Corpuscular Hemoglobin 29.2 pg (26-34); Mean Corpuscular Volume 91.6 fl (80-100); Mean Platelet Volume 11.6 fl (7.4-10.4); Platelet Count Result 252 k/mm3 (150-375); Red Cell Distribution Width 12.9 % (11.5-14.5); White Blood Count 7.9 K/mm3 (4.5-10.0)
[2020-02-11 05:55] LABS: Sodium 132 mmol/L (137-145)
[2020-02-11 05:59] LABS: Glucose Point of Care 123 (65-105)
[2020-02-11 06:02] LABS: Anion Gap 5 mmol/L (8-16); Blood Urea Nitrogen 20 mg/dL (9-20); Calcium 8.1 mg/dL (8.4-10.2); Carbon Dioxide 33 mmol/L (22-30); Chloride 94 mmol/L (98-107); Estimated CRCL calculation 70 ml/min; Estimated Glomerular Filt Rate > 60; Glucose 133 mg/dL (75-110); Magnesium 2.2 mg/dL (1.6-2.3); Phosphorus 3.6 mg/dL (2.5-4.5); Potassium 4.3 mmol/L (3.4-5.0); Sodium 132 mmol/L (137-145)
[2020-02-11] MEDS: OCTREOTIDE ACETATE 100 MCG/ML VIAL SUB-Q ×2 (08:05→17:23)
[2020-02-11] MEDS: PANTOPRAZOLE SODIUM IV 40 MG VIAL IV PUSH (08:05)
[2020-02-11] MEDS: ASPIRIN 300 MG SUPPOSITORY RECTAL (08:06)
[2020-02-11] MEDS: NICOTINE (*PBKC) 21 MG PATCH 1 PATCH TRANSDERM (08:06)
--- NOTE | 2020-02-11 09:41 | PM.PNCARD ---
Progress Note: A&P Additional Plan 74-year-old man with: Type 2 myocardial infarction following abdominal surgery for bowel obstruction requiring adhesiolysis and then returned to the OR for anastomotic leak. He is now doing well clinically and recovering. Still NPO and on NG suction. Patient on low-dose aspirin no other treatment at this time for presumed CAD. He should undergo an ischemic workup when he is recovered from this illness as we have mentioned in our previous notes. Porfirio Ramirez MD [facility] Subjective Date/time seen: Date of service: 02/11/20 09:41 Interval history: Follow-up for: Non ST-elevation myocardial infartction. Admitted with small bowel obstruction s/p exploratory laparotomy with extensive lysis of adhesions, small bowel resection Also: HTN, aortic aneurysm, tobacco dependence. x2. Date of service: 02/11/2020. Patient resting comfortably still on NG suction. Still not receiving a diet. No cardiovascular complaints or concerns. Exam Narrative: Exam Narrative: PHYSICAL EXAMINATION: GENERAL: Awake and alert. Complaining of left rib discomfort MENTAL STATUS: Some confusion EYES: pallor EARS: External ears appear normal, hard of hearing. NOSE: NG tube in place MOUTH: dry mucous membrane NECK: Supple, no JVD CHEST: Decreased breath sounds, decrease effort HEART: Normal rate, regular rhythm, normal S1 and S2 ABDOMEN: Surgical wound with dressing in place NEUROLOGICAL: Awake. Alert. Moves all extremities. MUSCULOSKELETAL: No major deformity, no amputation EXTREMITIES: No pedal edema SKIN: no rash on the exposed area, no cyanosis PSYCHIATRIC: Calm and cooperative. Const: General: comfortable, no acute distress, confusion and uncomfortable Orientation/consciousness: confusion HENMT: Mouth: Yes dry mucous membranes Other: NG tube Eyes: Sclera: sclerae normal Pupils: Equal, round and reactive pupils present EOM: EOMs intact bilaterally Neck: Neck: supple and no JVD Resp: Effort & Inspection: normal respiratory effort Auscultation: clear to auscultation bilaterally Cardio: Rate: regular rate Rhythm: regular rhythm Heart sounds: no murmurs Other: No significant murmur or gallop GI: Inspection: non-distended Auscultation: bowels sounds not normal (Absent bowel sounds) and abnormal bowel sounds ( bowel sounds present but decreased) Skin: General skin exam: normal color and no rashes or lesions noted Neuro: General: confusion Cranial nerves: Yes Equal, round and reactive pupils present Cognition (Neuro): normal cognition Speech: normal speech Extrem: General: no edema Psych: Mental Status: other ( somnolent) Affect: normal affect Objective Data Vital Signs Vital Signs: Vital Signs - 24 hr 02/10/20 12:00 02/10/20 16:00 02/10/20 20:00 Temperature 36.6 C 36.8 C Pulse Rate 68 70 71 Respiratory Rate 20 20 Blood Pressure 122/50 L 126/56 L Pulse Oximetry 98 97 02/10/20 20:58 02/10/20 22:21 02/10/20 22:30 Temperature 35.8 C L Pulse Rate 70 71 Respiratory Rate 18 20 Blood Pressure 109/50 L Pulse Oximetry 96 99 99 02/11/20 00:00 02/11/20 04:00 02/11/20 06:00 Temperature 36.1 C L Pulse Rate 72 64 42 L Respiratory Rate 16 Blood Pressure 100/55 L Pulse Oximetry 94 Intake/Output Intake/Output: Intake & Output 02/08/20 02/09/20 02/10/20 02/11/20 23:59 23:59 23:59 23:59 Intake Total 2455 1450 3205 300 Output Total 0250 2460 4951 457 Balance -310 -1213 -20 -157 Meds/Results Medications: Active Medications Generic Name Dose Route Start Last Admin Trade Name Freq PRN Reason Stop Dose Admin Albuterol 2 puff 01/26/20 20:00 02/10/20 22:14 Albuterol Sulfate (*Sp) Aerosol 1 Puff INHALATION 2 puff QIDRT JORJE Administration Alteplase, Recombinant 2 mg 02/08/20 16:51 02/11/20 04:59 Alteplase 2 Mg Vial (Cathflo) IV PUSH 2 mg ONCE PRN Administration Line Occlusion Aspirin 300 mg
[2020-02-11] MEDS: ALBUTEROL SULFATE (*SP) AEROSOL 1 PUFF 2 PUFF INHALATION ×3 (10:09→19:25)
--- NOTE | 2020-02-11 10:53 | PM.PNGS ---
Progress Note: A&P Assessment and Plan (1) Small bowel obstruction: Code(s): K56.609 - Unspecified intestinal obstruction, unspecified as to partial versus complete obstruction Status: Acute Assessment and Plan: Suspect there is a fistula to the midline incision. Continue wound VAC therapy and bowel rest. Will continue NG tube decompression and TPN. Continue octreotide. Will plan to change wound VAC again Sunday. WBC remains normal and he is afebrile. (Day 15 of IV Zosyn) Will stop IV abx and monitor. Encouraged increasing activity with PT/OT and IS. (2) Dehiscence of fascia: Code(s): T81.30XA - Disruption of wound, unspecified, initial encounter Status: Acute Assessment and Plan: Continue wound therapy with wound VAC. Plan to change again Sunday. Additional Plan Discussed the patient's case and plan of care with Dr. Perez. Subjective Subjective Date/Time Seen: 02/11/20 10:00 Patient reports: no flatus and no bowel movement Interval history: This is a 74-year-old male who presented with a small bowel obstruction and underwent the following procedures: 01/23/20 Exploratory laparotomy with extensive lysis of adhesions, small bowel resection x2 02/04/20 Exploratory laparotomy, extensive of lysis of adhesion of approximately 30 minutes, closure of enterotomy x4, washout, placement of drains x2, fascial closure Patient seen and examined today and he is feeling well. Denies any abdominal pain, bloating, nausea, or vomiting. Wound VAC in place and working well, minimal output. No other complaints at this time. Review of Systems Review of Systems: All systems reviewed & are unremarkable except as noted in HPI and below Exam Const: General: comfortable, no acute distress, alert and awake Orientation/consciousness: patient oriented x3 Resp: Effort & Inspection: able to speak in complete sentences Auscultation: rhonchi upper bilaterally Cardio: Rate: regular rate Rhythm: regular rhythm GI: Inspection: non-distended and incision (wound VAC clean/dry, minimal output) GI Palp: Yes Soft to palpation, Yes Tenderness to palpation present (GI) (diffusely tender, worse near incision), No Guarding due to palpation present (GI) and No Rebound tenderness present Auscultation: Hypoactive bowel sounds present Other: Bilateral MAHAD drains with serosanguineous drainage. Urinary Catheter: Urinary Catheter: patent and draining and urine clear Neuro: General: moves all extremities and no focal motor deficits Extrem: General: no clubbing, cyanosis or edema and no calf tenderness Psych: Appearance: grossly normal Mental Status: mental status grossly normal Attitude: cooperative Thought process: Normal thought process present Objective Data Vital Signs Vital Signs: Vital Signs - 24 hr 02/10/20 12:00 02/10/20 16:00 02/10/20 20:00 Temperature 98 F 98.3 F Pulse Rate 68 70 71 Respiratory Rate 20 20 Blood Pressure 122/50 L 126/56 L Pulse Oximetry 98 97 02/10/20 20:58 02/10/20 22:21 02/10/20 22:30 Temperature 96.4 F L Pulse Rate 70 71 Respiratory Rate 18 20 Blood Pressure 109/50 L Pulse Oximetry 96 99 99 02/11/20 00:00 02/11/20 04:00 02/11/20 06:00 Temperature 97 F L Pulse Rate 72 64 42 L Respiratory Rate 16 Blood Pressure 100/55 L Pulse Oximetry 94 02/11/20 10:09 Temperature Pulse Rate 73 Respiratory Rate 16 Blood Pressure Pulse Oximetry 94 Intake/Output Intake/Output: Intake & Output 02/08/20 02/09/20 02/10/20 02/11/20 23:59 23:59 23:59 23:59 Intake Total 2455 1450 3205 300 Output Total 6565 4693 1767 457 Balance -310 -1213 -20 -157 Meds/Results Medications: Active Medications Generic Name Dose Route Start Last Admin Trade Name Freq PRN Reason Stop Dose Admin Albuterol 2 puff 01/26/20 20:00 02/11/20 10:09 Albuterol Sulfate (*Sp) Aerosol 1 Puff INHALATION 2 puff QIDRT JORJE Administration Alteplase, Recombinant 2 mg 02/08/20 16:51 11
[2020-02-11 13:31] LABS: Glucose Point of Care 132 (65-105)
--- NOTE | 2020-02-11 16:04 | PM.IMPN ---
Progress Note: A&P Assessment and Plan (1) Altered mental status: Code(s): R41.82 - Altered mental status, unspecified Status: Acute Assessment and Plan: Resolved and no focal weakness. Suspect related to narcotics after initial surgery. Dilaudid stopped and use narcotics sparingly. Tylenol available for pain now. Patient still with some symptoms but has been getting Morphine. Decrease Morphine dose and frequency (2) AIVR (accelerated idioventricular rhythm): Code(s): I44.2 - Atrioventricular block, complete Status: Acute Assessment and Plan: Patient with VTach/AIVR and associated CP on 01/25 pm. EKG showing delayed R wave progression. No old EKG to compare. On Reglan which was held but resumed by surgery - no further episodes of the AIVR. Echo 01/25 showing EF 55-60% and grade I DD. LE doppler negative and VQ scan nondiagnostic for PE. Continue ASA. Continue telemetry. (3) Non-ST elevation MA (NSTEMI): Code(s): I21.4 - Non-ST elevation (NSTEMI) myocardial infarction Status: Acute Assessment and Plan: Patient with CP on 01/25 associated with the AIVR. EKG showing delayed R wave progression with Rt strain. No old EKG to compare. Trop up to 3.0. Metoprolol started but patient became bradycardic so this was stopped. Ischemic eval later. Continue ASA. Continue telemetry. (4) Shock: Code(s): R57.9 - Shock, unspecified Status: Acute Assessment and Plan: Appears secondary to volume depletion and/or sepsis. 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 Patient was on Flagyl/Cipro 01/23-01/24 but changed to Vanc and Zosyn 01/24. Echo normal EF 55%. Central line has been removed. WBC normal and now off steroids. BP remaining stable off steroids. Drains placed and abscess drained 02/01 in IR. Repeat laparotomy 02/03 with repair of anastomotic leak and washout of abdomen postop on 02/03. Zosyn stopped today. Octreotide started 02/09. Follow closely off abx. (5) Small bowel obstruction: Code(s): K56.609 - Unspecified intestinal obstruction, unspecified as to partial versus complete obstruction Status: Acute Assessment and Plan: CT abd/pelvis 01/22/20 demonstrated high-grade small bowel obstruction with transition point in the right abdomen. The SB was distended with areas of necrosis and perforation status post exploratory lap with extensive lysis of adhesion, small bowel resection x2 per Dr. Perez on 01/23/20. Patient back to OR 02/03 for repair of anastomotic leak and washout of abscesses. Continue IV antiemetics as needed. Continue TPN. Continue PT/OT. Continue to have patient up to the chair and walking as much as possible (6) Ileus: Code(s): K56.7 - Ileus, unspecified Status: Acute Assessment and Plan: Post-op ileus related to SBO. As above. (7) Acute kidney injury: Code(s): N17.9 - Acute kidney failure, unspecified Status: Acute Assessment and Plan: Cr peaked at 3.2. Likely secondary to acute dehydration from decreased PO intake. BUN was very high at 95 with ratio >20:1 suggesting pre-renal etiology. Cr decreased to 0.8 today with hydration. BUN normal as well. Renal US unremarkable. Continue TPN. (8) Rhabdomyolysis: Code(s): M62.82 - Rhabdomyolysis Status: Acute Assessment and Plan: TCK elevated at 2130 but better to 199 with hydration. Etiology unclear but felt related to the sepsis. (9) Aortic aneurysm: Qualifiers: Aortic location: abdominal aorta Presence of rupture: without rupture Qualified Code(s): I71.4 - Abdominal aortic aneurysm, without rupture Code(s): I71.9 - Aortic aneurysm of unspecified site, without rupture Status: Acute Assessment and Plan: Infrarenal 4.4 cm fusiform aneurysm of the infrarenal aorta was visualized on CT abd/pelvis. Repeat imaging 02/03 showed no change
[2020-02-11] MEDS: FAT EMULSIONS IV 20% 250 ML 20.83 ML IVPB (17:22)
[2020-02-11 18:53] LABS: Glucose Point of Care 121 (65-105)
[2020-02-11] MEDS: ONDANSETRON INJ 4 MG/2 ML VIAL IV PUSH (21:58)
[2020-02-12] VITALS (10 sets, daily range): BP systolic 85–106; BP diastolic 38–68; PULSE 59–72; RESP 16–20; TEMP 36.2–37.1; O2SAT 91–98
[2020-02-12 00:36] LABS: Glucose Point of Care 131 (65-105)
[2020-02-12] MEDS: ONDANSETRON INJ 4 MG/2 ML VIAL IV PUSH (05:09)
[2020-02-12] MEDS: MORPHINE SULFATE (*CRX) 2 MG/ML INJ 1 MG IV PUSH ×2 (05:10→08:07)
[2020-02-12] MEDS: CENTRAL LINE FLUSH 10 ML IV PUSH ×3 (05:11→21:16)
[2020-02-12 06:06] LABS: Basophils Absolute Auto 0.1 K/mm3 (0.0-0.1); Basophils Percent Auto 0.7 % (0.2-1.2); Eosinophils Absolute Auto 0.3 K/mm3 (0-0.3); Eosinophils Percent Auto 3.5 % (0-4.4); Hematocrit 34.3 % (42.0-52.0); Hemoglobin 10.9 g/dL (14.0-18.0); Immature Granulocyte Absolute 0.12 K/mm3 (0.00-0.031); Immature Granulocyte Percent A 1.5 % (0-0.5); Lymphocytes Absolute Auto 0.75 K/mm3 (0.9-3.2); Lymphocytes Percent Auto 9.1 % (18.3-44.2); Mean Corpuscular HGB Conc 31.8 g/dl (32-36); Mean Corpuscular Hemoglobin 29.9 pg (26-34); Mean Platelet Volume 11.5 fl (7.4-10.4); Monocytes Absolute Auto 0.9 K/mm3 (0.1-0.6); Monocytes Percent Auto 10.8 % (2.6-8.5); Neutrophils Absolute Auto 6.1 K/mm3 (1.3-6.7); Neutrophils Percent Auto 74.4 % (45.5-73.1); Platelet Count Result 236 k/mm3 (150-375); Red Blood Count 3.65 M/mm3 (4.6-6.20); Red Cell Distribution Width 12.9 % (11.5-14.5); White Blood Count 8.2 K/mm3 (4.5-10.0)
[2020-02-12 06:08] LABS: Glucose Point of Care 129 (65-105)
[2020-02-12 06:22] LABS: Alanine Aminotransferase 34 U/L (4-50); Albumin Level 2.6 g/dL (3.5-5.1); Alkaline Phosphatase 108 U/L (38-126); Anion Gap 2 mmol/L (8-16); Aspartate Amino Transferase 32 U/L (17-59); Bilirubin,Total 1.2 mg/dL (0.2-1.3); Blood Urea Nitrogen 23 mg/dL (9-20); Calcium 8.1 mg/dL (8.4-10.2); Carbon Dioxide 35 mmol/L (22-30); Chloride 94 mmol/L (98-107); Estimated CRCL calculation 79 ml/min; Estimated Glomerular Filt Rate > 60; Glucose 117 mg/dL (75-110); Phosphorus 2.8 mg/dL (2.5-4.5); Potassium 4.2 mmol/L (3.4-5.0); Sodium 131 mmol/L (137-145)
[2020-02-12] MEDS: ALBUTEROL SULFATE (*SP) AEROSOL 1 PUFF 2 PUFF INHALATION ×3 (07:40→16:01)
[2020-02-12] MEDS: OCTREOTIDE ACETATE 100 MCG/ML VIAL SUB-Q ×3 (08:11→17:32)
[2020-02-12] MEDS: NICOTINE (*PBKC) 21 MG PATCH 1 PATCH TRANSDERM (08:11)
[2020-02-12] MEDS: ASPIRIN 300 MG SUPPOSITORY RECTAL (08:11)
[2020-02-12] MEDS: PANTOPRAZOLE SODIUM IV 40 MG VIAL IV PUSH (08:13)
--- NOTE | 2020-02-12 10:03 | WPDPN ---
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 Status: Acute Assessment and Plan: cont TPN, bowel rest, vac, Octreotide, plan for vac change tomorrow Review of Systems Constitutional: Constitutional: Denies chills, Reports fatigue, Denies fever(s), Reports lethargy, Denies malaise and Reports weakness Cardiovascular: Cardiovascular: Reports no additional cardiovascular complaints Respiratory: Respiratory: Reports no additional respiratory complaints Gastrointestinal: Gastrointestinal: Reports abdominal pain, Reports bloating, Denies nausea and Denies vomiting Exam Const: General: cooperative, comfortable, no acute distress, alert, awake and Physically active Resp: Effort & Inspection: normal respiratory effort Auscultation: diminished lung sounds Cardio: Rate: regular rate Rhythm: regular rhythm GI: Inspection: normal to inspection, non-distended and incision GI Palp: Yes Soft to palpation and Yes Tenderness to palpation present (GI) Other: soft, sl dist, vac c scant output, MAHAD c s/s output Objective Data Vital Signs Vital Signs: Vital Signs - 24 hr 02/11/20 10:09 02/11/20 12:00 02/11/20 15:02 Temperature 36.4 C Pulse Rate 73 62 61 Respiratory Rate 16 18 Blood Pressure 96/45 L Pulse Oximetry 94 96 02/11/20 16:00 02/11/20 19:25 02/11/20 20:00 Temperature Pulse Rate 67 48 L 63 Respiratory Rate Blood Pressure Pulse Oximetry 93 02/11/20 22:00 02/11/20 23:10 02/12/20 00:00 Temperature Pulse Rate 60 60 Respiratory Rate 20 Blood Pressure Pulse Oximetry 93 94 02/12/20 00:42 02/12/20 04:00 02/12/20 06:45 Temperature 37.1 C 36.7 C Pulse Rate 72 59 L 64 Respiratory Rate 16 20 Blood Pressure 101/38 L 106/68 Pulse Oximetry 91 95 02/12/20 07:43 02/12/20 08:00 Temperature 36.3 C L Pulse Rate 60 67 Respiratory Rate 18 16 Blood Pressure 95/53 L Pulse Oximetry 94 94 Intake/Output Intake/Output: Intake & Output 02/09/20 02/10/20 02/11/20 02/12/20 23:59 23:59 23:59 23:59 Intake Total 1450 3205 2355 250 Output Total 4262 3795 0841 6590 Balance -1213 -20 1248 -1204 Meds/Results Medications: Active Medications Generic Name Dose Route Start Last Admin Trade Name Freq PRN Reason Stop Dose Admin Albuterol 2 puff 01/26/20 20:00 02/12/20 07:40 Albuterol Sulfate (*Sp) Aerosol 1 Puff INHALATION 2 puff QIDRT JORJE Administration Alteplase, Recombinant 2 mg 02/08/20 16:51 02/11/20 04:59 Alteplase 2 Mg Vial (Cathflo) IV PUSH 2 mg ONCE PRN Administration Line Occlusion Aspirin 300 mg 01/27/20 09:00 02/12/20 08:11 Aspirin 300 Mg Suppository RECTAL 300 mg DAILY JORJE Administration Dextrose 12.5 gm 01/25/20 06:01 01/25/20 06:12 Dextrose 50% 25 Gm/50 Ml Syringe IV PUSH 12.5 gm PRN PRN Administration Hypoglycemia Protocol Fondaparinux 2.5 mg 01/28/20 09:00 02/08/20 09:28 Fondaparinux Sodium 2.5 Mg/0.5 Ml Syringe SUB-Q 2.5 mg DAILY JORJE Administration Glucagon 1 mg 01/25/20 06:01 Glucagon For Inj 1 Mg Vial IM PRN PRN Hypoglycemia Protocol Glucose 15 gm 01/25/20 06:01 Glucose Oral Gel 15 Gm Of Glucse In 37.5 Gm Tube PO PRN PRN Hypoglycemia Protocol Hydralazine HCl 10 mg 01/31/20 12:35 Hydralazine Hcl 20 Mg/Ml Vial IV PUSH Q8H PRN Blood Pressure - High Dextrose 1,000 mls @ 50 mls/hr 01/28/20 11:07 Dextrose 10% IV CONT .Q20H PRN if PN is interrupted Fat Emulsion Intravenous 250 mls @ 20.833 mls/hr 02/08/20 16:00 02/12/20 05:30 Lipids 20% IVPB Infused Q24H JORJE Infusion Multivitamins 5 ml/ Amino 2,005 mls @ 70 mls/hr 02/09/20 15:01 02/11/20 17:23 Acids/Dextrose IV CONT 70 mls/hr .Q24H JORJE Administration Protocol Morphine Sulfate 1 mg 02/11/20 16:26 02/12/20 08:07 Morphine Sulfate (*Crx) 2 Mg/Ml Inj IV PUSH 1 m
[2020-02-12 12:19] LABS: Glucose Point of Care 132 (65-105)
[2020-02-12 14:29] LABS: Triglycerides 76 mg/dL (<150)
--- NOTE | 2020-02-12 14:55 | PM.IMPN ---
Progress Note: A&P Assessment and Plan (1) Altered mental status: Code(s): R41.82 - Altered mental status, unspecified Status: Acute Assessment and Plan: Resolved. Suspect related to narcotics after initial surgery. Dilaudid stopped and use narcotics sparingly. Tylenol available for pain. Patient still with some symptoms on 02/10 but we decrease Morphine dose and frequency. Monitor (2) AIVR (accelerated idioventricular rhythm): Code(s): I44.2 - Atrioventricular block, complete Status: Acute Assessment and Plan: Patient with VTach/AIVR and associated CP on 01/25 pm. EKG showing delayed R wave progression. No old EKG to compare. On Reglan which was held but resumed by surgery - no further episodes of the AIVR. Reglan has been since been stopped. Echo 01/25 showing EF 55-60% and grade I DD. LE doppler negative and VQ scan nondiagnostic for PE. Continue ASA. Continue telemetry. (3) Non-ST elevation MS (NSTEMI): Code(s): I21.4 - Non-ST elevation (NSTEMI) myocardial infarction Status: Acute Assessment and Plan: Patient with CP on 01/25 associated with the AIVR. EKG showing delayed R wave progression with Rt strain. No old EKG to compare. Trop up to 3.0. Metoprolol started but patient became bradycardic so this was stopped. Ischemic eval later. Continue ASA. Continue telemetry. (4) Shock: Code(s): R57.9 - Shock, unspecified Status: Acute Assessment and Plan: Appears secondary to volume depletion and/or sepsis. 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 Patient was on Flagyl/Cipro 01/23-01/24 but changed to Vanc and Zosyn 01/24. Echo normal EF 55%. Central line has been removed. BP remaining stable off steroids but low at this time. Drains placed and abscess drained 02/01 in IR. Repeat laparotomy 02/03 with repair of anastomotic leak and washout of abdomen postop on 02/03. Zosyn stopped 02/10. Octreotide started 02/09. Follow closely off abx. Repeat BP 106/51 (5) Small bowel obstruction: Code(s): K56.609 - Unspecified intestinal obstruction, unspecified as to partial versus complete obstruction Status: Acute Assessment and Plan: CT abd/pelvis 01/22/20 demonstrated high-grade small bowel obstruction with transition point in the right abdomen. The SB was distended with areas of necrosis and perforation status post exploratory lap with extensive lysis of adhesion, small bowel resection x2 per Dr. Perez on 01/23/20. Patient back to OR 02/03 for repair of anastomotic leak and washout of abscesses. Continue IV antiemetics as needed. Continue TPN. Continue PT/OT. Continue to have patient up to the chair and walking as much as possible (6) Ileus: Code(s): K56.7 - Ileus, unspecified Status: Acute Assessment and Plan: Post-op ileus related to SBO. As above. (7) Acute kidney injury: Code(s): N17.9 - Acute kidney failure, unspecified Status: Acute Assessment and Plan: Cr peaked at 3.2. Likely secondary to acute dehydration from decreased PO intake. BUN was very high at 95 with ratio >20:1 suggesting pre-renal etiology. Cr back to normal with hydration. Renal US unremarkable. Continue TPN. (8) Rhabdomyolysis: Code(s): M62.82 - Rhabdomyolysis Status: Acute Assessment and Plan: TCK elevated at 2130 but better to 199 with hydration. Etiology unclear but felt related to the sepsis. (9) Aortic aneurysm: Qualifiers: Aortic location: abdominal aorta Presence of rupture: without rupture Qualified Code(s): I71.4 - Abdominal aortic aneurysm, without rupture Code(s): I71.9 - Aortic aneurysm of unspecified site, without rupture Status: Acute Assessment and Plan: Infrarenal 4.4 cm fusiform aneurysm of the infrarenal aorta was visualized on CT abd/pelvis. Repeat imaging 02/[address] from [address] 01/21 but current repo
[2020-02-12] MEDS: FAT EMULSIONS IV 20% 250 ML 20.83 ML IVPB (17:32)
[2020-02-12 18:29] LABS: Glucose Point of Care 128 (65-105)
[2020-02-13] VITALS (10 sets, daily range): BP systolic 91–113; BP diastolic 48–60; PULSE 57–85; RESP 16; TEMP 35.7–36.8; O2SAT 92–95
[2020-02-13 01:26] LABS: Glucose Point of Care 126 (65-105)
[2020-02-13 06:26] LABS: Glucose Point of Care 129 (65-105)
[2020-02-13] MEDS: CENTRAL LINE FLUSH 10 ML IV PUSH ×3 (07:00→21:09)
[2020-02-13 07:05] LABS: Anion Gap 4 mmol/L (8-16); Blood Urea Nitrogen 22 mg/dL (9-20); Calcium 8.2 mg/dL (8.4-10.2); Carbon Dioxide 35 mmol/L (22-30); Chloride 93 mmol/L (98-107); Estimated CRCL calculation 69 ml/min; Estimated Glomerular Filt Rate > 60; Glucose 129 mg/dL (75-110); Phosphorus 2.7 mg/dL (2.5-4.5); Potassium 4.2 mmol/L (3.4-5.0); Sodium 132 mmol/L (137-145)
[2020-02-13] MEDS: OCTREOTIDE ACETATE 100 MCG/ML VIAL SUB-Q (08:20)
[2020-02-13] MEDS: PANTOPRAZOLE SODIUM IV 40 MG VIAL IV PUSH (08:20)
[2020-02-13] MEDS: ASPIRIN 300 MG SUPPOSITORY RECTAL (08:20)
[2020-02-13] MEDS: ONDANSETRON INJ 4 MG/2 ML VIAL IV PUSH ×3 (08:21→21:09)
[2020-02-13] MEDS: NICOTINE (*PBKC) 21 MG PATCH 1 PATCH TRANSDERM (08:21)
[2020-02-13] MEDS: MORPHINE SULFATE (*CRX) 2 MG/ML INJ 1 MG IV PUSH (08:21)
--- NOTE | 2020-02-13 09:40 | PCOTNOTE ---
Attempted to see patient this AM, however patient declined stating, When you do so many things, you have to re-evaluate what you're doing. Nobody can do that except me. I'm gonna get some rest now. I need to recuperate from what they just did.
--- NOTE | 2020-02-13 09:48 | P.OP_ITS ---
Procedure Note - Detailed Date of procedure: 02/13/20 Pre-op diagnosis: Necrosis abdominal wound necrosis abdominal wound Post-op diagnosis: same Procedure performed: excisional debridement subcutaneous and fascia abdominal wound Description of procedure: the patient was in his hospital bed. His wound VAC was removed as was the Adaptic. The wound looked very good but there was some subcutaneous and fascial necrosis. Although there was some staining of yellow green I saw no evidence of an enterocutaneous fistula still draining. I removed loose suture material from the fascia. I excised subcutaneous and fascia which was necrotic. This allowed full exposure to the wound. I explored the wound with my finger. I could feel some tracking and a MAHAD drain in the left upper quadrant just under this abdominal wall. I went ahead and removed the MAHAD drains. This got rid of the MAHAD that was palpable in the wound. There was some serous fluid but no evidence of an enterocutaneous fistula noted at all. We r eapplied the Adaptic and the wound VAC and covered the MAHAD drain sites with Tegaderm. Anesthesia: none Surgeon: Madi Fowler MD Estimated blood loss (mL): 0 Packing: Yes ( Wound VAC applied) Pathology: none sent Complications: None Condition: stable Disposition: no change Findings: fascial and subcutaneous necrosis. No exposed bowel noted. No enterocutaneous fistula noted. Wound does track under the abdominal wall to the left upper quadrant but no enteric content noted. Wound VAC reapplied
--- NOTE | 2020-02-13 09:54 | PM.PNGS ---
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 Will stop octreotide and DC NG. It appears bowel function has returned. Will try clear liquids. Wound VAC is easily controlling all of the output from the abdominal wound. Will monitor this. Improving. (2) Protein-calorie malnutrition, moderate: Code(s): E44.0 - Moderate protein-calorie malnutrition Status: Acute Assessment and Plan: Continue TPN until eating well. (3) Small bowel obstruction: Code(s): K56.609 - Unspecified intestinal obstruction, unspecified as to partial versus complete obstruction Status: Acute Assessment and Plan: This was the initial problem that required surgery. Obstruction and ileus seemed to be resolved. Try clear liquids. Subjective Subjective Date/Time Seen: 02/13/20 09:54 Post Op day: 9 Patient reports: no new complaints, feels better, pain is less, bowel movement and afebrile Review of Systems Review of Systems: All systems reviewed & are unremarkable except as noted in HPI and below Constitutional: Constitutional: Denies body ache(s), Denies chills, Denies fever(s), Denies headache(s) and Reports increased appetite Cardiovascular: Cardiovascular: Denies chest pain and Denies dyspnea Respiratory: Respiratory: Denies cough and Denies dyspnea Gastrointestinal: Gastrointestinal: Reports as per HPI Neurologic: Denies confusion and Denies headache(s) Exam Const: General: comfortable and no acute distress; No confusion Orientation/consciousness: patient oriented x3 and No confusion Resp: Effort & Inspection: normal respiratory effort Auscultation: clear to auscultation bilaterally Cardio: Rate: regular rate Rhythm: regular rhythm GI: Inspection: non-distended and incision ( no fistula noted, see debridement note) GI Palp: Yes Soft to palpation, Yes Tenderness to palpation present (GI) ( mild appropriate), No Guarding due to palpation present (GI) and No Rebound tenderness present Auscultation: normal bowel sounds Urinary Catheter: Urinary Catheter: patent and draining Neuro: General: patient oriented x3, no focal motor deficits and No confusion Extrem: General: no calf tenderness and no edema Psych: Affect: normal affect Insight: Good insight present (Psych) Judgement: Good judgement present (Psych) Objective Data Vital Signs Vital Signs: Vital Signs - 24 hr 02/12/20 12:00 02/12/20 15:13 02/12/20 16:00 Temperature 36.2 C L 36.4 C L Pulse Rate 68 61 72 Respiratory Rate 16 16 Blood Pressure 85/46 L 106/51 L 102/52 L Pulse Oximetry 98 96 02/12/20 20:00 02/13/20 00:00 02/13/20 04:00 Temperature 36.6 C 36.8 C 36.6 C Pulse Rate 67 69 67 Respiratory Rate 17 16 16 Blood Pressure 105/53 L 105/60 102/49 L Pulse Oximetry 94 95 95 02/13/20 08:00 Temperature 36.3 C L Pulse Rate 63 Respiratory Rate 16 Blood Pressure 113/50 L Pulse Oximetry 94 Intake/Output Intake/Output: Intake & Output 02/10/20 02/11/20 02/12/20 02/13/20 23:59 23:59 23:59 23:59 Intake Total 3205 2355 2255 250 Output Total 3225 1107 2402 1525 Balance -20 4549 -042 -8641 Meds/Results Medications: Active Medications Generic Name Dose Route Start Last Admin Trade Name Freq PRN Reason Stop Dose Admin Albuterol 2 puff 01/26/20 20:00 02/12/20 16:01 Albuterol Sulfate (*Sp) Aerosol 1 Puff INHALATION 2 puff QIDRT JORJE Administration Aspirin 300 mg 01/27/20 09:00 02/13/20 08:20 Aspirin 300 Mg Suppository RECTAL 300 mg DAILY JORJE Administration Dextrose 12.5 gm 01/25/20 06:01 01/25/20 06:12 Dextrose 50% 25 Gm/50 Ml Syringe IV PUSH 12.5 gm PRN PRN Administration Hypoglycemia Protocol Fondaparinux 2.5 mg 01/28/20 09:00 02/08/20 09:28 Fondaparinux Sodium 2.5 Mg/0.5 Ml Syringe SUB-Q 2.5 mg DAILY JORJE Admini
[2020-02-13] MEDS: ALBUTEROL SULFATE (*SP) AEROSOL 1 PUFF 2 PUFF INHALATION ×3 (10:41→20:28)
--- NOTE | 2020-02-13 11:16 | PM.PNCARD ---
Progress Note: A&P Additional Plan Patient with evidence of type 2 CT following surgery for small-bowel obstruction. Return to the OR for anastomotic leak. Now patient is recovering. Bowel function seems to be Recovering. No cardiovascular issues clinically. Plan/recommendation was for ischemia workup when he is recovered from all of this. Porfirio Ramirez MD [facility] Subjective Date/time seen: 02/13/20 11:16 Interval history: Follow-up for: Non ST-elevation myocardial infartction. Admitted with small bowel obstruction s/p exploratory laparotomy with extensive lysis of adhesions, small bowel resection Also: HTN, aortic aneurysm, tobacco dependence. x2. Date of service: 02/13/2020. Patient is at bed rest offers no cardiovascular symptoms. Surgical note from this morning reviewed. Abdominal wound debrided at bedside. Exam Narrative: Exam Narrative: PHYSICAL EXAMINATION: GENERAL: Awake and alert. Complaining of left rib discomfort MENTAL STATUS: Some confusion EYES: pallor EARS: External ears appear normal, hard of hearing. NOSE: NG tube in place MOUTH: dry mucous membrane NECK: Supple, no JVD CHEST: Decreased breath sounds, decrease effort HEART: Normal rate, regular rhythm, normal S1 and S2 ABDOMEN: Surgical wound with dressing in place NEUROLOGICAL: Awake. Alert. Moves all extremities. MUSCULOSKELETAL: No major deformity, no amputation EXTREMITIES: No pedal edema SKIN: no rash on the exposed area, no cyanosis PSYCHIATRIC: Calm and cooperative. Const: General: comfortable, no acute distress, confusion and uncomfortable Orientation/consciousness: confusion HENMT: Mouth: Yes dry mucous membranes Other: NG tube Eyes: Sclera: sclerae normal Pupils: Equal, round and reactive pupils present EOM: EOMs intact bilaterally Neck: Neck: supple and no JVD Resp: Effort & Inspection: normal respiratory effort Auscultation: clear to auscultation bilaterally Cardio: Rate: regular rate Rhythm: regular rhythm Heart sounds: no murmurs Other: No significant murmur or gallop GI: Inspection: non-distended Auscultation: bowels sounds not normal (Absent bowel sounds) and abnormal bowel sounds ( bowel sounds present but decreased) Skin: General skin exam: normal color and no rashes or lesions noted Neuro: General: confusion Cranial nerves: Yes Equal, round and reactive pupils present Cognition (Neuro): normal cognition Speech: normal speech Extrem: General: no edema Psych: Mental Status: other ( somnolent) Affect: normal affect Objective Data Vital Signs Vital Signs: Vital Signs - 24 hr 02/12/20 12:00 02/12/20 15:13 02/12/20 16:00 Temperature 36.2 C L 36.4 C L Pulse Rate 68 61 72 Respiratory Rate 16 16 Blood Pressure 85/46 L 106/51 L 102/52 L Pulse Oximetry 98 96 02/12/20 20:00 02/13/20 00:00 02/13/20 04:00 Temperature 36.6 C 36.8 C 36.6 C Pulse Rate 67 69 67 Respiratory Rate 17 16 16 Blood Pressure 105/53 L 105/60 102/49 L Pulse Oximetry 94 95 95 02/13/20 08:00 02/13/20 10:42 02/13/20 10:51 Temperature 36.3 C L Pulse Rate 63 Respiratory Rate 16 Blood Pressure 113/50 L Pulse Oximetry 94 93 92 Intake/Output Intake/Output: Intake & Output 02/10/20 02/11/20 02/12/20 02/13/20 23:59 23:59 23:59 23:59 Intake Total 3205 2355 2255 250 Output Total 3225 1107 2404 1575 Balance -20 9107 -913 -8816 Meds/Results Medications: Active Medications Generic Name Dose Route Start Last Admin Trade Name Freq PRN Reason Stop Dose Admin Albuterol 2 puff 01/26/20 20:00 02/13/20 10:41 Albuterol Sulfate (*Sp) Aerosol 1 Puff INHALATION 2 puff QIDRT JORJE Administration Aspirin 300 mg 01/27/20 09:00 02/13/20 08:20 Aspirin 300 Mg Suppository RECTAL 300 mg DAILY JORJE Administration Dextrose 12.5 gm 01/25/20 06:01 01/25/20 06:12 Dextrose 50% 25 Gm/50 Ml Syringe IV PUSH 12.5 gm PRN PRN Administration Hypoglycemia
[2020-02-13 11:28] LABS: Glucose Point of Care 140 (65-105)
--- NOTE | 2020-02-13 12:46 | PCOTNOTE ---
Attempted to see patient this pm, however patient just getting back to bed with nursing staff at this time.
--- NOTE | 2020-02-13 14:27 | PCDIET ---
Nutrition Follow-Up Complete: Inadequate oral intake related to small bowel obstruction, ileus as evidenced by day 5 NPO diet. Goal: Patient to meet estimated nutritional needs. Progressing towards goal. We will continue current goal. Pt current nutrition is TPN. Nutrition recommendation: advance as tolerated per MD orders to regular diet. Last recorded weight is 71.4kg, down from 74 kg last follow up Bowel Motility:+BM reported 02/08. Labs Reviewed: Na 132,Glu 129 Meds Noted:Protonix, zofran, albuterol Clinimix E 5/15 at 70 ml/hr and 250 ml of 20% Lipid Emulsion. Additional Notes: Patient remains NPO with TPN providing 1693 kcals and 84 gms protein. Recommending: advancing diet as tolerated per MD orders to regular. As oral diet increases recommend d/c TPN. Current clear liquid intake is 25%. Wound vac in place. Triglycerides normal today. We will continue to reassess every T/F.
--- NOTE | 2020-02-13 14:46 | PCRCNOTE ---
Window of time for administration has passed. See next scheduled administration.
[2020-02-13] MEDS: FAT EMULSIONS IV 20% 250 ML 20.8 ML IVPB (15:05)
--- NOTE | 2020-02-13 17:01 | PM.IMPN ---
Progress Note: A&P Assessment and Plan (1) Altered mental status: Code(s): R41.82 - Altered mental status, unspecified Status: Acute Assessment and Plan: Resolved. Suspect related to narcotics after initial surgery. Dilaudid stopped and would use narcotics sparingly. Patient still with some symptoms on 02/10 but we decreased Morphine dose and frequency. Continue to lengthen frequency. Tylenol has fallen off so will re-order (2) AIVR (accelerated idioventricular rhythm): Code(s): I44.2 - Atrioventricular block, complete Status: Acute Assessment and Plan: Patient with VTach/AIVR and associated CP on 01/25 pm. EKG showing delayed R wave progression. No old EKG to compare. No further episodes of the AIVR. Echo 01/25 showing EF 55-60% and grade I DD. LE doppler negative and VQ scan nondiagnostic for PE. Continue ASA but change to oral route. Continue telemetry. (3) Non-ST elevation AR (NSTEMI): Code(s): I21.4 - Non-ST elevation (NSTEMI) myocardial infarction Status: Acute Assessment and Plan: Patient with CP on 01/25 associated with the AIVR. EKG showing delayed R wave progression with Rt strain. No old EKG to compare. Trop up to 3.0. Metoprolol started but patient became bradycardic so this was stopped. Plan for ischemic eval later. Continue ASA. Continue telemetry. (4) Shock: Code(s): R57.9 - Shock, unspecified Status: Acute Assessment and Plan: Appears secondary to volume depletion and/or sepsis. Weaned off ENDODONTIST and then off Levophed on 01/25. Patient was on Flagyl/Cipro 01/23-01/24 but changed to Vanc and Zosyn 01/24. Echo normal EF 55%. Central line has been removed. BP remaining stable off steroids but low at times. Drains placed and abscess drained 02/01 in IR. Repeat laparotomy 02/03 with repair of anastomotic leak and washout of abdomen postop on 02/03. Zosyn stopped 02/10. Follow closely off abx. (5) Small bowel obstruction: Code(s): K56.609 - Unspecified intestinal obstruction, unspecified as to partial versus complete obstruction Status: Resolved Assessment and Plan: CT abd/pelvis 01/22/20 demonstrated high-grade small bowel obstruction with transition point in the right abdomen. The SB was distended with areas of necrosis and perforation status post exploratory lap with extensive lysis of adhesion, small bowel resection x2 per Dr. Perez on 01/23/20. Drains x2 placed and abscess drained 02/01 in IR. Patient back to OR 02/03 for repair of anastomotic leak and washout of abscesses. Octreotide started 02/09 but now off. Drains removed today. NGT out and diet started. Continue IV antiemetics as needed and still using this almost daily. Continue TPN. Continue PT/OT. Continue to have patient up to the chair and walking as much as possible. (6) Ileus: Code(s): K56.7 - Ileus, unspecified Status: Acute Assessment and Plan: Post-op ileus related to SBO. Resolving (7) Acute kidney injury: Code(s): N17.9 - Acute kidney failure, unspecified Status: Acute Assessment and Plan: Cr peaked at 3.2. Likely secondary to acute dehydration from decreased PO intake. BUN was very high at 95 suggesting pre-renal etiology. Cr back to normal with hydration. Renal US unremarkable. Continue TPN. (8) Rhabdomyolysis: Code(s): M62.82 - Rhabdomyolysis Status: Acute Assessment and Plan: TCK elevated at 2130 but better to 199 with hydration. Etiology unclear but felt related to the sepsis. (9) Aortic aneurysm: Qualifiers: Aortic location: abdominal aorta Presence of rupture: without rupture Qualified Code(s): I71.4 - Abdominal aortic aneurysm, without rupture Code(s): I71.9 - Aortic aneurysm of unspecified site, without rupture Status: Acute Assessment and Plan: Infrarenal 4.4 cm fusiform aneurysm of the infrarenal aorta was visua
[2020-02-13 17:15] LABS: Glucose Point of Care 123 (65-105)
[2020-02-14] VITALS (10 sets, daily range): BP systolic 104–117; BP diastolic 48–62; PULSE 65–72; RESP 16–18; TEMP 36.1–36.8; O2SAT 94–97
[2020-02-14] MEDS: ALTEPLASE 2 MG VIAL (CATHFLO) IV PUSH (00:11)
[2020-02-14 00:28] LABS: Glucose Point of Care 137 (65-105)
[2020-02-14] MEDS: CENTRAL LINE FLUSH 10 ML IV PUSH ×3 (05:26→21:32)
[2020-02-14] MEDS: CENTRAL LINE FLUSH 20 ML IV PUSH (05:27)
[2020-02-14 05:29] LABS: Osmolality, Urine 569 mOsm/kg (50-1200)
[2020-02-14 06:09] LABS: Anion Gap 3 mmol/L (8-16); Blood Urea Nitrogen 24 mg/dL (9-20); Calcium 8.4 mg/dL (8.4-10.2); Carbon Dioxide 35 mmol/L (22-30); Chloride 94 mmol/L (98-107); Estimated CRCL calculation 69 ml/min; Estimated Glomerular Filt Rate > 60; Glucose 135 mg/dL (75-110); Phosphorus 2.8 mg/dL (2.5-4.5); Potassium 3.8 mmol/L (3.4-5.0); Sodium 132 mmol/L (137-145)
[2020-02-14 06:22] LABS: Glucose Point of Care 106 (65-105)
[2020-02-14] MEDS: NICOTINE (*PBKC) 21 MG PATCH 1 PATCH TRANSDERM (08:23)
[2020-02-14] MEDS: ASPIRIN 81 MG CHEWABLE TABLET PO (08:24)
[2020-02-14] MEDS: PANTOPRAZOLE SODIUM IV 40 MG VIAL IV PUSH (08:24)
--- NOTE | 2020-02-14 09:48 | PM.PNGS ---
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 Will advance to low residue diet. DC Whiting catheter. Will check apnea link to see if we can DC the BiPAP at night. This is per patient request. Continue physical therapy and wound VAC therapy. Making good progress (2) Small bowel obstruction: Code(s): K56.609 - Unspecified intestinal obstruction, unspecified as to partial versus complete obstruction Status: Resolved (3) Protein-calorie malnutrition, moderate: Code(s): E44.0 - Moderate protein-calorie malnutrition Status: Acute Assessment and Plan: Continue TPN today. If tolerates oral intake well again today will DC tomorrow. Subjective Subjective Date/Time Seen: 02/14/20 09:48 Post Op day: 10 Patient reports: no new complaints, feels better, pain is less, tolerating liquids well, afebrile and other (Wants to shave, wants to DC BiPAP) Review of Systems Review of Systems: All systems reviewed & are unremarkable except as noted in HPI and below Constitutional: Constitutional: Denies chills, Denies daytime sleepiness, Denies fever(s) and Denies headache(s) Cardiovascular: Cardiovascular: Denies chest pain and Denies dyspnea Respiratory: Respiratory: Denies cough and Denies dyspnea Gastrointestinal: Gastrointestinal: Reports as per HPI Neurologic: Denies confusion and Denies headache(s) Exam Const: General: cooperative, comfortable, no acute distress, alert and awake; No confusion Nutritional Appearance: thin Orientation/consciousness: patient oriented x3 and No confusion GI: Inspection: non-distended and incision (Wound VAC intact, functioning, minimal drainage) GI Palp: Yes Soft to palpation, No Tenderness to palpation present (GI), No Guarding due to palpation present (GI) and No Rebound tenderness present Auscultation: normal bowel sounds Neuro: General: patient oriented x3, no focal motor deficits and No confusion Extrem: General: no calf tenderness and no edema Psych: Affect: normal affect Insight: Good insight present (Psych) Judgement: Good judgement present (Psych) Objective Data Vital Signs Vital Signs: Vital Signs - 24 hr 02/13/20 10:42 02/13/20 10:51 02/13/20 12:00 Temperature 35.8 C L Pulse Rate 78 Respiratory Rate 16 Blood Pressure 91/48 L Pulse Oximetry 93 92 94 02/13/20 13:55 02/13/20 16:00 02/13/20 20:00 Temperature 35.7 C L 36.7 C Pulse Rate 60 67 Respiratory Rate 16 16 Blood Pressure 104/55 L 110/54 L 104/57 L Pulse Oximetry 95 94 02/13/20 20:41 02/14/20 00:00 02/14/20 04:00 Temperature 36.4 C 36.1 C L Pulse Rate 65 66 Respiratory Rate 16 16 Blood Pressure 104/48 L 104/50 L Pulse Oximetry 92 94 94 02/14/20 08:00 Temperature 36.7 C Pulse Rate 68 Respiratory Rate 18 Blood Pressure 108/62 Pulse Oximetry 96 Intake/Output Intake/Output: Intake & Output 02/11/20 02/12/20 02/13/20 02/14/20 23:59 23:59 23:59 23:59 Intake Total 2355 2255 2645 490 Output Total 1107 2404 2250 75 Balance 1248 -149 395 415 Meds/Results Medications: Active Medications Generic Name Dose Route Start Last Admin Trade Name Freq PRN Reason Stop Dose Admin Acetaminophen 650 mg 02/13/20 17:18 Acetaminophen 325 Mg Tablet PO Q4H PRN Pain Rated 5 or Less Albuterol 2 puff 01/26/20 20:00 02/13/20 20:28 Albuterol Sulfate (*Sp) Aerosol 1 Puff INHALATION 2 puff QIDRT [facility] Administration Alteplase, Recombinant 2 mg 02/13/20 15:35 02/14/20 00:11 Alteplase 2 Mg Vial (Cathflo) IV PUSH 2 mg ONCE PRN Administration Line Occlusion Aspirin 81 mg 02/14/20 08:00 02/14/20 08:24 Aspirin 81 Mg Chewable Tablet PO 81 mg DAILY@0800 [facility] Administration Dextrose 12.5 gm 01/25/20 06:01 01/25/20 06:12 Dextrose 50% 25 Gm/
[2020-02-14] MEDS: ALBUTEROL SULFATE (*SP) AEROSOL 1 PUFF 2 PUFF INHALATION ×3 (10:04→17:10)
[2020-02-14 12:42] LABS: Glucose Point of Care 131 (65-105)
--- NOTE | 2020-02-14 12:56 | PM.PNCARD ---
Progress Note: A&P Assessment and Plan (1) Non-ST elevation SD (NSTEMI): Code(s): I21.4 - Non-ST elevation (NSTEMI) myocardial infarction Status: Acute Assessment and Plan: Non-STEMI, troponin of to 3.0, no further chest pain. LVEF is preserved by echocardiogram, EF 55-60%. Continue aspirin 81 mg daily. Conservative cardiac management at this time. Beta-jadyn on hold. He had episodes of sinus bradycardia with heart rate in 30s and 40s on telemetry, currently heart rates are in 60s. Plan for ischemic workup when he has recovered from current surgical status -- will arrange for OPT FU. I'm really not sure what is wrong with my heart. Discussed the recent SD with the patient. (2) AIVR (accelerated idioventricular rhythm): Code(s): I44.2 - Atrioventricular block, complete Status: Acute Assessment and Plan: AIVR, Bradycardia, PVCs. No recurrence. (3) Small bowel obstruction: Code(s): K56.609 - Unspecified intestinal obstruction, unspecified as to partial versus complete obstruction Status: Resolved Assessment and Plan: Management as per primary team and surgery. Tolerating diet, probably discharge tomorrow. (4) Aortic aneurysm: Qualifiers: Aortic location: abdominal aorta Presence of rupture: without rupture Qualified Code(s): I71.4 - Abdominal aortic aneurysm, without rupture Code(s): I71.9 - Aortic aneurysm of unspecified site, without rupture Status: Acute Assessment and Plan: 4.4 cm AAA found on this admission. Also has claudication and bilateral iliac stenosis. Stable. BB when able as tolerated. (5) Tobacco dependence: Code(s): F17.200 - Nicotine dependence, unspecified, uncomplicated Status: Chronic Assessment and Plan: Smoking cessation encouraged. (6) Shock: Code(s): R57.9 - Shock, unspecified Status: Acute Assessment and Plan: Resolved. Off pressors as of 01/26/2020. Subjective Date/time seen: 02/14/20 12:56 Interval history: Follow-up for: Non ST-elevation myocardial infartction. Admitted with small bowel obstruction s/p exploratory laparotomy with extensive lysis of adhesions, small bowel resection Also: Bradycardia, AIVR, HTN, AAA 4.4 cm, tobacco dependence. 02/13/2020. Patient is at bed rest offers no cardiovascular symptoms. Surgical note from this morning reviewed. Abdominal wound debrided at bedside. Date of service 02/14/2020: Remains off oxygen. Blood pressure soft at times. No significant bradycardia. Tolerating clear liquids and diet is advanced. Happy to have his 1st cup of coffee in 2 weeks, but noted that he was looking for his cigarette at the same time. (I suggested he switch to tea then.) Nurse says he is related not walking at all and needs a lot of assistance. Was sitting up in chair earlier today. Probably discharge to [facility] tomorrow if he continues to eat well. Review of Systems Constitutional: Constitutional: Reports fatigue and Reports weakness ENT: Reports nasal congestion Cardiovascular: Cardiovascular: Denies chest pain, Denies pedal edema, Denies lightheadedness and Denies palpitations Respiratory: Respiratory: Reports cough (Mild productive cough) and Denies dyspnea Gastrointestinal: Gastrointestinal: Reports abdominal pain (A little postop pain), Denies nausea and Denies vomiting Musculoskeletal: Musculoskeletal: Denies back pain Integumentary/Breasts: Skin/Breast: Denies rash Neurologic: Reports abnormal gait (Weak legs, off balance) Psychiatric: Psychiatric: Reports no additional psychiatric complaints Exam Narrative: Exam Narrative: Pleasant older male injuring his ice cream, joking around. Const: General: no acut
[2020-02-14 13:11] LABS: Triglycerides 89 mg/dL (<150)
--- NOTE | 2020-02-14 14:54 | PM.IMPN ---
Progress Note: A&P Assessment and Plan (1) Altered mental status: Code(s): R41.82 - Altered mental status, unspecified Status: Acute Assessment and Plan: Resolved. Suspect related to narcotics after initial surgery. Dilaudid stopped and would use narcotics sparingly. Patient still with some symptoms on 02/10 but we decreased Morphine dose and frequency. Continue to lengthen frequency. Tylenol available as needed. (2) AIVR (accelerated idioventricular rhythm): Code(s): I44.2 - Atrioventricular block, complete Status: Acute Assessment and Plan: Patient with VTach/AIVR and associated CP on 01/25 pm. EKG showing delayed R wave progression. No further episodes of the AIVR. Echo 01/25 showing EF 55-60% and grade I DD. LE doppler negative and VQ scan nondiagnostic for PE. Continue ASA. Continue telemetry. (3) Non-ST elevation MN (NSTEMI): Code(s): I21.4 - Non-ST elevation (NSTEMI) myocardial infarction Status: Acute Assessment and Plan: Patient with CP on 01/25 associated with the AIVR. EKG showing delayed R wave progression with Rt strain. No old EKG to compare. Trop up to 3.0. Metoprolol started but patient became bradycardic so this was stopped. Continue telemetry. Plan for ischemic eval later. Continue ASA. (4) Shock: Code(s): R57.9 - Shock, unspecified Status: Acute Assessment and Plan: Appears secondary to volume depletion and/or sepsis. Weaned off FIBER WORKER and then off Levophed on 01/25. Patient was on Flagyl/Cipro 01/23-01/24 but changed to Vanc and Zosyn 01/24. Echo normal EF 55%. Central line has been removed. BP remaining stable off steroids but low at times. Drains placed and abscess drained 02/01 in IR. Repeat laparotomy 02/03 with repair of anastomotic leak and washout of abdomen postop on 02/03. Zosyn stopped 02/10. Follow closely off abx. Check CBC tomorrow (5) Small bowel obstruction: Code(s): K56.609 - Unspecified intestinal obstruction, unspecified as to partial versus complete obstruction Status: Resolved Assessment and Plan: CT abd/pelvis 01/22/20 demonstrated high-grade small bowel obstruction with transition point in the right abdomen. The SB was distended with areas of necrosis and perforation status post exploratory lap with extensive lysis of adhesion, small bowel resection x2 per Dr. Perez on 01/23/20. Drains x2 placed and abscess drained 02/01 in IR. Patient back to OR 02/03 for repair of anastomotic leak and washout of abscesses. Octreotide started 02/09 but now off. NGT out, diet started and drains removed 02/12. Continue IV antiemetics as needed and still using frequently. Continue PT/OT. Continue to have patient up to the chair and walking as much as possible. Diet advanced (6) Ileus: Code(s): K56.7 - Ileus, unspecified Status: Acute Assessment and Plan: Post-op ileus related to SBO. Resolving (7) Acute kidney injury: Code(s): N17.9 - Acute kidney failure, unspecified Status: Acute Assessment and Plan: Cr peaked at 3.2. Likely secondary to acute dehydration from decreased PO intake. BUN was very high at 95 suggesting pre-renal etiology. Cr back to normal with hydration. Renal US unremarkable. (8) Rhabdomyolysis: Code(s): M62.82 - Rhabdomyolysis Status: Acute Assessment and Plan: TCK elevated at 2130 but better to 199 with hydration. Etiology unclear but felt related to the sepsis. (9) Aortic aneurysm: Qualifiers: Aortic location: abdominal aorta Presence of rupture: without rupture Qualified Code(s): I71.4 - Abdominal aortic aneurysm, without rupture Code(s): I71.9 - Aortic aneurysm of unspecified site, without rupture Status: Acute Assessment and Plan: Infrarenal 4.4 cm fusiform aneurysm of the infrarenal aorta was visualized on CT abd/pelvis. Repeat imaging 02/03 showed no tomlinson
[2020-02-14] MEDS: FAT EMULSIONS IV 20% 250 ML 20.8 ML IVPB (15:46)
[2020-02-14] MEDS: ACETAMINOPHEN 325 MG TABLET 650 MG PO (15:57)
[2020-02-14 17:41] LABS: Glucose Point of Care 119 (65-105)
[2020-02-14] MEDS: MORPHINE SULFATE (*CRX) 2 MG/ML INJ 1 MG IV PUSH (21:31)
[2020-02-15] VITALS (9 sets, daily range): BP systolic 102–110; BP diastolic 46–62; PULSE 60–77; RESP 16–18; TEMP 36.1; O2SAT 94–98
[2020-02-15 02:41] LABS: Glucose Point of Care 125 (65-105)
[2020-02-15] MEDS: CENTRAL LINE FLUSH 20 ML IV PUSH (05:31)
[2020-02-15] MEDS: CENTRAL LINE FLUSH 10 ML IV PUSH ×3 (05:31→21:06)
[2020-02-15 06:17] LABS: Basophils Absolute Auto 0.1 K/mm3 (0.0-0.1); Basophils Percent Auto 0.7 % (0.2-1.2); Eosinophils Absolute Auto 0.3 K/mm3 (0-0.3); Eosinophils Percent Auto 2.5 % (0-4.4); Hematocrit 31.7 % (42.0-52.0); Hemoglobin 10.4 g/dL (14.0-18.0); Immature Granulocyte Percent A 4.5 % (0-0.5); Lymphocytes Absolute Auto 1.16 K/mm3 (0.9-3.2); Lymphocytes Percent Auto 10.4 % (18.3-44.2); Mean Corpuscular HGB Conc 32.8 g/dl (32-36); Mean Corpuscular Hemoglobin 29.5 pg (26-34); Mean Corpuscular Volume 89.8 fl (80-100); Mean Platelet Volume 12.1 fl (7.4-10.4); Monocytes Absolute Auto 0.9 K/mm3 (0.1-0.6); Monocytes Percent Auto 8.4 % (2.6-8.5); Neutrophils Absolute Auto 8.2 K/mm3 (1.3-6.7); Neutrophils Percent Auto 73.5 % (45.5-73.1); Platelet Count Result 316 k/mm3 (150-375); Red Blood Count 3.53 M/mm3 (4.6-6.20); Red Cell Distribution Width 13.2 % (11.5-14.5); White Blood Count 11.2 K/mm3 (4.5-10.0)
[2020-02-15 06:42] LABS: Anion Gap 2 mmol/L (8-16); Blood Urea Nitrogen 27 mg/dL (9-20); CRP 1.6 mg/dL (<1.0); Calcium 8.4 mg/dL (8.4-10.2); Carbon Dioxide 34 mmol/L (22-30); Chloride 95 mmol/L (98-107); Estimated CRCL calculation 80 ml/min; Estimated Glomerular Filt Rate > 60; Glucose 120 mg/dL (75-110); Phosphorus 2.7 mg/dL (2.5-4.5); Potassium 3.5 mmol/L (3.4-5.0); Sodium 131 mmol/L (137-145)
[2020-02-15 07:02] LABS: Glucose Point of Care 122 (65-105)
[2020-02-15] MEDS: NICOTINE (*PBKC) 21 MG PATCH 1 PATCH TRANSDERM (08:16)
[2020-02-15] MEDS: ASPIRIN 81 MG CHEWABLE TABLET PO (08:16)
[2020-02-15] MEDS: ATORVASTATIN 40 MG TABLET PO (08:16)
[2020-02-15] MEDS: PANTOPRAZOLE 40 MG TABLET PO (08:16)
--- NOTE | 2020-02-15 09:10 | PM.PNGS ---
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 White blood cell count slightly higher and this may be from wound. I will go ahead and start him on a week of oral ciprofloxacin. Wound VAC output remains minimal. Good bowel sounds and seems to have good GI function. (2) Small bowel obstruction: Code(s): K56.609 - Unspecified intestinal obstruction, unspecified as to partial versus complete obstruction Status: Resolved (3) Protein-calorie malnutrition, moderate: Code(s): E44.0 - Moderate protein-calorie malnutrition Status: Acute Assessment and Plan: Ate well again yesterday. Will DC TPN and TPN lab work. Subjective Subjective Date/Time Seen: 02/15/20 09:10 Post Op day: 11 Patient reports: no new complaints, feels better, tolerating a regular diet, bowel movement and afebrile Review of Systems Review of Systems: All systems reviewed & are unremarkable except as noted in HPI and below Constitutional: Constitutional: Denies body ache(s), Denies chills, Denies daytime sleepiness, Denies fever(s), Denies headache(s) and Reports increased appetite ENT: Denies headache(s) Cardiovascular: Cardiovascular: Denies chest pain and Denies dyspnea Respiratory: Respiratory: Denies cough, Denies dyspnea and Reports other ( Patient refuses to use CPAP or BiPAP when sleeping) Gastrointestinal: Gastrointestinal: Reports as per HPI Neurologic: Denies confusion and Denies headache(s) Exam Const: General: cooperative, comfortable, no acute distress, alert and awake; No confusion Nutritional Appearance: thin Orientation/consciousness: patient oriented x3 and No confusion GI: Inspection: non-distended and incision (Wound VAC intact, functioning, minimal drainage) GI Palp: Yes Soft to palpation, Yes Tenderness to palpation present (GI), No Guarding due to palpation present (GI) and No Rebound tenderness present Auscultation: normal bowel sounds Neuro: General: patient oriented x3, no focal motor deficits and No confusion Extrem: General: no calf tenderness and no edema Psych: Affect: normal affect Insight: Good insight present (Psych) Judgement: Good judgement present (Psych) Objective Data Vital Signs Vital Signs: Vital Signs - 24 hr 02/14/20 10:05 02/14/20 12:00 02/14/20 12:37 Temperature Pulse Rate 68 Respiratory Rate Blood Pressure Pulse Oximetry 94 96 02/14/20 14:00 02/14/20 16:00 02/14/20 20:00 Temperature 36.8 C Pulse Rate 69 72 69 Respiratory Rate 16 Blood Pressure 106/54 L Pulse Oximetry 97 02/14/20 20:45 02/15/20 00:00 02/15/20 04:00 Temperature 36.6 C Pulse Rate 69 64 60 Respiratory Rate 18 Blood Pressure 117/50 L Pulse Oximetry 96 02/15/20 06:06 02/15/20 07:37 Temperature 36.1 C L Pulse Rate 73 73 Respiratory Rate 16 16 Blood Pressure 105/50 L Pulse Oximetry 97 97 Intake/Output Intake/Output: Intake & Output 02/12/20 02/13/20 02/14/20 02/15/20 23:59 23:59 23:59 23:59 Intake Total 2255 2645 3037.4 600 Output Total 2404 2250 630 850 Balance -651 629 4792.4 -250 Meds/Results Medications: Active Medications Generic Name Dose Route Start Last Admin Trade Name Freq PRN Reason Stop Dose Admin Acetaminophen 650 mg 02/13/20 17:18 02/14/20 15:57 Acetaminophen 325 Mg Tablet PO 650 mg Q4H PRN Administration Pain Rated 5 or Less Albuterol 2 puff 01/26/20 20:00 02/14/20 17:10 Albuterol Sulfate (*Sp) Aerosol 1 Puff INHALATION 2 puff QIDRT [facility] Administration Alteplase, Recombinant 2 mg 02/13/20 15:35 02/14/20 00:11 Alteplase 2 Mg Vial (Cathflo) IV PUSH 2 mg ONCE PRN Administration Line Occlusion Aspirin 81 mg 02/14/20 08:00 02/15/20 08:16 Aspirin 81 Mg Chewable Tablet PO 81 mg DAILY@0800 [facility] Adminis
[2020-02-15] MEDS: ALBUTEROL SULFATE (*SP) AEROSOL 1 PUFF 2 PUFF INHALATION ×4 (09:43→21:42)
[2020-02-15] MEDS: CIPROFLOXACIN 500 MG TAB PO ×2 (10:28→20:11)
--- NOTE | 2020-02-15 11:04 | PM.PNCARD ---
Progress Note: A&P Assessment and Plan (1) Non-ST elevation PR (NSTEMI): Code(s): I21.4 - Non-ST elevation (NSTEMI) myocardial infarction Status: Acute Assessment and Plan: Non-STEMI, troponin of to 3.0, no further chest pain. LVEF is preserved by echocardiogram, EF 55-60%. Continue aspirin 81 mg daily and atorvastatin. Conservative cardiac management at this time. Beta-jadyn on hold. He had episodes of sinus bradycardia with heart rate in 30s and 40s on telemetry, currently heart rates are in 60s. Have not added ACEI 2nd soft BP. Plan for ischemic workup when he has recovered from current surgical status -- will arrange for OPT FU. Discussed the recent PR with the patient and need for FU. (2) AIVR (accelerated idioventricular rhythm): Code(s): I44.2 - Atrioventricular block, complete Status: Acute Assessment and Plan: AIVR, Bradycardia, PVCs. No recurrence. (3) Small bowel obstruction: Code(s): K56.609 - Unspecified intestinal obstruction, unspecified as to partial versus complete obstruction Status: Resolved Assessment and Plan: Management as per primary team and surgery. Tolerating diet, probably discharge tomorrow. (4) Aortic aneurysm: Qualifiers: Aortic location: abdominal aorta Presence of rupture: without rupture Qualified Code(s): I71.4 - Abdominal aortic aneurysm, without rupture Code(s): I71.9 - Aortic aneurysm of unspecified site, without rupture Status: Acute Assessment and Plan: 4.4 cm AAA found on this admission. Also has claudication and bilateral iliac stenosis. Stable. BB when able as tolerated. (5) Tobacco dependence: Code(s): F17.200 - Nicotine dependence, unspecified, uncomplicated Status: Chronic Assessment and Plan: Smoking cessation encouraged. (6) Shock: Code(s): R57.9 - Shock, unspecified Status: Acute Assessment and Plan: Resolved. Off pressors as of 01/26/2020. Additional Plan Subjective Date/time seen: 02/15/20 11:04 Interval history: Follow-up for: Non ST-elevation myocardial infartction. Admitted with small bowel obstruction s/p exploratory laparotomy with extensive lysis of adhesions, small bowel resection Also: Bradycardia, AIVR, HTN, AAA 4.4 cm, tobacco dependence. 02/13/2020. Patient is at bed rest offers no cardiovascular symptoms. Surgical note from this morning reviewed. Abdominal wound debrided at bedside. 02/14/2020: Remains off oxygen. Blood pressure soft at times. No significant bradycardia. Tolerating clear liquids and diet is advanced. Happy to have his 1st cup of coffee in 2 weeks, but noted that he was looking for his cigarette at the same time. (I suggested he switch to tea then.) Nurse says he is related not walking at all and needs a lot of assistance. Was sitting up in chair earlier today. Probably discharge to [facility] tomorrow if he continues to eat well. Date of Service: 02/15/2020: Feeling OK, eating, weak, no SOB or CP. MIssing his cigarettes. Still getting PPN thru PICC. Review of Systems Constitutional: Constitutional: Reports fatigue and Reports weakness ENT: Denies nasal congestion Cardiovascular: Cardiovascular: Denies chest pain, Denies leg edema and Denies lightheadedness Respiratory: Respiratory: Denies dyspnea Gastrointestinal: Gastrointestinal: Reports abdominal pain (off and on) and Denies hematochezia Genitourinary: Genitourinary: Denies hematuria Musculoskeletal: Musculoskeletal: Reports no additional musculoskeletal complaints Integumentary/Breasts: Skin/Breast: Denies rash Neurologic: Denies confusion Psychiatric: Psychiatric: Reports no additional psychiatric complaints Exam
[2020-02-15 11:24] LABS: Glucose Point of Care 129 (65-105)
[2020-02-15] MEDS: ACETAMINOPHEN 325 MG TABLET 650 MG PO ×3 (12:10→20:44)
[2020-02-15] MEDS: POTASSIUM CHLORIDE 20 MEQ TABLET PO (14:10)
--- NOTE | 2020-02-15 14:39 | PCRCNOTE ---
Window of time for administration has passed. See next scheduled administration.
--- NOTE | 2020-02-15 16:08 | PM.IMPN ---
Progress Note: A&P Assessment and Plan (1) Altered mental status: Code(s): R41.82 - Altered mental status, unspecified Status: Acute Assessment and Plan: Resolved. Suspect related to narcotics after initial surgery. Dilaudid stopped and we are using narcotics sparingly. Tylenol available as needed. (2) AIVR (accelerated idioventricular rhythm): Code(s): I44.2 - Atrioventricular block, complete Status: Acute Assessment and Plan: Patient with VTach/AIVR and associated CP on 01/25 pm. EKG showing delayed R wave progression. No further episodes of the AIVR. Echo 01/25 showing EF 55-60% and grade I DD. LE doppler negative and VQ scan nondiagnostic for PE. Continue ASA. Continue telemetry. (3) Non-ST elevation [place] (NSTEMI): Code(s): I21.4 - Non-ST elevation (NSTEMI) myocardial infarction Status: Acute Assessment and Plan: Patient with CP on 01/25 associated with the AIVR. EKG showing delayed R wave progression with Rt strain. No old EKG to compare. Trop up to 3.0. Metoprolol started but patient became bradycardic so this was stopped. Plan for ischemic eval later. Continue ASA. Statin added. Appreciate cardiology input. (4) Shock: Code(s): R57.9 - Shock, unspecified Status: Acute Assessment and Plan: Appears secondary to volume depletion and/or sepsis. 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 Patient was on Flagyl/Cipro 01/23-01/24 but changed to Vanc and Zosyn 01/24. Echo normal EF 55%. Central line has been removed. BP remaining stable off steroids but low at times. Drains placed and abscess drained 02/01 in IR. Repeat laparotomy with repair of anastomotic leak and washout of abdomen postop on 02/03. Zosyn stopped 02/10. WBC 11K so Cipro added today. (5) Small bowel obstruction: Code(s): K56.609 - Unspecified intestinal obstruction, unspecified as to partial versus complete obstruction Status: Resolved Assessment and Plan: CT abd/pelvis 01/22/20 demonstrated high-grade small bowel obstruction with transition point in the right abdomen. The SB was distended with areas of necrosis and perforation status post exploratory lap with extensive lysis of adhesion, small bowel resection x2 per Dr. Perez on 01/23/20. Drains x2 placed and abscess drained 02/01 in IR. Patient back to OR 02/03 for repair of anastomotic leak and washout of abscesses. Octreotide started 02/09 but now off. NGT out, diet started and drains removed 02/12. Continue IV antiemetics - last required 02/12. Continue PT/OT. Continue to have patient up to the chair and walking as much as possible. (6) Ileus: Code(s): K56.7 - Ileus, unspecified Status: Acute Assessment and Plan: Post-op ileus related to above. Resolving (7) Acute kidney injury: Code(s): N17.9 - Acute kidney failure, unspecified Status: Acute Assessment and Plan: Cr peaked at 3.2. Likely secondary to acute dehydration from decreased PO intake. BUN was very high at 95 suggesting pre-renal etiology. Renal US unremarkable. Cr back to normal with hydration. (8) Rhabdomyolysis: Code(s): M62.82 - Rhabdomyolysis Status: Acute Assessment and Plan: TCK elevated at 2130 but better to 199 with hydration. Etiology unclear but felt related to the sepsis. (9) Aortic aneurysm: Qualifiers: Aortic location: abdominal aorta Presence of rupture: without rupture Qualified Code(s): I71.4 - Abdominal aortic aneurysm, without rupture Code(s): I71.9 - Aortic aneurysm of unspecified site, without rupture Status: Acute Assessment and Plan: Infrarenal 4.4 cm fusiform aneurysm of the infrarenal aorta was visualized on CT abd/pelvis. Repeat imaging 02/03 showed no change from CT 01/21 but current report suggest crescent sign and will need for vascular surgery evaluation. Unfortunately with degree of infect
[2020-02-15 16:51] LABS: Glucose Point of Care 150 (65-105)
[2020-02-16] VITALS (7 sets, daily range): BP systolic 105–109; BP diastolic 56–67; PULSE 62–83; RESP 16–18; TEMP 36.1–36.7; O2SAT 92–97
[2020-02-16] MEDS: ACETAMINOPHEN 325 MG TABLET 650 MG PO ×4 (02:32→19:14)
[2020-02-16 03:40] LABS: Hematocrit 31.7 % (42.0-52.0); Hemoglobin 10.4 g/dL (14.0-18.0); Mean Corpuscular HGB Conc 32.8 g/dl (32-36); Mean Corpuscular Hemoglobin 29.5 pg (26-34); Mean Corpuscular Volume 89.8 fl (80-100); Platelet Count Result 324 k/mm3 (150-375); Red Blood Count 3.53 M/mm3 (4.6-6.20); Red Cell Distribution Width 13.4 % (11.5-14.5); White Blood Count 10.4 K/mm3 (4.5-10.0)
[2020-02-16 04:02] LABS: Alanine Aminotransferase 37 U/L (4-50); Albumin Level 2.7 g/dL (3.5-5.1); Alkaline Phosphatase 127 U/L (38-126); Anion Gap 3 mmol/L (8-16); Aspartate Amino Transferase 30 U/L (17-59); Bilirubin,Total 0.6 mg/dL (0.2-1.3); Blood Urea Nitrogen 23 mg/dL (9-20); Calcium 8.5 mg/dL (8.4-10.2); Carbon Dioxide 32 mmol/L (22-30); Chloride 96 mmol/L (98-107); Estimated CRCL calculation 71 ml/min; Estimated Glomerular Filt Rate > 60; Glucose 109 mg/dL (75-110); Potassium 3.7 mmol/L (3.4-5.0); Sodium 131 mmol/L (137-145)
[2020-02-16] MEDS: CENTRAL LINE FLUSH 10 ML IV PUSH ×2 (05:22→13:26)
[2020-02-16] MEDS: ALBUTEROL SULFATE (*SP) AEROSOL 1 PUFF 2 PUFF INHALATION ×3 (08:27→17:56)
[2020-02-16] MEDS: ATORVASTATIN 40 MG TABLET PO (08:58)
[2020-02-16] MEDS: CIPROFLOXACIN 500 MG TAB PO (08:58)
[2020-02-16] MEDS: PANTOPRAZOLE 40 MG TABLET PO (08:58)
[2020-02-16] MEDS: ASPIRIN 81 MG CHEWABLE TABLET PO (08:58)
[2020-02-16] MEDS: NICOTINE (*PBKC) 21 MG PATCH 1 PATCH TRANSDERM (08:58)
[2020-02-16] MEDS: FONDAPARINUX SODIUM 2.5 MG/0.5 ML SYRINGE SUB-Q (08:58)
--- NOTE | 2020-02-16 09:36 | PM.PNCARD ---
Progress Note: A&P Additional Plan 74-year-old man with: Evidence of type 2 myocardial infarction when he was hospitalized with the a bowel obstruction. Patient underwent surgery and returned to the operating room for an and asked a modest leak. Now doing very well. No cardiovascular complaints. Plans to transfer to intermediate for ongoing rehab in recovery are noted. We will ensure that he has follow-up scheduled in our office as mentioned above. Porfirio Ramirez MD [facility] Subjective Date/time seen: Date of service: 02/16/20 09:36 Interval history: Follow-up for: Non ST-elevation myocardial infartction. Admitted with small bowel obstruction s/p exploratory laparotomy with extensive lysis of adhesions, small bowel resection Also: Bradycardia, AIVR, HTN, AAA 4.4 cm, tobacco dependence. Date of service 02/16/2020: Patient is very comfortable this morning offers no complaints. Anticipating possible discharge to intermediate today or tomorrow. Told the patient that we will arrange for follow-up in our office with Dr. Fraga to discuss further cardiac workup after he is fully recovered from his bowel obstruction surgery. For now he will bleed just continued on low-dose aspirin. Patient was asking me when his surgical drains will be removed and obviously I deferred that discussion to the surgeon. Exam Narrative: Exam Narrative: Pleasant older WM joking w/ me, NAd Const: General: comfortable, no acute distress and uncomfortable; No confusion Orientation/consciousness: No confusion HENMT: Mouth: Yes moist mucous membranes and Yes dry mucous membranes Other: NG tube Eyes: Sclera: sclerae normal Pupils: Equal, round and reactive pupils present EOM: EOMs intact bilaterally Neck: Neck: supple and no JVD Resp: Effort & Inspection: normal respiratory effort Auscultation: clear to auscultation bilaterally and diminished lung sounds Cardio: Rate: regular rate Rhythm: regular rhythm Heart sounds: no murmurs Other: No significant murmur or gallop GI: Inspection: non-distended Auscultation: normal bowel sounds and abnormal bowel sounds ( bowel sounds present but decreased) Skin: General skin exam: normal color and no rashes or lesions noted Neuro: General: No confusion Cranial nerves: Yes Equal, round and reactive pupils present Cognition (Neuro): normal cognition Speech: normal speech Extrem: General: no edema Right lower extremity: lower leg not examined Left lower extremity: lower leg not examined Psych: Mental Status: mental status grossly normal and other ( somnolent) Affect: normal affect Objective Data Vital Signs Vital Signs: Vital Signs - 24 hr 02/15/20 12:00 02/15/20 16:00 02/15/20 20:00 Temperature 36.1 C L Pulse Rate 77 67 66 Respiratory Rate 18 Blood Pressure 110/62 Pulse Oximetry 98 02/15/20 20:43 02/16/20 00:00 02/16/20 04:00 Temperature 36.1 C L Pulse Rate 72 72 62 Respiratory Rate 16 Blood Pressure 102/46 L Pulse Oximetry 94 02/16/20 06:25 02/16/20 08:00 02/16/20 08:29 Temperature 36.1 C L Pulse Rate 69 80 Respiratory Rate 18 Blood Pressure 109/56 L Pulse Oximetry 97 93 Intake/Output Intake/Output: Intake & Output 02/13/20 02/14/20 02/15/20 02/16/20 23:59 23:59 23:59 23:59 Intake Total 2645 3037.4 2162.6 240 Output Total 2250 630 1350 500 Balance 395 2407.4 812.6 -260 Meds/Results Medications: Active Medications Generic Name Dose Route Start Last Admin Trade Name Freq PRN Reason Stop Dose Admin Acetaminophen 650 mg 02/13/20 17:18 02/16/20 09:03 Acetaminophen 325 Mg Tablet PO 650 mg Q4H PRN Administration Pain Rated 5 or Less Albuterol 2 puff 01/26/20 20:00 02/16/20 08:27 Albuterol Sulfate (*Sp) Aerosol 1 Puff INHALATION 2 puff QIDRT JORJE Administration Alteplase, Recombinant 2 mg 02/13/20 15:35 02/14/20 00:11 Alteplase 2 Mg Vial (Cathflo) IV PUSH 2 mg ONCE PRN Administration L
--- NOTE | 2020-02-16 09:38 | PM.PNGS ---
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 Status: Acute Assessment and Plan: well controlled to closed at this point, cont vac, cont nutrition, ok to dc to ECF (2) Protein-calorie malnutrition, moderate: Code(s): E44.0 - Moderate protein-calorie malnutrition Status: Acute Assessment and Plan: cont to monitor intake Subjective Subjective Date/Time Seen: 02/16/20 09:38 doing well, reports no issues Review of Systems Review of Systems: All systems reviewed & are unremarkable except as noted in HPI and below Exam Const: General: comfortable and no acute distress Resp: Effort & Inspection: normal respiratory effort Auscultation: clear to auscultation bilaterally Cardio: Rate: regular rate Rhythm: regular rhythm GI: Inspection: normal to inspection and incision GI Palp: Yes Soft to palpation Other: vac C/D/I Objective Data Vital Signs Vital Signs: Vital Signs - 24 hr 02/15/20 12:00 02/15/20 16:00 02/15/20 20:00 Temperature 36.1 C L Pulse Rate 77 67 66 Respiratory Rate 18 Blood Pressure 110/62 Pulse Oximetry 98 02/15/20 20:43 02/16/20 00:00 02/16/20 04:00 Temperature 36.1 C L Pulse Rate 72 72 62 Respiratory Rate 16 Blood Pressure 102/46 L Pulse Oximetry 94 02/16/20 06:25 02/16/20 08:00 02/16/20 08:29 Temperature 36.1 C L Pulse Rate 69 80 Respiratory Rate 18 Blood Pressure 109/56 L Pulse Oximetry 97 93 Intake/Output Intake/Output: Intake & Output 02/13/20 02/14/20 02/15/20 02/16/20 23:59 23:59 23:59 23:59 Intake Total 2645 3037.4 2162.6 240 Output Total 2250 630 1350 500 Balance 395 2407.4 812.6 -260 Meds/Results Medications: Active Medications Generic Name Dose Route Start Last Admin Trade Name Freq PRN Reason Stop Dose Admin Acetaminophen 650 mg 02/13/20 17:18 02/16/20 09:03 Acetaminophen 325 Mg Tablet PO 650 mg Q4H PRN Administration Pain Rated 5 or Less Albuterol 2 puff 01/26/20 20:00 02/16/20 08:27 Albuterol Sulfate (*Sp) Aerosol 1 Puff INHALATION 2 puff QIDRT JORJE Administration Alteplase, Recombinant 2 mg 02/13/20 15:35 02/14/20 00:11 Alteplase 2 Mg Vial (Cathflo) IV PUSH 2 mg ONCE PRN Administration Line Occlusion Aspirin 81 mg 02/14/20 08:00 02/16/20 08:58 Aspirin 81 Mg Chewable Tablet PO 81 mg DAILY@0800 JORJE Administration Atorvastatin Calcium 40 mg 02/15/20 09:00 02/16/20 08:58 Atorvastatin 40 Mg Tablet PO 40 mg DAILY JORJE Administration Ciprofloxacin 500 mg 02/15/20 09:00 02/16/20 08:58 Ciprofloxacin 500 Mg Tab PO 02/21/20 21:01 500 mg Q12HR JORJE Administration Dextrose 12.5 gm 01/25/20 06:01 01/25/20 06:12 Dextrose 50% 25 Gm/50 Ml Syringe IV PUSH 12.5 gm PRN PRN Administration Hypoglycemia Protocol Fondaparinux 2.5 mg 01/28/20 09:00 02/16/20 08:58 Fondaparinux Sodium 2.5 Mg/0.5 Ml Syringe SUB-Q 2.5 mg DAILY JORJE Administration Glucagon 1 mg 01/25/20 06:01 Glucagon For Inj 1 Mg Vial IM PRN PRN Hypoglycemia Protocol Glucose 15 gm 01/25/20 06:01 Glucose Oral Gel 15 Gm Of Glucse In 37.5 Gm Tube PO PRN PRN Hypoglycemia Protocol Hydralazine HCl 10 mg 01/31/20 12:35 Hydralazine Hcl 20 Mg/Ml Vial IV PUSH Q8H PRN Blood Pressure - High Dextrose 1,000 mls @ 50 mls/hr 01/28/20 11:07 Dextrose 10% IV CONT .Q20H PRN if PN is interrupted Morphine Sulfate 1 mg 02/13/20 17:18 02/14/20 21:31 Morphine Sulfate (*Crx) 2 Mg/Ml Inj IV PUSH 1 mg Q4H PRN Administration Pain Rated 6 or Greater Naloxone HCl 0.1 mg 02/01/20 11:16 02/04/20 22:15 Naloxone Hcl 0.4 Mg/Ml Vial IV PUSH 0.1 mg Q5MIN PRN Administration Sedation Nicotine 1 patch 01/24/20 09:00 02/16/20 08:58 Nicotine (*Pbkc) 21 Mg Patch TRANSDERM 1 patch QAM ON LICENSE OF [facility] Administratio
[2020-02-16 11:58] LABS: SARS-CoV-2 RNA PCR Negative
[2020-02-16] MEDS: POTASSIUM CHLORIDE 20 MEQ TABLET 40 MEQ PO (13:26)
[2020-02-16 14:41] LABS: Magnesium 1.9 mg/dL (1.6-2.3)
--- NOTE | 2020-02-16 16:41 | PM.DS ---
DS: Admitting Diagnosis Admitting Diagnosis Admitting Diagnosis: Necrosis abdominal wound DS: Discharge Diagnosis Discharge Diagnosis (1) Altered mental status: Code(s): R41.82 - Altered mental status, unspecified Status: Acute Assessment and Plan: Resolved. Suspect related to narcotics after initial surgery. Dilaudid stopped and we used narcotics sparingly. (2) AIVR (accelerated idioventricular rhythm): Code(s): I44.2 - Atrioventricular block, complete Status: Acute Assessment and Plan: Patient with VTach/AIVR and associated chest pain on 01/25. EKG showing delayed R wave progression. No further episodes of the AIVR. Echo 01/25 showing EF 55-60% and grade I DD. LE doppler negative and VQ scan nondiagnostic for PE. We continued ASA. (3) Non-ST elevation AK (NSTEMI): Code(s): I21.4 - Non-ST elevation (NSTEMI) myocardial infarction Status: Acute Assessment and Plan: Patient with CP on 01/25 associated with the AIVR. EKG showing delayed R wave progression with Rt strain. No old EKG to compare. Trop up to 3.0. Metoprolol started but patient became bradycardic so this was stopped. Plan for ischemic evaluation later. Treated with ASA and Statin. Cardiology followed along. (4) Shock: Code(s): R57.9 - Shock, unspecified Status: Acute Assessment and Plan: Appears secondary to volume depletion and/or sepsis. Weaned off vasopressin and then off Levophed on 01/25. Patient was on Flagyl/Cipro 01/23-01/24 but changed to Vanc and Zosyn 01/24. Echo normal EF 55%. Central line placed but subsequently removed. Blood pressure remained stable as we weaned off steroids. Drains placed and abscess drained 02/01 by IR. Repeat laparotomy with repair of anastomotic leak and washout of abdomen postop on 02/03. Zosyn stopped 02/10. WBC 11K so Cipro added 02/14; WBC improved. (5) Small bowel obstruction: Code(s): K56.609 - Unspecified intestinal obstruction, unspecified as to partial versus complete obstruction Status: Resolved Assessment and Plan: CT abd/pelvis 01/22/20 demonstrated high-grade small bowel obstruction with transition point in the right abdomen. The SB was distended with areas of necrosis and perforation status post exploratory lap with extensive lysis of adhesion, small bowel resection x2 per Dr. Perez on 01/23/20. Drains x2 placed and abscess drained 02/01 by IR. Patient back to OR 02/03 for repair of anastomotic leak and washout of abscesses. Octreotide started 02/09 but now off. NGT removed, diet started and drains removed 02/12. On day od discharge, wound vac changed and found to have fistula. Wound data analysis manager placed. Discussed with surgery who still felt patient still could be discharged on current diet. (6) Ileus: Code(s): K56.7 - Ileus, unspecified Status: Acute Assessment and Plan: Post-op ileus related to above. Resolved (7) Acute kidney injury: Code(s): N17.9 - Acute kidney failure, unspecified Status: Acute Assessment and Plan: Cr peaked at 3.2. Likely secondary to acute dehydration from decreased PO intake. Renal US unremarkable. Cr back to normal with hydration. (8) Rhabdomyolysis: Code(s): M62.82 - Rhabdomyolysis Status: Acute Assessment and Plan: TCK elevated at 2130 but improved to 199 with hydration. Etiology unclear but felt related to the sepsis. (9) Aortic aneurysm: Qualifiers: Aortic location: abdominal aorta Presence of rupture: without rupture Qualified Code(s): I71.4 - Abdominal aortic aneurysm, without rupture Code(s): I71.9 - Aortic aneurysm of unspecified site, without rupture Status: Acute Assessment and Plan: Infrarenal 4.4 cm fusiform aneurysm of the infrarenal aorta was visualized on CT abd/pelvis. Repeat imaging 02/03 showed no change from CT 01/21 but current report sug
[2020-02-16] MEDS: NEOMYCIN/POLYMYXIN/BACITRACIN OINTMENT PACKET 1 PACKET (17:43)
== END 2020-02-16 19:22 | DRG 329 ==
LOC: ANHED 19:12 → ANH2MED 21:16 → ANHIMU 01-25 06:48 → ANH3MED 02-01 23:01 → ANH2MED 02-17 15:58 → ANH3MED 02-17 15:58 → ANHIMU 02-17 15:58
PROVIDERS: Emergency Medicine; Internal Medicine; Internal Medicine Cardiovascular Disease; Nurse Anesthetist, Certified Registered; Nurse Practitioner; Nurse Practitioner Family; Physician Assistant; Radiology Diagnostic Radiology; Surgery; Admitting Provider Family Medicine; Emergency Provider Family Medicine; PCP Family Medicine Adolescent Medicine; Visit Provider Internal Medicine Infectious Disease
PROC: 0DB80ZZ Excision of Small Intestine, Open Approach (ICD-10-PCS; CPT 49000; principal; 2020-01-23 19:00)
PROC: 0W9F30Z Drainage of Abdominal Wall with Drainage Device, Percutaneous Approach (ICD-10-PCS; principal; 2020-02-02 13:00)
PROC: 0DN80ZZ Release Small Intestine, Open Approach (ICD-10-PCS; CPT 49000; principal; 2020-02-04 14:45)
DX: K56.50 Intestinal adhesions [bands], unspecified as to partial versus complete obstruction (principal); I21.4 Non-ST elevation (NSTEMI) myocardial infarction; T81.19XA Other postprocedural shock, initial encounter; K65.1 Peritoneal abscess; J69.0 Pneumonitis due to inhalation of food and vomit; T81.43XA Infection following a procedure, organ and space surgical site, initial encounter; I97.191 Other postprocedural cardiac functional disturbances following other surgery; I44.2 Atrioventricular block, complete; I47.2 Ventricular tachycardia; K86.1 Other chronic pancreatitis; T81.32XA Disruption of internal operation (surgical) wound, not elsewhere classified, initial encounter; N17.9 Acute kidney failure, unspecified; E44.0 Moderate protein-calorie malnutrition; M62.82 Rhabdomyolysis; K91.89 Other postprocedural complications and disorders of digestive system; J95.89 Other postprocedural complications and disorders of respiratory system, not elsewhere classified; J91.8 Pleural effusion in other conditions classified elsewhere; T81.83XA Persistent postprocedural fistula, initial encounter; K63.2 Fistula of intestine; K56.0 Paralytic ileus; I95.81 Postprocedural hypotension; Z20.828 Contact with and (suspected) exposure to other viral communicable diseases; D69.6 Thrombocytopenia, unspecified; I71.4 Abdominal aortic aneurysm, without rupture; N28.1 Cyst of kidney, acquired; F17.200 Nicotine dependence, unspecified, uncomplicated; K56.7 Ileus, unspecified; E86.0 Dehydration; I10 Essential (primary) hypertension; F17.210 Nicotine dependence, cigarettes, uncomplicated; Z68.22 Body mass index [BMI] 22.0-22.9, adult; R41.82 Altered mental status, unspecified; T40.695A Adverse effect of other narcotics, initial encounter; E87.8 Other disorders of electrolyte and fluid balance, not elsewhere classified
CPT/HCPCS: 36415; 36569; 36600; 71045; 74018; 74019; 74176; 74177; 74250; 75989; 76775; 78580; 80048; 80053; 80076; 80202; 81001; 82247; 82375; 82533; 82550; 82805; 83050; 83605; 83690; 83735; 83880; 83935; 84100; 84132; 84295; 84300; 84439; 84443; 84466; 84478; 84480; 84484; 85014; 85018; 85025; 85027; 85049; 85055; 85610; 85730; 86022; 86023; 86140; 87040; 87070; 87075; 87077; 87086; 87088; 87186; 87205; 87635; 88307; 93005; 93306; 93970; 94002; 94003; 94640; 94762; 96361; 96374; 97110; 97116; 97162; 97164; 97165; 97530; 97535; 99285; A9270; A9540; C1751; C1769; C9113; C9803; J0131; J0330; J0690; J0744; J1100; J1170; J1650; J1652; J1720; J1940; J2248; J2250; J2270; J2310; J2354; J2370; J2405; J2543; J2704; J2710; J2765; J2997; J3010; J3370; J7030; J7040; J7042; J7070; J7120; Q9967; U0003

== ENCOUNTER 2020-02-17 18:55 | Emergency (ER) | payer MEDICARE, SELFPAY ==
[2020-02-17 19:49] VITALS: BP 123/59; PULSE 78; RESP 17; TEMP 36.3; O2SAT 97
--- NOTE | 2020-02-17 20:28 | ED.GENADULT ---
HPI - General Adult General Chief complaint: Skin/Abscess/Foreign Body Stated complaint: leaking from incision Time Seen by Provider: 02/17/20 19:58 Source: patient Mode of arrival: ambulatory Limitations: no limitations History of Present Illness HPI narrative: Patient 74-year-old male sent here from retirement due to increased output from his colostomy bag. Patient recently had bowel resection surgery due to bowel obstruction, extensive adhesions, and enterocutaneous fistula with wound dehiscence. Patient currently being followed by Dr. Perez and wound care. Patient denies any increase in his pain, denies nausea vomiting, fever or chills. Patient has no other complaints. Related Data Allergies Allergy/AdvReac Type Severity Reaction Status Date / Time No Known Allergies Allergy Unknown NONE Verified 01/22/20 21:20 Review of Systems Review of Systems: All systems reviewed & are unremarkable except as noted in HPI and below Constitutional: Constitutional: Denies body ache(s), Denies chills, Denies excessive sweating, Denies fatigue, Denies fever(s), Denies headache(s), Denies lethargy, Denies malaise, Denies weakness and Denies weight loss Eyes: Eyes: Denies blurry vision, Denies change in vision and Denies loss of vision ENT: Denies dizziness, Denies ear discharge, Denies headache(s), Denies lip swelling, Denies epistaxis, Denies nasal congestion, Denies neck pain, Denies throat swelling and Denies tongue swelling Cardiovascular: Cardiovascular: Denies chest pain, Denies chest pain at rest, Denies chest pain with activity, Denies diaphoresis, Denies rapid heart rate, Denies edema, Denies irregular heart rhythm, Denies lightheadedness, Denies palpitations, Denies dyspnea and Denies dyspnea on exertion Respiratory: Respiratory: Denies chest congestion, Denies cough, Denies hemoptysis, Denies dyspnea and Denies dyspnea on exertion Gastrointestinal: Gastrointestinal: Denies melena, Denies hematochezia, Denies diarrhea, Denies nausea, Denies vomiting and Denies hematemesis Musculoskeletal: Musculoskeletal: Denies abnormal gait, Denies deformity, Denies joint swelling, Denies limited range of motion, Denies neck pain and Denies numbness Neurologic: Denies Abnormal speech present, Denies abnormal gait, Denies confusion, Denies dizziness, Denies headache(s), Denies focal weakness, Denies loss of vision, Denies numbness, Denies Other visual disturbances, Denies Sensory deficit (Neuro) and Denies weakness Psychiatric: Psychiatric: Denies confusion, Denies depression, Denies auditory hallucinations, Denies homicidal ideation and Denies suicidal ideation Endocrine: Endocrine: Denies cold intolerance, Denies excessive sweating, Denies fatigue, Denies heat intolerance and Denies palpitations Hematologic/Lymphatic: Hematologic/Lymphatic: Denies easy bleeding and Denies easy bruising Allergic/Immunologic: Allergic/Immunologic: Denies lip swelling, Denies throat swelling and Denies tongue swelling PMFSH Past Medical History Medical History (Updated 02/17/20 @ 22:10 by Mio Pedroza MD) AIVR (accelerated idioventricular rhythm) Altered mental status Hypertension Non-ST elevation SD (NSTEMI) Thrombocytopenia Surgical History Surgical History History of appendectomy Family History Family History Mother Acute myocardial infarction Congestive heart failure Diabetes mellitus Hypertension Father Chronic obstructive pulmonary disease Sibling Congestive heart failure Sibling Diabetes mellitus Social History Social History Smoking packs per day: 1.5 Smoking cigarettes per day: 30.0 Years smoked: 60 Smoking pack-years: 90.00 Smoking status: Current every day smoker Tobacco type: cigarettes Alcohol intake: never Substance use: never Gender identity
[2020-02-17 20:29] LABS: Basophils Absolute Auto 0.1 K/mm3 (0.0-0.1); Basophils Percent Auto 0.5 % (0.2-1.2); Eosinophils Absolute Auto 0.3 K/mm3 (0-0.3); Eosinophils Percent Auto 2.4 % (0-4.4); Hematocrit 36.9 % (42.0-52.0); Hemoglobin 12.4 g/dL (14.0-18.0); Immature Granulocyte Absolute 0.23 K/mm3 (0.00-0.031); Lymphocytes Absolute Auto 1.43 K/mm3 (0.9-3.2); Lymphocytes Percent Auto 12.2 % (18.3-44.2); Mean Corpuscular HGB Conc 33.6 g/dl (32-36); Mean Corpuscular Hemoglobin 30.6 pg (26-34); Mean Corpuscular Volume 91.1 fl (80-100); Mean Platelet Volume 12.2 fl (7.4-10.4); Monocytes Percent Auto 8.6 % (2.6-8.5); Neutrophils Absolute Auto 8.7 K/mm3 (1.3-6.7); Neutrophils Percent Auto 74.3 % (45.5-73.1); Platelet Count Result 416 k/mm3 (150-375); Red Blood Count 4.05 M/mm3 (4.6-6.20); White Blood Count 11.7 K/mm3 (4.5-10.0)
[2020-02-17 20:34] LABS: Anion Gap 5 mmol/L (8-16); Blood Urea Nitrogen 23 mg/dL (9-20); Carbon Dioxide 32 mmol/L (22-30); Chloride 96 mmol/L (98-107); Estimated CRCL calculation 63 ml/min; Estimated Glomerular Filt Rate > 60; Glucose 105 mg/dL (75-110); Sodium 133 mmol/L (137-145)
[2020-02-17 20:50] LABS: Lactic Acid Reflex 1.1 mmol/L (0.7-2.1)
[2020-02-17] MEDS: LACTATED RINGERS 1,000 ML 999 ML IV CONT (22:31)
--- NOTE | 2020-02-17 23:10 | PC.NURSE ---
contacted [facility] and [facility] to transfer patient. both declined due to shortage of rigs. [facility] accepted eta 001
--- NOTE | 2020-02-18 01:01 | PC.NURSE ---
[facility] has arrived
[2020-02-18 01:03] VITALS: BP 139/95; PULSE 90; RESP 16; TEMP 36.4; O2SAT 97
== END 2020-02-18 01:03 ==
PROVIDERS: Emergency Provider Emergency Medicine; PCP Family Medicine Adolescent Medicine
DX: T81.31XA Disruption of external operation (surgical) wound, not elsewhere classified, initial encounter (principal); Z93.3 Colostomy status; I10 Essential (primary) hypertension; I25.2 Old myocardial infarction; F17.210 Nicotine dependence, cigarettes, uncomplicated
CPT/HCPCS: 36415; 80048; 83605; 85025; 96360; 99283; J7120

== ENCOUNTER 2020-02-26 14:47 | Outpatient (CLI) | payer MEDICARE, SELFPAY ==
--- NOTE | ~2020-02-26 | CT_ITS ---
EXAMINATION: CT abdomen pelvis w con INDICATION: Open abdominal wound, history of sepsis, follow-up TECHNIQUE: Computed tomographic images of the abdomen and pelvis were obtained after the administrati on of 100 cc of Omnipaque 350 intravenous contrast. The dose-length product (DLP) was 364.61 mGy-cm. Automated exposure control and iterative reconstruction technique were employed. COMPARISON: 02/04/2020 FINDINGS: Minimal dependent atelectasis is present in the lung bases. The heart size is normal. There is mild emphysema. The liver, spleen, pancreas, adrenal glands, and kidneys are normal. Previously d escribed mild wall thickening of the gallbladder persists but has improved. Multiple abscesses persis t but demonstrate significant improvement compared to the prior examination. The largest previously i dentified abscess was a 4.4 x 2.2 cm pelvic abscess which now measures approximately 3.4 x 1.0 cm. A 4.8 x 0.5 cm abscess within the right abdominal muscles has decreased in size and the percutaneous dr ain has been removed. There is also been interval removal of a percutaneous drain which previously te rminated with its tip adjacent to the descending colon. The skin samson have been removed and the mi dline abdominal incision is now open. Mildly dilated small bowel is unchanged, likely adynamic ileus. No pathologically enlarged abdominal or pelvic lymph nodes are identified. There is a stable 4.3 cm fusiform aneurysm of the infrarenal abdominal aorta. A hyperdense crescent sign is again noted within the aneurysm. There is severe stenosis at the origins of the bilateral common and iliac arteries. Se katharine thoracic and lumbar spondylosis is noted. IMPRESSION: 1. Persistent, but significant interval improvement in, multiple abdominal and pelvic abscesses. 2. 4.3 cm fusiform infrarenal abdominal aortic aneurysm. As previously described, hyperdense crescent sign could reflect impending rupture. 3. Mildly dilated small bowel, likely adynamic ileus. Reviewed, dictated and finalized at location A. MILL OPERATOR IMPRESSION: 1. Persistent, but significant interval improvement in, multiple abdominal and pelvic abscesses. 2. 4.3 cm fusiform infrarenal abdominal aortic aneurysm. As previously describe d, hyperdense crescent sign could reflect impending rupture. 3. Mildly dilated small bowel, likely adynamic ileus.
--- NOTE | 2020-03-16 08:33 | WPDWOUNDNOTE ---
Wound Care Note Date/Time: 03/16/20 08:33 History: Medical history of hypertension, tobacco abuse, and previous abdominal surgery of open appendectomy. The patient was then admitted to the hospital for a small bowel obstruction and acute renal failure from 01/22/20 - 02/16/20 and underwent the following surgeries: 01/23/20 - Exploratory laparotomy with extensive lysis of adhesion of approximately 1/2 hour, small bowel resection x2 02/04/20 - Exploratory laparotomy, extensive of lysis of adhesion of approximately 30 minutes, closure of enterotomy x4, washout, placement of drains x2, fascial closure 02/13/20 - Excisional debridement subcutaneous and fascia abdominal wound Wound history: The patient was admitted as mentioned above and underwent the above listed surgeries. Following the initial exploratory laparotomy with small bowel resection x 2, he had a prolonged post-op ileus and poor nutritional status with poor wound healing. He began having bilious material leaking through his midline abdominal incision and once the samson were removed, he was found to have fascial dehiscence, prompting his second surgery. After the second surgery, his midline abdominal wound was managed with a wound VAC. 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 He then underwent his third procedure at the bedside for excisional debridement. Eventually, the wound VAC was discontinued and we began using a wound management appliance due to the copious amounts of drainage from the EC fistula. When the patient was eventually discharged, he was sent to an extended care facility. After discharge, he tested positive for COVID-19 and was transferred to a [facility] facility to be on the COVID unit. He then was seen in follow-up by Dr. Perez on 03/08/20 in the office. At that time, his EC fistula had closed and he was receiving local wound care for the remaining open abdominal wound. Now the patient is being followed in the wound clinic and presented today for a wound check. The wound care nurse called the office with concerns about the patient having some abdominal pain and a bulge. I am now presenting to the wound clinic to evaluate the patient for these concerns. The patient has his wound exposed upon entering the room. He states that he has very mild abdominal discomfort on the left side of his abdomen at times. He would not even call this pain but states he can just feel that it is there. He denies any nausea, vomiting, fevers, chills, or constipation. He does complain that his stool is hard, but he is having bowel movements daily. He has already had one bowel movement this morning. His appetite has improved and he states he is eating all meals through the day and getting plenty of nutrition. He does feel like there is some distention on both sides of his abdominal wound at times but it goes down if he rests and pushes on it. No other complaints at this time. Wound approximation: No Wound width: (See wound care note measurements.) Drainage: minimal serosanguineous, no bilious drainage, no signs of EC fistula Surrounding tissue appearance: healthy, no signs of infection Tunneling: none Percentage granulation tissue: 100% Dressings: silver gel dressing changes daily with ABD pad and tape. Assessment and Plan Assessment and plan (1) Open abdominal wall wound: Code(s): S31.109A - Unspecified open wound of abdominal wall, unspecified quadrant without penetration into peritoneal cavity, initial encounter Status: Acute Assessment and Plan: Patient's abdominal wound continues to heal well. Continue silver gel dressing changes daily. EC fistula has closed. Suspicion for ventral hernia, which would not be unexpected following the abdominal surgeries he has had in the past 2 months. If this is a hernia as expected, it is soft and non-tender. There is no indication for any surgical intervention at this time. I discussed reasons to go to the ER, including worsening abdominal pain, nausea/
== END 2020-02-26 14:48 | disposition home or self-care (01) ==
PROVIDERS: PCP Family Medicine; Visit Provider Family Medicine
DX: K65.1 Peritoneal abscess (principal); A41.9 Sepsis, unspecified organism; U07.1 COVID-19; I71.4 Abdominal aortic aneurysm, without rupture
CPT/HCPCS: 74177; Q9967

== ENCOUNTER 2020-06-11 07:21 | Outpatient (RCR) | payer MEDICARE, SELFPAY ==
--- NOTE | 2020-02-23 12:39 | PCWOUND ---
WOCN NOTE Received call from patient family member canceling/ Patient is + with covid. She reports patient was moved from [place] [place] [facility] to [facility] due to Covid status. She also reports the wound e commerce project manager is leaking and needs changed. I placed call to [facility] and spoke to the wound care nurse Johnathan to inform him of patient wound needs per family. Family that called is Hedy Ibarra [phone].
--- NOTE | 2020-03-16 10:09 | PCWOUND ---
WOCN NOTE Placed call to patient to give direction to us an abdominal binder per Surgeon office.
[2020-03-16 15:12] VITALS: BMI 22.5
--- NOTE | 2020-07-08 07:31 | PCWOUND ---
WoCN NoTE patient called and canceled appointment for 07-09-20, states he is healed.
== END 2020-06-14 23:59 | disposition home or self-care (01) ==
LOC: ANHWOC 07:21
PROVIDERS: PCP Family Medicine Adolescent Medicine; Visit Provider Surgery
DX: T81.31XD Disruption of external operation (surgical) wound, not elsewhere classified, subsequent encounter (principal)
CPT/HCPCS: 99212; G0463

== ENCOUNTER 2020-11-10 08:05 | Outpatient (CLI) | payer MEDICARE, SELFPAY ==
--- NOTE | 2020-11-10 12:47 | WPDPFTINT ---
PFT Procedure Performed PFT Procedure Performed Spirometry with Pre/Post Bronchodilator Plethysmography (Lung Vol) Diffusing Cap (DLCO) Flow Vol Loop PFT Interpretation This is a pulmonary function test with pre and post-bronchodilator spirometry, plethysmography and diffusing capacity. The test was performed and results interpreted in accordance with the 2019 and 2005 ATS/ERS Task Force guidelines respectively using the Global Lung Function Initiative-2012 reference equations. Patient demonstrated good effort and cooperation. Reproducibility criteria were met. The quality of the pre bronchodilator spirometry maneuver was Grade B and post bronchodilator spirometry maneuver was Grade B. Findings: Spirometry: There is decreased maximal expiratory airflow at all lung volumes with concave expiratory flow tracing. The contour of the inspiratory flow tracing is normal. The pre bronchodilator FVC is 3.04 L, 79% predicted. The pre bronchodilator FEV1 is 1.78 L, 62% predicted. The FEV1: FVC ratio is 59%. The post bronchodilator FVC is 3.36 L, representing a 10% increase. The post bronchodilator FEV1 is 1.88 L, representing a 6% increase. Plethysmography: The total lung capacity is 6.05 L, 89% predicted. The functional residual capacity is 3.68 L, 100% predicted. The residual volume is 3.01 L, 119% predicted. Diffusing capacity: The absolute diffusion capacity is 18.5, 77% predicted. The diffusing capacity corrected for alveolar volume is 3.55, 94% predicted. Impression: There is a moderate obstructive abnormality without significant improvement after inhaling a single dose of albuterol. The lung volumes are normal. The diffusing capacity is normal. There are no prior studies for comparison
== END 2020-11-10 08:06 | disposition home or self-care (01) ==
PROVIDERS: PCP Family Medicine Adolescent Medicine; Visit Provider Family Medicine Adolescent Medicine
DX: R06.09 Other forms of dyspnea (principal); R94.2 Abnormal results of pulmonary function studies
CPT/HCPCS: 94060; 94726; 94729

== ENCOUNTER → 2020-12-22 08:06 | Outpatient (CLI) | payer MEDICARE, SELFPAY ==
--- NOTE | ~2020-12-22 | CT_ITS ---
EXAMINATION: CT abdomen pelvis wo con EXAM DATE: 12/22/2020 08:28 INDICATION: K43.2 - Incisional hernia without obstruction or gangrene. TECHNIQUE: Spiral CT of the abdomen and pelvis was performed without contrast. Axial, coronal and sag ittal images were reviewed. The dose-length product (DLP) for this examination was 819.12 mGy-cm. T he exposure was tailored according to patient size (auto mA exposure control), and iterative reconstr uction (ASIR) was used as additional dose reduction technique. Comparison is made to prior examinatio n from 02/26/2020. FINDINGS: There is interval increase in size of the mid abdominal aortic aneurysm now up to 4.4 cm (w as about 4.1 cm on prior study. There is supraumbilical abdominal wall diastases, dehiscence with non obstructive bowel bulging inside. There is no nephrolithiasis or hydronephrosis. There is a 10 mm lef t renal cyst. The prostate is unremarkable. The bladder is unremarkable. The liver, spleen, adrenal glands and pancreas are unremarkable. Gallbladder is unremarkable. No biliary obstruction. There is no retroperitoneal or pelvic lymphadenopathy. There is moderate scattered arteriosclerotic disea se. The appendix is not positively visualized. There is no pericecal inflammatory change to suggest appe ndicitis. There is 4 cm duodenal diverticulum. Bowel anastomosis sites. There is mild scattered col onic diverticulosis. There is no adjacent inflammatory change to suggest diverticulitis. There is ex pected amount of colonic stool. No free intraperitoneal gas. The heart is normal in size. There are no pericardial or pleural effusions. There is lingular lateral segmental atelectasis, more than on prior study. No obstructing endobronchial lesion is identified. Mild to moderate basilar emphysema . There are no osteoblastic or osteolytic lesions identified. IMPRESSION: 1. Abdominal wall diastases. 2. Mild increase in size of mid abdominal aortic aneurysm, now 4.4 cm. 3. Duodenal diverticulum. 4. Mild colonic diverticulosis. 5. Lingular lateral segmental atelectasis. 6. Emphysema. Reviewed, dictated and finalized at location A.
== END ==
PROVIDERS: PCP Family Medicine Adolescent Medicine; Visit Provider Surgery
DX: K43.2 Incisional hernia without obstruction or gangrene (principal); M62.08 Separation of muscle (nontraumatic), other site; I71.4 Abdominal aortic aneurysm, without rupture; K57.10 Diverticulosis of small intestine without perforation or abscess without bleeding; J98.11 Atelectasis; J43.9 Emphysema, unspecified
CPT/HCPCS: 74176

== ENCOUNTER 2021-10-28 13:48 | Outpatient (CLI) | payer MEDICARE, SELFPAY ==
--- NOTE | 2021-10-31 13:15 | WPDSIXMINUTE ---
Six Minute Walk Procedure Procedure Performed Pulmonary Stress Test (6 min walk) Six Minute Walk Six Minute Walk: This 6 minute walk test was carried out with the patient breathing ambient air. The pre walk oxyhemoglobin saturation was 93%. The patient walked over 274 m with no stops during testing. During the walk the oxyhemoglobin saturation remained over 91%. The perceived dyspnea on the Almas scale was 0.5 at baseline and increased to 2 at the end of the testing. Impression: No evidence of oxyhemoglobin desaturation on this testing.
== END 2021-10-28 13:49 | disposition home or self-care (01) ==
LOC: ANHPFT 13:49
PROVIDERS: PCP Family Medicine Adolescent Medicine; Visit Provider Internal Medicine Pulmonary Disease
DX: J40 Bronchitis, not specified as acute or chronic (principal); Z72.0 Tobacco use
CPT/HCPCS: 94618

== ENCOUNTER 2022-05-05 08:24 | Outpatient (CLI) | payer MEDICARE, SELFPAY ==
--- NOTE | ~2022-05-05 | CT_ITS ---
EXAMINATION: CTA abd aorta runoff DATE: 05/05/2022 10:01 INDICATION: Abdominal aortic aneurysm TECHNIQUE: Computed tomographic angiography (CTA) of the abdominal, pelvis, and both lower extremitie s was performed with 150 mL Omnipaque 350 intravenous contrast. Automated exposure control and iterat jake reconstruction technique were employed. The dose-length product was 847.70 mGy-cm. COMPARISON: CT abdomen pelvis dated 12/22/2020 FINDINGS: ABDOMINAL AORTA AND ITS BRANCHES: There is calcified atherosclerosis of the aorta and many of the other arteries. No hemodynamically si gnificant stenosis at the celiac, superior mesenteric or bilateral renal arteries. The proximal segme nt of the inferior mesenteric artery is thrombosed but reconstitutes more distally via collaterals. F usiform infrarenal abdominal aortic aneurysm which measures up to 4.6 x 4.5 cm in maximal diameter. T here appear to be small intimal flaps the proximal and distal margins of the aneurysm suggests this c ould represent sequela of a prior dissection. PELVIC VASCULATURE: There is severe, >70% stenosis at the distal right common iliac artery, the proximal right internal i liac artery and at the proximal and mid left external iliac artery. Moderate, 50-70% stenosis at the left common iliac, at the origin of the left internal iliac arteries and along the right external dasia ac artery. At both the left and right common iliac arteries the patent contrast opacified portions of the arteries appear to lie peripheral to a similar curvilinear atherosclerotic calcifications sugges ting these extend along false lumens related to prior dissection. RIGHT LOWER EXTREMITY: Mild stenosis at the right common femoral artery. Mild stenosis at the origin of the profunda femoral artery with no significant stenosis more distally. Moderate and severe stenoses in the proximal righ t femoral artery which occludes 6 cm caudal to the level of the tip of the lesser trochanter. There i s reconstitution of flow via collaterals in the popliteal artery approximately 11 cm 12 cm cephalad t o the level of the knee joint line. There is an additional severe stenosis proximal 9 cm cephalad to the knee joint line and mild to moderate stenosis in the more distal popliteal artery. The anterior t ibial artery is atretic and occludes at the level of the midcalf. Mild stenosis along the tibioperone al trunk and proximal posterior tibial artery. Both the posterior tibial and peroneal arteries run of f to below the ankle. LEFT LOWER EXTREMITY: Moderate stenosis at the left common femoral artery. No significant stenosis along the profunda femor al artery. Multifocal moderate to severe stenosis along the proximal superficial femoral artery which occludes 7 cm distal to the tip of the lesser trochanter. Small amount of contrast is seen arising f rom collaterals intermittently along the more distal superficial femoral and proximal popliteal arter ies with intervening segmental occlusions. Finally there is reconstitution of flow in the popliteal a rtery proximal 7 cm cephalad to the level of the knee joint line with an additional moderate to sever e stenosis near the level of the joint line. Severe stenosis at the origin of the atretic anterior ti bial artery which occludes at the mid calf. Mild stenosis along the tibioperoneal trunk and proximal posterior tibial artery. There is runoff to below the ankle along both the peroneal and posterior tib ial arteries. ADDITIONAL FINDINGS: Mild emphysema in the visualized right lower lung. There is elevation the left hemidiaphragm with mil d atelectasis at the small visualized portion of the left lower lobe at the posterior sulcus. This is inferior heart is normal. No pericardial or pleural effusion. Tiny calcified nodule at the left post erior sulcus as well as calcified liver nodule consistent with old granulomatous disease. Gallbladder , pancrea
[2022-05-05 09:42] LABS: Estimated Glomerular Filt Rate > 60
== END 2022-05-05 08:25 | disposition home or self-care (01) ==
PROVIDERS: PCP Family Medicine Adolescent Medicine; Visit Provider Internal Medicine Cardiovascular Disease
DX: I71.40 Abdominal aortic aneurysm, without rupture, unspecified (principal); I70.8 Atherosclerosis of other arteries
CPT/HCPCS: 75635; Q9967

== ENCOUNTER 2022-05-29 22:02 | Emergency (ER) | payer MEDICARE, SELFPAY ==
--- NOTE | ~2022-05-29 | XR_ITS ---
EXAMINATION: XR chest 2V Exam Date/Time: 05/29/2022 22:50 CDT HISTORY: htn, LEFT ARM PAIN Comparison: 02/09/2020, 01/25/2020; CTA 05/05/2022. RESULT: Lines, tubes, and devices: None. Lungs and pleura: Biapical pleural scarring. Enlarged central pulmonary arteries, as can be seen wit h pulmonary arterial hypertension. Emphysematous and senescent changes. Left basilar atelectasis/scar . Cardiomediastinal silhouette: Arch calcification. Left hemidiaphragm elevation. Other: No acute osseous or upper abdominal finding. IMPRESSION: No acute cardiopulmonary process. Reviewed, dictated and finalized at location K.
[2022-05-29 22:36] VITALS: BP 203/102; PULSE 81; RESP 20; TEMP 36.9; O2SAT 97
--- NOTE | 2022-05-29 22:40 | ECG_ITS ---
Measurements Intervals Prosperity Rate: 65 P: 65 IL: 169 QRS: 29 QRSD: 103 T: 29 QT: 363 QTc: 380 Interpretive Statements SINUS RHYTHM BASELINE ARTIFACT- I, II, III, AVR, AVL, AVF, V3, V6 NORMAL ECG COMPARED TO ECG 01/28/2020 13:14:29 NO SIGNIFICANT CHANGES Electronically Signed On 05-30-2022 0:44:44 CDT by Ashish Salguero D.O.
[2022-05-29 22:53] LABS: Basophils Percent Auto 0.6 % (0.2-1.2); Eosinophils Absolute Auto 0.3 K/mm3 (0-0.3); Eosinophils Percent Auto 3.7 % (0-4.4); Hematocrit 51.2 % (42.0-52.0); Immature Granulocyte Absolute 0.02 K/mm3 (0.00-0.031); Immature Granulocyte Percent A 0.3 % (0-0.5); Lymphocytes Absolute Auto 1.77 K/mm3 (0.9-3.2); Lymphocytes Percent Auto 25.9 % (18.3-44.2); Mean Corpuscular HGB Conc 33.2 g/dl (32-36); Mean Corpuscular Hemoglobin 30.4 pg (26-34); Mean Corpuscular Volume 91.4 fl (80-100); Mean Platelet Volume 11.8 fl (7.4-10.4); Monocytes Absolute Auto 0.6 K/mm3 (0.1-0.6); Monocytes Percent Auto 8.5 % (2.6-8.5); Neutrophils Absolute Auto 4.2 K/mm3 (1.3-6.7); Platelet Count Result 180 k/mm3 (150-375); Red Cell Distribution Width 13.6 % (11.5-14.5); White Blood Count 6.8 K/mm3 (4.5-10.0)
[2022-05-29 23:03] LABS: Alanine Aminotransferase 20 U/L (6-50); Albumin Level 4.5 g/dL (3.5-5.1); Alkaline Phosphatase 85 U/L (38-126); Anion Gap 9 mmol/L (8-16); Aspartate Amino Transferase 24 U/L (17-59); Blood Urea Nitrogen 19 mg/dL (9-20); Calcium 8.8 mg/dL (8.4-10.2); Carbon Dioxide 27 mmol/L (22-30); Chloride 103 mmol/L (98-107); Estimated CRCL calculation 49 ml/min; Estimated Glomerular Filt Rate > 60; Glucose 99 mg/dL (65-110); Lipase 60 U/L (23-300); Potassium 4.3 mmol/L (3.4-5.0); Sodium 139 mmol/L (137-145)
[2022-05-29 23:06] LABS: Prothrombin Time 13.2 Seconds (11.1-14.7)
[2022-05-29 23:07] LABS: Partial Thromboplastin Time 35.2 SECONDS (22.3-36.8)
[2022-05-29 23:14] LABS: Troponin I < 0.012 ng/mL (0.000-0.034)
[2022-05-30 02:00] VITALS: BP 161/75; PULSE 69; RESP 16; O2SAT 97
--- NOTE | 2022-05-30 02:00 | PC.NURSE ---
pt states his bp has been elevated today and he has had l arm cramping. denies any cp.
[2022-05-30 02:45] LABS: Troponin I < 0.012 ng/mL (0.000-0.034)
--- NOTE | 2022-05-30 02:48 | ED.GENADULT ---
HPI - General Adult General Chief complaint: Extremity Problem,Nontraumatic Stated complaint: left arm pain, HTN at home Time Seen by Provider: 05/30/22 01:42 History of Present Illness HPI narrative: Patient 76-year-old gentleman who presents the emergency department with chief complaint of left arm cramping. Patient reports that he has history of cardiac disease and has blockages in his heart that he is scheduled to have a procedure done at another hospital patient reports that today he was talking on the phone with his arm bent and started having cramping in his left bicep. The patient reports no chest pain no shortness of breath but decided since he does have cardiac disease he should come to the ER to be evaluated. The patient reports symptoms have improved and are essentially gone at this point Related Data Home Medications Medication Instructions Recorded Confirmed furosemide 20 mg tablet 20 mg PO QAM 10/06/20 12/15/21 metoprolol succinate 25 mg 25 mg PO DAILY 10/06/20 12/15/21 tablet,extended release 24 hr Allergies Allergy/AdvReac Type Severity Reaction Status Date / Time No Known Allergies Allergy Unknown NONE Verified 05/29/22 22:03 Review of Systems Review of Systems: A 10 system review of systems was completed on the patient and is negative except for what is stated in the HPI. Nursing and ancillary documentation was reviewed. [facility] Past Medical History Medical History Abnormal colonoscopy 04/02, polyps & adenoma AIVR (accelerated idioventricular rhythm) Altered mental status History of [place] (myocardial infarction) 02/05 Hypertension Thrombocytopenia Surgical History Surgical History History of appendectomy History of exploratory laparotomy 01/22/20 exploratory laparotomy, extensive of lysis of adhesion of approximately 30 minutes, closure of enterotomy x4, washout, placement of drains x2, fascial closure Family History Family History Mother Congestive heart failure Diabetes mellitus Acute myocardial infarction Heart disease Hypertension Father Chronic obstructive pulmonary disease Hypertension Malignant neoplasm of prostate Sibling Congestive heart failure Heart disease Hypertension Sibling Diabetes mellitus Hypertension Other Colon polyp Social History Social History Smoking packs per day: 1.5 Smoking cigarettes per day: 30.0 Years smoked: 60 Smoking pack-years: 90.00 Smoking status: Former smoker Tobacco type: cigarettes Smoking end date: 01/18/20 Alcohol intake: never Substance use: never Substance use type: does not use Living arrangements: alone Occupation/Education: retired Gender identity (if verbalized by the patient): Male Sexual Orientation (if Verbalized by the Patient): Straight or Heterosexual Spiritual care concerns: No Agree to blood products: Yes Exam Narrative: GENERAL: Well-appearing, well-nourished, and in no acute distress. HEAD: Normocephalic, atraumatic. EYES: PERRLA and EOMI. ENT: Nares clear, no rhinorrhea or epistaxis. Mucous membranes moist. NECK: Supple. CHEST: Clear to auscultation. No respiratory distress. HEART: Regular rate and rhythm. No murmur heard. Normal peripheral pulses. ABDOMEN: Soft, nontender, nondistended, normal active bowel sounds. EXTREMITIES: Normal range of motion. No edema. SKIN: Warm, dry, no rash. NEURO: No focal deficits. Alert and oriented x3. PSYCH: Normal mood and affect. Course Vital Signs Vital signs: Vital Signs Temperature 36.9 C 05/29/22 22:36 Pulse Rate 81 05/29/22 22:36 Respiratory Rate 20 05/29/22 22:36 Blood Pressure 203/102 H 05/29/22 22:36 Pulse Oximetry 97 05/29/22 22:36 Oxygen Delive
[2022-05-30 03:41] VITALS: BP 170/71; PULSE 69; RESP 18; O2SAT 97
== END 2022-05-30 03:42 | disposition home or self-care (01) ==
PROVIDERS: Emergency Provider Emergency Medicine; PCP Family Medicine Adolescent Medicine
DX: M79.602 Pain in left arm (principal); I11.9 Hypertensive heart disease without heart failure; I25.2 Old myocardial infarction; Z87.891 Personal history of nicotine dependence
CPT/HCPCS: 36415; 71046; 80053; 83690; 84484; 85025; 85610; 85730; 93005; 99284

== ENCOUNTER 2023-07-30 21:41 | Inpatient (IN) | payer MEDICARE, SELFPAY ==
--- NOTE | ~2023-07-30 | MR_ITS ---
EXAMINATION: MR brain/brain stem wo/w con DATE: 07/31/2023 12:42 INDICATION: Transient ischemic attack. TECHNIQUE: Magnetic resonance imaging (MRI) of the brain and brainstem was performed without and with 19 mL MultiHance intravenous contrast. COMPARISON: Head CT 07/30/2023 FINDINGS: There are patchy areas of acute infarct involving left frontal and parietal lobes and left insula. There is an old infarct in right occipital lobe with old blood products. There is no abnormal mass lesion. There are scattered areas of nonspecific increased T2-weighted signal intensity in the cerebral white matter. The ventricles are normal in size. The paranasal sinuses are clear. There are likely changes of left ocular lens replacement surgery. There is a trace right mastoid effusion. IMPRESSION: 1. Acute infarcts involving the left frontal and parietal lobes and left insula. 2. Old infarct in the right occipital lobe. 3. Moderate nonspecific cerebral white matter disease, which likely represents chronic small vessel i schemic disease. Reviewed, dictated and finalized at location A. IMPRESSION: 1. Acute infarcts involving the left frontal and parietal lobes and left insula . 2. Old infarct in the right occipital lobe. 3. Moderate nonspecific cerebral white matter disease, which likely represents chronic small vessel ischemic disease.
--- NOTE | ~2023-07-30 | XR_ITS ---
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 RESULT: Lines, tubes, and devices: None. Lungs and pleura: Biapical pleural scarring. Mild diffuse reticular opacities. Streaky left basilar o pacities likely representing atelectasis. Cardiomediastinal silhouette: Stable. Persistent left hemidiaphragm elevation and central pulmonary arterial dilation. Other: No acute osseous or upper abdominal finding. IMPRESSION: Mild interstitial edema. Reviewed, dictated and finalized at location K. IMPRESSION: Mild interstitial edema.
--- NOTE | ~2023-07-30 | US_ITS ---
EXAMINATION: US venous doppler [facility] DATE: 07/31/2023 13:46 INDICATION: Chest pain. Acute stroke. TECHNIQUE: Grayscale ultrasound images without and with compression and Doppler ultrasound images of the bilateral lower extremity veins were obtained. COMPARISON: Ultrasound 02/16/2020 FINDINGS: The visualized portions of right common femoral vein, profunda (deep) femoral vein, femoral vein, pop liteal vein, peroneal veins, posterior tibial veins, and greater saphenous vein outflow are patent. The visualized portions of left common femoral vein, profunda femoral vein, femoral vein, popliteal v ein, peroneal veins, posterior tibial veins, and greater saphenous vein outflow are patent. IMPRESSION: 1. No deep venous thrombosis. Reviewed, dictated and finalized at location A.
--- NOTE | ~2023-07-30 | CT_ITS ---
EXAMINATION: CTA brain carotid DATE: 07/30/2023 22:09 INDICATION: expressive aphasia TECHNIQUE: Computed tomographic angiography (CTA) of the head and neck was performed with 100 mL Omni paque-350 intravenous contrast. CTA of the neck was performed with intravenous contrast. Automated ex posure control and iterative reconstruction technique were employed. The dose-length product was 1107 .24 mGy-cm. Maximum intensity projection and volume rendered 3D-reconstructions were created by the t echnologist on a separate workstation. COMPARISON: CT brain, same date. FINDINGS: CTA HEAD: No large vessel occlusion, aneurysm, high flow vascular malformation, nidus or extravasation. Moderat e calcification of the cavernous carotids without significant stenosis. Hypoplastic left P1 segment w ith dominant flow through the posterior communicating artery. CTA NECK: Aortic arch and proximal great vessels: Normal arch anatomy. Mild arch calcifications, and wall thick ening/noncalcified plaque. Right common carotid, carotid bifurcation, and internal carotid artery: Calcified and noncalcified pl aque at the bifurcation.There is 80%% stenosis of the proximal right internal carotid artery relative to normal distal artery lumen diameter (NASCET criteria). Left common carotid, carotid bifurcation, and internal carotid artery: Left common carotid artery occ lusion beginning 1.7 cm distal to its origin, involving the internal carotid and origin of the credit control administrator al carotid artery, extending to the base of the skull at the beginning of the petrous portion of the left internal carotid. Moderate calcifications at the bifurcation. Vertebral arteries: Severe stenosis at the origin of the left vertebral artery. Right vertebral arter y is dominant, Other findings: None. IMPRESSION: No intracranial large vessel occlusion, high-grade intracranial stenosis, or aneurysm. Occlusion of the left common, internal, and external carotid arteries, with reconstitution of the int ernal carotid artery at the level of the petrous portion of the internal carotid. Severe (80%) stenosis of the origin of the right internal carotid artery Severe stenosis of the origin of the left vertebral artery. Results reported telephonically to Dr. Garcia by Dr. Ochoa at 10:28 PM on 07/30/2023. Reviewed, dictated and finalized at location K. IMPRESSION: No intracranial large vessel occlusion, high-grade intracranial stenosis, or an eurysm. Occlusion of the left common, internal, and external carotid arteries, with rec onstitution of the internal carotid artery at the level of the petrous portion of the internal carotid. Severe (80%) stenosis of the origin of the right internal carotid artery Severe stenosis of the origin of the left vertebral artery. Results reported telephonically to Dr. Garcia by Dr. Ochoa at 10:28 PM on 024.
--- NOTE | ~2023-07-30 | CT_ITS ---
EXAMINATION: CT brain wo con DATE: 07/30/2023 21:56 INDICATION: cva . TECHNIQUE: Computed tomography (CT) of the head was performed without intravenous contrast. The mA wa s adjusted according to patient size. Iterative reconstruction technique was employed. The dose-lengt h product was 681.00 mGy-cm. COMPARISON: None. FINDINGS: No acute intracranial hemorrhage or extra-axial fluid collection. No hydrocephalus, mass, or herniation. No acute ischemic infarct. Unremarkable dural venous sinus attenuation. No acute osseous abnormality. Right mastoid fluid, the remaining aerated spaces are clear. Moderate atrophy and chronic white matter change. Atherosclerotic intracranial calcification. Left le ns replacement. IMPRESSION: No acute intracranial process. Results reported telephonically to Dr. Garcia by Dr. Ochoa at 10:00 PM on 07/30/2023. Reviewed, dictated and finalized at location K. IMPRESSION: No acute intracranial process. Results reported telephonically to Dr. Garcia by Dr. Ochoa at 10:00 PM on 024.
[2023-07-30 21:42] VITALS: BP 161/93; PULSE 88; RESP 16; O2SAT 94
[2023-07-30 21:49] LABS: Glucose Point of Care 102 mg/dl (65-105)
[2023-07-30 22:01] LABS: Estimated Glomerular Filt Rate > 60
[2023-07-30 22:02] LABS: Basophils Percent Auto 0.5 % (0.2-1.2); Eosinophils Absolute Auto 0.2 K/mm3 (0-0.3); Eosinophils Percent Auto 2.6 % (0-4.4); Hemoglobin 16.3 g/dL (14.0-18.0); Immature Granulocyte Absolute 0.03 K/mm3 (0.00-0.031); Immature Granulocyte Percent A 0.4 % (0-0.5); Lymphocytes Absolute Auto 1.85 K/mm3 (0.9-3.2); Lymphocytes Percent Auto 23.1 % (18.3-44.2); Mean Corpuscular HGB Conc 32.6 g/dl (32-36); Mean Corpuscular Hemoglobin 29.7 pg (26-34); Mean Corpuscular Volume 91.2 fl (80-100); Monocytes Absolute Auto 0.7 K/mm3 (0.1-0.6); Monocytes Percent Auto 8.5 % (2.6-8.5); Neutrophils Absolute Auto 5.2 K/mm3 (1.3-6.7); Neutrophils Percent Auto 64.9 % (45.5-73.1); Platelet Count Result 182 k/mm3 (150-375); Red Blood Count 5.48 M/mm3 (4.6-6.20)
[2023-07-30 22:08] VITALS: BP 159/105; PULSE 77; RESP 16; TEMP 36.6; O2SAT 95
[2023-07-30 22:13] LABS: INR 1.1; Prothrombin Time 14.5 Seconds (11.1-14.7)
[2023-07-30 22:15] LABS: Partial Thromboplastin Time 35.3 Seconds (22.3-36.8)
[2023-07-30 22:20] LABS: Alanine Aminotransferase 14 U/L (6-50); Albumin Level 4.5 g/dL (3.5-5.1); Alkaline Phosphatase 90 U/L (38-126); Anion Gap 9 mmol/L (4-12); Aspartate Amino Transferase 18 U/L (17-59); Bilirubin,Total 1.4 mg/dL (0.2-1.3); Blood Urea Nitrogen 18 mg/dL (9-20); Calcium 9.3 mg/dL (8.4-10.2); Carbon Dioxide 29 mmol/L (22-30); Chloride 101 mmol/L (98-107); Estimated Glomerular Filt Rate > 60; Glucose 96 mg/dL (65-110); Potassium 4.1 mmol/L (3.4-5.0); Sodium 139 mmol/L (137-145)
[2023-07-30 22:21] VITALS: PULSE 83
[2023-07-30 22:32] LABS: Troponin I 0.019 ng/mL (0.000-0.034)
[2023-07-30 22:37] VITALS: BP 161/93; PULSE 85; RESP 19; O2SAT 96
--- NOTE | 2023-07-30 22:37 | ECG_ITS ---
SEE SCANNED COPY FOR CONFIRMED REPORT MTDD
--- NOTE | 2023-07-30 23:03 | ED.GENADULT ---
HPI - General Adult General Chief complaint: Neuro Symptoms/Deficit Stated complaint: speaking issues, high bp, facial drooping Time Seen by Provider: 07/30/23 21:59 History of Present Illness HPI narrative: This is an 78-year-old male presenting for possible stroke. At 8:00 p.m. tonight the patient developed expressive aphasia. He then came to the hospital for re-evaluation. When he arrived here he was asymptomatic. patient has no other complaints this time. Related Data Home Medications Medication Instructions Recorded Confirmed furosemide 20 mg tablet 20 mg PO QAM 10/06/20 06/01/23 metoprolol succinate 25 mg 25 mg PO DAILY 10/06/20 06/01/23 tablet,extended release 24 hr amlodipine 2.5 mg tablet 2.5 mg PO DAILY 12/06/22 06/01/23 mv-mn-folic 200 mcg-vit K 15 cap PO ONCE 06/01/23 06/01/23 mcg-lutein 5 mg-zeaxanthin 1 mg capsule (PreserVision AREDS 2 Plus Multivit) Allergies Allergy/AdvReac Type Severity Reaction Status Date / Time No Known Allergies Allergy Unknown NONE Verified 06/01/23 09:16 [facility] Past Medical History Medical History Abnormal colonoscopy 04/02, polyps & adenoma Acute prostatitis AIVR (accelerated idioventricular rhythm) Altered mental status History of [place] (myocardial infarction) 02/05 Hypertension Postoperative intra-abdominal abscess Thrombocytopenia Surgical History Surgical History History of appendectomy History of exploratory laparotomy 01/22/20 exploratory laparotomy, extensive of lysis of adhesion of approximately 30 minutes, closure of enterotomy x4, washout, placement of drains x2, fascial closure Family History Family History Mother Congestive heart failure Diabetes mellitus Acute myocardial infarction Heart disease Hypertension Father Chronic obstructive pulmonary disease Hypertension Malignant neoplasm of prostate Sibling Congestive heart failure Heart disease Hypertension Sibling Diabetes mellitus Hypertension Other Colon polyp Social History Social History Smoking packs per day: 1.5 Smoking cigarettes per day: 30.0 Years smoked: 60 Smoking pack-years: 90.00 Smoking status: Former smoker Tobacco type: cigarettes Smoking end date: 01/18/20 Alcohol intake: never Substance use: never Substance use type: does not use Lack of Transportation: No Lack of Food: Never True Current Housing: I Have Housing Concerned About Future Housing: No Difficulty Paying Gas/Electric Bills: No Difficulty Paying for Meds: No Currently Unemployed: No Education: Decline to Answer Difficulty w/ Childcare or Family Care: No Living arrangements: alone Occupation/Education: retired Gender identity (if verbalized by the patient): Male Sexual Orientation (if Verbalized by the Patient): Straight or Heterosexual Spiritual care concerns: No Agree to blood products: Yes Exam Narrative: APPEARANCE: No apparent distress. Head: atraumatic. EYES: EOMI, NOSE: Atraumatic NECK: Trachea midline RESPIRATORY: No increased rate of breathing CARDIOVASCULAR: RRR, ABDOMINAL: Non-distended MUSCULOSKELETAl: No obvious deformities NEURO: Alert. Cranial nerves 2-12 grossly intact. Sensation light touch, motor function cerebellar function intact for 4 extremities. Gait exam was normal. SKIN:: Warm, dry. Normal color PSYCHIATRIC: Normal affect NIH Stroke Scale/Score (NIHSS) from [email or web address] on 07/30/2023 All calculations should be rechecked by clinician prior to use RESULT SUMMARY: 0 points NIH Stroke Scale INPUTS: 1A: Level of consciousness ?> 0 = Alert; keenly responsive 1B: Ask month and age ?> 0 = Both questions right 1C: 'Blink eyes' & 'squeeze hands' ?> 0 = Performs both t
--- NOTE | 2023-07-30 23:10 | PM.IMHP ---
H&P: HPI History of Present Illness Date/Time: 07/30/23 23:10 Chief Complaint: speech disturbance Narrative: this is an 78-year-old male with past medical history significant for aortic aneurysm, hypertension, dyslipidemia, carotid artery disease. patient was brought to the emergency room after having episode of speech disturbance, word-finding difficulty. patient has been his usual state of health, denies any focal sensory motor deficits, no gait disturbance, no vision changes, no headache,no fevers ,no rigors ,no chills. patient has been placed in observation for further evaluation management and treatment EXAMINATION: CT brain wo con DATE: 07/30/2023 21:56 INDICATION: cva . TECHNIQUE: Computed tomography (CT) of the head was performed without intravenous contrast. The mA was adjusted according to patient size. Iterative reconstruction technique was employed. The dose-length product was 681.00 mGy-cm. COMPARISON: None. FINDINGS: No acute intracranial hemorrhage or extra-axial fluid collection. No hydrocephalus, mass, or herniation. No acute ischemic infarct. Unremarkable dural venous sinus attenuation. No acute osseous abnormality. Right mastoid fluid, the remaining aerated spaces are clear. Moderate atrophy and chronic white matter change. Atherosclerotic intracranial calcification. Left lens replacement. IMPRESSION:? No acute intracranial process. EXAMINATION: CTA brain carotid DATE: 07/30/2023 22:09 INDICATION: expressive aphasia TECHNIQUE: Computed tomographic angiography (CTA) of the head and neck was performed with 100 mL Omnipaque-350 intravenous contrast. CTA of the neck was performed with intravenous contrast. Automated exposure control and iterative reconstruction technique were employed. The dose-length product was 1107.24 mGy-cm. Maximum intensity projection and volume rendered 3D-reconstructions were created by the technologist on a separate workstation. COMPARISON: CT brain, same date. FINDINGS: CTA HEAD: No large vessel occlusion, aneurysm, high flow vascular malformation, nidus or extravasation. Moderate calcification of the cavernous carotids without significant stenosis. Hypoplastic left P1 segment with dominant flow through the posterior communicating artery. CTA NECK: Aortic arch and proximal great vessels: Normal arch anatomy. Mild arch calcifications, and wall thickening/noncalcified plaque. Right common carotid, carotid bifurcation, and internal carotid artery: Calcified and noncalcified plaque at the bifurcation.There is 80%% stenosis of the proximal right internal carotid artery relative to normal distal artery lumen diameter (NASCET criteria).? Left common carotid, carotid bifurcation, and internal carotid artery: Left common carotid artery occlusion beginning 1.7 cm distal to its origin, involving the internal carotid and origin of the external carotid artery, extending to the base of the skull at the beginning of the petrous portion of the left internal carotid. Moderate calcifications at the bifurcation. Vertebral arteries: Severe stenosis at the origin of the left vertebral artery. Right vertebral artery is dominant, Other findings: None. IMPRESSION: No intracranial large vessel occlusion, high-grade intracranial stenosis, or aneurysm. Occlusion of the left common, internal, and external carotid arteries, with reconstitution of the internal carotid artery at the level of the petrous portion of the internal carotid. Severe (80%) stenosis of the origin of the right internal carotid artery Severe stenosis of the origin of the left vertebral artery. EXAMINATION:? XR chest 1V portable Exam Date/Time:? 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 Comparison:? 05/29/2022. RESULT: Lines, tubes, and devices:? None. Lungs and pleura: Biapical pleural scarring. Mild diffuse reticular opacities. Streaky left basilar opacities likely representing atelectasis
[2023-07-30] MEDS: ASPIRIN 81 MG CHEWABLE TABLET 324 MG PO (23:45)
[2023-07-30 23:46] VITALS: BP 157/79; PULSE 77; RESP 19; O2SAT 95
[2023-07-30 23:55] VITALS: BP 150/74; PULSE 80; RESP 14; TEMP 36.7; O2SAT 95
[2023-07-31] VITALS (8 sets, daily range): BP systolic 108–155; BP diastolic 74–93; PULSE 56–100; RESP 12–22; TEMP 36.1–36.7; O2SAT 95–98; BMI 27.6; BMI 26.9
--- NOTE | 2023-07-31 00:31 | ECG_ITS ---
SEE SCANNED COPY FOR CONFIRMED REPORT MTDD
[2023-07-31] MEDS: NITROGLYCERIN SL 0.4 MG TABLET SUBLINGUAL (00:48)
[2023-07-31] MEDS: MORPHINE SULFATE (*CRX) 2 MG/ML INJ 1 MG IV PUSH (00:49)
[2023-07-31 01:38] LABS: Troponin I 0.047 ng/mL (0.000-0.034)
--- NOTE | 2023-07-31 02:07 | PC.NURSE ---
Addendum entered by Keegan Vidal RN 07/31/23 04:45: 0431 Lab called informing us that patients troponin has elevated to 0.352. MD Polanco made aware, Orders for Lovenox 1mg/kg, Cardiology consult, Q6 troponin timed for 0700 and a transfer to ICU entered. refrigeration supervisor made aware, patient transferring to ICU 9. SBAR completed and sent at 0455. Original Note: Patient arrived at 0010, at 0015 patients tele was reading v fib, V Tach. Patient was complaining of 7/10 chest pain and nausea. Charge Nurse Pepe was alerted and the MD Polanco was as well. Stat EKG was ordered. Stat Nitroglycerin 0.4mg one time, Stat morphine 1mg one time. Stat Troponin was ordered. Patient complaining of shortness of breath and was placed on 2L of oxygen. Vitals stable at this time. 0135 Patients troponin was 0.047 Md Polanco made aware, Trending troponins ordered with the first starting at 0400 Patient set off bed alarm at 0215, Patient was noted to have a facial droop and slurred speech and alerted mental status. Charge nurse was in the room assessing patient with me and alerted MD Polanco to come assess the patient bedside. When Collin arrived to the floor the patients symptoms resolved and he stated to the MD he wanted to use the bathroom and was assisted to the bathroom then to bed. Patient sat on the edge of bed and proceeded to ask question regarding his care and what the plan is. I spent 45 mins in the room talking to the patient and explaining the plan of care, his upcoming tests and answering any questions he had. I educated the patient on the use of his telemetry box and how we are monitoring him from the nurses station and will keep track of his troponin labs from now on to see how he is doing. Patient requested to sit in the chair, patient placed in chair, chair alarm was placed on and call fermin placed by the patient. Patient educated to call the nurses station and ask for help if he needs anything.
[2023-07-31 04:32] LABS: Troponin I 0.352 ng/mL (0.000-0.034)
--- NOTE | 2023-07-31 05:20 | PC.NURSE ---
Pt transfered from [facility] in be place on ICU monitor. Pt alert but having significant word finding. Denies pain at this time stood up to void in urinal . Steady gate with only standby by assistance and good motor function noted. Able follow commands.
--- NOTE | 2023-07-31 06:00 | ECHO_ITS ---
Patient Info Name: Jacob Tam Age: 78 years : 1945 Gender: Male Ht: 69 in Wt: 187 lbs BSA: 2.05 m2 HR: 59 bpm BP: 131 / 78 mmHg Heart Rhythm: Sinus Rhythm Technical Quality: Fair Exam Date: 07/31/2023 9:00 AM Exam Location: Echo Lab Patient Status: Outpatient Admit Date: 07/30/2023 Staff Ordering Physician: Zeb Garcia MD Maintenance Supervisor Mechanical: Sridevi Miner RDCS Attending Provider: Suki Polanco MD Referring Physician: Jose JENSEN; Exam Type: CA echo doppler color flow Study Info Indications - tia Complete two-dimensional, color flow and Doppler transthoracic echocardiogram is performed with agitated saline. Contrast/Agitated Saline Contrast/Ag. Saline: Agitated Saline Amount: --- ml Existing IV Access: Yes IV Access Condition: patent with no signs of infiltration Summary 1. Technically difficult study with limited views. 2. Left ventricular chamber dimension is normal. 3. Left ventricular systolic function is normal, estimated at 50-55%. 4. There is mildly increased left ventricular wall thickness. 5. The left ventricular diastolic function is grade I diastolic dysfunction. 6. Intact interatrial septum visualized by color flow and agitated saline imaging. Negative bubble study. 7. There is mild mitral valve regurgitation. Left Ventricle Left ventricular chamber dimension is normal. Left ventricular systolic function is normal, estimated at 50-55%. There is mildly increased left ventricular wall thickness. The left ventricular diastolic function is grade I diastolic dysfunction. Right Ventricle Right ventricular chamber dimension is not well visualized. Left Atria Left atrial chamber dimension is normal. Right Atria Right atrial chamber dimension is not well visualized. Atrial Septum Intact interatrial septum visualized by color flow and agitated saline imaging. Negative bubble study. Aortic Valve The aortic valve is not well visualized. There is no aortic valve stenosis. There is no aortic valve regurgitation. There is moderate aortic valve calcification. Pulmonic Valve The pulmonic valve is not well visualized. Mitral Valve There is mild mitral valve regurgitation. Tricuspid Valve There is trace tricuspid valve regurgitation. Pericardium/Pleural There is no pericardial effusion. Inferior Vena Cava Inferior vena cava is not well visualized. Aorta The aortic root size at the sinus of Valsalva is normal. Left Ventricular Outflow Tract Name Value Normal LVOT 2D LVOT Diameter 2.0 cm LVOT Doppler LVOT Peak Gradient 3 mmHg LVOT Mean Gradient 1 mmHg LVOT VTI 15 cm LVOT VTI/AV VTI Ratio 0.7 LVOT Stroke Volume 50 ml LVOT CO 3.2 l/min LVOT CI 1.6 l/min/m2 Pulmonic Valve Name Value Normal RVOT Doppler
[2023-07-31] MEDS: ENOXAPARIN 80 MG/0.8 ML SYRINGE SUB-Q (07:48)
[2023-07-31] MEDS: CLOPIDOGREL BISULFATE 75 MG TABLET PO (07:48)
--- NOTE | 2023-07-31 10:26 | PM.IMPN ---
Progress Note: A&P Assessment and Plan (1) Brain TIA: Code(s): G45.9 - Transient cerebral ischemic attack, unspecified Status: Acute (2) Carotid artery stenosis: Code(s): I65.29 - Occlusion and stenosis of unspecified carotid artery Status: Acute (3) COPD (chronic obstructive pulmonary disease): Qualifiers: COPD type: unspecified COPD Qualified Code(s): J44.9 - Chronic obstructive pulmonary disease, unspecified Code(s): J44.9 - Chronic obstructive pulmonary disease, unspecified Status: Acute Plan (1) Brain TIA: ?Code(s): G45.9 - Transient cerebral ischemic attack, unspecified ?Status:?Acute ?Assessment and Plan: ?admit to med tele ?CT angio of the brain and neck reviewed ?CT of the head reviewed ?MRI of the brain 1. Acute infarcts involving the left frontal and parietal lobes and left insula. 2. Old infarct in the right occipital lobe. 3. Moderate nonspecific cerebral white matter disease, which likely represents chronic small vessel ischemic disease. ?echocardiogram in a.m. ?neurochecks q.4 neurologist is consulted, management per neurologist (2) Carotid artery stenosis: ?Code(s): I65.29 - Occlusion and stenosis of unspecified carotid artery ?Status:?Acute ?Assessment and Plan: ?follow-up in outpatient setting following urologist consultation (3) COPD (chronic obstructive pulmonary disease): ?Qualifiers: ?COPD type:?unspecified COPD? Qualified Code(s):?J44.9 - Chronic obstructive pulmonary disease, unspecified ?Code(s): J44.9 - Chronic obstructive pulmonary disease, unspecified ?Status:?Acute ?Assessment and Plan: ? stable Chest pain ?once patient arrived to the floor complained of chest pain EKGShow the ST depression in I and avl, ST depression V3 to V6 d troponins were drawn troponin was elevated, trending up suspecting NSTEMI therapeutic Lovenox 1 milligram/kilos q.12 hour in the night, Also received aspirin 324 mg once Consult gift wrapper for evaluation treatment discontinue Lovenox per gift wrapper Subjective Date/time seen: 07/31/23 10:26 Interval history: I saw and and examined the patient in presents of patient's daughter. Per patient's daughter, patient had short memory, now patient is confused. patient is also noted to have slurred speech patient is oriented to his daughter. 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 when I saw exam patient, patient was able to hold both arms without drifting, and patient also was able to hold both lower extremities more than 10 seconds. patient denies chest pain abdomen pain Exam Narrative: GENERAL: Pleasant, in no acute distress. Well-nourished. - EYES: EOMI. Anicteric. - HENT: Moist mucous membranes. left facial droop - LUNGS: Clear to auscultation bilaterally, no wheezing, rhonchi, or rales. - CARDIOVASCULAR: Regular rate and rhythm. No murmur. No JVD. - ABDOMEN: Soft, non-tender and non-distended. No palpable masses. - EXTREMITIES: No edema. Peripheral pulses 2+. Non-tender. - NEUROLOGIC: No focal neurological deficits. CN II-XII grossly intact. - PSYCHIATRIC: Awake, Alert and oriented to person only. Appropriate mood and affect. - SKIN: No rashes or lesions. Warm. - LYMPH: No cervical lymphadenopathy. Objective Data Vital Signs Vital Signs: Vital Signs - 24 hr 07/30/23 22:08 07/30/23 22:21 07/30/23 21:42 Temperature 98 F Pulse Rate 77 83 88 Respiratory Rate 16 16 Blood Pressure 159/105 H 161/93 H Pulse Oximetry 95 94 Oxygen Delivery Room Air 07/30/23 22:37 07/30/23 23:46 07/30/23 23:55 Temperature 98.0 F Pulse Rate 85 77 80 Respiratory Rate 19 19 14 Blood Pressure 161/93 H 157/79 H 150/74 H Pulse Oximetry 96 95 95 Oxygen Delivery 07/31/23 00:51 07/31/23 03:09 07/31/23 06:00 Te
--- NOTE | 2023-07-31 11:55 | PM.CNCAR ---
Assessment and Plan Assessment and plan (1) Brain TIA: Code(s): G45.9 - Transient cerebral ischemic attack, unspecified Status: Acute Assessment and Plan: At the time of my evaluation, patient is having concerning focal neurological deficits. Patient has expressive aphasia at the time of my conversation with him. In addition, patient cannot move his right arm or right leg. However, a few minutes later, he was able to move his right arm. Per my discussion with the LINE TENDER, he has been having transient focal deficits since admission. Neurology has been consulted. Brain MRI is pending. I am going to stop his therapeutic Lovenox until the brain MRI is completed and rules out an acute CVA. Has been started on ASA, Plavix. I am going to start a high intensity statin. (2) Carotid artery stenosis: Code(s): I65.29 - Occlusion and stenosis of unspecified carotid artery Status: Acute Assessment and Plan: CTA Head and Neck shows occlusion of the left common, internal, and external carotid arteries, with reconstitution of the internal carotid artery at the level of the petrous portion of the internal carotid. There is severe 80% stenosis of the origin of the right internal carotid artery. There is severe stenosis of the origin of the left vertebral artery. ER had discussed these findings with [facility]. They recommended medical management with outpatient cerebral angiography and possible stenting. Has been started on ASA, Plavix. I am going to start a high intensity statin. (3) Elevated troponin: Code(s): R79.89 - Other specified abnormal findings of blood chemistry Status: Acute Assessment and Plan: EKGs show sinus rhythm, PVCs, mild-moderate diffuse ST depressions. Unfortunately, as our EKG system is down, we are unable to compare the EKG images to his prior ones in our system. Patient had reported chest pain yesterday. Initial troponin was negative at 0.019, followed by elevation at 0.047, 0.352, 0.860. Currently chest pain free. Difficult to elicit details regarding his episode of chest pain due to his expressive aphasia. Echocardiogram ordered and pending. At this time, his focal neurological deficits are quite concerning for an acute CVA. I am going to stop his therapeutic Lovenox until the brain MRI is completed and rules out an acute CVA. Has been started on ASA, Plavix. I am going to start a high intensity statin. (4) Hypertension: Qualifiers: Hypertension type: unspecified Qualified Code(s): I10 - Essential (primary) hypertension Code(s): I10 - Essential (primary) hypertension Status: Chronic Assessment and Plan: Stable. (5) Atherosclerosis of [place] arteries of extremities with intermittent claudication, bilateral legs: Code(s): I70.213 - Atherosclerosis of [place] arteries of extremities with intermittent claudication, bilateral legs Status: Acute Assessment and Plan: Stable. Continue dual antiplatelets, high-intensity statin. Follows with Dr. 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 (7) Abdominal aortic aneurysm, without rupture: Code(s): I71.4 - Abdominal aortic aneurysm, without rupture Status: Acute Assessment and Plan: Follows with Dr. Florian Sams with Vascular Surgery Plan Recommendations and plan were discussed with Hospitalist. History of Present Illness History of Present Illness Consult date/time: 07/31/23 11:55 Requesting physician: Pito Delgadillo MD Consult reason: Other (Elevated troponin) Reason For Visit: TIA Narrative: We are consulted for elevated troponin, chest pain. This is an 78 year old male with heart failure with preserved LVEF, hypertension, hyperlipidemia, NSTEMI, abdominal aorti
[2023-07-31 12:22] LABS: Cholesterol 94 mg/dL (0-200); HDL Direct 26 mg/dL; Triglycerides 107 mg/dL (<150)
[2023-07-31 12:33] LABS: LDL Cholesterol Direct 63 mg/dL
--- NOTE | 2023-07-31 13:01 | WPDNEURCNPN ---
Assessment and Plan Assessment and plan (1) Brain TIA: Code(s): G45.9 - Transient cerebral ischemic attack, unspecified Status: Acute (2) Carotid artery stenosis: Code(s): I65.29 - Occlusion and stenosis of unspecified carotid artery Status: Acute (3) Hypertension: Qualifiers: Hypertension type: unspecified Qualified Code(s): I10 - Essential (primary) hypertension Code(s): I10 - Essential (primary) hypertension Status: Chronic (4) Abdominal aortic aneurysm, without rupture: Code(s): I71.4 - Abdominal aortic aneurysm, without rupture Status: Acute Plan 1. Bihemispheric stroke with acute infarct involving the left frontal and parietal lobe and left insula in addition to old infarct in right occipital lobe and clinical neurological examination definitely abnormal as documented above. 2. Occlusion of the left common internal and external carotid arteries with reconstitution of the internal carotid artery at the level of the petrous bone in addition to severe stenosis that is 80% of the origin of the right internal carotid artery as well and severe stenosis of the origin of the left vertebral artery. Obviously he will need to have the stenting for which [place] has been contacted. In the meantime will be continued on clopidogrel and aspirin in addition to the atorvastatin. Consult date: 07/31/23 HPI: 78 years old has been admitted to [facility] Emergency Room where he presented with difficulties in speech and facial drooping along with the hypertension. As per the information available he has been taking multiple medications, has history of accelerated idioventricular rhythm with hypertension and thrombocytopenia, in addition to the history of ears smokes 60 with smoking pack years of 90 but former smoker initial evaluation in the emergency room revealed him to have vital signs normal with blood pressure 161/93, pulse ox of 94 and initial exam with expressive aphasia subsequently resolved and investigations included CTA which documented occlusion of the left carotid, 80% stenosis of the right carotid, severe stenosis of the left vertebral artery. Sent to see an inverse T stroke system was contacted who suggested high intensity statin dual antiplatelet therapy known emergent MRI and standard cerebrovascular risk reduction clinic was also contacted to arrange for the cerebral angiography and possible stenting at [facility]. His vital signs were with hypertension, CBC was normal, and routine lab studies were also normal he was continued on anti-platelet medications. Subsequently Cardiology consultation was obtained his EKG was with sinus rhythm mild to moderate diffuse STs segment depression and PVCs. PMFSH Past Medical History Medical History Abnormal colonoscopy 04/02, polyps & adenoma Acute prostatitis AIVR (accelerated idioventricular rhythm) Altered mental status History of UT (myocardial infarction) 02/05 Hypertension Postoperative intra-abdominal abscess Thrombocytopenia Surgical History Surgical History History of appendectomy History of exploratory laparotomy 01/22/20 exploratory laparotomy, extensive of lysis of adhesion of approximately 30 minutes, closure of enterotomy x4, washout, placement of drains x2, fascial closure Family History Family History Mother Congestive heart failure Diabetes mellitus Acute myocardial infarction Heart disease Hypertension Father Chronic obstructive pulmonary disease Hypertension Malignant neoplasm of prostate Sibling Congestive heart failure Heart disease Hypertension Sibling Diabetes mellitus Hypertension Other Colon polyp Social History Social History Smoking packs per day: 1.5 [place]
--- NOTE | 2023-07-31 21:31 | PC.NURSE ---
pt agitated and upset keeps repeating leave and shot. asked if pt would like to get up to the bedside commode. pt said no but he has to go. Pt assisted to bedside commode, right arm and leg weak than this am. pt sitting on bedside commode pass gas but still repeating he need a shot. Son upset understands that his dad is having difficulty finding words and frustrated he can not help him. Informed son that his father will not necessarily make sense. Pt only passed gas no BM. Assisted back to bed took small sip of water no coughing, but having difficulty with sipping through straw.
[2023-07-31] MEDS: DIPHENHYDRAMINE 1%/ZINC 0.1% CREAM 30 GM TUBE 1 APPLIC TOPICAL (22:57)
--- NOTE | 2023-07-31 23:06 | PC.NURSE ---
2030: RN alerted by family that the patient had a tick on his last lateral side. Family had removed the tick but the patient indicated that he was itchy. RN assessed the site. No tick was present but the area was reddened. Bullseye not present. RN obtained order for Benadryl cream. Care continues.
[2023-08-01] VITALS (8 sets, daily range): BP systolic 139–160; BP diastolic 76–79; PULSE 54–82; RESP 16–25; TEMP 36.4–36.7; O2SAT 93–99
[2023-08-01] MEDS: CLOPIDOGREL BISULFATE 75 MG TABLET PO (09:02)
[2023-08-01] MEDS: ATORVASTATIN 40 MG TABLET 80 MG PO (09:02)
--- NOTE | 2023-08-01 09:30 | PM.PNCARD ---
Progress Note: A&P Assessment and Plan (1) Acute CVA (cerebrovascular accident): Code(s): I63.9 - Cerebral infarction, unspecified Status: Acute Assessment and Plan: Initially presented as a TIA, and his symptoms had resolved while in the ED, however, then he continued to have persistent right-sided focal deficits and expressive aphasia. Brain MRI shows acute infarcts involving the left frontal parietal lobes and left insula, old infarct in the right occipital lobe, moderate nonspecific cerebral white matter disease which likely represents chronic small vessel ischemic disease. Neurology consulted and following along. On ASA, Plavix, statin. (2) Carotid artery stenosis: Code(s): I65.29 - Occlusion and stenosis of unspecified carotid artery Status: Acute Assessment and Plan: CTA Head and Neck shows occlusion of the left common, internal, and external carotid arteries, with reconstitution of the internal carotid artery at the level of the petrous portion of the internal carotid. There is severe 80% stenosis of the origin of the right internal carotid artery. There is severe stenosis of the origin of the left vertebral artery. ER had discussed these findings with [facility]roke team. They recommended medical management with outpatient cerebral angiography and possible stenting. However, when patient was in the ER, he was being treated for a TIA as his symptoms had resolved. However, now that he has an acute stroke, may need inpatient treatment. Has been started on ASA, Plavix. I started a high intensity statin. (3) Elevated troponin: Code(s): R79.89 - Other specified abnormal findings of blood chemistry Status: Acute Assessment and Plan: EKGs show sinus rhythm, PVCs, mild-moderate diffuse ST depressions. Unfortunately, as our EKG system is down, we are unable to compare the EKG images to his prior ones in our system. Patient had reported chest pain on 07/29. Initial troponin was negative at 0.019, followed by elevation at 0.047, 0.352, 0.860. Currently chest pain free. Difficult to elicit details regarding his episode of chest pain due to his expressive aphasia. Echocardiogram shows LVEF 50-55%, difficult to appreciate RWMA, cannot rule out RWMA due to technically difficult study. At this time, given acute CVA, I stopped his therapeutic Lovenox. Has not had recurrence of chest pain. Therefore, continue with medical management. Has been started on ASA, Plavix. I started a high intensity statin. (4) Hypertension: Qualifiers: Hypertension type: unspecified Qualified Code(s): I10 - Essential (primary) hypertension Code(s): I10 - Essential (primary) hypertension Status: Chronic Assessment and Plan: Stable. (5) Atherosclerosis of [place] arteries of extremities with intermittent claudication, bilateral legs: Code(s): I70.213 - Atherosclerosis of [place] arteries of extremities with intermittent claudication, bilateral legs Status: Acute Assessment and Plan: Stable. Continue dual antiplatelets, high-intensity statin. Follows with Dr. 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 (7) Abdominal aortic aneurysm, without rupture: Code(s): I71.4 - Abdominal aortic aneurysm, without rupture Status: Acute Assessment and Plan: Follows with Dr. Florian Sams with Vascular Surgery Plan Recommendations and plan discussed with Hospitalist. Subjective Date/time seen: 08/01/23 09:30 Interval history: Reason for visit: Chest pain, elevated troponin HPI: We are consulted for elevated troponin, chest pain. This is an 78 year old male with heart failure with preserved LVEF, hypertension, hyperlipidemia, NSTEMI, abdominal aortic aneurysm, severe peripheral vascular dise
[2023-08-01] MEDS: ASPIRIN 81 MG CHEWABLE TABLET PO (10:13)
--- NOTE | 2023-08-01 12:46 | PM.IMPN ---
Progress Note: A&P Assessment and Plan (1) Acute CVA (cerebrovascular accident): Code(s): I63.9 - Cerebral infarction, unspecified Status: Acute (2) Carotid artery stenosis: Code(s): I65.29 - Occlusion and stenosis of unspecified carotid artery Status: Acute Plan 78-year-old male with past medical history heart failure preserved ejection fraction, hypertension, hyperlipidemia, NSTEMI, abdominal aortic aneurysm, severe peripheral vascular disease presented to [place] [facility] on 07/29 for expressive aphasia. On arrival to ER he was noted to be asymptomatic and CT head was negative. CTA head and neck showed occlusion/stenosis of the bilateral carotids along with severe stenosis of the origin of the left vertebral artery and due to this Dr. See of the [facility] stroke team was consulted from the ER and he recommended no escalation of care. On 07/30 the patient noted to have right-sided deficits including the face arm and leg along with worsening expressive aphasia. On 07/31 I have assumed care. Patient's deficits are certainly significant, seems his stroke is evolving. Due to complaint of chest pain on admission cardiology was consulted and patient was placed on therapeutic anticoagulation. Cardiology feels ACS is unlikely and therapeutic anticoagulation has been discontinued. Currently he is on aspirin Plavix and high-dose statin with 80 mg atorvastatin q.day. Due to the apparent deficits and the severe bilateral carotid disease along with stenosis of the origin of the left vertebral artery I again contacted Dr. See. He has graciously accepted the patient to be transferred to their stroke unit for intense monitoring and possible procedural intervention. He has recommended we institutes permissive hypertension. The patient has a history of hypertension and takes Lasix amlodipine and metoprolol at home which we will hold for now. I have consulted speech therapy and PT OT. Dr. See has suggested if the stroke is very large the patient be airlifted. Upon my own read the lesions do not appear very large however I asked Dr. See he review the images as well which are being pushed over now. They will call when a bed is available or if they feel any changes need to be made in terms of the timeline of his transport. Continue neurochecks Q 4. FEN: Heart healthy diet. Speech therapy evaluation pending. Saline lock IV. GI prophylaxis: Not indicated DVT prophylaxis: SCDs Lines: Peripheral IV Code Status: Full code Dispo: Stable in ICU with telemetry as overflow. Subjective Date/time seen: 08/01/23 12:46 Interval history: Patient's son is at bedside. The patient has a severe expressive aphasia and is very difficult to understand. Addition, he appears very agitated and tells me to get the out of the room . Later on he was calm after I told him I had him accepted to [facility] for stroke monitoring and possible intervention. Review of Systems Review of Systems: All systems reviewed & are unremarkable except as noted in HPI and below (Subjective) Exam Const: General: comfortable and no acute distress Other: Due to verbal aggression and aggressive mannerisms the examination was deferred. He however has obvious weakness of his right side and right facial droop. He has a severe expressive aphasia and cannot complete full sentences. He uses the word shot as a filler word. Objective Data Vital Signs Vital Signs: Vital Signs - 24 hr 07/31/23 16:00 07/31/23 16:00 07/31/23 20:00 Temperature 97.6 F Pulse Rate 56 L 56 L 70 Respiratory Rate 16 Blood Pressure 138/93 H Pulse Oximetry 98 Oxygen Delivery 07/31/23 20:00 07/31/23 20:00 08/01/23 00:00 Temperature 97.0 F L Pulse Rate 70 71 Respiratory Rate 20 Blood Pressure 138/86 Pulse Oximetry 96 Oxygen Delivery Room Air 08/01/23 04:00 08/01/23 04:00 08/01/23 07:51 Temperature 98.0 F 97.6 F Pulse Rate 54 L 54 L 66
--- NOTE | 2023-08-01 13:24 | PCSTNOTE ---
Please refer to the Bedside Swallow Evaluation in the EMR. Please note, silent aspiration cannot be ruled out at bedside.
--- NOTE | 2023-08-02 07:28 | PM.TDS ---
Transfer Discharge Sum: Prov Provider Date of admission: 08/01/23 09:34 Primary care physician: Carroll Pepe MD Admitting clinician: Suki Polanco MD Attending physician on admission: Suki Polanco Consults: 07/30/23 23:18 Consult to Physician Routine Comment: Consulting Provider: Devika Espinoza Reason for consultation: TIA Has provider been notified: No 07/31/23 Consult to Physician Routine Comment: Consulting Provider: Porfirio Ramirez Reason for consultation: Elevated troponin 0.352 Has provider been notified: Yes Consult to Physician Routine Comment: spoke with Shanell Darden @1043(,) Consulting Provider: Shanell Darden call center analyst/MD group to consult: on-call senior reservoir engineer Reason for consultation: chest pain, NSTEMI? Has provider been notified: Yes Consult to Physician Routine Comment: stroke symptoms Consulting Provider: Enrique Watkins Reason for consultation: stroke symptoms Has provider been notified: Yes Attending physician on discharge: Alisha Wilburn Discharging clinician: Alisha Wilburn Anticipated date of transfer: 08/01/23 Receiving physician/facility: [facility] with Dr. See DS: Admitting Diagnosis Discharge Date 08/01/23 Admitting Diagnosis Aphasia DS: Discharge Diagnosis Discharge Diagnosis (1) Acute CVA (cerebrovascular accident): Code(s): I63.9 - Cerebral infarction, unspecified Status: Acute Transfer Discharge Sum: Med Medications Active and Home Medications: Home Medications aspirin 81 mg chewable tablet (Children's Aspirin) 81 mg PO DAILY@0800 #30 tabs 02/16/20 [Rx Confirmed 07/31/23] atorvastatin 40 mg tablet 40 mg PO DAILY #30 tabs 02/16/20 [Rx Confirmed 07/31/23] furosemide 20 mg tablet 20 mg PO QAM 10/06/20 [History Confirmed 07/31/23] metoprolol succinate 25 mg tablet,extended release 24 hr 25 mg PO DAILY 10/06/20 [History Confirmed 07/31/23] amlodipine 2.5 mg tablet 2.5 mg PO DAILY 12/06/22 [History Confirmed 07/31/23] Transfer Discharge Sum: Hosp Hospital Course Hospital course: Jacob Tam is a 78 year old male. He has a history of heart failure preserved ejection fraction hypertension, hyperlipidemia, NSTEMI, abdominal aortic aneurysm, severe peripheral vascular disease followed by Dr. Florian Sams with vascular surgery. He presents with sudden onset of expressive aphasia around 8:00 p.m. on the day of admission 07/31/2023. [facility] evaluation revealed the patient to be asymptomatic at the time and a CT head was negative however CT head and neck demonstrated occlusion of the left common, internal, and external carotid arteries with reconstitution of the internal carotid artery at the level of the petrous portion of the internal carotid. As well, severe 80% stenosis of the origin of the right internal carotid artery and severe stenosis of the origin of the left vertebral artery. Due to this Dr. See the [facility] stroke team was contacted and he did not recommend escalation of care to the patient's asymptomatic status at that time. Recommended medical management with outpatient cerebral angiography and possible stenting. The patient was subsequently admitted. Cardiology was consulted as the patient reported chest pain prior to admission. However, upon their evaluation he did not have chest pain. Surface echocardiogram demonstrated a LVEF 50-55% and difficult to appreciate RWMA. Therapeutic Lovenox was stopped which was started on admission. Patient was then placed on aspirin Plavix and high-intensity statin. On the 2nd full day of admission 08/01/2023 the patient developed severe expressive aphasia, right-sided facial droop, right-sided arm and leg weakness. Concurrently a brain MRI was conducted which demonstrated acute infarcts in the left frontal and parietal lobes and left insula, old infarct in the right occipital lobe and moderate nonspecific cerebral white matter disease. Dr. See contacted again an
== END 2023-08-01 19:15 | disposition short-term general hospital (02) | DRG 64 ==
LOC: ANHED 23:27 → ANH3MEDSUR 23:38 → ANHICU 07-31 05:13
PROVIDERS: Emergency Medicine; Internal Medicine; Admitting Provider Internal Medicine; Emergency Provider Emergency Medicine; PCP Family Medicine Adolescent Medicine; Visit Provider General Practice
DX: I63.9 Cerebral infarction, unspecified (principal); I21.4 Non-ST elevation (NSTEMI) myocardial infarction; G81.91 Hemiplegia, unspecified affecting right dominant side; I50.32 Chronic diastolic (congestive) heart failure; R29.810 Facial weakness; R47.01 Aphasia; I11.0 Hypertensive heart disease with heart failure; I65.23 Occlusion and stenosis of bilateral carotid arteries; I65.02 Occlusion and stenosis of left vertebral artery; I73.9 Peripheral vascular disease, unspecified; R29.700 NIHSS score 0; R29.703 NIHSS score 3; J44.9 Chronic obstructive pulmonary disease, unspecified; I71.40 Abdominal aortic aneurysm, without rupture, unspecified; D69.6 Thrombocytopenia, unspecified; I25.2 Old myocardial infarction; Z87.891 Personal history of nicotine dependence; Z79.82 Long term (current) use of aspirin
CPT/HCPCS: 36415; 70450; 70496; 70498; 70553; 71045; 80053; 80061; 82948; 84443; 84484; 85025; 85610; 85730; 92610; 93005; 93306; 93970; 96372; 96374; 99285; A9270; A9577; G0378; J1650; J2270; Q9967

== ENCOUNTER 2023-09-30 18:25 | Inpatient (IN) | payer MEDICARE, SELFPAY ==
--- NOTE | ~2023-09-30 | XR_ITS ---
XR chest 2V 10/06/2023 10:37 Indication: Shortness of breath Procedure: 2 view chest Comparison: Comparison to multiple prior studies sequentially, with oldest reviewed study dated 01/18. Findings: There is pulmonary edema. Bilateral pleural effusions. No pneumothorax. Stable cardiomedias tinal silhouette. No acute osseous abnormality. Impression: 1: Pulmonary edema. Cannot exclude superimposed pneumonia. 2: Small pleural effusions. Reviewed, dictated and finalized at location [facility]. Impression: 1: Pulmonary edema. Cannot exclude superimposed pneumonia. 2: Small pleural effusions.
--- NOTE | ~2023-09-30 | XR_ITS ---
Portable chest x-ray Comparison: 07/30/2023 Clinical History: Hypoxia Findings: Minimal pleural effusions are present. Extensive groundglass and interstitial disease is w orsened from prior exam. Cardiomediastinal silhouette is stable. Bones and soft tissues are unremark able. Impression: Extensive groundglass and interstitial pulmonary disease. Findings probably represent mixed alveolar/ interstitial pulmonary edema. Correlate for other chronic interstitial disease which is significantly worsened from prior exam. Small pleural effusions. Reviewed, dictated and finalized at location . Impression: Extensive groundglass and interstitial pulmonary disease. Findings probably rep resent mixed alveolar/interstitial pulmonary edema. Correlate for other chronic interstitial disease which is significantly worsened from prior exam. Small pleural effusions.
--- NOTE | ~2023-09-30 | CT_ITS ---
CT of the Abdomen and Pelvis: Indication: Nausea, large hernia Technique: 2.5 mm axial scans were obtained through the abdomen and pelvis following intravenous adm inistration of 100 cc of Omnipaque 350. Dose reduction technique was used on this scan by utilizing a utomated exposure control and iterative reconstruction technique. The dose-length product (DLP) was 6 62.99 mGy-cm. COMPARISON: 05/05/2022 Findings: Scans through the lung bases demonstrate small right pleural effusion, and mild bibasilar atelectatic change. Probable mild emphysema at the lung bases.. The liver, spleen, pancreas, gallbladder, adrenals and kidneys are within normal limits. 5.2 cm infra renal abdominal aortic aneurysm present, with extensive mural thrombus. There is extensive atheroscle rotic calcification of the common iliac arteries, with extensive mural thrombus and possible focal oc clusions bilaterally. Additional severe atherosclerotic change of the bilateral external iliac arteri es. No lymphadenopathy. Large wide necked ventral/umbilical hernia is present, containing multiple small bowel loops. No chapincito l obstruction or bowel wall thickening. Images through the pelvis were performed. Urinary bladder unremarkable. No pelvic mass seen. No ascit es. Impression: Small right pleural effusion with probable emphysema at the lung bases. 5.2 cm infrarenal abdominal aortic aneurysm. Extensive, severe atherosclerotic disease of the aorta, common iliac arteries, and external iliac art eries. Severe stenoses and/or focal occlusions involving the common iliac arteries and external iliac arteries bilaterally. Correlate with any relevant patient's symptomatology. Large wide necked ventral/umbilical hernia containing multiple small bowel loops, similar to prior ex am. No bowel obstruction or bowel wall thickening. Reviewed, dictated and finalized at [facility]. Impression: Small right pleural effusion with probable emphysema at the lung bases. 5.2 cm infrarenal abdominal aortic aneurysm. Extensive, severe atherosclerotic disease of the aorta, common iliac arteries, and external iliac arteries. Severe stenoses and/or focal occlusions involving the common iliac arteries and external iliac arteries bilaterally. Correlate wi th any relevant patient's symptomatology. Large wide necked ventral/umbilical hernia containing multiple small bowel loop s, similar to prior exam. No bowel obstruction or bowel wall thickening.
[2023-09-30 18:28] VITALS: BP 120/60; PULSE 89; RESP 20; TEMP 36.1; O2SAT 96
--- NOTE | 2023-09-30 20:08 | ECG_ITS ---
Test Date: 2023-09-30 20:24:33 Measurements Intervals [place] Rate: 79 P: 60 AK: 178 QRS: 57 QRSD: 118 T: 30 QT: 366 QTc: 421 Interpretive Statements SINUS RHYTHM POSSIBLE LEFT ATRIAL ENLARGEMENT INTRAVENTRICULAR CONDUCTION DELAY CANNOT R/O SEPTAL INFARCT, AGE INDETERMINATE ST-T WAVE ABNORMALITY IN LATERAL LEADS- CONSIDER ISCHEMIA BASELINE ARTIFACT- V1, V4-V6 ABNORMAL ECG No previous ECG available for comparison Electronically Signed On 10-01-2023 08:24:32 CDT by Ashish Salguero D.O.
[2023-09-30 20:12] VITALS: BP 111/75; PULSE 77; RESP 20; O2SAT 99
[2023-09-30 20:17] LABS: Basophils Percent Auto 0.4 % (0.2-1.2); Eosinophils Absolute Auto 0.1 K/mm3 (0-0.3); Eosinophils Percent Auto 0.7 % (0-4.4); Hematocrit 44.2 % (42.0-52.0); Hemoglobin 14.6 g/dL (14.0-18.0); Immature Granulocyte Absolute 0.03 K/mm3 (0.00-0.031); Immature Granulocyte Percent A 0.4 % (0-0.5); Lymphocytes Absolute Auto 0.88 K/mm3 (0.9-3.2); Lymphocytes Percent Auto 10.9 % (18.3-44.2); Mean Corpuscular Hemoglobin 30.5 pg (26-34); Mean Corpuscular Volume 92.3 fl (80-100); Mean Platelet Volume 11.8 fl (7.4-10.4); Monocytes Absolute Auto 0.7 K/mm3 (0.1-0.6); Monocytes Percent Auto 8.6 % (2.6-8.5); Neutrophils Absolute Auto 6.4 K/mm3 (1.3-6.7); Platelet Count Result 204 k/mm3 (150-375); Red Blood Count 4.79 M/mm3 (4.6-6.20); Red Cell Distribution Width 14.4 % (11.5-14.5); White Blood Count 8.1 K/mm3 (4.5-10.0)
--- NOTE | 2023-09-30 20:18 | ED_ITS ---
HPI - Abdominal Pain General Chief Complaint: Abdominal Pain <Oleksandr Samuel MD - Last Filed: 10/05/23 12:29> Stated Complaint: indigestion x3 days <Oleksandr Samuel MD - Last Filed: 10/05/23 12:29> Time Seen by Provider: 09/30/23 20:01 <Oleksandr Samuel MD - Last Filed: 10/05/23 12:29> History of Present Illness HPI narrative: 78-year-old male presenting to the emergency department for evaluation for 3 days of nausea. Patient denies any associated chest pain. Patient does have baseline shortness of breath. Patient states that he has still been moving his bowels and denies any constipation or diarrhea. Patient states he did try taking Tums today with no improvement. patient does have a large ventral hernia. <Oleksandr Samuel MD - Last Filed: 10/05/23 12:29> Related Data Home Medications: Home Medications Medication Instructions Recorded Confirmed aspirin 81 mg chewable tablet 81 mg PO DAILY 08/07/23 10/01/23 polyethylene glycol 3350 17 17 g PO DAILY PRN Constipation 08/07/23 10/01/23 gram/dose oral powder sennosides 8.6 mg-docusate sodium 2 tablet PO DAILY 08/07/23 10/01/23 50 mg tablet (Senna-S) <Oleksandr Samuel MD - Last Filed: 10/05/23 12:29> Allergies/Adverse Reactions: Allergies Allergy/AdvReac Type Severity Reaction Status Date / Time No Known Allergies Allergy Unknown NONE Verified 08/07/23 19:30 <Oleksandr Samuel MD - Last Filed: 10/05/23 12:29> Review of Systems Review of Systems: All systems reviewed & are unremarkable except as noted in HPI and below <Oleksandr Samuel MD - Last Filed: 10/05/23 12:29> [facility] Past Medical History Medical History: Medical History Abnormal colonoscopy 04/02, polyps & adenoma Acute prostatitis AIVR (accelerated idioventricular rhythm) Altered mental status History of NH (myocardial infarction) 02/05 Hypertension Postoperative intra-abdominal abscess Thrombocytopenia <Oleksandr Samuel MD - Last Filed: 10/05/23 12:29> Surgical History Surgical History: Surgical History History of appendectomy History of exploratory laparotomy 01/22/20 exploratory laparotomy, extensive of lysis of adhesion of approximately 30 minutes, closure of enterotomy x4, washout, placement of drains x2, fascial closure <Oleksandr Samuel MD - Last Filed: 10/05/23 12:29> Family History Family History: Family History Mother Congestive heart failure Diabetes mellitus Acute myocardial infarction Heart disease Hypertension Father Chronic obstructive pulmonary disease Hypertension Malignant neoplasm of prostate Sibling Congestive heart failure Heart disease Hypertension Sibling Diabetes mellitus Hypertension Other Colon polyp <Oleksandr Samuel MD - Last Filed: 10/05/23 12:29> Social History Social History: Social History Smoking packs per day: 2 Smoking cigarettes per day: 40.0 Years smoked: 55 Smoking pack-years: 110.00 Smoking status: Former smoker Tobacco type: cigarettes Smoking end date: 01/18/20 Alcohol intake: never Substance use: never Substance use type: does not use Do You Feel Safe in your Home?: Yes Lack of Transportation: YES Lack of Food: Never True Current Housing: I Have Housing Concerned About Future Housing: No Difficulty Paying Gas/Electric Bills: No Difficulty Paying for Meds: No Currently Unemployed: No Education: High School Diploma/GED Difficulty w/ Childcare or Family Care: No Living arrangements: alone Occupation/Education: retired Gender identity (if verbalized by the patient): Male Sexual Orientation (if Verbalized by the Patient): Straight or Heterosexual Spiritual care concerns: No Agree to blood products: Yes <Oleksandr Samuel MD - Last Filed: 10/05/23 12:29> Exam Narrative: APPEARANCE: Well appearing, no pain, no distress, well-nourished. HEAD: normocephalic, atraumatic. EYES: PERRLA/EOMI, conjunctivae clear. NOSE: Normal no drainage EARS:TMS clear with good light reflex. THROAT: Pharynx clear, no exudate. NECK: Supple. No adenopathy, no masses. RESPIRATORY: Airway patent, respirations nonlabored. Clear to auscultation bilaterally, no rales, rhonchi, wheezing. CARDIOVASCULAR: Regular rate and rhythm without murmurs rubs or gallops. ABDOMINAL: Large ventral hernia that is reducible, no tenderness to palpation MUSCULOSKELETAL: Moves all extremities. Strength/ROM intact, No edema, No calf tenderness. NEURO: Alert. Cranial nerves II through XII intact. Good gait. Good coordination SKIN: Warm, dry. Normal Color <Oleksandr Samuel MD - Last Filed: 10/05/23 12:29> Course Course Emergency Course: Emergency Course: 1943: Patient is still awaiting bed at [facility]. He has been on heparin for his non ST-elevation NH. I have re-contacted cardiology who is comfortable consulting on the patient. Patient will be admitted to the hospitalist service while we wait for a bed at [facility]. <Oliver Smart MD - Last Filed: 10/02/23 13:54> Vital Signs Vital signs: Vital Signs Temperature 97 F L 09/30/23 18:28 Pulse Rate 89 09/30/23 18:28 Respiratory Rate 09/30/23 18:28 Blood Pressure 120/60 09/30/23 18:28 Pulse Oximetry 96 09/30/23 18:28 Oxygen Delivery Room Air 09/30/23 18:28 Temperature 97.9 F 10/05/23 11:36 Pulse Rate 101 H 10/05/23 11:36 Respiratory Rate 10/05/23 11:36 Blood Pressure 105/77 10/05/23 11:36 Pulse Oximetry 98 10/05/23 11:36 Oxygen Delivery Nasal Cannula 10/05/23 08:00 Oxygen Flow Rate 2 10/05/23 08:00 Fraction of Inspired Oxygen 10/04/23 07:18 <Oleksandr Samuel MD - Last Filed: 10/05/23 12:29> Vital Signs Temperature 97 F L 09/30/23 18:28 Pulse Rate 89 09/30/23 18:28 Respiratory Rate 20 09/30/23 18:28 Blood Pressure 120/60 09/30/23 18:28 Pulse Oximetry 96 09/30/23 18:28 Oxygen Delivery Room Air 09/30/23 18:28 Temperature 97.9 F 10/05/23 11:36 Pulse Rate 101 H 10/05/23 11:36 Respiratory Rate 10/05/23 11:36 Blood Pressure 105/77 10/05/23 11:36 Pulse Oximetry 98 10/05/23 11:36 Oxygen Delivery Nasal Cannula 10/05/23 08:00 Oxygen Flow Rate 2 10/05/23 08:00 Fraction of Inspired Oxygen 28 10/04/23 07:18 <Oliver Smart MD - Last Filed: 10/02/23 13:54> MDM - Abdominal Pain MDM Narrative Medical decision making narrative: 78-year-old male presenting to the emergency department for evaluation for nausea for the last 3 days. Patient's EKG showed no significant ST changes. Patient had an elevated initial troponin. 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 Discussed case with the licensed marriage and family therapist at [place] he was comfortable with the planned to start the patient on heparin for an NSTEMI and for the mural thrombus. Hospitalist prefer the patient be transferred to higher level of care due to the infrarenal aneurysm. I discussed the case with the hospitalist at [facility] and patient was accepted for transfer for NSTEMI. Patient family were updated on the results of the workup and need for transfer. <Oleksandr Samuel MD - Last Filed: 10/05/23 12:29> Differential Diagnosis Differential diagnosis: Likely abdominal pain, acute appendicitis, calculus of kidney, constipation, diverticulitis, gastroenteritis, pancreatitis, small bowel obstruction and other <Oleksandr Samule MD - Last Filed: 10/05/23 12:29> Lab Data Attestation: I reviewed the patient's lab results. <Oleksandr Samuel MD - Last Filed: 10/05/23 12:29> Result diagrams: 10/05/23 04:00 10/05/23 04:00 <Oleksandr Samuel MD - Last Filed: 10/05/23 12:29> Labs: Lab Results 09/30/23 09/30/23 09/30/23 Range/Units 20:10 20:10 20:10 WBC 8.1 (4.5-10.0) K/mm3 RBC 4.79 (4.6-6.20) M/mm3 Hgb 14.6 (14.0-18.0) g/dL Hct 44.2 (42.0-52.0) % MCV 92.3 (80-100) fl MCH 30.5 (26-34) pg MCHC 33.0 (32-36) g/dl RDW 14.4 (11.5-14.5) % Plt Count 204 (150-375) k/mm3 MPV 11.8 H (7.4-10.4) fl Immature Gran % (Auto) 0.4 (0-0.5) % Neut % (Auto) 79.0 H (45.5-73.1) % Lymph % (Auto) 10.9 L (18.3-44.2) % [place] % (Auto) 8.6 H (2.6-8.5) % Eos % (Auto) 0.7 (0-4.4) % Baso % (Auto) 0.4 (0.2-1.2) % Lymph # (Auto) 0.88 L (0.9-3.2) K/mm3 [place] # (Auto) 0.7 H (0.1-0.6) K/mm3 Eos # (Auto) 0.1 (0-0.3) K/mm3 Baso # (Auto) 0.0 (0.0-0.1) K/mm3 Abs Immat Gran (auto) 0.03 (0.00-0.031) K/mm3 Absolute Neuts (auto) 6.4 (1.3-6.7) K/mm3 Absolute Nucleated RBC 0.000 (0.0-0.012) K/mm3 Nucleated RBC % 0.0 (0.0-0.2) % PT 14.2 (11.1-14.7) Seconds INR 1.1 APTT 33.4 (22.3-36.8) Seconds Sodium Cancelled 136 L Potassium Cancelled 4.3 Chloride Cancelled Carbon Dioxide Anion Gap BUN Creatinine Estim Creat Clear Calc Estimated GFR Glucose Calcium Phosphorus (2.5-4.5) mg/dL Magnesium (1.6-2.3) mg/dL Total Bilirubin AST ALT Alkaline Phosphatase Troponin I (0.000-0.034) ng/mL Total Protein Albumin Lipase Urine Color (Yellow) Urine Appearance (Clear) Urine pH (5.0-9.0) Ur Specific [place] (1.001-1.035) Urine Protein (Negative) mg/dL Urine Glucose (UA) (Negative) mg/dL Urine Ketones (Negative) mg/dL Ur Blood (Man) (Negative) Urine Nitrate (Negative) Urine Bilirubin (Negative) Urine Urobilinogen (<2.0) mg/dL Leukocyte Esterase Rfl (Negative) ALONA/UL Urine RBC (0-2) /hpf Urine WBC (0-3) /hpf Ur Squamous Epith Cells (Few) /hpf Urine Bacteria /hpf Urine Casts Influenza A (RT-PCR) (Negative) Influenza B (RT-PCR) (Negative) RSV (RT-PCR) (Negative) SARS-CoV-2 RNA (RT-PCR) (Negative) 09/30/23 09/30/23 09/30/23 Range/Units 20:10 20:10 20:10 WBC (4.5-10.0) K/mm3 RBC (4.6-6.20) M/mm3 Hgb (14.0-18.0) g/dL Hct (42.0-52.0) % MCV (80-100) fl MCH (26-34) pg MCHC (32-36) g/dl RDW (11.5-14.5) % Plt Count (150-375) k/mm3 MPV (7.4-10.4) fl Immature Gran % (Auto) (0-0.5) % Neut % (Auto) (45.5-73.1) % Lymph % (Auto) (18.3-44.2) % [place] % (Auto) (2.6-8.5) % Eos % (Auto) (0-4.4) % Baso % (Auto) (0.2-1.2) % Lymph # (Auto) (0.9-3.2) K/mm3 [place] # (Auto) (0.1-0.6) K/mm3 Eos # (Auto) (0-0.3) K/mm3 Baso # (Auto) (0.0-0.1) K/mm3 Abs Immat Gran (auto) (0.00-0.031) K/mm3 Absolute Neuts (auto) (1.3-6.7) K/mm3 Absolute Nucleated RBC (0.0-0.012) K/mm3 Nucleated RBC % (0.0-0.2) % PT (11.1-14.7) Seconds INR APTT (22.3-36.8) Seconds Sodium Potassium Chloride 99 Carbon Dioxide Cancelled 27 Anion Gap Cancelled 10 BUN Cancelled Creatinine Estim Creat Clear Calc Estimated GFR Glucose Calcium Phosphorus (2.5-4.5) mg/dL Magnesium (1.6-2.3) mg/dL Total Bilirubin AST ALT Alkaline Phosphatase Troponin I (0.000-0.034) ng/mL Total Protein Albumin Lipase Urine Color (Yellow) Urine Appearance (Clear) Urine pH (5.0-9.0) Ur Specific [place] (1.001-1.035) Urine Protein (Negative) mg/dL Urine Glucose (UA) (Negative) mg/dL Urine Ketones (Negative) mg/dL Ur Blood (Man) (Negative) Urine Nitrate (Negative) Urine Bilirubin (Negative) Urine Urobilinogen (<2.0) mg/dL Leukocyte Esterase Rfl (Negative) ALONA/UL Urine RBC (0-2) /hpf Urine WBC (0-3) /hpf Ur Squamous Epith Cells (Few) /hpf Urine Bacteria /hpf Urine Casts Influenza A (RT-PCR) (Negative) Influenza B (RT-PCR) (Negative) RSV (RT-PCR) (Negative) SARS-CoV-2 RNA (RT-PCR) (Negative) 09/30/23 09/30/23 09/30/23 Range/Units 20:10 20:10 20:10 WBC (4.5-10.0) K/mm3 RBC (4.6-6.20) M/mm3 Hgb (14.0-18.0) g/dL Hct (42.0-52.0) % MCV (80-100) fl MCH (26-34) pg MCHC (32-36) g/dl RDW (11.5-14.5) % Plt Count (150-375) k/mm3 MPV (7.4-10.4) fl Immature Gran % (Auto) (0-0.5) % Neut % (Auto) (45.5-73.1) % Lymph % (Auto) (18.3-44.2) % [place] % (Auto) (2.6-8.5) % Eos % (Auto) (0-4.4) % Baso % (Auto) (0.2-1.2) % Lymph # (Auto) (0.9-3.2) K/mm3 [place] # (Auto) (0.1-0.6) K/mm3 Eos # (Auto) (0-0.3) K/mm3 Baso # (Auto) (0.0-0.1) K/mm3 Abs Immat Gran (auto) (0.00-0.031) K/mm3 Absolute Neuts (auto) (1.3-6.7) K/mm3 Absolute Nucleated RBC (0.0-0.012) K/mm3 Nucleated RBC % (0.0-0.2) % PT (11.1-14.7) Seconds INR APTT (22.3-36.8) Seconds Sodium Potassium Chloride Carbon Dioxide Anion Gap BUN 22 H Creatinine Cancelled 1.00 Estim Creat Clear Calc Cancelled 54 Estimated GFR Cancelled Glucose Calcium Phosphorus (2.5-4.5) mg/dL Magnesium (1.6-2.3) mg/dL Total Bilirubin AST ALT Alkaline Phosphatase Troponin I (0.000-0.034) ng/mL Total Protein Albumin Lipase Urine Color (Yellow) Urine Appearance (Clear) Urine pH (5.0-9.0) Ur Specific [place] (1.001-1.035) Urine Protein (Negative) mg/dL Urine Glucose (UA) (Negative) mg/dL Urine Ketones (Negative) mg/dL Ur Blood (Man) (Negative) Urine Nitrate (Negative) Urine Bilirubin (Negative) Urine Urobilinogen (<2.0) mg/dL Leukocyte Esterase Rfl (Negative) ALONA/UL Urine RBC (0-2) /hpf Urine WBC (0-3) /hpf Ur Squamous Epith Cells (Few) /hpf Urine Bacteria /hpf Urine Casts Influenza A (RT-PCR) (Negative) Influenza B (RT-PCR) (Negative) RSV (RT-PCR) (Negative) SARS-CoV-2 RNA (RT-PCR) (Negative) 09/30/23 09/30/23 09/30/23 Range/Units 20:10 20:10 20:10 WBC (4.5-10.0) K/mm3 RBC (4.6-6.20) M/mm3 Hgb (14.0-18.0) g/dL Hct (42.0-52.0) % MCV (80-100) fl MCH (26-34) pg MCHC (32-36) g/dl RDW (11.5-14.5) % Plt Count (150-375) k/mm3 MPV (7.4-10.4) fl Immature Gran % (Auto) (0-0.5) % Neut % (Auto) (45.5-73.1) % Lymph % (Auto) (18.3-44.2) % [place] % (Auto) (2.6-8.5) % Eos % (Auto) (0-4.4) % Baso % (Auto) (0.2-1.2) % Lymph # (Auto) (0.9-3.2) K/mm3 [place] # (Auto) (0.1-0.6) K/mm3 Eos # (Auto) (0-0.3) K/mm3 Baso # (Auto) (0.0-0.1) K/mm3 Abs Immat Gran (auto) (0.00-0.031) K/mm3 Absolute Neuts (auto) (1.3-6.7) K/mm3 Absolute Nucleated RBC (0.0-0.012) K/mm3 Nucleated RBC % (0.0-0.2) % PT (11.1-14.7) Seconds INR APTT (22.3-36.8) Seconds Sodium Potassium Chloride Carbon Dioxide Anion Gap BUN Creatinine Estim Creat Clear Calc Estimated GFR > 60 Glucose Cancelled 103 Calcium Cancelled 10.0 Phosphorus (2.5-4.5) mg/dL Magnesium (1.6-2.3) mg/dL Total Bilirubin Cancelled AST ALT Alkaline Phosphatase Troponin I (0.000-0.034) ng/mL Total Protein Albumin Lipase Urine Color (Yellow) Urine Appearance (Clear) Urine pH (5.0-9.0) Ur Specific [place] (1.001-1.035) Urine Protein (Negative) mg/dL Urine Glucose (UA) (Negative) mg/dL Urine Ketones (Negative) mg/dL Ur Blood (Man) (Negative) Urine Nitrate (Negative) Urine Bilirubin (Negative) Urine Urobilinogen (<2.0) mg/dL Leukocyte Esterase Rfl (Negative) ALONA/UL Urine RBC (0-2) /hpf Urine WBC (0-3) /hpf Ur Squamous Epith Cells (Few) /hpf Urine Bacteria /hpf Urine Casts Influenza A (RT-PCR) (Negative) Influenza B (RT-PCR) (Negative) RSV (RT-PCR) (Negative) SARS-CoV-2 RNA (RT-PCR) (Negative) 09/30/23 09/30/23 09/30/23 Range/Units 20:10 20:10 20:10 WBC (4.5-10.0) K/mm3 RBC (4.6-6.20) M/mm3 Hgb (14.0-18.0) g/dL Hct (42.0-52.0) % MCV (80-100) fl MCH (26-34) pg MCHC (32-36) g/dl RDW (11.5-14.5) % Plt Count (150-375) k/mm3 MPV (7.4-10.4) fl Immature Gran % (Auto) (0-0.5) % Neut % (Auto) (45.5-73.1) % Lymph % (Auto) (18.3-44.2) % [place] % (Auto) (2.6-8.5) % Eos % (Auto) (0-4.4) % Baso % (Auto) (0.2-1.2) % Lymph # (Auto) (0.9-3.2) K/mm3 [place] # (Auto) (0.1-0.6) K/mm3 Eos # (Auto) (0-0.3) K/mm3 Baso # (Auto) (0.0-0.1) K/mm3 Abs Immat Gran (auto) (0.00-0.031) K/mm3 Absolute Neuts (auto) (1.3-6.7) K/mm3 Absolute Nucleated RBC (0.0-0.012) K/mm3 Nucleated RBC % (0.0-0.2) % PT (11.1-14.7) Seconds INR APTT (22.3-36.8) Seconds Sodium Potassium Chloride Carbon Dioxide Anion Gap BUN Creatinine Estim Creat Clear Calc Estimated GFR Glucose Calcium Phosphorus (2.5-4.5) mg/dL Magnesium (1.6-2.3) mg/dL Total Bilirubin 1.2 AST Cancelled 35 ALT Cancelled 23 Alkaline Phosphatase Cancelled Troponin I (0.000-0.034) ng/mL Total Protein Albumin Lipase Urine Color (Yellow) Urine Appearance (Clear) Urine pH (5.0-9.0) Ur Specific [place] (1.001-1.035) Urine Protein (Negative) mg/dL Urine Glucose (UA) (Negative) mg/dL Urine Ketones (Negative) mg/dL Ur Blood (Man) (Negative) Urine Nitrate (Negative) Urine Bilirubin (Negative) Urine Urobilinogen (<2.0) mg/dL Leukocyte Esterase Rfl (Negative) ALONA/UL Urine RBC (0-2) /hpf Urine WBC (0-3) /hpf Ur Squamous Epith Cells (Few) /hpf Urine Bacteria /hpf Urine Casts Influenza A (RT-PCR) (Negative) Influenza B (RT-PCR) (Negative) RSV (RT-PCR) (Negative) SARS-CoV-2 RNA (RT-PCR) (Negative) 09/30/23 09/30/23 09/30/23 Range/Units 20:10 20:10 20:10 WBC (4.5-10.0) K/mm3 RBC (4.6-6.20) M/mm3 Hgb (14.0-18.0) g/dL Hct (42.0-52.0) % MCV (80-100) fl MCH (26-34) pg MCHC (32-36) g/dl RDW (11.5-14.5) % Plt Count (150-375) k/mm3 MPV (7.4-10.4) fl Immature Gran % (Auto) (0-0.5) % Neut % (Auto) (45.5-73.1) % Lymph % (Auto) (18.3-44.2) % [place] % (Auto) (2.6-8.5) % Eos % (Auto) (0-4.4) % Baso % (Auto) (0.2-1.2) % Lymph # (Auto) (0.9-3.2) K/mm3 [place] # (Auto) (0.1-0.6) K/mm3 Eos # (Auto) (0-0.3) K/mm3 Baso # (Auto) (0.0-0.1) K/mm3 Abs Immat Gran (auto) (0.00-0.031) K/mm3 Absolute Neuts (auto) (1.3-6.7) K/mm3 Absolute Nucleated RBC (0.0-0.012) K/mm3 Nucleated RBC % (0.0-0.2) % PT (11.1-14.7) Seconds INR APTT (22.3-36.8) Seconds Sodium Potassium Chloride Carbon Dioxide Anion Gap BUN Creatinine Estim Creat Clear Calc Estimated GFR Glucose Calcium Phosphorus (2.5-4.5) mg/dL Magnesium (1.6-2.3) mg/dL Total Bilirubin AST ALT Alkaline Phosphatase 81 Troponin I 1.080 H* (0.000-0.034) ng/mL Total Protein Cancelled 8.0 Albumin Cancelled 4.3 Lipase Cancelled Urine Color (Yellow) Urine Appearance (Clear) Urine pH (5.0-9.0) Ur Specific [place] (1.001-1.035) Urine Protein (Negative) mg/dL Urine Glucose (UA) (Negative) mg/dL Urine Ketones (Negative) mg/dL Ur Blood (Man) (Negative) Urine Nitrate (Negative) Urine Bilirubin (Negative) Urine Urobilinogen (<2.0) mg/dL Leukocyte Esterase Rfl (Negative) ALONA/UL Urine RBC (0-2) /hpf Urine WBC (0-3) /hpf Ur Squamous Epith Cells (Few) /hpf Urine Bacteria /hpf Urine Casts Influenza A (RT-PCR) (Negative) Influenza B (RT-PCR) (Negative) RSV (RT-PCR) (Negative) SARS-CoV-2 RNA (RT-PCR) (Negative) 09/30/23 09/30/23 09/30/23 Range/Units 20:10 20:43 23:04 WBC (4.5-10.0) K/mm3 RBC (4.6-6.20) M/mm3 Hgb (14.0-18.0) g/dL Hct (42.0-52.0) % MCV (80-100) fl MCH (26-34) pg MCHC (32-36) g/dl RDW (11.5-14.5) % Plt Count (150-375) k/mm3 MPV (7.4-10.4) fl Immature Gran % (Auto) (0-0.5) % Neut % (Auto) (45.5-73.1) % Lymph % (Auto) (18.3-44.2) % [place] % (Auto) (2.6-8.5) % Eos % (Auto) (0-4.4) % Baso % (Auto) (0.2-1.2) % Lymph # (Auto) (0.9-3.2) K/mm3 [place] # (Auto) (0.1-0.6) K/mm3 Eos # (Auto) (0-0.3) K/mm3 Baso # (Auto) (0.0-0.1) K/mm3 Abs Immat Gran (auto) (0.00-0.031) K/mm3 Absolute Neuts (auto) (1.3-6.7) K/mm3 Absolute Nucleated RBC (0.0-0.012) K/mm3 Nucleated RBC % (0.0-0.2) % PT (11.1-14.7) Seconds INR APTT (22.3-36.8) Seconds Sodium Potassium Chloride Carbon Dioxide Anion Gap BUN Creatinine Estim Creat Clear Calc Estimated GFR Glucose Calcium Phosphorus (2.5-4.5) mg/dL Magnesium (1.6-2.3) mg/dL Total Bilirubin AST ALT Alkaline Phosphatase Troponin I 1.390 H* D (0.000-0.034) ng/mL Total Protein Albumin Lipase 45 Urine Color Dark yellow (Yellow) Urine Appearance Cloudy H (Clear) Urine pH 6.0 (5.0-9.0) Ur Specific [place] 1.024 (1.001-1.035) Urine Protein 1+ H (Negative) mg/dL Urine Glucose (UA) Negative (Negative) mg/dL Urine Ketones Trace H (Negative) mg/dL Ur Blood (Man) Negative (Negative) Urine Nitrate Negative (Negative) Urine Bilirubin Negative (Negative) Urine Urobilinogen 1.0 (<2.0) mg/dL Leukocyte Esterase Rfl Trace H (Negative) ALONA/UL Urine RBC 0-2 (0-2) /hpf Urine WBC 0-5 (0-3) /hpf Ur Squamous Epith Cells None seen (Few) /hpf Urine Bacteria None seen /hpf Urine Casts 0-2 Influenza A (RT-PCR) (Negative) Influenza B (RT-PCR) (Negative) RSV (RT-PCR) (Negative) SARS-CoV-2 RNA (RT-PCR) (Negative) 10/01/23 10/01/23 10/01/23 Range/Units 05:10 11:31 17:49 WBC 7.7 (4.5-10.0) K/mm3 RBC 4.65 (4.6-6.20) M/mm3 Hgb 14.2 (14.0-18.0) g/dL Hct 43.8 (42.0-52.0) % MCV 94.2 (80-100) fl MCH 30.5 (26-34) pg MCHC 32.4 (32-36) g/dl RDW 14.2 (11.5-14.5) % Plt Count 189 (150-375) k/mm3 MPV 11.9 H (7.4-10.4) fl Immature Gran % (Auto) 0.1 (0-0.5) % Neut % (Auto) 79.4 H (45.5-73.1) % Lymph % (Auto) 10.8 L (18.3-44.2) % [place] % (Auto) 8.6 H (2.6-8.5) % Eos % (Auto) 0.7 (0-4.4) % Baso % (Auto) 0.4 (0.2-1.2) % Lymph # (Auto) 0.83 L (0.9-3.2) K/mm3 [place] # (Auto) 0.7 H (0.1-0.6) K/mm3 Eos # (Auto) 0.1 (0-0.3) K/mm3 Baso # (Auto) 0.0 (0.0-0.1) K/mm3 Abs Immat Gran (auto) 0.01 (0.00-0.031) K/mm3 Absolute Neuts (auto) 6.1 (1.3-6.7) K/mm3 Absolute Nucleated RBC 0.000 (0.0-0.012) K/mm3 Nucleated RBC % 0.0 (0.0-0.2) % PT 14.7 14.5 14.9 H (11.1-14.7) Seconds INR 1.1 1.1 1.1 APTT 160.7 H* 35.3 54.4 H (22.3-36.8) Seconds Sodium Potassium Chloride Carbon Dioxide Anion Gap BUN Creatinine Estim Creat Clear Calc Estimated GFR Glucose Calcium Phosphorus (2.5-4.5) mg/dL Magnesium (1.6-2.3) mg/dL Total Bilirubin AST ALT Alkaline Phosphatase Troponin I (0.000-0.034) ng/mL Total Protein Albumin Lipase Urine Color (Yellow) Urine Appearance (Clear) Urine pH (5.0-9.0) Ur Specific [place] (1.001-1.035) Urine Protein (Negative) mg/dL Urine Glucose (UA) (Negative) mg/dL Urine Ketones (Negative) mg/dL Ur Blood (Man) (Negative) Urine Nitrate (Negative) Urine Bilirubin (Negative) Urine Urobilinogen (<2.0) mg/dL Leukocyte Esterase Rfl (Negative) ALONA/UL Urine RBC (0-2) /hpf Urine WBC (0-3) /hpf Ur Squamous Epith Cells (Few) /hpf Urine Bacteria /hpf Urine Casts Influenza A (RT-PCR) (Negative) Influenza B (RT-PCR) (Negative) RSV (RT-PCR) (Negative) SARS-CoV-2 RNA (RT-PCR) (Negative) 10/02/23 10/02/23 10/02/23 Range/Units 00:28 08:07 10:57 WBC 8.3 (4.5-10.0) K/mm3 RBC 5.12 (4.6-6.20) M/mm3 Hgb 15.3 (14.0-18.0) g/dL Hct 48.9 (42.0-52.0) % MCV 95.5 (80-100) fl MCH 29.9 (26-34) pg MCHC 31.3 L (32-36) g/dl RDW 14.2 (11.5-14.5) % Plt Count 204 (150-375) k/mm3 MPV 12.2 H (7.4-10.4) fl Immature Gran % (Auto) (0-0.5) % Neut % (Auto) (45.5-73.1) % Lymph % (Auto) (18.3-44.2) % [place] % (Auto) (2.6-8.5) % Eos % (Auto) (0-4.4) % Baso % (Auto) (0.2-1.2) % Lymph # (Auto) (0.9-3.2) K/mm3 [place] # (Auto) (0.1-0.6) K/mm3 Eos # (Auto) (0-0.3) K/mm3 Baso # (Auto) (0.0-0.1) K/mm3 Abs Immat Gran (auto) (0.00-0.031) K/mm3 Absolute Neuts (auto) (1.3-6.7) K/mm3 Absolute Nucleated RBC (0.0-0.012) K/mm3 Nucleated RBC % (0.0-0.2) % PT 14.9 H (11.1-14.7) Seconds INR 1.1 APTT 129.9 H 73.2 H (22.3-36.8) Seconds Sodium 134 L Potassium 4.3 Chloride 97 L Carbon Dioxide 28 Anion Gap 9 BUN 21 H Creatinine 1.10 Estim Creat Clear Calc 49 Estimated GFR > 60 Glucose 174 H Calcium 9.1 Phosphorus 3.7 (2.5-4.5) mg/dL Magnesium 2.3 (1.6-2.3) mg/dL Total Bilirubin 1.2 AST 26 ALT 24 Alkaline Phosphatase 77 Troponin I 1.630 H* (0.000-0.034) ng/mL Total Protein 7.0 Albumin 4.4 Lipase Urine Color (Yellow) Urine Appearance (Clear) Urine pH (5.0-9.0) Ur Specific [place] (1.001-1.035) Urine Protein (Negative) mg/dL Urine Glucose (UA) (Negative) mg/dL Urine Ketones (Negative) mg/dL Ur Blood (Man) (Negative) Urine Nitrate (Negative) Urine Bilirubin (Negative) Urine Urobilinogen (<2.0) mg/dL Leukocyte Esterase Rfl (Negative) [place]/UL Urine RBC (0-2) /hpf Urine WBC (0-3) /hpf Ur Squamous Epith Cells (Few) /hpf Urine Bacteria /hpf Urine Casts Influenza A (RT-PCR) Negative (Negative) Influenza B (RT-PCR) Negative (Negative) RSV (RT-PCR) Negative (Negative) SARS-CoV-2 RNA (RT-PCR) Negative (Negative) <Oleksandr Samule MD - Last Filed: 10/05/23 12:29> Lab Results 09/30/23 09/30/23 09/30/23 Range/Units 20:10 20:10 20:10 WBC 8.1 (4.5-10.0) K/mm3 RBC 4.79 (4.6-6.20) M/mm3 Hgb 14.6 (14.0-18.0) g/dL Hct 44.2 (42.0-52.0) % MCV 92.3 (80-100) fl MCH 30.5 (26-34) pg MCHC 33.0 (32-36) g/dl RDW 14.4 (11.5-14.5) % Plt Count 204 (150-375) k/mm3 MPV 11.8 H (7.4-10.4) fl Immature Gran % (Auto) 0.4 (0-0.5) % Neut % (Auto) 79.0 H (45.5-73.1) % Lymph % (Auto) 10.9 L (18.3-44.2) % [place] % (Auto) 8.6 H (2.6-8.5) % Eos % (Auto) 0.7 (0-4.4) % Baso % (Auto) 0.4 (0.2-1.2) % Lymph # (Auto) 0.88 L (0.9-3.2) K/mm3 [place] # (Auto) 0.7 H (0.1-0.6) K/mm3 Eos # (Auto) 0.1 (0-0.3) K/mm3 Baso # (Auto) 0.0 (0.0-0.1) K/mm3 Abs Immat Gran (auto) 0.03 (0.00-0.031) K/mm3 Absolute Neuts (auto) 6.4 (1.3-6.7) K/mm3 Absolute Nucleated RBC 0.000 (0.0-0.012) K/mm3 Nucleated RBC % 0.0 (0.0-0.2) % PT 14.2 (11.1-14.7) Seconds INR 1.1 APTT 33.4 (22.3-36.8) Seconds Sodium Cancelled 136 L Potassium Cancelled 4.3 Chloride Cancelled Carbon Dioxide Anion Gap BUN Creatinine Estim Creat Clear Calc Estimated GFR Glucose Calcium Phosphorus (2.5-4.5) mg/dL Magnesium (1.6-2.3) mg/dL Total Bilirubin AST ALT Alkaline Phosphatase Troponin I (0.000-0.034) ng/mL Total Protein Albumin Lipase Urine Color (Yellow) Urine Appearance (Clear) Urine pH (5.0-9.0) Ur Specific [place] (1.001-1.035) Urine Protein (Negative) mg/dL Urine Glucose (UA) (Negative) mg/dL Urine Ketones (Negative) mg/dL Ur Blood (Man) (Negative) Urine Nitrate (Negative) Urine Bilirubin (Negative) Urine Urobilinogen (<2.0) mg/dL Leukocyte Esterase Rfl (Negative) LAONA/UL Urine RBC (0-2) /hpf Urine WBC (0-3) /hpf Ur Squamous Epith Cells (Few) /hpf Urine Bacteria /hpf Urine Casts Influenza A (RT-PCR) (Negative) Influenza B (RT-PCR) (Negative) RSV (RT-PCR) (Negative) SARS-CoV-2 RNA (RT-PCR) (Negative) 09/30/23 09/30/23 09/30/23 Range/Units 20:10 20:10 20:10 WBC (4.5-10.0) K/mm3 RBC (4.6-6.20) M/mm3 Hgb (14.0-18.0) g/dL Hct (42.0-52.0) % MCV (80-100) fl MCH (26-34) pg MCHC (32-36) g/dl RDW (11.5-14.5) % Plt Count (150-375) k/mm3 MPV (7.4-10.4) fl Immature Gran % (Auto) (0-0.5) % Neut % (Auto) (45.5-73.1) % Lymph % (Auto) (18.3-44.2) % [place] % (Auto) (2.6-8.5) % Eos % (Auto) (0-4.4) % Baso % (Auto) (0.2-1.2) % Lymph # (Auto) (0.9-3.2) K/mm3 [place] # (Auto) (0.1-0.6) K/mm3 Eos # (Auto) (0-0.3) K/mm3 Baso # (Auto) (0.0-0.1) K/mm3 Abs Immat Gran (auto) (0.00-0.031) K/mm3 Absolute Neuts (auto) (1.3-6.7) K/mm3 Absolute Nucleated RBC (0.0-0.012) K/mm3 Nucleated RBC % (0.0-0.2) % PT (11.1-14.7) Seconds INR APTT (22.3-36.8) Seconds Sodium Potassium Chloride 99 Carbon Dioxide Cancelled 27 Anion Gap Cancelled 10 BUN Cancelled Creatinine Estim Creat Clear Calc Estimated GFR Glucose Calcium Phosphorus (2.5-4.5) mg/dL Magnesium (1.6-2.3) mg/dL Total Bilirubin AST ALT Alkaline Phosphatase Troponin I (0.000-0.034) ng/mL Total Protein Albumin Lipase Urine Color (Yellow) Urine Appearance (Clear) Urine pH (5.0-9.0) Ur Specific [place] (1.001-1.035) Urine Protein (Negative) mg/dL Urine Glucose (UA) (Negative) mg/dL Urine Ketones (Negative) mg/dL Ur Blood (Man) (Negative) Urine Nitrate (Negative) Urine Bilirubin (Negative) Urine Urobilinogen (<2.0) mg/dL Leukocyte Esterase Rfl (Negative) ALONA/UL Urine RBC (0-2) /hpf Urine WBC (0-3) /hpf Ur Squamous Epith Cells (Few) /hpf Urine Bacteria /hpf Urine Casts Influenza A (RT-PCR) (Negative) Influenza B (RT-PCR) (Negative) RSV (RT-PCR) (Negative) SARS-CoV-2 RNA (RT-PCR) (Negative) 09/30/23 09/30/23 09/30/23 Range/Units 20:10 20:10 20:10 WBC (4.5-10.0) K/mm3 RBC (4.6-6.20) M/mm3 Hgb (14.0-18.0) g/dL Hct (42.0-52.0) % MCV (80-100) fl MCH (26-34) pg MCHC (32-36) g/dl RDW (11.5-14.5) % Plt Count (150-375) k/mm3 MPV (7.4-10.4) fl Immature Gran % (Auto) (0-0.5) % Neut % (Auto) (45.5-73.1) % Lymph % (Auto) (18.3-44.2) % [place] % (Auto) (2.6-8.5) % Eos % (Auto) (0-4.4) % Baso % (Auto) (0.2-1.2) % Lymph # (Auto) (0.9-3.2) K/mm3 [place] # (Auto) (0.1-0.6) K/mm3 Eos # (Auto) (0-0.3) K/mm3 Baso # (Auto) (0.0-0.1) K/mm3 Abs Immat Gran (auto) (0.00-0.031) K/mm3 Absolute Neuts (auto) (1.3-6.7) K/mm3 Absolute Nucleated RBC (0.0-0.012) K/mm3 Nucleated RBC % (0.0-0.2) % PT (11.1-14.7) Seconds INR APTT (22.3-36.8) Seconds Sodium Potassium Chloride Carbon Dioxide Anion Gap BUN 22 H Creatinine Cancelled 1.00 Estim Creat Clear Calc Cancelled 54 Estimated GFR Cancelled Glucose Calcium Phosphorus (2.5-4.5) mg/dL Magnesium (1.6-2.3) mg/dL Total Bilirubin AST ALT Alkaline Phosphatase Troponin I (0.000-0.034) ng/mL Total Protein Albumin Lipase Urine Color (Yellow) Urine Appearance (Clear) Urine pH (5.0-9.0) Ur Specific [place] (1.001-1.035) Urine Protein (Negative) mg/dL Urine Glucose (UA) (Negative) mg/dL Urine Ketones (Negative) mg/dL Ur Blood (Man) (Negative) Urine Nitrate (Negative) Urine Bilirubin (Negative) Urine Urobilinogen (<2.0) mg/dL Leukocyte Esterase Rfl (Negative) ALONA/UL Urine RBC (0-2) /hpf Urine WBC (0-3) /hpf Ur Squamous Epith Cells (Few) /hpf Urine Bacteria /hpf Urine Casts Influenza A (RT-PCR) (Negative) Influenza B (RT-PCR) (Negative) RSV (RT-PCR) (Negative) SARS-CoV-2 RNA (RT-PCR) (Negative) 09/30/23 09/30/23 09/30/23 Range/Units 20:10 20:10 20:10 WBC (4.5-10.0) K/mm3 RBC (4.6-6.20) M/mm3 Hgb (14.0-18.0) g/dL Hct (42.0-52.0) % MCV (80-100) fl MCH (26-34) pg MCHC (32-36) g/dl RDW (11.5-14.5) % Plt Count (150-375) k/mm3 MPV (7.4-10.4) fl Immature Gran % (Auto) (0-0.5) % Neut % (Auto) (45.5-73.1) % Lymph % (Auto) (18.3-44.2) % [place] % (Auto) (2.6-8.5) % Eos % (Auto) (0-4.4) % Baso % (Auto) (0.2-1.2) % Lymph # (Auto) (0.9-3.2) K/mm3 [place] # (Auto) (0.1-0.6) K/mm3 Eos # (Auto) (0-0.3) K/mm3 Baso # (Auto) (0.0-0.1) K/mm3 Abs Immat Gran (auto) (0.00-0.031) K/mm3 Absolute Neuts (auto) (1.3-6.7) K/mm3 Absolute Nucleated RBC (0.0-0.012) K/mm3 Nucleated RBC % (0.0-0.2) % PT (11.1-14.7) Seconds INR APTT (22.3-36.8) Seconds Sodium Potassium Chloride Carbon Dioxide Anion Gap BUN Creatinine Estim Creat Clear Calc Estimated GFR > 60 Glucose Cancelled 103 Calcium Cancelled 10.0 Phosphorus (2.5-4.5) mg/dL Magnesium (1.6-2.3) mg/dL Total Bilirubin Cancelled AST ALT Alkaline Phosphatase Troponin I (0.000-0.034) ng/mL Total Protein Albumin Lipase Urine Color (Yellow) Urine Appearance (Clear) Urine pH (5.0-9.0) Ur Specific [place] (1.001-1.035) Urine Protein (Negative) mg/dL Urine Glucose (UA) (Negative) mg/dL Urine Ketones (Negative) mg/dL Ur Blood (Man) (Negative) Urine Nitrate (Negative) Urine Bilirubin (Negative) Urine Urobilinogen (<2.0) mg/dL Leukocyte Esterase Rfl (Negative) ALONA/UL Urine RBC (0-2) /hpf Urine WBC (0-3) /hpf Ur Squamous Epith Cells (Few) /hpf Urine Bacteria /hpf Urine Casts Influenza A (RT-PCR) (Negative) Influenza B (RT-PCR) (Negative) RSV (RT-PCR) (Negative) SARS-CoV-2 RNA (RT-PCR) (Negative) 09/30/23 09/30/23 09/30/23 Range/Units 20:10 20:10 20:10 WBC (4.5-10.0) K/mm3 RBC (4.6-6.20) M/mm3 Hgb (14.0-18.0) g/dL Hct (42.0-52.0) % MCV (80-100) fl MCH (26-34) pg MCHC (32-36) g/dl RDW (11.5-14.5) % Plt Count (150-375) k/mm3 MPV (7.4-10.4) fl Immature Gran % (Auto) (0-0.5) % Neut % (Auto) (45.5-73.1) % Lymph % (Auto) (18.3-44.2) % [place] % (Auto) (2.6-8.5) % Eos % (Auto) (0-4.4) % Baso % (Auto) (0.2-1.2) % Lymph # (Auto) (0.9-3.2) K/mm3 [place] # (Auto) (0.1-0.6) K/mm3 Eos # (Auto) (0-0.3) K/mm3 Baso # (Auto) (0.0-0.1) K/mm3 Abs Immat Gran (auto) (0.00-0.031) K/mm3 Absolute Neuts (auto) (1.3-6.7) K/mm3 Absolute Nucleated RBC (0.0-0.012) K/mm3 Nucleated RBC % (0.0-0.2) % PT (11.1-14.7) Seconds INR APTT (22.3-36.8) Seconds Sodium Potassium Chloride Carbon Dioxide Anion Gap BUN Creatinine Estim Creat Clear Calc Estimated GFR Glucose Calcium Phosphorus (2.5-4.5) mg/dL Magnesium (1.6-2.3) mg/dL Total Bilirubin 1.2 AST Cancelled 35 ALT Cancelled 23 Alkaline Phosphatase Cancelled Troponin I (0.000-0.034) ng/mL Total Protein Albumin Lipase Urine Color (Yellow) Urine Appearance (Clear) Urine pH (5.0-9.0) Ur Specific [place] (1.001-1.035) Urine Protein (Negative) mg/dL Urine Glucose (UA) (Negative) mg/dL Urine Ketones (Negative) mg/dL Ur Blood (Man) (Negative) Urine Nitrate (Negative) Urine Bilirubin (Negative) Urine Urobilinogen (<2.0) mg/dL Leukocyte Esterase Rfl (Negative) ALONA/UL Urine RBC (0-2) /hpf Urine WBC (0-3) /hpf Ur Squamous Epith Cells (Few) /hpf Urine Bacteria /hpf Urine Casts Influenza A (RT-PCR) (Negative) Influenza B (RT-PCR) (Negative) RSV (RT-PCR) (Negative) SARS-CoV-2 RNA (RT-PCR) (Negative) 09/30/23 09/30/23 09/30/23 Range/Units 20:10 20:10 20:10 WBC (4.5-10.0) K/mm3 RBC (4.6-6.20) M/mm3 Hgb (14.0-18.0) g/dL Hct (42.0-52.0) % MCV (80-100) fl MCH (26-34) pg MCHC (32-36) g/dl RDW (11.5-14.5) % Plt Count (150-375) k/mm3 MPV (7.4-10.4) fl Immature Gran % (Auto) (0-0.5) % Neut % (Auto) (45.5-73.1) % Lymph % (Auto) (18.3-44.2) % [place] % (Auto) (2.6-8.5) % Eos % (Auto) (0-4.4) % Baso % (Auto) (0.2-1.2) % Lymph # (Auto) (0.9-3.2) K/mm3 [place] # (Auto) (0.1-0.6) K/mm3 Eos # (Auto) (0-0.3) K/mm3 Baso # (Auto) (0.0-0.1) K/mm3 Abs Immat Gran (auto) (0.00-0.031) K/mm3 Absolute Neuts (auto) (1.3-6.7) K/mm3 Absolute Nucleated RBC (0.0-0.012) K/mm3 Nucleated RBC % (0.0-0.2) % PT (11.1-14.7) Seconds INR APTT (22.3-36.8) Seconds Sodium Potassium Chloride Carbon Dioxide Anion Gap BUN Creatinine Estim Creat Clear Calc Estimated GFR Glucose Calcium Phosphorus (2.5-4.5) mg/dL Magnesium (1.6-2.3) mg/dL Total Bilirubin AST ALT Alkaline Phosphatase 81 Troponin I 1.080 H* (0.000-0.034) ng/mL Total Protein Cancelled 8.0 Albumin Cancelled 4.3 Lipase Cancelled Urine Color (Yellow) Urine Appearance (Clear) Urine pH (5.0-9.0) Ur Specific [place] (1.001-1.035) Urine Protein (Negative) mg/dL Urine Glucose (UA) (Negative) mg/dL Urine Ketones (Negative) mg/dL Ur Blood (Man) (Negative) Urine Nitrate (Negative) Urine Bilirubin (Negative) Urine Urobilinogen (<2.0) mg/dL Leukocyte Esterase Rfl (Negative) ALONA/UL Urine RBC (0-2) /hpf Urine WBC (0-3) /hpf Ur Squamous Epith Cells (Few) /hpf Urine Bacteria /hpf Urine Casts Influenza A (RT-PCR) (Negative) Influenza B (RT-PCR) (Negative) RSV (RT-PCR) (Negative) SARS-CoV-2 RNA (RT-PCR) (Negative) 09/30/23 09/30/23 09/30/23 Range/Units 20:10 20:43 23:04 WBC (4.5-10.0) K/mm3 RBC (4.6-6.20) M/mm3 Hgb (14.0-18.0) g/dL Hct (42.0-52.0) % MCV (80-100) fl MCH (26-34) pg MCHC (32-36) g/dl RDW (11.5-14.5) % Plt Count (150-375) k/mm3 MPV (7.4-10.4) fl Immature Gran % (Auto) (0-0.5) % Neut % (Auto) (45.5-73.1) % Lymph % (Auto) (18.3-44.2) % [place] % (Auto) (2.6-8.5) % Eos % (Auto) (0-4.4) % Baso % (Auto) (0.2-1.2) % Lymph # (Auto) (0.9-3.2) K/mm3 [place] # (Auto) (0.1-0.6) K/mm3 Eos # (Auto) (0-0.3) K/mm3 Baso # (Auto) (0.0-0.1) K/mm3 Abs Immat Gran (auto) (0.00-0.031) K/mm3 Absolute Neuts (auto) (1.3-6.7) K/mm3 Absolute Nucleated RBC (0.0-0.012) K/mm3 Nucleated RBC % (0.0-0.2) % PT (11.1-14.7) Seconds INR APTT (22.3-36.8) Seconds Sodium Potassium Chloride Carbon Dioxide Anion Gap BUN Creatinine Estim Creat Clear Calc Estimated GFR Glucose Calcium Phosphorus (2.5-4.5) mg/dL Magnesium (1.6-2.3) mg/dL Total Bilirubin AST ALT Alkaline Phosphatase Troponin I 1.390 H* D (0.000-0.034) ng/mL Total Protein Albumin Lipase 45 Urine Color Dark yellow (Yellow) Urine Appearance Cloudy H (Clear) Urine pH 6.0 (5.0-9.0) Ur Specific [place] 1.024 (1.001-1.035) Urine Protein 1+ H (Negative) mg/dL Urine Glucose (UA) Negative (Negative) mg/dL Urine Ketones Trace H (Negative) mg/dL Ur Blood (Man) Negative (Negative) Urine Nitrate Negative (Negative) Urine Bilirubin Negative (Negative) Urine Urobilinogen 1.0 (<2.0) mg/dL Leukocyte Esterase Rfl Trace H (Negative) ALONA/UL Urine RBC 0-2 (0-2) /hpf Urine WBC 0-5 (0-3) /hpf Ur Squamous Epith Cells None seen (Few) /hpf Urine Bacteria None seen /hpf Urine Casts 0-2 Influenza A (RT-PCR) (Negative) Influenza B (RT-PCR) (Negative) RSV (RT-PCR) (Negative) SARS-CoV-2 RNA (RT-PCR) (Negative) 10/01/23 10/01/23 10/01/23 Range/Units 05:10 11:31 17:49 WBC 7.7 (4.5-10.0) K/mm3 RBC 4.65 (4.6-6.20) M/mm3 Hgb 14.2 (14.0-18.0) g/dL Hct 43.8 (42.0-52.0) % MCV 94.2 (80-100) fl MCH 30.5 (26-34) pg MCHC 32.4 (32-36) g/dl RDW 14.2 (11.5-14.5) % Plt Count 189 (150-375) k/mm3 MPV 11.9 H (7.4-10.4) fl Immature Gran % (Auto) 0.1 (0-0.5) % Neut % (Auto) 79.4 H (45.5-73.1) % Lymph % (Auto) 10.8 L (18.3-44.2) % [place] % (Auto) 8.6 H (2.6-8.5) % Eos % (Auto) 0.7 (0-4.4) % Baso % (Auto) 0.4 (0.2-1.2) % Lymph # (Auto) 0.83 L (0.9-3.2) K/mm3 [place] # (Auto) 0.7 H (0.1-0.6) K/mm3 Eos # (Auto) 0.1 (0-0.3) K/mm3 Baso # (Auto) 0.0 (0.0-0.1) K/mm3 Abs Immat Gran (auto) 0.01 (0.00-0.031) K/mm3 Absolute Neuts (auto) 6.1 (1.3-6.7) K/mm3 Absolute Nucleated RBC 0.000 (0.0-0.012) K/mm3 Nucleated RBC % 0.0 (0.0-0.2) % PT 14.7 14.5 14.9 H (11.1-14.7) Seconds INR 1.1 1.1 1.1 APTT 160.7 H* 35.3 54.4 H (22.3-36.8) Seconds Sodium Potassium Chloride Carbon Dioxide Anion Gap BUN Creatinine Estim Creat Clear Calc Estimated GFR Glucose Calcium Phosphorus (2.5-4.5) mg/dL Magnesium (1.6-2.3) mg/dL Total Bilirubin AST ALT Alkaline Phosphatase Troponin I (0.000-0.034) ng/mL Total Protein Albumin Lipase Urine Color (Yellow) Urine Appearance (Clear) Urine pH (5.0-9.0) Ur Specific [place] (1.001-1.035) Urine Protein (Negative) mg/dL Urine Glucose (UA) (Negative) mg/dL Urine Ketones (Negative) mg/dL Ur Blood (Man) (Negative) Urine Nitrate (Negative) Urine Bilirubin (Negative) Urine Urobilinogen (<2.0) mg/dL Leukocyte Esterase Rfl (Negative) ALONA/UL Urine RBC (0-2) /hpf Urine WBC (0-3) /hpf Ur Squamous Epith Cells (Few) /hpf Urine Bacteria /hpf Urine Casts Influenza A (RT-PCR) (Negative) Influenza B (RT-PCR) (Negative) RSV (RT-PCR) (Negative) SARS-CoV-2 RNA (RT-PCR) (Negative) 10/02/23 10/02/23 10/02/23 Range/Units 00:28 08:07 10:57 WBC 8.3 (4.5-10.0) K/mm3 RBC 5.12 (4.6-6.20) M/mm3 Hgb 15.3 (14.0-18.0) g/dL Hct 48.9 (42.0-52.0) % MCV 95.5 (80-100) fl MCH 29.9 (26-34) pg MCHC 31.3 L (32-36) g/dl RDW 14.2 (11.5-14.5) % Plt Count 204 (150-375) k/mm3 MPV 12.2 H (7.4-10.4) fl Immature Gran % (Auto) (0-0.5) % Neut % (Auto) (45.5-73.1) % Lymph % (Auto) (18.3-44.2) % [place] % (Auto) (2.6-8.5) % Eos % (Auto) (0-4.4) % Baso % (Auto) (0.2-1.2) % Lymph # (Auto) (0.9-3.2) K/mm3 [place] # (Auto) (0.1-0.6) K/mm3 Eos # (Auto) (0-0.3) K/mm3 Baso # (Auto) (0.0-0.1) K/mm3 Abs Immat Gran (auto) (0.00-0.031) K/mm3 Absolute Neuts (auto) (1.3-6.7) K/mm3 Absolute Nucleated RBC (0.0-0.012) K/mm3 Nucleated RBC % (0.0-0.2) % PT 14.9 H (11.1-14.7) Seconds INR 1.1 APTT 129.9 H 73.2 H (22.3-36.8) Seconds Sodium 134 L Potassium 4.3 Chloride 97 L Carbon Dioxide 28 Anion Gap 9 BUN 21 H Creatinine 1.10 Estim Creat Clear Calc 49 Estimated GFR > 60 Glucose 174 H Calcium 9.1 Phosphorus 3.7 (2.5-4.5) mg/dL Magnesium 2.3 (1.6-2.3) mg/dL Total Bilirubin 1.2 AST 26 ALT 24 Alkaline Phosphatase 77 Troponin I 1.630 H* (0.000-0.034) ng/mL Total Protein 7.0 Albumin 4.4 Lipase Urine Color (Yellow) Urine Appearance (Clear) Urine pH (5.0-9.0) Ur Specific [place] (1.001-1.035) Urine Protein (Negative) mg/dL Urine Glucose (UA) (Negative) mg/dL Urine Ketones (Negative) mg/dL Ur Blood (Man) (Negative) Urine Nitrate (Negative) Urine Bilirubin (Negative) Urine Urobilinogen (<2.0) mg/dL Leukocyte Esterase Rfl (Negative) ALONA/UL Urine RBC (0-2) /hpf Urine WBC (0-3) /hpf Ur Squamous Epith Cells (Few) /hpf Urine Bacteria /hpf Urine Casts Influenza A (RT-PCR) Negative (Negative) Influenza B (RT-PCR) Negative (Negative) RSV (RT-PCR) Negative (Negative) SARS-CoV-2 RNA (RT-PCR) Negative (Negative) <Oliver Smart MD - Last Filed: 10/02/23 13:54> Imaging Data Radiologist's impression: ITS Impressions Abdomen/Pelvis CT 09/30/23 22:02 Impression: Small right pleural effusion with probable emphysema at the lung bases. 5.2 cm infrarenal abdominal aortic aneurysm. Extensive, severe atherosclerotic disease of the aorta, common iliac arteries, and external iliac arteries. Severe stenoses and/or focal occlusions involving the common iliac arteries and external iliac arteries bilaterally. Correlate with any relevant patient's symptomatology. Large wide necked ventral/umbilical hernia containing multiple small bowel loops, similar to prior exam. No bowel obstruction or bowel wall thickening. Chest X-Ray 10/02/23 10:02 Impression: Extensive groundglass and interstitial pulmonary disease. Findings probably represent mixed alveolar/interstitial pulmonary edema. Correlate for other chronic interstitial disease which is significantly worsened from prior exam. Small pleural effusions. <Oleksandr Samuel MD - Last Filed: 10/05/23 12:29> ITS Impressions Abdomen/Pelvis CT 09/30/23 22:02 Impression: Small right pleural effusion with probable emphysema at the lung bases. 5.2 cm infrarenal abdominal aortic aneurysm. Extensive, severe atherosclerotic disease of the aorta, common iliac arteries, and external iliac arteries. Severe stenoses and/or focal occlusions involving the common iliac arteries and external iliac arteries bilaterally. Correlate with any relevant patient's symptomatology. Large wide necked ventral/umbilical hernia containing multiple small bowel loops, similar to prior exam. No bowel obstruction or bowel wall thickening. Chest X-Ray 10/02/23 10:02 Impression: Extensive groundglass and interstitial pulmonary disease. Findings probably represent mixed alveolar/interstitial pulmonary edema. Correlate for other chronic interstitial disease which is significantly worsened from prior exam. Small pleural effusions. <Oliver Smart MD - Last Filed: 10/02/23 13:54> Critical Care Time Critical Care Time Critical Care Time: Yes <Oleksandr Samuel MD - Last Filed: 10/05/23 12:29> Total Critical Care Time: 35 <Oleksandr Samuel MD - Last Filed: 10/05/23 12:29> Discharge Plan Discharge Clinical Impression: Non-ST elevation NH (NSTEMI) <Oleksandr Samuel MD - Last Filed: 10/05/23 12:29> Patient Disposition: Still a Patient <Oleksandr Samuel MD - Last Filed: 10/05/23 12:29> Condition: Serious <Oleksandr Samuel MD - Last Filed: 10/05/23 12:29>
[2023-09-30 20:27] LABS: Alanine Aminotransferase 23 U/L (6-50); Albumin Level 4.3 g/dL (3.5-5.1); Alkaline Phosphatase 81 U/L (38-126); Anion Gap 10 mmol/L (4-12); Aspartate Amino Transferase 35 U/L (17-59); Bilirubin,Total 1.2 mg/dL (0.2-1.3); Blood Urea Nitrogen 22 mg/dL (9-20); Carbon Dioxide 27 mmol/L (22-30); Chloride 99 mmol/L (98-107); Estimated CRCL calculation 54 ml/min; Estimated Glomerular Filt Rate > 60; Glucose 103 mg/dL (65-110); Lipase 45 U/L (23-300); Potassium 4.3 mmol/L (3.4-5.0); Sodium 136 mmol/L (137-145)
[2023-09-30] MEDS: ONDANSETRON INJ 4 MG/2 ML VIAL IV PUSH (20:38)
[2023-09-30] MEDS: BELLADONNA ALK/PHENOB ELIX 10 ML, MAG HYDROX/ALUMINUM HYD/SIMETH 30 ML, LIDOCAINE HCL 2... PO (20:38)
[2023-09-30] MEDS: PANTOPRAZOLE SODIUM IV 40 MG VIAL IV PUSH (20:38)
[2023-09-30 20:54] LABS: Appearance Urine Cloudy (Clear); Bacteria Urine None Seen /hpf; Bilirubin Urine Negative (Negative); Blood Urine Negative (Negative); Color Urine Dark Yellow (Yellow); Glucose Urine UA Negative (Negative); Ketones Urine Trace mg/dL (Negative); Leukocyte Esterase Ur Trace LEU/UL (Negative); Nitrate Urine Negative (Negative); Non Pathogenic Casts 0-2; Protein Urine 1+ mg/dL (Negative); RBC Urine 0-2 /hpf (0-2); Specific Grav Ur 1.024 (1.001-1.035); Squamous Epithelial Cell Urine None Seen /hpf (Few); WBC Urine 0-5 /hpf (0-3)
[2023-09-30 20:56] LABS: Add Urine Microscopic? NO
[2023-09-30 21:21] LABS: INR 1.1; Prothrombin Time 14.2 Seconds (11.1-14.7)
[2023-09-30 21:22] LABS: Partial Thromboplastin Time 33.4 Seconds (22.3-36.8)
[2023-09-30 21:53] VITALS: BP 107/77; PULSE 88; RESP 17; O2SAT 95
--- NOTE | 2023-09-30 22:50 | ECG_ITS ---
Test Date: 2023-09-30 23:15:04 Measurements Intervals [place] Rate: 89 P: 61 ME: 173 QRS: 66 QRSD: 121 T: 8 QT: 358 QTc: 436 Interpretive Statements SINUS RHYTHM POSSIBLE LEFT ATRIAL ENLARGEMENT INTRAVENTRICULAR CONDUCTION DELAY CANNOT R/O SEPTAL INFARCT, AGE INDETERMINATE ST-T WAVE ABNORMALITY IN LATERAL LEADS- CONSIDE R ISCHEMIA BASELINE ARTIFACT- I, II, AVR, V1-V2 ABNORMAL ECG Compared to ECG 09/30/2023 20:24:33 NO SIGNIFICANT CHANGE Electronically Signed On 10-01-2023 08:31:16 CDT by Ashish Salguero D.O.
[2023-09-30] MEDS: HEPARIN SODIUM 5,000 UNITS/ML VIAL 4000 UNITS IV PUSH (22:55)
[2023-09-30] MEDS: HEPARIN SOD/D5W 100 UNITS/ML 25,000 UNITS/250 ML BAG 10 UNITS IV CONT (22:55)
[2023-09-30 23:43] VITALS: BP 106/82; PULSE 75; RESP 19; O2SAT 98
[2023-10-01] VITALS (17 sets, daily range): BP systolic 92–124; BP diastolic 53–93; PULSE 61–98; RESP 13–22; TEMP 36.5–37.1; O2SAT 92–97; BMI 26.5
[2023-10-01] MEDS: LORazepam INJ (*CRX) 2 MG/ML VIAL 0.5 MG IV PUSH ×2 (02:47→05:30)
[2023-10-01] MEDS: ALBUTEROL SULFATE NEB 2.5 MG/3 ML INH INHALATION (02:55)
[2023-10-01 05:16] LABS: Basophils Percent Auto 0.4 % (0.2-1.2); Eosinophils Absolute Auto 0.1 K/mm3 (0-0.3); Eosinophils Percent Auto 0.7 % (0-4.4); Hematocrit 43.8 % (42.0-52.0); Hemoglobin 14.2 g/dL (14.0-18.0); Immature Granulocyte Absolute 0.01 K/mm3 (0.00-0.031); Immature Granulocyte Percent A 0.1 % (0-0.5); Lymphocytes Absolute Auto 0.83 K/mm3 (0.9-3.2); Lymphocytes Percent Auto 10.8 % (18.3-44.2); Mean Corpuscular HGB Conc 32.4 g/dl (32-36); Mean Corpuscular Hemoglobin 30.5 pg (26-34); Mean Corpuscular Volume 94.2 fl (80-100); Mean Platelet Volume 11.9 fl (7.4-10.4); Monocytes Absolute Auto 0.7 K/mm3 (0.1-0.6); Monocytes Percent Auto 8.6 % (2.6-8.5); Neutrophils Absolute Auto 6.1 K/mm3 (1.3-6.7); Neutrophils Percent Auto 79.4 % (45.5-73.1); Platelet Count Result 189 k/mm3 (150-375); Red Blood Count 4.65 M/mm3 (4.6-6.20); Red Cell Distribution Width 14.2 % (11.5-14.5); White Blood Count 7.7 K/mm3 (4.5-10.0)
[2023-10-01 05:28] LABS: INR 1.1; Prothrombin Time 14.7 Seconds (11.1-14.7)
[2023-10-01 05:52] LABS: Partial Thromboplastin Time 160.7 Seconds (22.3-36.8)
--- NOTE | 2023-10-01 05:56 | PC.NURSE ---
Received critical from lab of PTT 160.7. Heparin paused at this time.
--- NOTE | 2023-10-01 09:25 | PC.NURSE ---
Meal tray ordered.
[2023-10-01 11:48] LABS: INR 1.1; Prothrombin Time 14.5 Seconds (11.1-14.7)
[2023-10-01 11:49] LABS: Partial Thromboplastin Time 35.3 Seconds (22.3-36.8)
[2023-10-01] MEDS: HEPARIN SODIUM 5,000 UNITS/ML VIAL 4000 UNITS IV PUSH ×2 (11:57→18:31)
--- NOTE | 2023-10-01 12:02 | PC.NURSE ---
Meal tray ordered
[2023-10-01 18:26] LABS: INR 1.1; Prothrombin Time 14.9 Seconds (11.1-14.7)
[2023-10-01 18:27] LABS: Partial Thromboplastin Time 54.4 Seconds (22.3-36.8)
--- NOTE | 2023-10-01 19:42 | ED_ITS ---
HPI - General Adult General Chief complaint: Abdominal Pain Stated complaint: indigestion x3 days Time Seen by Provider: 09/30/23 20:01 Related Data Home Medications Medication Instructions Recorded Confirmed aspirin 81 mg chewable tablet 81 mg PO DAILY 08/07/23 08/07/23 polyethylene glycol 3350 17 17 g PO DAILY PRN Constipation 08/07/23 08/07/23 gram/dose oral powder sennosides 8.6 mg-docusate sodium 2 tablet PO DAILY 08/07/23 08/07/23 50 mg tablet (Senna-S) Allergies Allergy/AdvReac Type Severity Reaction Status Date / Time No Known Allergies Allergy Unknown NONE Verified 08/07/23 19:30 [facility] Past Medical History Medical History Abnormal colonoscopy 04/02, polyps & adenoma Acute prostatitis AIVR (accelerated idioventricular rhythm) Altered mental status History of [place] (myocardial infarction) 02/05 Hypertension Postoperative intra-abdominal abscess Thrombocytopenia Surgical History Surgical History History of appendectomy History of exploratory laparotomy 01/22/20 exploratory laparotomy, extensive of lysis of adhesion of approximately 30 minutes, closure of enterotomy x4, washout, placement of drains x2, fascial closure Family History Family History Mother Congestive heart failure Diabetes mellitus Acute myocardial infarction Heart disease Hypertension Father Chronic obstructive pulmonary disease Hypertension Malignant neoplasm of prostate Sibling Congestive heart failure Heart disease Hypertension Sibling Diabetes mellitus Hypertension Other Colon polyp Social History Social History Smoking packs per day: 1.5 Smoking cigarettes per day: 30.0 Years smoked: 60 Smoking pack-years: 90.00 Smoking status: Former smoker Tobacco type: cigarettes Smoking end date: 01/18/20 Alcohol intake: never Substance use: never Substance use type: does not use Do You Feel Safe in your Home?: Yes Lack of Transportation: No Lack of Food: Never True Current Housing: I Have Housing Concerned About Future Housing: No Difficulty Paying Gas/Electric Bills: No Difficulty Paying for Meds: No Currently Unemployed: No Education: High School Diploma/GED Difficulty w/ Childcare or Family Care: No Living arrangements: alone Occupation/Education: retired Gender identity (if verbalized by the patient): Male Sexual Orientation (if Verbalized by the Patient): Straight or Heterosexual Spiritual care concerns: No Agree to blood products: Yes Course Course Emergency Course: 1943: Patient is still awaiting bed at [facility]. He has been on heparin for his non ST-elevation [place]. I have re-contacted cardiology who is comfortable consulting on the patient. Patient will be admitted to the hospitalist service while we wait for a bed at [facility]. Vital Signs Vital signs: Vital Signs Temperature 97 F L 09/30/23 18:28 Pulse Rate 89 09/30/23 18:28 Respiratory Rate 20 09/30/23 18:28 Blood Pressure 120/60 09/30/23 18:28 Pulse Oximetry 96 09/30/23 18:28 Oxygen Delivery Room Air 09/30/23 18:28 Temperature 98.7 F 10/01/23 11:41 Pulse Rate 89 10/01/23 19:31 Respiratory Rate 21 H 10/01/23 19:31 Blood Pressure 111/69 10/01/23 19:31 Pulse Oximetry 95 10/01/23 19:31 Oxygen Delivery Nasal Cannula 10/01/23 06:27 Oxygen Flow Rate 2 10/01/23 06:27 Medical Decision Making Vital Signs Vital Signs: Vital Signs Temperature 97 F L 09/30/23 18:28 Pulse Rate 89 09/30/23 18:28 Respiratory Rate 20 09/30/23 18:28 Blood Pressure 120/60 09/30/23 18:28 Pulse Oximetry 96 09/30/23 18:28 Oxygen Delivery Room Air 09/30/23 18:28 Temperature 98.7 F 10/01/23 11:41 Pulse Rate 89 10/01/23 19:31 Respiratory Rate 21 H 10/01/23 19:31 Blood Pressure 111/69 10/01/23 19:31 Pulse Oximetry 95 10/01/23 19:31 Oxygen Delivery Nasal Cannula 10/01/23 06:27 Oxygen Flow Rate 2 10/01/23 06:27 Lab Data 10/01/23 05:10 09/30/23 20:10 Labs: Lab Results 09/30/23 09/30/23 09/30/23 Range/Units 20:10 20:10 20:10 WBC 8.1 (4.5-10.0) K/mm3 RBC 4.79 (4.6-6.20) M/mm3 Hgb 14.6 (14.0-18.0) g/dL Hct 44.2 (42.0-52.0) % MCV 92.3 (80-100) fl MCH 30.5 (26-34) pg MCHC 33.0 (32-36) g/dl RDW 14.4 (11.5-14.5) % Plt Count 204 (150-375) k/mm3 MPV 11.8 H (7.4-10.4) fl Immature Gran % (Auto) 0.4 (0-0.5) % Neut % (Auto) 79.0 H (45.5-73.1) % Lymph % (Auto) 10.9 L (18.3-44.2) % [place] % (Auto) 8.6 H (2.6-8.5) % Eos % (Auto) 0.7 (0-4.4) % Baso % (Auto) 0.4 (0.2-1.2) % Lymph # (Auto) 0.88 L (0.9-3.2) K/mm3 [place] # (Auto) 0.7 H (0.1-0.6) K/mm3 Eos # (Auto) 0.1 (0-0.3) K/mm3 Baso # (Auto) 0.0 (0.0-0.1) K/mm3 Abs Immat Gran (auto) 0.03 (0.00-0.031) K/mm3 Absolute Neuts (auto) 6.4 (1.3-6.7) K/mm3 Absolute Nucleated RBC 0.000 (0.0-0.012) K/mm3 Nucleated RBC % 0.0 (0.0-0.2) % PT 14.2 (11.1-14.7) Seconds INR 1.1 APTT 33.4 (22.3-36.8) Seconds Sodium Cancelled 136 L Potassium Cancelled 4.3 Chloride Cancelled Carbon Dioxide Anion Gap BUN Creatinine Estim Creat Clear Calc Estimated GFR Glucose Calcium Total Bilirubin AST ALT Alkaline Phosphatase Troponin I (0.000-0.034) ng/mL Total Protein Albumin Lipase Urine Color (Yellow) Urine Appearance (Clear) Urine pH (5.0-9.0) Ur Specific Pray (1.001-1.035) Urine Protein (Negative) mg/dL Urine Glucose (UA) (Negative) mg/dL Urine Ketones (Negative) mg/dL Ur Blood (Man) (Negative) Urine Nitrate (Negative) Urine Bilirubin (Negative) Urine Urobilinogen (<2.0) mg/dL Leukocyte Esterase Rfl (Negative) ALONA/UL Urine RBC (0-2) /hpf Urine WBC (0-3) /hpf Ur Squamous Epith Cells (Few) /hpf Urine Bacteria /hpf Urine Casts 09/30/23 09/30/23 09/30/23 Range/Units 20:10 20:10 20:10 WBC (4.5-10.0) K/mm3 RBC (4.6-6.20) M/mm3 Hgb (14.0-18.0) g/dL Hct (42.0-52.0) % MCV (80-100) fl MCH (26-34) pg MCHC (32-36) g/dl RDW (11.5-14.5) % Plt Count (150-375) k/mm3 MPV (7.4-10.4) fl Immature Gran % (Auto) (0-0.5) % Neut % (Auto) (45.5-73.1) % Lymph % (Auto) (18.3-44.2) % [place] % (Auto) (2.6-8.5) % Eos % (Auto) (0-4.4) % Baso % (Auto) (0.2-1.2) % Lymph # (Auto) (0.9-3.2) K/mm3 [place] # (Auto) (0.1-0.6) K/mm3 Eos # (Auto) (0-0.3) K/mm3 Baso # (Auto) (0.0-0.1) K/mm3 Abs Immat Gran (auto) (0.00-0.031) K/mm3 Absolute Neuts (auto) (1.3-6.7) K/mm3 Absolute Nucleated RBC (0.0-0.012) K/mm3 Nucleated RBC % (0.0-0.2) % PT (11.1-14.7) Seconds INR APTT (22.3-36.8) Seconds Sodium Potassium Chloride 99 Carbon Dioxide Cancelled 27 Anion Gap Cancelled 10 BUN Cancelled Creatinine Estim Creat Clear Calc Estimated GFR Glucose Calcium Total Bilirubin AST ALT Alkaline Phosphatase Troponin I (0.000-0.034) ng/mL Total Protein Albumin Lipase Urine Color (Yellow) Urine Appearance (Clear) Urine pH (5.0-9.0) Ur Specific Pray (1.001-1.035) Urine Protein (Negative) mg/dL Urine Glucose (UA) (Negative) mg/dL Urine Ketones (Negative) mg/dL Ur Blood (Man) (Negative) Urine Nitrate (Negative) Urine Bilirubin (Negative) Urine Urobilinogen (<2.0) mg/dL Leukocyte Esterase Rfl (Negative) ALONA/UL Urine RBC (0-2) /hpf Urine WBC (0-3) /hpf Ur Squamous Epith Cells (Few) /hpf Urine Bacteria /hpf Urine Casts 09/30/23 09/30/23 09/30/23 Range/Units 20:10 20:10 20:10 WBC (4.5-10.0) K/mm3 RBC (4.6-6.20) M/mm3 Hgb (14.0-18.0) g/dL Hct (42.0-52.0) % MCV (80-100) fl MCH (26-34) pg MCHC (32-36) g/dl RDW (11.5-14.5) % Plt Count (150-375) k/mm3 MPV (7.4-10.4) fl Immature Gran % (Auto) (0-0.5) % Neut % (Auto) (45.5-73.1) % Lymph % (Auto) (18.3-44.2) % [place] % (Auto) (2.6-8.5) % Eos % (Auto) (0-4.4) % Baso % (Auto) (0.2-1.2) % Lymph # (Auto) (0.9-3.2) K/mm3 [place] # (Auto) (0.1-0.6) K/mm3 Eos # (Auto) (0-0.3) K/mm3 Baso # (Auto) (0.0-0.1) K/mm3 Abs Immat Gran (auto) (0.00-0.031) K/mm3 Absolute Neuts (auto) (1.3-6.7) K/mm3 Absolute Nucleated RBC (0.0-0.012) K/mm3 Nucleated RBC % (0.0-0.2) % PT (11.1-14.7) Seconds INR APTT (22.3-36.8) Seconds Sodium Potassium Chloride Carbon Dioxide Anion Gap BUN 22 H Creatinine Cancelled 1.00 Estim Creat Clear Calc Cancelled 54 Estimated GFR Cancelled Glucose Calcium Total Bilirubin AST ALT Alkaline Phosphatase Troponin I (0.000-0.034) ng/mL Total Protein Albumin Lipase Urine Color (Yellow) Urine Appearance (Clear) Urine pH (5.0-9.0) Ur Specific Pray (1.001-1.035) Urine Protein (Negative) mg/dL Urine Glucose (UA) (Negative) mg/dL Urine Ketones (Negative) mg/dL Ur Blood (Man) (Negative) Urine Nitrate (Negative) Urine Bilirubin (Negative) Urine Urobilinogen (<2.0) mg/dL Leukocyte Esterase Rfl (Negative) ALONA/UL Urine RBC (0-2) /hpf Urine WBC (0-3) /hpf Ur Squamous Epith Cells (Few) /hpf Urine Bacteria /hpf Urine Casts 09/30/23 09/30/23 09/30/23 Range/Units 20:10 20:10 20:10 WBC (4.5-10.0) K/mm3 RBC (4.6-6.20) M/mm3 Hgb (14.0-18.0) g/dL Hct (42.0-52.0) % MCV (80-100) fl MCH (26-34) pg MCHC (32-36) g/dl RDW (11.5-14.5) % Plt Count (150-375) k/mm3 MPV (7.4-10.4) fl Immature Gran % (Auto) (0-0.5) % Neut % (Auto) (45.5-73.1) % Lymph % (Auto) (18.3-44.2) % [place] % (Auto) (2.6-8.5) % Eos % (Auto) (0-4.4) % Baso % (Auto) (0.2-1.2) % Lymph # (Auto) (0.9-3.2) K/mm3 [place] # (Auto) (0.1-0.6) K/mm3 Eos # (Auto) (0-0.3) K/mm3 Baso # (Auto) (0.0-0.1) K/mm3 Abs Immat Gran (auto) (0.00-0.031) K/mm3 Absolute Neuts (auto) (1.3-6.7) K/mm3 Absolute Nucleated RBC (0.0-0.012) K/mm3 Nucleated RBC % (0.0-0.2) % PT (11.1-14.7) Seconds INR APTT (22.3-36.8) Seconds Sodium Potassium Chloride Carbon Dioxide Anion Gap BUN Creatinine Estim Creat Clear Calc Estimated GFR > 60 Glucose Cancelled 103 Calcium Cancelled 10.0 Total Bilirubin Cancelled AST ALT Alkaline Phosphatase Troponin I (0.000-0.034) ng/mL Total Protein Albumin Lipase Urine Color (Yellow) Urine Appearance (Clear) Urine pH (5.0-9.0) Ur Specific Pray (1.001-1.035) Urine Protein (Negative) mg/dL Urine Glucose (UA) (Negative) mg/dL Urine Ketones (Negative) mg/dL Ur Blood (Man) (Negative) Urine Nitrate (Negative) Urine Bilirubin (Negative) Urine Urobilinogen (<2.0) mg/dL Leukocyte Esterase Rfl (Negative) ALONA/UL Urine RBC (0-2) /hpf Urine WBC (0-3) /hpf Ur Squamous Epith Cells (Few) /hpf Urine Bacteria /hpf Urine Casts 09/30/23 09/30/23 09/30/23 Range/Units 20:10 20:10 20:10 WBC (4.5-10.0) K/mm3 RBC (4.6-6.20) M/mm3 Hgb (14.0-18.0) g/dL Hct (42.0-52.0) % MCV (80-100) fl MCH (26-34) pg MCHC (32-36) g/dl RDW (11.5-14.5) % Plt Count (150-375) k/mm3 MPV (7.4-10.4) fl Immature Gran % (Auto) (0-0.5) % Neut % (Auto) (45.5-73.1) % Lymph % (Auto) (18.3-44.2) % [place] % (Auto) (2.6-8.5) % Eos % (Auto) (0-4.4) % Baso % (Auto) (0.2-1.2) % Lymph # (Auto) (0.9-3.2) K/mm3 [place] # (Auto) (0.1-0.6) K/mm3 Eos # (Auto) (0-0.3) K/mm3 Baso # (Auto) (0.0-0.1) K/mm3 Abs Immat Gran (auto) (0.00-0.031) K/mm3 Absolute Neuts (auto) (1.3-6.7) K/mm3 Absolute Nucleated RBC (0.0-0.012) K/mm3 Nucleated RBC % (0.0-0.2) % PT (11.1-14.7) Seconds INR APTT (22.3-36.8) Seconds Sodium Potassium Chloride Carbon Dioxide Anion Gap BUN Creatinine Estim Creat Clear Calc Estimated GFR Glucose Calcium Total Bilirubin 1.2 AST Cancelled 35 ALT Cancelled 23 Alkaline Phosphatase Cancelled Troponin I (0.000-0.034) ng/mL Total Protein Albumin Lipase Urine Color (Yellow) Urine Appearance (Clear) Urine pH (5.0-9.0) Ur Specific Pray (1.001-1.035) Urine Protein (Negative) mg/dL Urine Glucose (UA) (Negative) mg/dL Urine Ketones (Negative) mg/dL Ur Blood (Man) (Negative) Urine Nitrate (Negative) Urine Bilirubin (Negative) Urine Urobilinogen (<2.0) mg/dL Leukocyte Esterase Rfl (Negative) ALONA/UL Urine RBC (0-2) /hpf Urine WBC (0-3) /hpf Ur Squamous Epith Cells (Few) /hpf Urine Bacteria /hpf Urine Casts 09/30/23 09/30/23 09/30/23 Range/Units 20:10 20:10 20:10 WBC (4.5-10.0) K/mm3 RBC (4.6-6.20) M/mm3 Hgb (14.0-18.0) g/dL Hct (42.0-52.0) % MCV (80-100) fl MCH (26-34) pg MCHC (32-36) g/dl RDW (11.5-14.5) % Plt Count (150-375) k/mm3 MPV (7.4-10.4) fl Immature Gran % (Auto) (0-0.5) % Neut % (Auto) (45.5-73.1) % Lymph % (Auto) (18.3-44.2) % [place] % (Auto) (2.6-8.5) % Eos % (Auto) (0-4.4) % Baso % (Auto) (0.2-1.2) % Lymph # (Auto) (0.9-3.2) K/mm3 [place] # (Auto) (0.1-0.6) K/mm3 Eos # (Auto) (0-0.3) K/mm3 Baso # (Auto) (0.0-0.1) K/mm3 Abs Immat Gran (auto) (0.00-0.031) K/mm3 Absolute Neuts (auto) (1.3-6.7) K/mm3 Absolute Nucleated RBC (0.0-0.012) K/mm3 Nucleated RBC % (0.0-0.2) % PT (11.1-14.7) Seconds INR APTT (22.3-36.8) Seconds Sodium Potassium Chloride Carbon Dioxide Anion Gap BUN Creatinine Estim Creat Clear Calc Estimated GFR Glucose Calcium Total Bilirubin AST ALT Alkaline Phosphatase 81 Troponin I 1.080 H* (0.000-0.034) ng/mL Total Protein Cancelled 8.0 Albumin Cancelled 4.3 Lipase Cancelled Urine Color (Yellow) Urine Appearance (Clear) Urine pH (5.0-9.0) Ur Specific Pray (1.001-1.035) Urine Protein (Negative) mg/dL Urine Glucose (UA) (Negative) mg/dL Urine Ketones (Negative) mg/dL Ur Blood (Man) (Negative) Urine Nitrate (Negative) Urine Bilirubin (Negative) Urine Urobilinogen (<2.0) mg/dL Leukocyte Esterase Rfl (Negative) ALONA/UL Urine RBC (0-2) /hpf Urine WBC (0-3) /hpf Ur Squamous Epith Cells (Few) /hpf Urine Bacteria /hpf Urine Casts 07/14/24 07/14/24 07/14/24 Range/Units 20:10 20:43 23:04 WBC (4.5-10.0) K/mm3 RBC (4.6-6.20) M/mm3 Hgb (14.0-18.0) g/dL Hct (42.0-52.0) % MCV (80-100) fl MCH (26-34) pg MCHC (32-36) g/dl RDW (11.5-14.5) % Plt Count (150-375) k/mm3 MPV (7.4-10.4) fl Immature Gran % (Auto) (0-0.5) % Neut % (Auto) (45.5-73.1) % Lymph % (Auto) (18.3-44.2) % [place] % (Auto) (2.6-8.5) % Eos % (Auto) (0-4.4) % Baso % (Auto) (0.2-1.2) % Lymph # (Auto) (0.9-3.2) K/mm3 [place] # (Auto) (0.1-0.6) K/mm3 Eos # (Auto) (0-0.3) K/mm3 Baso # (Auto) (0.0-0.1) K/mm3 Abs Immat Gran (auto) (0.00-0.031) K/mm3 Absolute Neuts (auto) (1.3-6.7) K/mm3 Absolute Nucleated RBC (0.0-0.012) K/mm3 Nucleated RBC % (0.0-0.2) % PT (11.1-14.7) Seconds INR APTT (22.3-36.8) Seconds Sodium Potassium Chloride Carbon Dioxide Anion Gap BUN Creatinine Estim Creat Clear Calc Estimated GFR Glucose Calcium Total Bilirubin AST ALT Alkaline Phosphatase Troponin I 1.390 H* D (0.000-0.034) ng/mL Total Protein Albumin Lipase 45 Urine Color Dark yellow (Yellow) Urine Appearance Cloudy H (Clear) Urine pH 6.0 (5.0-9.0) Ur Specific Pray 1.024 (1.001-1.035) Urine Protein 1+ H (Negative) mg/dL Urine Glucose (UA) Negative (Negative) mg/dL Urine Ketones Trace H (Negative) mg/dL Ur Blood (Man) Negative (Negative) Urine Nitrate Negative (Negative) Urine Bilirubin Negative (Negative) Urine Urobilinogen 1.0 (<2.0) mg/dL Leukocyte Esterase Rfl Trace H (Negative) ALONA/UL Urine RBC 0-2 (0-2) /hpf Urine WBC 0-5 (0-3) /hpf Ur Squamous Epith Cells None seen (Few) /hpf Urine Bacteria None seen /hpf Urine Casts 0-2 10/01/23 10/01/23 10/01/23 Range/Units 05:10 11:31 17:49 WBC 7.7 (4.5-10.0) K/mm3 RBC 4.65 (4.6-6.20) M/mm3 Hgb 14.2 (14.0-18.0) g/dL Hct 43.8 (42.0-52.0) % MCV 94.2 (80-100) fl MCH 30.5 (26-34) pg MCHC 32.4 (32-36) g/dl RDW 14.2 (11.5-14.5) % Plt Count 189 (150-375) k/mm3 MPV 11.9 H (7.4-10.4) fl Immature Gran % (Auto) 0.1 (0-0.5) % Neut % (Auto) 79.4 H (45.5-73.1) % Lymph % (Auto) 10.8 L (18.3-44.2) % [place] % (Auto) 8.6 H (2.6-8.5) % Eos % (Auto) 0.7 (0-4.4) % Baso % (Auto) 0.4 (0.2-1.2) % Lymph # (Auto) 0.83 L (0.9-3.2) K/mm3 [place] # (Auto) 0.7 H (0.1-0.6) K/mm3 Eos # (Auto) 0.1 (0-0.3) K/mm3 Baso # (Auto) 0.0 (0.0-0.1) K/mm3 Abs Immat Gran (auto) 0.01 (0.00-0.031) K/mm3 Absolute Neuts (auto) 6.1 (1.3-6.7) K/mm3 Absolute Nucleated RBC 0.000 (0.0-0.012) K/mm3 Nucleated RBC % 0.0 (0.0-0.2) % PT 14.7 14.5 14.9 H (11.1-14.7) Seconds INR 1.1 1.1 1.1 APTT 160.7 H* 35.3 54.4 H (22.3-36.8) Seconds Sodium Potassium Chloride Carbon Dioxide Anion Gap BUN Creatinine Estim Creat Clear Calc Estimated GFR Glucose Calcium Total Bilirubin AST ALT Alkaline Phosphatase Troponin I (0.000-0.034) ng/mL Total Protein Albumin Lipase Urine Color (Yellow) Urine Appearance (Clear) Urine pH (5.0-9.0) Ur Specific Pray (1.001-1.035) Urine Protein (Negative) mg/dL Urine Glucose (UA) (Negative) mg/dL Urine Ketones (Negative) mg/dL Ur Blood (Man) (Negative) Urine Nitrate (Negative) Urine Bilirubin (Negative) Urine Urobilinogen (<2.0) mg/dL Leukocyte Esterase Rfl (Negative) ALONA/UL Urine RBC (0-2) /hpf Urine WBC (0-3) /hpf Ur Squamous Epith Cells (Few) /hpf Urine Bacteria /hpf Urine Casts Discharge Plan Discharge Clinical Impression: Non-ST elevation [place] (NSTEMI) Patient Disposition: Still a Patient Condition: Serious Instructions: Antibiotic Form Prescriptions: No Action clopidogrel 75 mg tablet 75 mg PO DAILY Qty: 90 2RF furosemide 20 mg tablet 30 mg PO DAILY Qty: 45 5RF gabapentin [Neurontin] 300 mg capsule 300 mg PO BID Qty: 60 5RF ipratropium-albuterol 0.5 mg-3 mg(2.5 mg base)/3 mL solution for nebulization 3 ml INHALATION Q6H PRN (Reason: Shortness Of Breath Or Wheezing) Qty: 180 5RF lidocaine [Lidocaine Pain Relief] 4 % adhesive patch,medicated 1 patch transdermal QHS Qty: 30 3RF pravastatin 40 mg tablet 40 mg PO HS Qty: 30 8RF trazodone 50 mg tablet 50 mg PO HS Qty: 30 5RF polyethylene glycol 3350 17 gram/dose Powder 17 g PO DAILY PRN (Reason: Constipation) aspirin 81 mg tablet,chewable 81 mg PO DAILY sennosides-docusate sodium [Senna-S] 8.6-50 mg Tablet 2 tablet PO DAILY acetaminophen 325 mg Tablet 650 mg PO Q4H PRN (Reason: Mild Pain (1-3) Or Fever) Qty: 30 0RF guaifenesin [Mucus Relief ER] 600 mg Tablet Extended Release 12hr 600 mg PO Q12HR Qty: 30 0RF tramadol 50 mg Tablet 25 mg PO Q6H PRN (Reason: Pain Rated 6 Or Greater) Qty: 20 0RF Follow-up/Referrals: Carroll Pepe MD [Primary Care Provider] -
--- NOTE | 2023-10-01 19:50 | PC.NURSE ---
Pt refused to change soiled clothes until he is taken to the cafeteria .
--- NOTE | 2023-10-01 20:15 | PC.NURSE ---
Pt given turkey sandwhich but refused to change soiled clothes until after eating.
--- NOTE | 2023-10-01 20:28 | ECG_ITS ---
Test Date: 2023-10-01 20:30:01 Measurements Intervals [place] Rate: 87 P: 57 TX: 180 QRS: 52 QRSD: 126 T: 74 QT: 350 QTc: 422 Interpretive Statements SINUS RHYTHM POSSIBLE LEFT ATRIAL ENLARGEMENT ANTEROSEPTAL INFARCT, AGE INDETERMINATE ST-T WAVE ABNORMALITY IN INF/LAT LEADS- CONSIDER ISCHEMIA ABNORMAL ECG Compared to ECG 09/30/2023 23:15:04 NO SIGNIFICANT CHANGE Electronically Signed On 10-02-2023 06:22:15 CDT by Ashish Salguero D.O.
--- NOTE | 2023-10-01 20:37 | P.HP_ITS ---
H&P: HPI History of Present Illness Date/Time: 10/01/23 20:37 Chief Complaint: indigestion Narrative: This is an 78-year-old my with past medical history significant for coronary artery disease, stroke, COPD, abdominal aortic aneurysm, stroke, Patient uses walker as a ambulation aid. he resides at a assisted living facility was brought for evaluation due to indigestion , heartburn ongoing for 3 days preliminary workup was significant for elevated troponins. Patient was started on heparin drip and it was found that there is the presence of a 5.2 cm abdominal aortic aneurysm and in view of these decision was made to transfer patient out to tertiary facility with the presence of Cardiovascular surgery patient is currently awaiting bed at [facility] CT of the Abdomen and Pelvis: Indication: Nausea, large hernia Technique: 2.5 mm axial scans were obtained through the abdomen and pelvis following intravenous administration of 100 cc of Omnipaque 350. Dose reduction technique was used on this scan by utilizing automated exposure control and iterative reconstruction technique. The dose-length product (DLP) was 662.99 mGy-cm. COMPARISON: 05/05/2022 Findings: Scans through the lung bases demonstrate small right pleural effusion, and mild bibasilar atelectatic change. Probable mild emphysema at the lung bases.. The liver, spleen, pancreas, gallbladder, adrenals and kidneys are within normal limits. 5.2 cm infrarenal abdominal aortic aneurysm present, with extensive mural thrombus. There is extensive atherosclerotic calcification of the common iliac arteries, with extensive mural thrombus and possible focal occlusions bilaterally. Additional severe atherosclerotic change of the bilateral external iliac arteries. No lymphadenopathy. Large wide necked ventral/umbilical hernia is present, containing multiple small bowel loops. No bowel obstruction or bowel wall thickening. Images through the pelvis were performed. Urinary bladder unremarkable. No pelvic mass seen. No ascites. Impression: Small right pleural effusion with probable emphysema at the lung bases. 5.2 cm infrarenal abdominal aortic aneurysm. Extensive, severe atherosclerotic disease of the aorta, common iliac arteries, and external iliac arteries. Severe stenoses and/or focal occlusions involving the common iliac arteries and external iliac arteries bilaterally. Correlate with any relevant patient's symptomatology. Large wide necked ventral/umbilical hernia containing multiple small bowel loops, similar to prior exam. No bowel obstruction or bowel wall thickening. Review of Systems Review of Systems: ROS unobtainable: Yes unobtainable due to medical condition (stroke) [facility] Past Medical History Medical History Abnormal colonoscopy 04/02, polyps & adenoma Acute prostatitis AIVR (accelerated idioventricular rhythm) Altered mental status History of CA (myocardial infarction) 02/05 Hypertension Postoperative intra-abdominal abscess Thrombocytopenia Surgical History Surgical History History of appendectomy History of exploratory laparotomy 01/22/20 exploratory laparotomy, extensive of lysis of adhesion of approximately 30 minutes, closure of enterotomy x4, washout, placement of drains x2, fascial closure Family History Family History Mother Congestive heart failure Diabetes mellitus Acute myocardial infarction Heart disease Hypertension Father Chronic obstructive pulmonary disease Hypertension Malignant neoplasm of prostate Sibling Congestive heart failure Heart disease Hypertension Sibling Diabetes mellitus Hypertension Other Colon polyp Social History Social History Smoking packs per day: 2 Smoking cigarettes per day: 40.0 Years smoked: 55 Smoking pack-years: 110.00 Smoking status: Former smoker Tobacco type: cigarettes Smoking end date: 01/18/20 Alcohol intake: never Substance use: never Substance use type: does not use Do You Feel Safe in your Home?: Yes Lack of Transportation: YES Lack of Food: Never True Current Housing: I Have Housing Concerned About Future Housing: No Difficulty Paying Gas/Electric Bills: No Difficulty Paying for Meds: No Currently Unemployed: No Education: High School Diploma/GED Difficulty w/ Childcare or Family Care: No Living arrangements: alone Occupation/Education: retired Gender identity (if verbalized by the patient): Male Sexual Orientation (if Verbalized by the Patient): Straight or Heterosexual Spiritual care concerns: No Agree to blood products: Yes Meds Home Medications and Allergies Home Medications Medication Instructions Recorded Confirmed Type aspirin 81 mg chewable tablet 81 mg PO DAILY 08/07/23 10/01/23 History polyethylene glycol 3350 17 17 g PO DAILY PRN Constipation 08/07/23 10/01/23 History gram/dose oral powder sennosides 8.6 mg-docusate sodium 2 tablet PO DAILY 08/07/23 10/01/23 History 50 mg tablet (Senna-S) acetaminophen 325 mg tablet 650 mg PO Q4H PRN Mild Pain (1-3) 08/27/23 10/01/23 Rx Or Fever #30 tabs guaifenesin 600 mg tablet, 600 mg PO Q12HR #30 tabs 08/27/23 10/01/23 Rx extended release 12 hr (Mucus Relief ER) tramadol 50 mg tablet 25 mg PO Q6H PRN Pain Rated 6 Or 08/29/23 10/01/23 Rx Greater #20 tabs clopidogrel 75 mg tablet 75 mg PO DAILY #90 tabs 08/30/23 10/01/23 Rx furosemide 20 mg tablet 30 mg PO DAILY #45 tabs 08/30/23 10/01/23 Rx gabapentin 300 mg capsule 300 mg PO BID #60 caps 08/30/23 10/01/23 Rx (Neurontin) ipratropium 0.5 mg-albuterol 3 mg 3 ml inhalation Q6H PRN Shortness 08/30/23 10/01/23 Rx (2.5 mg base)/3 mL nebulization Of Breath Or Wheezing #180 mL soln lidocaine 4 % topical patch 1 patch transdermal QHS #30 ea 08/30/23 10/01/23 Rx (Lidocaine Pain Relief) trazodone 50 mg tablet 50 mg PO HS #30 tabs 08/30/23 10/01/23 Rx Allergies Allergy/AdvReac Type Severity Reaction Status Date / Time No Known Allergies Allergy Unknown NONE Verified 08/07/23 19:30 Vital Signs Vital Signs - 24 hr 09/30/23 21:53 09/30/23 23:43 10/01/23 00:20 Temperature Pulse Rate 88 75 64 Respiratory Rate 17 19 15 Blood Pressure 107/77 106/82 92/75 L Pulse Oximetry 95 98 97 Oxygen Delivery Oxygen Flow Rate 10/01/23 01:16 10/01/23 02:02 10/01/23 02:51 Temperature Pulse Rate 84 Respiratory Rate 20 Blood Pressure 108/64 Pulse Oximetry 93 94 96 Oxygen Delivery Nasal Cannula Room Air Oxygen Flow Rate 2 10/01/23 00:46 10/01/23 02:16 10/01/23 04:15 Temperature Pulse Rate 83 98 75 Respiratory Rate 13 20 18 Blood Pressure 110/70 124/93 H Pulse Oximetry Oxygen Delivery Oxygen Flow Rate 10/01/23 04:16 10/01/23 04:30 10/01/23 04:31 Temperature Pulse Rate 74 74 61 Respiratory Rate 16 17 17 Blood Pressure 93/64 L 107/53 L Pulse Oximetry Oxygen Delivery Oxygen Flow Rate 10/01/23 06:27 10/01/23 06:27 10/01/23 07:30 Temperature Pulse Rate 73 76 Respiratory Rate 16 18 Blood Pressure 92/60 L 100/74 Pulse Oximetry 92 92 96 Oxygen Delivery Nasal Cannula Oxygen Flow Rate 2 10/01/23 11:41 10/01/23 16:17 10/01/23 18:54 Temperature 98.7 F Pulse Rate 77 88 78 Respiratory Rate 18 16 22 H Blood Pressure 93/63 L 101/71 100/64 Pulse Oximetry 96 94 95 Oxygen Delivery Oxygen Flow Rate 10/01/23 19:31 Temperature Pulse Rate 89 Respiratory Rate 21 H Blood Pressure 111/69 Pulse Oximetry 95 Oxygen Delivery Oxygen Flow Rate Exam Narrative: sitting in chair Const: General: comfortable, no acute distress, well developed, alert, awake and average body habitus Nutritional Appearance: average body habitus Orientation/consciousness: patient oriented x3 HENMT: Head: normal to inspection, normocephalic and atraumatic Ears: hearing grossly normal bilaterally Face/Nose/Sinus: normal facial exam Face and sinus: normal facial exam Eyes: General: appearance normal, both eyes and all related structures Pupils: Equal, round and reactive pupils present EOM: EOMs intact bilaterally Neck: Neck: full ROM, no lymphadenopathy and no JVD Thyroid: thyroid normal Lymphatic: no lymphadenopathy noted Resp: Effort & Inspection: normal respiratory effort and able to speak in complete sentences Auscultation: clear to auscultation bilaterally Cardio: Jugular venous distension: no JVD Rate: regular rate Rhythm: regular rhythm Heart sounds: S1 normal heart sound present and S2 normal heart sound present GI: Inspection: scar and visible herniation GI Palp: Yes Soft to palpation and Yes No hepatosplenomegaly present : General: Yes deferred Skin: Rashes: no rashes Wounds: no wounds Neuro: General: patient oriented x3 and CN's II-XI intact bilaterally Cranial nerves: Yes CN's II-XII intact bilaterally and Yes Equal, round and reactive pupils present Cognition (Neuro): normal cognition Speech: normal speech Gait exam (Neuro): Normal gait present Motor exam (neuro): 5/5 motor strength present throughout Extrem: General: normal to inspection, full ROM, no joint enlargement and no pedal edema H&P: Results Labs Labs: Short CBC 10/01/23 Range/Units 05:10 WBC 7.7 (4.5-10.0) K/mm3 Hgb 14.2 (14.0-18.0) g/dL Hct 43.8 (42.0-52.0) % Plt Count 189 (150-375) k/mm3 Cardiac Enzymes 09/30/23 09/30/23 Range/Units 20:10 23:04 Troponin I 1.080 H* 1.390 H* D (0.000-0.034) ng/mL Urine 09/30/23 Range/Units 20:43 Urine Color Dark yellow (Yellow) Urine Appearance Cloudy H (Clear) Urine pH 6.0 (5.0-9.0) Ur Specific [place] 1.024 (1.001-1.035) Urine Protein 1+ H (Negative) mg/dL Urine Glucose (UA) Negative (Negative) mg/dL Assessment and Plan Assessment and plan (1) Non-ST elevation CA (NSTEMI): Code(s): I21.4 - Non-ST elevation (NSTEMI) myocardial infarction Status: Acute Assessment and Plan: Patient admitted to IMU currently on heparin drip cardiology on board (2) Gait abnormality: Code(s): R26.9 - Unspecified abnormalities of gait and mobility Status: Acute (3) Debilitated: Code(s): R53.81 - Other malaise Status: Acute (4) Acute ischemic left MCA stroke: Code(s): I63.512 - Cerebral infarction due to unspecified occlusion or stenosis of left middle cerebral artery Status: Acute (5) 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: Code(s): I50.30 - Unspecified diastolic (congestive) heart failure Status: Acute (6) COPD (chronic obstructive pulmonary disease): Qualifiers: COPD type: unspecified COPD Qualified Code(s): J44.9 - Chronic obstructive pulmonary disease, unspecified Code(s): J44.9 - Chronic obstructive pulmonary disease, unspecified Status: Acute (7) Abdominal aortic aneurysm, without rupture: Code(s): I71.4 - Abdominal aortic aneurysm, without rupture Status: Acute Assessment and Plan: continue to monitor (8) Tobacco abuse: Code(s): Z72.0 - Tobacco use Status: Acute Plan patient is currently awaiting bed at [facility] out of an abundance of caution because of the presence of 5.2 aortic abdominal aneurysm and the need for heparin it was felt that in the patient's best interest stand are for him to be at a facility where cardiovascular surgery is available patient has been awaiting for a bed to open up in view that patient has been waiting for an extended amount of hours we have decided to admit the patient while waiting for bed Hospitalist MIPS Advance Care Plan I have confirmed that the patient's Advanced Care Plan is present, code status is documented, or surrogate decision maker is listed in patient medical record.: Yes Medication Reconciliation I have utilized all available resources to obtain, update and review the patients current medications (includes all prescriptions, OTC, herbals, cannabis, and nutritional supplements).: Yes
--- NOTE | 2023-10-01 21:45 | PC.NURSE ---
Pt informed of bed assignment and refused to change soiled clothes while transferring from recliner to stretcher. Pt stated Ill wait until I get upstairs.
--- NOTE | 2023-10-01 22:33 | ADMGEN ---
This patient, Jacob Tam, was admitted to IMU Room 213-01. Patient/family oriented to hospital policies and general routines including ID bracelet, bed and alarms, visiting hours, pain management, procedures, bathroom and other care routines, personal items, smoking policy, room service/diet, and visiting hours. Information on how to activate the Rapid Response Team has been discussed. Patient/Family are encouraged to report perceived risks to care and to ask questions if they do not understand what they are told or what they should do.
[2023-10-01] MEDS: HEPARIN SOD/D5W 100 UNITS/ML 25,000 UNITS/250 ML BAG 14 UNITS IV CONT (23:34)
[2023-10-02] VITALS (19 sets, daily range): BP systolic 103–120; BP diastolic 61–82; PULSE 64–107; RESP 19–22; TEMP 36.3–36.5; O2SAT 94–99
--- NOTE | 2023-10-02 00:02 | ECG_ITS ---
Test Date: 2023-10-02 00:02:01 Measurements Intervals [place] Rate: 100 P: 61 IL: 152 QRS: 89 QRSD: 134 T: 40 QT: 349 QTc: 452 Interpretive Statements SINUS TACHYCARDIA WITH OCCASIONAL VENTRICULAR PREMATURE COMPLEXES POSSIBLE LEFT ATRIAL ENLARGEMENT INTRAVENTRICULAR CONDUCTION DELAY CONSIDER ANTERIOR INFARCT, AGE INDETERMINATE ST-T WAVE ABNORMALITY IN LAT/INF LEADS- CONSIDER ISCHEMIA BASELINE ARTIFACT- I, II, III, AVR, AVL, AVF ABNORMAL ECG Compared to ECG 10/01/2023 20:30:01 HEART RATE HAS INCREASED Electronically Signed On 10-02-2023 13:29:50 CDT by Ashish Salguero D.O.
[2023-10-02] MEDS: MORPHINE SULFATE (*CRX) 2 MG/ML INJ 1 MG IV PUSH (00:26)
[2023-10-02] MEDS: PANTOPRAZOLE 40 MG TABLET PO (00:27)
[2023-10-02 00:53] LABS: INR 1.1; Prothrombin Time 14.9 Seconds (11.1-14.7)
[2023-10-02 00:56] LABS: Partial Thromboplastin Time 129.9 Seconds (22.3-36.8)
[2023-10-02 08:14] LABS: Hematocrit 48.9 % (42.0-52.0); Hemoglobin 15.3 g/dL (14.0-18.0); Mean Corpuscular HGB Conc 31.3 g/dl (32-36); Mean Corpuscular Hemoglobin 29.9 pg (26-34); Mean Corpuscular Volume 95.5 fl (80-100); Mean Platelet Volume 12.2 fl (7.4-10.4); Platelet Count Result 204 k/mm3 (150-375); Red Blood Count 5.12 M/mm3 (4.6-6.20); Red Cell Distribution Width 14.2 % (11.5-14.5); White Blood Count 8.3 K/mm3 (4.5-10.0)
[2023-10-02 08:25] LABS: Partial Thromboplastin Time 73.2 Seconds (22.3-36.8)
[2023-10-02 08:31] LABS: Alanine Aminotransferase 24 U/L (6-50); Albumin Level 4.4 g/dL (3.5-5.1); Alkaline Phosphatase 77 U/L (38-126); Anion Gap 9 mmol/L (4-12); Aspartate Amino Transferase 26 U/L (17-59); Bilirubin,Total 1.2 mg/dL (0.2-1.3); Blood Urea Nitrogen 21 mg/dL (9-20); Calcium 9.1 mg/dL (8.4-10.2); Carbon Dioxide 28 mmol/L (22-30); Chloride 97 mmol/L (98-107); Estimated CRCL calculation 49 ml/min; Estimated Glomerular Filt Rate > 60; Glucose 174 mg/dL (65-110); Magnesium 2.3 mg/dL (1.6-2.3); Phosphorus 3.7 mg/dL (2.5-4.5); Potassium 4.3 mmol/L (3.4-5.0); Sodium 134 mmol/L (137-145)
[2023-10-02] MEDS: ASPIRIN 81 MG CHEWABLE TABLET PO (08:33)
[2023-10-02] MEDS: GABAPENTIN 300 MG CAPSULE PO ×2 (08:33→16:29)
[2023-10-02] MEDS: CLOPIDOGREL BISULFATE 75 MG TABLET PO (08:33)
[2023-10-02] MEDS: guaiFENesin 12 HR 600 MG TABCR PO ×2 (08:33→20:09)
[2023-10-02] MEDS: SENNA/DOCUSATE SODIUM TABLET 2 TAB PO (08:33)
--- NOTE | 2023-10-02 08:57 | P.PNIM_ITS ---
Progress Note: A&P Assessment and Plan (1) Non-ST elevation [place] (NSTEMI): Code(s): I21.4 - Non-ST elevation (NSTEMI) myocardial infarction Status: Acute (2) Aortic aneurysm: Code(s): I71.9 - Aortic aneurysm of unspecified site, without rupture Status: Acute (3) Aortic mural thrombus: Code(s): I74.10 - Embolism and thrombosis of unspecified parts of aorta Status: Acute Time Spent With Patient Time: 78-year-old male with multiple medical comorbidities. Recently charge from [facility] after [facility] for acute stroke. Status post carotid artery intervention. Did well at [facility]. Has mild interm ittent aphasia and good motor strength in all 4 extremities. Presented ER again with complaints of nausea and abdominal fullness. Found to have elevated troponin. Found to have mural thrombus and a 5.2 cm infrarenal abdominal aneurysm. Patient is on aspirin Plavix and heparin GTT, his [employer] Lasix 20 mg p.o. q.day, [employer]ELOP[employer]GER atorvastatin 80 mg q.day. cardiology recommendations appreciated. Continue medical management and await transfer to [facility]. F/E/N: Saline lock IV GI prophylaxis: Not indicated DVT prophylaxis: Heparin GTT Lines: Peripheral IV Code Status: Patient wishes to be full code Dispo: Stable but guarded condition. He is on transfer list to [facility]. May attempt call out to other institutions. Note to the patient: The Century Cures Act makes medical notes like these available to patients in the interest of transparency. Please be advised this is a medical document. It is intended for [id number] communication. It is written in medical language and may contain unfamiliar abbreviations or verbiage. Components may appear blunt or direct. Medical documents are intended to carry relevant information, facts as evident, and the clinical opi nion of the practitioner at the time of the encounter. This note was generated by a speech recognition system and may contain inherent errors or omissions not intended by the user. Grammatical errors, random word insertions, deletions, pronoun errors and incomplete sentences are occasional consequences of this technology due to software limitations. Not all errors are caught or corrected. If there are questions or concerns about the content of this note or information contained within the body of this dictation they should be addressed directly with author for clarification. The file time of this note does not necessarily represent the time the patient was seen. Subjective Date/time seen: 10/02/23 08:57 Interval history: No acute overnight events. Abdominal fullness and nausea. Denies chest pain. Denies vomiting. Denies diarrhea, chills. He feels like when he stands up he can breathe better. He wants to move around. Review of Systems Review of Systems: All systems reviewed & are unremarkable except as noted in HPI and below (Subjective) Exam Const: General: comfortable and no acute distress Other: A&O x3. A very bright and happy male with intermittent word-finding difficulties. Eyes: Pupils: Equal, round and reactive pupils present Neck: Neck: supple Resp: Effort & Inspection: normal respiratory effort Auscultation: clear to auscultation bilaterally Cardio: Rate: regular rate Rhythm: regular rhythm Heart sounds: no gallops, no murmurs and no rubs GI: Inspection: distended GI Palp: Yes Soft to palpation, No Tenderness to palpation present (GI), No Guarding due to palpation present (GI) and Yes Hernia present Auscultation: normal bowel sounds Other: No bruit Neuro: Motor exam (neuro): 5/5 motor strength present throughout Extrem: Other: 2+ pedal edema and above the ankles. Co ol to touch with faintly palpable pulses and delayed cap refill. No tenderness. Sensation intact. Psych: Mental Status: mental status grossly normal Objective Data Vital Signs Vital Signs: Vital Signs - 24 hr 10/01/23 11:41 10/01/23 16:17 10/01/23 18:54 Temperature 98.7 F Pulse Rate 77 88 78 Respiratory Rate 18 16 22 H Blood Pressure 93/63 L 101/71 100/64 Pulse Oximetry 96 94 95 Oxygen Delivery Oxygen Flow Rate 10/01/23 19:31 10/01/23 23:13 10/02/23 00:00 Temperature 97.7 F Pulse Rate 89 94 Respiratory Rate 21 H 20 Blood Pressure 111/69 115/71 Pulse Oximetry 95 95 95 Oxygen Delivery Nasal Cannula Oxygen Flow Rate 2 10/02/23 04:22 10/02/23 04:00 10/02/23 00:00 Temperature 97.7 F Pulse Rate 90 107 H Respiratory Rate 20 Blood Pressure 120/66 Pulse Oximetry 94 94 Oxygen Delivery Nasal Cannula Oxygen Flow Rate 2 10/02/23 02:00 10/02/23 04:00 10/02/23 07:49 Temperature 97.3 F L Pulse Rate 82 78 94 Respiratory Rate 20 Blood Pressure 114/61 Pulse Oximetry 95 Oxygen Delivery Oxygen Flow Rate 10/02/23 06:00 10/02/23 08:16 Temperature Pulse Rate 102 H Respiratory Rate Blood Pressure Pulse Oximetry 94 Oxygen Delivery Room Air Oxygen Flow Rate Intake/Output Intake/Output: Intake & Output 09/29/23 09/30/23 10/01/23 10/02/23 23:59 23:59 23:59 23:59 Intake Total 250.0 360.1 Output Total 200 Balance 250.0 160.1 Meds/Results Medications: Active Medications Generic Name Dose Route Start Last Admin Trade Name Freq PRN Reason Stop Dose Admin Acetaminophen 650 mg 10/01/23 19:44 Acetaminophen 325 Mg Tablet PO Q4H PRN Mild Pain (1-3) or Fever Hydrocodone Bitart/Acetaminophen 1 tab 10/01/23 19:44 Hydrocodone/Acetaminophen (*Crx) 5-325 Mg Tablet PO Q4H PRN Pain Rated 4-6 Albuterol/Ipratropium 3 ml 10/02/23 02:00 Ipratropium 0.5 Mg/Albuterol Sulfate 2.5 Mg Ampul.Neb 3 Ml INHALATION Q6H PRN Shortness Of Breath Or Wheezing Aspirin 81 mg 10/02/23 09:00 10/02/23 08:33 Aspirin 81 Mg Chewable Tablet PO 81 mg DAILY JORJE Administration Clopidogrel Bisulfate 75 mg 10/02/23 09:00 10/02/23 08:33 Clopidogrel Bisulfate 75 Mg Tablet PO 75 mg DAILY JORJE Administration Gabapentin 300 mg 10/02/23 09:00 10/02/23 08:33 Gabapentin 300 Mg Capsule PO 300 mg BID JORJE Administration Guaifenesin 600 mg 10/02/23 09:00 10/02/23 08:33 Guaifenesin 12 Hr 600 Mg Tabcr PO 600 mg Q12HR JORJE Administration Heparin Sodium (Porcine) 4,000 units 09/30/23 22:36 10/01/23 18:31 Heparin Sodium 5,000 Units/Ml Vial IV PUSH 4,000 units PRN PRN Administration aPTT less than 55 seconds Heparin Sodium (Porcine) 3,500 units 09/30/23 22:36 Heparin Sodium 5,000 Units/Ml Vial IV PUSH PRN PRN aPTT 55 - 70 seconds Heparin Sodium/Dextrose 25,000 units in 250 mls @ 12 mls/hr 09/30/23 22:40 10/02/23 02:00 Heparin Sodium/D5w 100 Units/Ml IV CONT 1,200 units/hr .[id number] JORJE 12 mls/hr Titration Protocol 1,200 UNITS/HR Lidocaine 1 patch 10/02/23 21:00 Lidocaine 5% Patch TRANSDERM 11/01/23 20:59 QHS JORJE Morphine Sulfate 2 mg 10/01/23 19:44 Morphine Sulfate (*Crx) 2 Mg/Ml Inj IV PUSH Q2H PRN Pain Rated 7-10 Ondansetron HCl 4 mg 10/01/23 19:44 Ondansetron Inj 4 Mg/2 Ml Vial IV PUSH Q4H PRN Nausea Polyethylene Glycol 17 gm 10/02/23 02:00 Polyethylene Glycol 3350 17 Gm Powd.Pack PO DAILY PRN Constipation Senna/Docusate Sodium 2 tab 10/02/23 09:00 10/02/23 08:33 Senna/Docusate Sodium Tablet PO 2 tab DAILY [facility] Administration Tramadol HCl 25 mg 10/02/23 02:00 Tramadol Hcl (*Crx) 25 Mg Tablet PO Q6H PRN Pain Rated 6 Or Greater Trazodone HCl 50 mg 10/02/23 21:00 Trazodone Hcl 50 Mg Tablet PO [facility] Radiology Results: ITS Impressions Abdomen/Pelvis CT 09/30/23 22:02 Impression: Small right pleural effusion with probable emphysema at the lung bases. 5.2 cm infrarenal abdominal aortic aneurysm. Extensive, severe atherosclerotic disease of the aorta, common iliac arteries, and external iliac arteries. Severe stenoses and/or focal occlusions involving the common iliac arteries and external iliac arteries bilaterally. Correlate with any relevant patient's symptomatology. Large wide necked ventral/umbilical hernia containing multiple small bowel loops, similar to prior exam. No bowel obstruction or bowel wall thickening. Labs Labs: Laboratory Results - last 24 hr 10/01/23 10/01/23 10/02/23 11:31 17:49 00:28 WBC RBC Hgb Hct MCV MCH MCHC RDW Plt Count MPV PT 14.5 14.9 H 14.9 H INR 1.1 1.1 1.1 APTT 35.3 54.4 H 129.9 H Sodium Potassium Chloride Carbon Dioxide Anion Gap BUN Creatinine Estim Creat Clear Calc Estimated GFR Glucose Calcium Phosphorus Magnesium Total Bilirubin AST ALT Alkaline Phosphatase Troponin I Total Protein Albumin 10/02/23 08:07 WBC 8.3 RBC 5.12 Hgb 15.3 Hct 48.9 MCV 95.5 MCH 29.9 MCHC 31.3 L RDW 14.2 Plt Count 204 MPV 12.2 H PT INR APTT 73.2 H Sodium 134 L Potassium 4.3 Chloride 97 L Carbon Dioxide 28 Anion Gap 9 BUN 21 H Creatinine 1.10 Estim Creat Clear Calc 49 Estimated GFR > 60 Glucose 174 H Calcium 9.1 Phosphorus 3.7 Magnesium 2.3 Total Bilirubin 1.2 AST 26 ALT 24 Alkaline Phosphatase 77 Troponin I 1.630 H* Total Protein 7.0 Albumin 4.4
--- NOTE | 2023-10-02 10:49 | P.CONCA_ITS ---
Assessment and Plan Assessment and plan (1) Non-ST elevation MO (NSTEMI): Code(s): I21.4 - Non-ST elevation (NSTEMI) myocardial infarction Status: Acute Assessment and Plan: Awaiting transfer to [facility] given complex vascular disease. Troponins continue to trend up at this time, continue to check troponins until peak. Continue IV Heparin drip in the meantime, ASA and Plavix, high intensity statin. (2) Aortic aneurysm: Code(s): I71.9 - Aortic aneurysm of unspecified site, without rupture Status: Acute Assessment and Plan: CT abdomen and pelvis 09/29 shows small right pleural effusion with probable emphysema at the lung base, 5.2cm infrarenal abdominal aortic aneurysm. Extensive severe atherosclerotic disease of the aorta, common iliac arteries, and external iliac arteries. Severe stenoses and/or focal occlusions involving the common iliac arteries and external iliac arteries bilaterally. Large wide necked ventral/umbilical hernia containing multiple small bowel loops. Of note, prior CTA Abdominal Aorta and Bilateral Iliofemoral Runoff 05/29/2023: 1. Partially thrombosed 5.0cm infrarenal abdominal aortic aneurysm with significant noncalcified plaque. 2. Significant noncalcified plaque within the common iliac arteries resulting in moderate intraluminal narrowing with severe stenosis of the distal right common iliac artery. Possible old intimal flaps noted. 3. Mild-moderate right external iliac artery stenosis. 4. Severe left external iliac artery stenoses. 5. Right lower extremity: Moderate-severe stenosis of the proximal superficial femoral artery with occlusion distally. Reconstitution of the popliteal artery with severe proximal popliteal arterial stenoses. Diminutive anterior tibial artery with likely occlusions. Two vessel runoff. 6. Left lower extremity: Moderate-severe proximal and mid superficial femoral artery stenoses. Occlusion of the mid to distal superficial femoral and proximal popliteal arteries with reconstitution of the popliteal artery above the knee. Moderate and severe stenoses of the popliteal artery at and below the knee. Diminutive anterior tibial artery. 2 vessel runoff. CTA in May 2023 measured aneurysm at 5.0cm, now measuring at 5.2cm. Possible findings of chronic dissection as well given possible old intimal flaps, dissection noted on past CT scans as well. Recommend Vascular Surgery consultation, which is not available at this institution. Awaiting transfer to [facility]. 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 Plan Recommendations and plan discussed with Hospitalist. History of Present Illness History of Present Illness Consult date/time: 10/02/23 10:49 Requesting physician: Oliver Smart MD Consult reason: Other (NSTEMI) Reason For Visit: NSTEMI/AAA Narrative: We are consulted for NSTEMI. This is an 78 year old male with chronic heart failure with preserved LVEF, hypertension, hyperlipidemia, abdominal aortic aneurysm, severe peripheral arterial disease, CVA in July 2022 who presented to [place] ED 09/29 for nausea for the past 3 days. Troponins were found to be elevated at 1.080, 1.390, 1.630. EKGs with minimal ST elevation in AVR with ST depressions in the inferolateral leads. EKGs are similar to previous ones compared to July 2023. CT abdomen and pelvis 09/29 shows small right pleural effusion with probable emphysema at the lung base, 5.2cm infrarenal abdominal aortic aneurysm. Extensive severe atherosclerotic disease of the aorta, common iliac arteries, and external iliac arteries. Severe stenoses and/or focal occlusions involving the common iliac arteries and external iliac arteries bilaterally. Large wide necked ventral/umbilical hernia containing multiple small bowel loops. While in our ER on 09/29, given patient's complex vascular issues, he was accepted to be transferred to [facility] for management of NSTEMI. [facility], therefore, he was admitted to the hospital while awaiting for transfer to [facility]. At the time of my evaluation, patient reports that he has been having chest pain for the past 4-5 days. When I ask him to point to location of where he has been having the pain, he points to the middle of his abdomen. He states that when the IV Heparin drip was started, it made him feel better. He reports he feels like he gets a lot of gas at times. Otherwise, resting comfortably. Of note, prior CTA Abdominal Aorta and Bilateral Iliofemoral Runoff 05/29/2023: 1. Partially thrombosed 5.0cm infrarenal abdominal aortic aneurysm with significant noncalcified plaque. 2. Significant noncalcified plaque within the common iliac arteries resulting in moderate intraluminal narrowing with severe stenosis of the distal right common iliac artery. Possible old intimal flaps noted. 3. Mild-moderate right external iliac artery stenosis. 4. Severe left external iliac artery stenoses. 5. Right lower extremity: Moderate-severe stenosis of the proximal superficial femoral artery with occlusion distally. Reconstitution of the popliteal artery with severe proximal popliteal arterial stenoses. Diminutive anterior tibial artery with likely occlusions. Two vessel runoff. 6. Left lower extremity: Moderate-severe proximal and mid superficial femoral artery stenoses. Occlusion of the mid to distal superficial femoral and proximal popliteal arteries with reconstitution of the popliteal artery above the knee. Moderate and severe stenoses of the popliteal artery at and below the knee. Diminutive anterior tibial artery. 2 vessel runoff. Review of Systems Review of Systems: All systems reviewed & are unremarkable except as noted in HPI and below (HPI) COUNTS INCLUDE 234 BEDS AT THE [facility] Past Medical History Medical History Abnormal colonoscopy 04/02, polyps & adenoma Acute prostatitis AIVR (accelerated idioventricular rhythm) Altered mental status History of MO (myocardial infarction) 02/05 Hypertension Postoperative intra-abdominal abscess Thrombocytopenia Surgical History Surgical History History of appendectomy History of exploratory laparotomy 01/22/20 exploratory laparotomy, extensive of lysis of adhesion of approximately 30 minutes, closure of enterotomy x4, washout, placement of drains x2, fascial closure Family History Family History Mother Congestive heart failure Diabetes mellitus Acute myocardial infarction Heart disease Hypertension Father Chronic obstructive pulmonary disease Hypertension Malignant neoplasm of prostate Sibling Congestive heart failure Heart disease Hypertension Sibling Diabetes mellitus Hypertension Other Colon polyp Social History Social History Smoking packs per day: 2 Smoking cigarettes per day: 40.0 Years smoked: 55 Smoking pack-years: 110.00 Smoking status: Former smoker Tobacco type: cigarettes Smoking end date: 01/18/20 Alcohol intake: never Substance use: never Substance use type: does not use Do You Feel Safe in your Home?: Yes Lack of Transportation: YES Lack of Food: Never True Current Housing: I Have Housing Concerned About Future Housing: No Difficulty Paying Gas/Electric Bills: No Difficulty Paying for Meds: No Currently Unemployed: No Education: High School Diploma/GED Difficulty w/ Childcare or Family Care: No Living arrangements: alone Occupation/Education: retired Gender identity (if verbalized by the patient): Male Sexual Orientation (if Verbalized by the Patient): Straight or Heterosexual Spiritual care concerns: No Agree to blood products: Yes Meds Home Medications and Allergies Home Medications Medication Instructions Recorded Confirmed Type aspirin 81 mg chewable tablet 81 mg PO DAILY 08/07/23 10/01/23 History polyethylene glycol 3350 17 17 g PO DAILY PRN Constipation 08/07/23 10/01/23 History gram/dose oral powder sennosides 8.6 mg-docusate sodium 2 tablet PO DAILY 08/07/23 10/01/23 History 50 mg tablet (Senna-S) acetaminophen 325 mg tablet 650 mg PO Q4H PRN Mild Pain (1-3) 08/27/23 10/01/23 Rx Or Fever #30 tabs guaifenesin 600 mg tablet, 600 mg PO Q12HR #30 tabs 08/27/23 10/01/23 Rx extended release 12 hr (Mucus Relief ER) tramadol 50 mg tablet 25 mg PO Q6H PRN Pain Rated 6 Or 08/29/23 10/01/23 Rx Greater #20 tabs clopidogrel 75 mg tablet 75 mg PO DAILY #90 tabs 08/30/23 10/01/23 Rx furosemide 20 mg tablet 30 mg PO DAILY #45 tabs 08/30/23 10/01/23 Rx gabapentin 300 mg capsule 300 mg PO BID #60 caps 08/30/23 10/01/23 Rx (Neurontin) ipratropium 0.5 mg-albuterol 3 mg 3 ml inhalation Q6H PRN Shortness 08/30/23 10/01/23 Rx (2.5 mg base)/3 mL nebulization Of Breath Or Wheezing #180 mL soln lidocaine 4 % topical patch 1 patch transdermal QHS #30 ea 08/30/23 10/01/23 Rx (Lidocaine Pain Relief) trazodone 50 mg tablet 50 mg PO HS #30 tabs 08/30/23 10/01/23 Rx Allergies Allergy/AdvReac Type Severity Reaction Status Date / Time No Known Allergies Allergy Unknown NONE Verified 08/07/23 19:30 Vital Signs Vital Signs - 24 hr 10/01/23 11:41 10/01/23 16:17 10/01/23 18:54 Temperature 37.1 C Pulse Rate 77 88 78 Respiratory Rate 18 16 22 H Blood Pressure 93/63 L 101/71 100/64 Pulse Oximetry 96 94 95 Oxygen Delivery Oxygen Flow Rate 10/01/23 19:31 10/01/23 23:13 10/02/23 00:00 Temperature 36.5 C Pulse Rate 89 94 Respiratory Rate 21 H 20 Blood Pressure 111/69 115/71 Pulse Oximetry 95 95 95 Oxygen Delivery Nasal Cannula Oxygen Flow Rate 2 10/02/23 04:22 10/02/23 04:00 10/02/23 00:00 Temperature 36.5 C Pulse Rate 90 107 H Respiratory Rate 20 Blood Pressure 120/66 Pulse Oximetry 94 94 Oxygen Delivery Nasal Cannula Oxygen Flow Rate 2 10/02/23 02:00 10/02/23 04:00 10/02/23 07:49 Temperature 36.3 C L Pulse Rate 82 78 94 Respiratory Rate 20 Blood Pressure 114/61 Pulse Oximetry 95 Oxygen Delivery Oxygen Flow Rate 10/02/23 06:00 10/02/23 08:16 10/02/23 08:00 Temperature Pulse Rate 102 H Respiratory Rate Blood Pressure Pulse Oximetry 94 Oxygen Delivery Room Air Room Air Oxygen Flow Rate 10/02/23 08:00 10/02/23 10:00 Temperature Pulse Rate 102 H 94 Respiratory Rate Blood Pressure Pulse Oximetry Oxygen Delivery Oxygen Flow Rate Exam Const: General: comfortable and no acute distress HENMT: Mouth: Yes moist mucous membranes Eyes: General: appearance normal, both eyes and all related structures Sclera: sclerae normal Chest: Other: No reproducible chest wall tenderness Resp: Effort & Inspection: normal respiratory effort Auscultation: clear to auscultation bilaterally Cardio: Rate: regular rate Rhythm: regular rhythm Heart sounds: no murmurs Skin: General skin exam: normal color Neuro: Speech: normal speech Psych: Mental Status: mental status grossly normal Affect: normal affect Results Labs and Meds 10/02/23 08:07 10/02/23 08:07 Lab results: Cardiac Enzymes 10/02/23 Range/Units 08:07 AST 26 (17-59) U/L Troponin I 1.630 H* (0.000-0.034) ng/mL Coagulation 10/01/23 10/01/23 10/02/23 Range/Units 11:31 17:49 00:28 PT 14.5 14.9 H 14.9 H (11.1-14.7) Seconds APTT 35.3 54.4 H 129.9 H (22.3-36.8) Seconds 10/02/23 Range/Units 08:07 PT (11.1-14.7) Seconds APTT 73.2 H (22.3-36.8) Seconds CBC 10/02/23 Range/Units 08:07 WBC 8.3 (4.5-10.0) K/mm3 RBC 5.12 (4.6-6.20) M/mm3 Hgb 15.3 (14.0-18.0) g/dL Hct 48.9 (42.0-52.0) % Plt Count 204 (150-375) k/mm3 Comprehensive Metabolic Panel 10/02/23 Range/Units 08:07 Sodium 134 L (137-145) mmol/L Potassium 4.3 (3.4-5.0) mmol/L Chloride 97 L (98-107) mmol/L Carbon Dioxide 28 (22-30) mmol/L BUN 21 H (9-20) mg/dL Creatinine 1.10 (0.7-1.3) mg/dL Glucose 174 H (65-110) mg/dL Calcium 9.1 (8.4-10.2) mg/dL AST 26 (17-59) U/L ALT 24 (6-50) U/L Alkaline Phosphatase 77 (38-126) U/L Total Protein 7.0 (6.3-8.2) g/dL Albumin 4.4 (3.5-5.1) g/dL Intake and Output 10/01/23 10/02/23 10/02/23 23:59 07:59 15:59 Intake Total 141.3 120.1 326.2 Output Total 200 Balance 141.3 -79.9 326.2 Intake: IV 141.3 20.1 86.2 Heparin Sod/D5w 100 Units/ml 25 141.3 20.1 86.2 ,000 units In 250 ml @ 1,200 UNITS/HR 12 mls/hr IV CONT . [id number] [facility] Rx#:[id number] Oral 100 240 Output: Urine 200 Patient Weight 10/02/23 23:59 Weight 83.8 kg
[2023-10-02 11:42] LABS: Influenza A QL RT-PCR Negative (Negative); Influenza B QL RT-PCR Negative (Negative); RSV RNA, RT-PCR Negative (Negative); SARS-CoV-2 RNA PCR Negative (Negative)
[2023-10-02] MEDS: ATORVASTATIN 40 MG TABLET 80 MG PO (13:12)
[2023-10-02 15:24] LABS: Partial Thromboplastin Time 52.6 Seconds (22.3-36.8)
[2023-10-02] MEDS: HEPARIN SODIUM 5,000 UNITS/ML VIAL 4000 UNITS IV PUSH (16:28)
[2023-10-02] MEDS: HEPARIN SOD/D5W 100 UNITS/ML 25,000 UNITS/250 ML BAG 15 UNITS IV CONT (20:05)
[2023-10-02] MEDS: traZODone HCL 50 MG TABLET PO (20:09)
[2023-10-02] MEDS: LIDOCAINE 5% PATCH 1 PATCH TRANSDERM (20:09)
[2023-10-03] VITALS (24 sets, daily range): BP systolic 91–114; BP diastolic 50–70; PULSE 66–100; RESP 18–24; TEMP 36.1–36.6; O2SAT 94–98
[2023-10-03 00:20] LABS: Partial Thromboplastin Time 179.8 Seconds (22.3-36.8)
[2023-10-03] MEDS: IPRATROPIUM 0.5 MG/ALBUTEROL SULFATE 2.5 MG AMPUL.NEB 3 ML INHALATION ×4 (05:22→20:35)
[2023-10-03 08:35] LABS: Hematocrit 45.5 % (42.0-52.0); Hemoglobin 14.7 g/dL (14.0-18.0); Mean Corpuscular HGB Conc 32.3 g/dl (32-36); Mean Corpuscular Hemoglobin 30.9 pg (26-34); Mean Corpuscular Volume 95.6 fl (80-100); Mean Platelet Volume 11.9 fl (7.4-10.4); Platelet Count Result 200 k/mm3 (150-375); Red Blood Count 4.76 M/mm3 (4.6-6.20); White Blood Count 6.9 K/mm3 (4.5-10.0)
[2023-10-03] MEDS: FUROSEMIDE INJ 40 MG/4 ML VIAL 20 MG IV PUSH (08:42)
[2023-10-03] MEDS: ASPIRIN 81 MG CHEWABLE TABLET PO (08:42)
[2023-10-03] MEDS: SENNA/DOCUSATE SODIUM TABLET 2 TAB PO (08:42)
[2023-10-03] MEDS: FUROSEMIDE 20 MG TABLET PO (08:42)
[2023-10-03] MEDS: CLOPIDOGREL BISULFATE 75 MG TABLET PO (08:42)
[2023-10-03] MEDS: ATORVASTATIN 40 MG TABLET 80 MG PO (08:42)
[2023-10-03] MEDS: GABAPENTIN 300 MG CAPSULE PO ×2 (08:43→17:32)
[2023-10-03] MEDS: guaiFENesin 12 HR 600 MG TABCR PO ×2 (08:43→21:10)
[2023-10-03 08:48] LABS: Anion Gap 10 mmol/L (4-12); Blood Urea Nitrogen 21 mg/dL (9-20); Calcium 9.1 mg/dL (8.4-10.2); Carbon Dioxide 30 mmol/L (22-30); Chloride 96 mmol/L (98-107); Estimated CRCL calculation 54 ml/min; Estimated Glomerular Filt Rate > 60; Glucose 185 mg/dL (65-110); Magnesium 2.2 mg/dL (1.6-2.3); Potassium 4.8 mmol/L (3.4-5.0); Sodium 136 mmol/L (137-145)
[2023-10-03 08:53] LABS: Partial Thromboplastin Time 80.7 Seconds (22.3-36.8)
[2023-10-03] MEDS: HEPARIN SOD/D5W 100 UNITS/ML 25,000 UNITS/250 ML BAG 13 UNITS IV CONT ×2 (11:31→17:33)
[2023-10-03 14:59] LABS: Prothrombin Time 14.1 Seconds (11.1-14.7)
[2023-10-03 15:23] LABS: Partial Thromboplastin Time 73.6 Seconds (22.3-36.8)
--- NOTE | 2023-10-03 17:57 | P.PNIM_ITS ---
Progress Note: A&P Assessment and Plan (1) Aortic mural thrombus: Code(s): I74.10 - Embolism and thrombosis of unspecified parts of aorta Status: Acute (2) Hyperlipidemia: Code(s): E78.5 - Hyperlipidemia, unspecified Status: Acute (3) Non-ST elevation [place] (NSTEMI): Code(s): I21.4 - Non-ST elevation (NSTEMI) myocardial infarction Status: Acute Plan pending transfer. full code lengthy discussion with patient held on heparin, aspirin, plavix. Subjective Date/time seen: 10/03/23 17:57 Interval history: No major acute overnight events. Complains of mild shortness of breath this morning which resolved. Review of Systems Review of Systems: All systems reviewed & are unremarkable except as noted in HPI and below (subjective) Exam Const: General: comfortable and no acute distress Other: A&O x3. A very bright and happy male with intermittent word-finding difficulties. Eyes: Pupils: Equal, round and reactive pupils present Neck: Neck: supple Resp: Effort & Inspection: normal respiratory effort Auscultation: clear to auscultation bilaterally Cardio: Rate: regular rate Rhythm: regular rhythm Heart sounds: no gallops, no murmurs and no rubs GI: Inspection: distended GI Palp: Yes Soft to palpation, No Tenderness to palpation present (GI), No Guarding due to palpation present (GI) and Yes Hernia present Auscultation: normal bowel sounds Other: No bruit Neuro: Motor exam (neuro): 5/5 motor strength present throughout Extrem: Other: 2+ pedal edema and above the ankles. Co ol to touch with faintly palpable pulses and delayed cap refill. No tenderness. Sensation intact. Psych: Mental Status: mental status grossly normal Objective Data Vital Signs Vital Signs: Vital Signs - 24 hr 10/02/23 18:00 10/02/23 19:59 10/02/23 20:00 Temperature 97.5 F L Pulse Rate 76 75 Respiratory Rate 20 Blood Pressure 115/82 Pulse Oximetry 94 Oxygen Delivery Room Air Oxygen Flow Rate 10/02/23 23:16 10/03/23 00:00 10/02/23 20:00 Temperature 97.5 F L Pulse Rate 64 70 Respiratory Rate 20 Blood Pressure 120/72 Pulse Oximetry 94 Oxygen Delivery Room Air Oxygen Flow Rate 10/02/23 22:00 10/03/23 00:00 10/03/23 02:00 Temperature Pulse Rate 66 96 100 Respiratory Rate Blood Pressure Pulse Oximetry Oxygen Delivery Oxygen Flow Rate 10/03/23 04:29 10/03/23 04:00 10/03/23 05:22 Temperature 97.5 F L Pulse Rate 66 88 Respiratory Rate 18 20 Blood Pressure 114/64 Pulse Oximetry 94 Oxygen Delivery Room Air Oxygen Flow Rate 10/03/23 05:33 10/03/23 04:00 10/03/23 06:00 Temperature Pulse Rate 87 99 75 Respiratory Rate 20 Blood Pressure Pulse Oximetry Oxygen Delivery Oxygen Flow Rate 10/03/23 07:00 10/03/23 07:00 10/03/23 07:10 Temperature Pulse Rate 81 81 84 Respiratory Rate 18 18 18 Blood Pressure Pulse Oximetry 95 Oxygen Delivery Nasal Cannula Oxygen Flow Rate 3 10/03/23 08:00 10/03/23 08:00 10/03/23 08:00 Temperature 97 F L Pulse Rate 78 70 Respiratory Rate 22 H Blood Pressure 102/50 L Pulse Oximetry 96 96 Oxygen Delivery Nasal Cannula Oxygen Flow Rate 2 10/03/23 10:00 10/03/23 11:30 10/03/23 12:00 Temperature 97.8 F Pulse Rate 90 77 89 Respiratory Rate 20 Blood Pressure 97/66 L Pulse Oximetry 94 Oxygen Delivery Oxygen Flow Rate 10/03/23 12:00 10/03/23 13:00 10/03/23 13:10 Temperature Pulse Rate 84 86 Respiratory Rate 18 18 Blood Pressure Pulse Oximetry 94 Oxygen Delivery Nasal Cannula Oxygen Flow Rate 2 10/03/23 14:00 10/03/23 15:55 10/03/23 16:00 Temperature 97.2 F L Pulse Rate 85 79 70 Respiratory Rate 20 Blood Pressure 96/60 L Pulse Oximetry 98 Oxygen Delivery Oxygen Flow Rate 10/03/23 16:00 Temperature Pulse Rate Respiratory Rate Blood Pressure Pulse Oximetry 94 Oxygen Delivery Nasal Cannula Oxygen Flow Rate 2 Intake/Output Intake/Output: Intake & Output 09/30/23 10/01/23 10/02/23 10/03/23 23:59 23:59 23:59 23:59 Intake Total 250.0 1067.9 2343.7 Output Total 625 2450 Balance 250.0 442.9 -106.3 Meds/Results Medications: Active Medications Generic Name Dose Route Start Last Admin Trade Name Humbleq PRN Reason Stop Dose Admin Acetaminophen 650 mg 10/01/23 19:44 Acetaminophen 325 Mg Tablet PO Q4H PRN Mild Pain (1-3) or Fever Hydrocodone Bitart/Acetaminophen 1 tab 10/01/23 19:44 Hydrocodone/Acetaminophen (*Crx) 5-325 Mg Tablet PO Q4H PRN Pain Rated 4-6 Albuterol/Ipratropium 3 ml 10/03/23 08:00 10/03/23 13:01 Ipratropium 0.5 Mg/Albuterol Sulfate 2.5 Mg Ampul.Neb 3 Ml INHALATION 3 ml Q6HRT JORJE Administration Aspirin 81 mg 10/02/23 09:00 10/03/23 08:42 Aspirin 81 Mg Chewable Tablet PO 81 mg DAILY JORJE Administration Atorvastatin Calcium 80 mg 10/02/23 12:20 10/03/23 08:42 Atorvastatin 40 Mg Tablet PO 80 mg DAILY JORJE Administration Clopidogrel Bisulfate 75 mg 10/02/23 09:00 10/03/23 08:42 Clopidogrel Bisulfate 75 Mg Tablet PO 75 mg DAILY JORJE Administration Furosemide 20 mg 10/03/23 09:00 10/03/23 08:42 Furosemide 20 Mg Tablet PO 20 mg DAILY JORJE Administration Gabapentin 300 mg 10/02/23 09:00 10/03/23 17:32 Gabapentin 300 Mg Capsule PO 300 mg BID JORJE Administration Guaifenesin 600 mg 10/02/23 09:00 10/03/23 08:43 Guaifenesin 12 Hr 600 Mg Tabcr PO 600 mg Q12HR JORJE Administration Heparin Sodium (Porcine) 4,000 units 09/30/23 22:36 10/02/23 16:28 Heparin Sodium 5,000 Units/Ml Vial IV PUSH 4,000 units PRN PRN Administration aPTT less than 55 seconds Heparin Sodium (Porcine) 3,500 units 09/30/23 22:36 Heparin Sodium 5,000 Units/Ml Vial IV PUSH PRN PRN aPTT 55 - 70 seconds Heparin Sodium/Dextrose 25,000 units in 250 mls @ 13 mls/hr 09/30/23 22:40 10/03/23 17:33 Heparin Sodium/D5w 100 Units/Ml IV CONT 1,300 units/hr .[id number] JORJE 13 mls/hr Administration Protocol 1,300 UNITS/HR Lidocaine 1 patch 10/02/23 21:00 10/02/23 20:09 Lidocaine 5% Patch TRANSDERM 11/01/23 20:59 1 patch QHS JORJE Administration Morphine Sulfate 2 mg 10/01/23 19:44 Morphine Sulfate (*Crx) 2 Mg/Ml Inj IV PUSH Q2H PRN Pain Rated 7-10 Ondansetron HCl 4 mg 10/01/23 19:44 Ondansetron Inj 4 Mg/2 Ml Vial IV PUSH Q4H PRN Nausea Polyethylene Glycol 17 gm 10/02/23 02:00 Polyethylene Glycol 3350 17 Gm Powd.Pack PO DAILY PRN Constipation Senna/Docusate Sodium 2 tab 10/02/23 09:00 10/03/23 08:42 Senna/Docusate Sodium Tablet PO 2 tab DAILY JORJE Administration Tramadol HCl 25 mg 10/02/23 02:00 Tramadol Hcl (*Crx) 25 Mg Tablet PO Q6H PRN Pain Rated 6 Or Greater Trazodone HCl 50 mg 10/02/23 21:00 10/02/23 20:09 Trazodone Hcl 50 Mg Tablet PO 50 mg HS JORJE Administration Radiology Results: ITS Impressions Abdomen/Pelvis CT 09/30/23 22:02 Impression: Small right pleural effusion with probable emphysema at the lung bases. 5.2 cm infrarenal abdominal aortic aneurysm. Extensive, severe atherosclerotic disease of the aorta, common iliac arteries, and external iliac arteries. Severe stenoses and/or focal occlusions involving the common iliac arteries and external iliac arteries bilaterally. Correlate with any relevant patient's symptomatology. Large wide necked ventral/umbilical hernia containing multiple small bowel loops, similar to prior exam. No bowel obstruction or bowel wall thickening. Chest X-Ray 10/02/23 10:02 Impression: Extensive groundglass and interstitial pulmonary disease. Findings probably represent mixed alveolar/interstitial pulmonary edema. Correlate for other chronic interstitial disease which is significantly worsened from prior exam. Small pleural effusions. Labs Labs: Laboratory Results - last 24 hr 10/02/23 10/02/23 10/03/23 18:02 23:27 08:28 WBC 6.9 RBC 4.76 Hgb 14.7 Hct 45.5 MCV 95.6 MCH 30.9 MCHC 32.3 RDW 14.0 Plt Count 200 MPV 11.9 H PT INR APTT 179.8 H* 80.7 H Sodium 136 L Potassium 4.8 Chloride 96 L Carbon Dioxide 30 Anion Gap 10 BUN 21 H Creatinine 1.00 Estim Creat Clear Calc 54 Estimated GFR > 60 Glucose 185 H Calcium 9.1 Magnesium 2.2 Troponin I 1.440 H* 10/03/23 14:31 WBC RBC Hgb Hct MCV MCH MCHC RDW Plt Count MPV PT 14.1 INR 1.0 APTT 73.6 H Sodium Potassium Chloride Carbon Dioxide Anion Gap BUN Creatinine Estim Creat Clear Calc Estimated GFR Glucose Calcium Magnesium Troponin I
[2023-10-03] MEDS: LIDOCAINE 5% PATCH 1 PATCH TRANSDERM (21:10)
[2023-10-03] MEDS: traZODone HCL 50 MG TABLET PO (21:10)
[2023-10-04] VITALS (23 sets, daily range): BP systolic 88–124; BP diastolic 49–84; PULSE 72–114; RESP 20–21; TEMP 36.2–36.7; O2SAT 90–98
[2023-10-04] MEDS: IPRATROPIUM 0.5 MG/ALBUTEROL SULFATE 2.5 MG AMPUL.NEB 3 ML INHALATION ×4 (02:25→20:46)
[2023-10-04 04:57] LABS: Hematocrit 43.8 % (42.0-52.0); Hemoglobin 13.9 g/dL (14.0-18.0); Mean Corpuscular HGB Conc 31.7 g/dl (32-36); Mean Corpuscular Volume 94.4 fl (80-100); Mean Platelet Volume 11.9 fl (7.4-10.4); Platelet Count Result 203 k/mm3 (150-375); Red Blood Count 4.64 M/mm3 (4.6-6.20); Red Cell Distribution Width 14.3 % (11.5-14.5)
[2023-10-04 05:13] LABS: Partial Thromboplastin Time 84.8 Seconds (22.3-36.8)
[2023-10-04 05:36] LABS: Anion Gap 8 mmol/L (4-12); Blood Urea Nitrogen 22 mg/dL (9-20); Calcium 9.1 mg/dL (8.4-10.2); Carbon Dioxide 33 mmol/L (22-30); Chloride 96 mmol/L (98-107); Estimated CRCL calculation 49 ml/min; Estimated Glomerular Filt Rate > 60; Glucose 99 mg/dL (65-110); Magnesium 2.1 mg/dL (1.6-2.3); Potassium 4.4 mmol/L (3.4-5.0); Sodium 137 mmol/L (137-145)
--- NOTE | 2023-10-04 08:26 | ECG_ITS ---
Test Date: 2023-10-04 08:33:45 Measurements Intervals [place] Rate: 114 P: 63 MN: 170 QRS: 75 QRSD: 117 T: 29 QT: 328 QTc: 452 Interpretive Statements SINUS TACHYCARDIA INTRAVENTRICULAR CONDUCTION DELAY ANTEROSEPTAL MYOCARDIAL INFARCTION , OF INDETERMINATE AGE ST-T WAVE ABNORMALITY IN HIGH LATERAL LEADS- CONSIDER ISCHEMIA BASELINE ARTIFACT- I, AVR, AVL ABNORMAL ECG Compared to ECG 10/02/2023 00:02:01 NO SIGNIFICANT CHANGE Electronically Signed On 10-04-2023 16:32:53 CDT by Ashish Salguero D.O.
[2023-10-04] MEDS: FUROSEMIDE 20 MG TABLET PO (09:02)
[2023-10-04] MEDS: CLOPIDOGREL BISULFATE 75 MG TABLET PO (09:02)
[2023-10-04] MEDS: guaiFENesin 12 HR 600 MG TABCR PO ×2 (09:02→21:08)
[2023-10-04] MEDS: ASPIRIN 81 MG CHEWABLE TABLET PO (09:02)
[2023-10-04] MEDS: GABAPENTIN 300 MG CAPSULE PO ×2 (09:02→16:44)
[2023-10-04] MEDS: SENNA/DOCUSATE SODIUM TABLET 2 TAB PO (09:02)
[2023-10-04] MEDS: ATORVASTATIN 40 MG TABLET 80 MG PO (09:02)
--- NOTE | 2023-10-04 09:16 | PCOTNOTE ---
Patient OT evaluation not able to be completed at this time due to patient's HR elevating and different sinus rhythm occurring with PT evaluation per RN. Will continue to follow patient and evaluate when able.
--- NOTE | 2023-10-04 09:33 | P.PNCA_ITS ---
Progress Note: A&P Assessment and Plan (1) Non-ST elevation RI (NSTEMI): Code(s): I21.4 - Non-ST elevation (NSTEMI) myocardial infarction Status: Acute Assessment and Plan: Awaiting transfer to [facility] given complex vascular disease. Troponins peaked at 1.650. Continue IV Heparin drip in the meantime, ASA and Plavix, high intensity statin. (2) Aortic aneurysm: Code(s): I71.9 - Aortic aneurysm of unspecified site, without rupture Status: Acute Assessment and Plan: CT abdomen and pelvis 09/29 shows small right pleural effusion with probable emphysema at the lung base, 5.2cm infrarenal abdominal aortic aneurysm. Extensive severe atherosclerotic disease of the aorta, common iliac arteries, and external iliac arteries. Severe stenoses and/or focal occlusions involving the common iliac arteries and external iliac arteries bilaterally. Large wide necked ventral/umbilical hernia containing multiple small bowel loops. Of note, prior CTA Abdominal Aorta and Bilateral Iliofemoral Runoff 05/29/2023: 1. Partially thrombosed 5.0cm infrarenal abdominal aortic aneurysm with significant noncalcified plaque. 2. Significant noncalcified plaque within the common iliac arteries resulting in moderate intraluminal narrowing with severe stenosis of the distal right common iliac artery. Possible old intimal flaps noted. 3. Mild-moderate right external iliac artery stenosis. 4. Severe left external iliac artery stenoses. 5. Right lower extremity: Moderate-severe stenosis of the proximal superficial femoral artery with occlusion distally. Reconstitution of the popliteal artery with severe proximal popliteal arterial stenoses. Diminutive anterior tibial artery with likely occlusions. Two vessel runoff. 6. Left lower extremity: Moderate-severe proximal and mid superficial femoral artery stenoses. Occlusion of the mid to distal superficial femoral and proximal popliteal arteries with reconstitution of the popliteal artery above the knee. Moderate and severe stenoses of the popliteal artery at and below the knee. Diminutive anterior tibial artery. 2 vessel runoff. CTA in May 2023 measured aneurysm at 5.0cm, now measuring at 5.2cm. Possible findings of chronic dissection as well given possible old intimal flaps, dissection noted on past CT scans as well. Recommend Vascular Surgery consultation, which is not available at this institution. Awaiting transfer to [facility]. 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 (6) NSVT (nonsustained ventricular tachycardia): Code(s): I47.29 - Other ventricular tachycardia Status: Acute Assessment and Plan: NSVT seen on telemetry this morning. Self limiting and asymptomatic. Per report occurred during physical therapy. Telemetry now shows sinus rhythm/sinus tach with PVC's and PAC's. Did have some bigeminy on telemetry earlier as well. Electrolytes WNL today. Can consider adding low dose beta jadyn if he has more arrhythmias, however blood pressure is soft. Amiodarone is another consideration. Subjective Date/time seen: 10/04/23 09:33 Interval history: Cardiology follow up for elevated troponin levels He is complaining of indigestion and constipation stating he hasn't had a bowel movement in 3 days. No shortness of breath, chest pain, palpitations. Review of Systems Review of Systems: All systems reviewed & are unremarkable except as noted in HPI and below (HPI) Exam Const: General: comfortable and no acute distress HENMT: Mouth: Yes moist mucous membranes Eyes: General: appearance normal, both eyes and all related structures Sclera: sclerae normal Chest: Other: No reproducible chest wall tenderness Resp: Effort & Inspection: normal respiratory effort Auscultation: clear to auscultation bilaterally Cardio: Rate: regular rate Rhythm: regular rhythm Heart sounds: no murmurs Skin: General skin exam: normal color Neuro: Speech: normal speech Psych: Mental Status: mental status grossly normal Affect: normal affect Objective Data Vital Signs Vital Signs: Vital Signs - 24 hr 10/03/23 10:00 10/03/23 11:30 10/03/23 12:00 Temperature 36.6 C Pulse Rate 90 77 89 Respiratory Rate 20 Blood Pressure 97/66 L Pulse Oximetry 94 Oxygen Delivery Oxygen Flow Rate Fraction of Inspired Oxygen 10/03/23 12:00 10/03/23 13:00 10/03/23 13:10 Temperature Pulse Rate 84 86 Respiratory Rate 18 18 Blood Pressure Pulse Oximetry 94 Oxygen Delivery Nasal Cannula Oxygen Flow Rate 2 Fraction of Inspired Oxygen 10/03/23 14:00 10/03/23 15:55 10/03/23 16:00 Temperature 36.2 C L Pulse Rate 85 79 70 Respiratory Rate 20 Blood Pressure 96/60 L Pulse Oximetry 98 Oxygen Delivery Oxygen Flow Rate Fraction of Inspired Oxygen 10/03/23 16:00 10/03/23 18:00 10/03/23 19:47 Temperature 36.5 C Pulse Rate 85 82 Respiratory Rate 20 Blood Pressure 101/70 Pulse Oximetry 94 98 Oxygen Delivery Nasal Cannula Oxygen Flow Rate 2 Fraction of Inspired Oxygen 10/03/23 20:00 10/03/23 20:00 10/03/23 22:00 Temperature Pulse Rate 93 77 Respiratory Rate Blood Pressure Pulse Oximetry 98 Oxygen Delivery Nasal Cannula Oxygen Flow Rate 2 Fraction of Inspired Oxygen 10/03/23 23:46 10/04/23 00:00 10/03/23 20:20 Temperature 36.4 C Pulse Rate 93 90 Respiratory Rate 24 H 20 Blood Pressure 91/56 L Pulse Oximetry 98 98 Oxygen Delivery Nasal Cannula Oxygen Flow Rate 2 Fraction of Inspired Oxygen 10/04/23 02:25 10/04/23 02:35 10/04/23 00:00 Temperature Pulse Rate 92 87 72 Respiratory Rate 20 20 Blood Pressure Pulse Oximetry Oxygen Delivery Oxygen Flow Rate Fraction of Inspired Oxygen 10/04/23 03:47 10/04/23 04:00 10/04/23 02:00 Temperature 36.4 C Pulse Rate 103 H 87 Respiratory Rate 20 Blood Pressure 124/72 Pulse Oximetry 96 96 Oxygen Delivery Nasal Cannula Oxygen Flow Rate 2 Fraction of Inspired Oxygen 10/04/23 04:00 10/04/23 06:00 10/04/23 07:18 Temperature Pulse Rate 98 95 Respiratory Rate Blood Pressure Pulse Oximetry 95 Oxygen Delivery Nasal Cannula Oxygen Flow Rate 2 Fraction of Inspired Oxygen 28 10/04/23 07:18 10/04/23 07:54 10/04/23 08:32 Temperature 36.2 C L Pulse Rate 88 108 H Respiratory Rate 20 20 Blood Pressure 103/84 Pulse Oximetry 90 Oxygen Delivery Room Air Oxygen Flow Rate Fraction of Inspired Oxygen Intake/Output Intake/Output: Intake & Output 07/1510/02/23 10/03/23 10/04/23 23:59 23:59 23:59 23:59 Intake Total 250.0 1067.9 2343.7 1374.3 Output Total 625 2450 750 Balance 250.0 442.9 -106.3 624.3 Meds/Results Medications: Active Medications Generic Name Dose Route Start Last Admin Trade Name Freq PRN Reason Stop Dose Admin Acetaminophen 650 mg 10/01/23 19:44 Acetaminophen 325 Mg Tablet PO Q4H PRN Mild Pain (1-3) or Fever Hydrocodone Bitart/Acetaminophen 1 tab 10/01/23 19:44 Hydrocodone/Acetaminophen (*Crx) 5-325 Mg Tablet PO Q4H PRN Pain Rated 4-6 Albuterol/Ipratropium 3 ml 10/03/23 08:00 10/04/23 07:18 Ipratropium 0.5 Mg/Albuterol Sulfate 2.5 Mg Ampul.Neb 3 Ml INHALATION 3 ml Q6HRT JORJE Administration Aspirin 81 mg 10/02/23 09:00 10/04/23 09:02 Aspirin 81 Mg Chewable Tablet PO 81 mg DAILY JORJE Administration Atorvastatin Calcium 80 mg 10/02/23 12:20 10/04/23 09:02 Atorvastatin 40 Mg Tablet PO 80 mg DAILY JORJE Administration Clopidogrel Bisulfate 75 mg 10/02/23 09:00 10/04/23 09:02 Clopidogrel Bisulfate 75 Mg Tablet PO 75 mg DAILY JORJE Administration Furosemide 20 mg 10/03/23 09:00 10/04/23 09:02 Furosemide 20 Mg Tablet PO 20 mg DAILY JORJE Administration Gabapentin 300 mg 10/02/23 09:00 10/04/23 09:02 Gabapentin 300 Mg Capsule PO 300 mg BID JORJE Administration Guaifenesin 600 mg 10/02/23 09:00 10/04/23 09:02 Guaifenesin 12 Hr 600 Mg Tabcr PO 600 mg Q12HR JORJE Administration Heparin Sodium (Porcine) 4,000 units 09/30/23 22:36 10/02/23 16:28 Heparin Sodium 5,000 Units/Ml Vial IV PUSH 4,000 units PRN PRN Administration aPTT less than 55 seconds Heparin Sodium (Porcine) 3,500 units 09/30/23 22:36 Heparin Sodium 5,000 Units/Ml Vial IV PUSH PRN PRN aPTT 55 - 70 seconds Heparin Sodium/Dextrose 25,000 units in 250 mls @ 13 mls/hr 09/30/23 22:40 10/04/23 05:25 Heparin Sodium/D5w 100 Units/Ml IV CONT 1,300 units/hr .[id number] JORJE 13 mls/hr Titration Protocol 1,300 UNITS/HR Lidocaine 1 patch 10/02/23 21:00 10/03/23 21:10 Lidocaine 5% Patch TRANSDERM 11/01/23 20:59 1 patch QHS JORJE Administration Morphine Sulfate 2 mg 10/01/23 19:44 Morphine Sulfate (*Crx) 2 Mg/Ml Inj IV PUSH Q2H PRN Pain Rated 7-10 Ondansetron HCl 4 mg 10/01/23 19:44 Ondansetron Inj 4 Mg/2 Ml Vial IV PUSH Q4H PRN Nausea Polyethylene Glycol 17 gm 10/02/23 02:00 Polyethylene Glycol 3350 17 Gm Powd.Pack PO DAILY PRN Constipation Senna/Docusate Sodium 2 tab 10/02/23 09:00 10/04/23 09:02 Senna/Docusate Sodium Tablet PO 2 tab DAILY JORJE Administration Tramadol HCl 25 mg 10/02/23 02:00 Tramadol Hcl (*Crx) 25 Mg Tablet PO Q6H PRN Pain Rated 6 Or Greater Trazodone HCl 50 mg 10/02/23 21:00 10/03/23 21:10 Trazodone Hcl 50 Mg Tablet PO 50 mg HS JORJE Administration Radiology Results: ITS Impressions Abdomen/Pelvis CT 09/30/23 22:02 Impression: Small right pleural effusion with probable emphysema at the lung bases. 5.2 cm infrarenal abdominal aortic aneurysm. Extensive, severe atherosclerotic disease of the aorta, common iliac arteries, and external iliac arteries. Severe stenoses and/or focal occlusions involving the common iliac arteries and external iliac arteries bilaterally. Correlate with any relevant patient's symptomatology. Large wide necked ventral/umbilical hernia containing multiple small bowel loops, similar to prior exam. No bowel obstruction or bowel wall thickening. Chest X-Ray 10/02/23 10:02 Impression: Extensive groundglass and interstitial pulmonary disease. Findings probably represent mixed alveolar/interstitial pulmonary edema. Correlate for other chronic interstitial disease which is significantly worsened from prior exam. Small pleural effusions. Labs Labs: Laboratory Results - last 24 hr 10/03/23 10/04/23 14:31 04:44 WBC 7.0 RBC 4.64 Hgb 13.9 L Hct 43.8 MCV 94.4 MCH 30.0 MCHC 31.7 L RDW 14.3 Plt Count 203 MPV 11.9 H PT 14.1 INR 1.0 APTT 73.6 H 84.8 H Sodium 137 Potassium 4.4 Chloride 96 L Carbon Dioxide 33 H Anion Gap 8 BUN 22 H Creatinine 1.10 Estim Creat Clear Calc 49 Estimated GFR > 60 Glucose 99 Calcium 9.1 Magnesium 2.1
[2023-10-04] MEDS: METOPROLOL SUCCINATE EXT REL 12.5 MG TABCR PO (11:38)
--- NOTE | 2023-10-04 11:52 | P.PNIM_ITS ---
Progress Note: A&P Assessment and Plan (1) Aortic mural thrombus: Code(s): I74.10 - Embolism and thrombosis of unspecified parts of aorta Status: Acute (2) Hyperlipidemia: Code(s): E78.5 - Hyperlipidemia, unspecified Status: Acute (3) Non-ST elevation [place] (NSTEMI): Code(s): I21.4 - Non-ST elevation (NSTEMI) myocardial infarction Status: Acute Plan pending transfer, however, will reevaluate tomorrow with cardiology to assess if patient can pursue elective cardiac cath somewhere with vascular backup. asymptomatic. acute hypoxic respiratory failure resolved d/c heparin and monitor start beta jadyn for NSVT cont miralax prn, start senokot hs cont heparin and aspirin cont ADMITTED ATTORNEYS lasix full code 6 separate discussions held with natasha Cook, son Jacob, Dr. Florian Sams (pt's vascular surgeon), [facility] vascular surgery. Dr. Sams advised ou tpatient follow up for his AAA and mural thrombus greater than 100 minutes spent doing so. Subjective Date/time seen: 10/04/23 11:52 Interval history: NSVT overnight, transiet complaint of chest pain overnight, reports constipation more-so Review of Systems Review of Systems: All systems reviewed & are unremarkable except as noted in HPI and below (Subjective) Exam Const: General: comfortable and no acute distress Other: A&O x3. A very bright and happy male with intermittent word-finding difficulties. Eyes: Pupils: Equal, round and reactive pupils present Neck: Neck: supple Resp: Effort & Inspection: normal respiratory effort Auscultation: clear to auscultation bilaterally Cardio: Rate: regular rate Rhythm: regular rhythm Heart sounds: no gallops, no murmurs and no rubs GI: Inspection: distended GI Palp: Yes Soft to palpation, No Tenderness to palpation present (GI), No Guarding due to palpation present (GI) and Yes Hernia present Auscultation: normal bowel sounds Other: No bruit Neuro: Motor exam (neuro): 5/5 motor strength present throughout Extrem: Other: 2+ pedal edema and above the ankles. Co ol to touch with faintly palpable pulses and delayed cap refill. No tenderness. Sensation intact. Psych: Mental Status: mental status grossly normal Objective Data Vital Signs Vital Signs: Vital Signs - 24 hr 10/03/23 12:00 10/03/23 12:00 10/03/23 13:00 Temperature Pulse Rate 89 84 Respiratory Rate 18 Blood Pressure Pulse Oximetry 94 Oxygen Delivery Nasal Cannula Oxygen Flow Rate 2 Fraction of Inspired Oxygen 10/03/23 13:10 10/03/23 14:00 10/03/23 15:55 Temperature 97.2 F L Pulse Rate 86 85 79 Respiratory Rate 18 20 Blood Pressure 96/60 L Pulse Oximetry 98 Oxygen Delivery Oxygen Flow Rate Fraction of Inspired Oxygen 10/03/23 16:00 10/03/23 16:00 10/03/23 18:00 Temperature Pulse Rate 70 85 Respiratory Rate Blood Pressure Pulse Oximetry 94 Oxygen Delivery Nasal Cannula Oxygen Flow Rate 2 Fraction of Inspired Oxygen 10/03/23 19:47 10/03/23 20:00 10/03/23 20:00 Temperature 97.7 F Pulse Rate 82 93 Respiratory Rate 20 Blood Pressure 101/70 Pulse Oximetry 98 98 Oxygen Delivery Nasal Cannula Oxygen Flow Rate 2 Fraction of Inspired Oxygen 10/03/23 22:00 10/03/23 23:46 10/04/23 00:00 Temperature 97.6 F Pulse Rate 77 93 Respiratory Rate 24 H Blood Pressure 91/56 L Pulse Oximetry 98 98 Oxygen Delivery Nasal Cannula Oxygen Flow Rate 2 Fraction of Inspired Oxygen 10/03/23 20:20 10/04/23 02:25 10/04/23 02:35 Temperature Pulse Rate 90 92 87 Respiratory Rate 20 20 20 Blood Pressure Pulse Oximetry Oxygen Delivery Oxygen Flow Rate Fraction of Inspired Oxygen 10/04/23 00:00 10/04/23 03:47 10/04/23 04:00 Temperature 97.6 F Pulse Rate 72 103 H Respiratory Rate 20 Blood Pressure 124/72 Pulse Oximetry 96 96 Oxygen Delivery Nasal Cannula Oxygen Flow Rate 2 Fraction of Inspired Oxygen 10/04/23 02:00 10/04/23 04:00 10/04/23 06:00 Temperature Pulse Rate 87 98 95 Respiratory Rate Blood Pressure Pulse Oximetry Oxygen Delivery Oxygen Flow Rate Fraction of Inspired Oxygen 10/04/23 07:18 10/04/23 07:18 10/04/23 07:54 Temperature 97.2 F L Pulse Rate 88 108 H Respiratory Rate 20 20 Blood Pressure 103/84 Pulse Oximetry 95 90 Oxygen Delivery Nasal Cannula Oxygen Flow Rate 2 Fraction of Inspired Oxygen 10/04/23 08:32 10/04/23 08:00 10/04/23 10:00 Temperature Pulse Rate 105 H 107 H Respiratory Rate Blood Pressure Pulse Oximetry Oxygen Delivery Room Air Oxygen Flow Rate Fraction of Inspired Oxygen 10/04/23 08:00 10/04/23 11:38 Temperature Pulse Rate 98 Respiratory Rate Blood Pressure Pulse Oximetry 96 Oxygen Delivery Room Air Oxygen Flow Rate Fraction of Inspired Oxygen Intake/Output Intake/Output: Intake & Output 10/01/23 10/02/23 10/03/23 10/04/23 23:59 23:59 23:59 23:59 Intake Total 250.0 1067.9 2343.7 1374.3 Output Total 625 2450 950 Balance 250.0 442.9 -106.3 424.3 Meds/Results Medications: Active Medications Generic Name Dose Route Start Last Admin Trade Name Freq PRN Reason Stop Dose Admin Acetaminophen 650 mg 10/01/23 19:44 Acetaminophen 325 Mg Tablet PO Q4H PRN Mild Pain (1-3) or Fever Hydrocodone Bitart/Acetaminophen 1 tab 10/01/23 19:44 Hydrocodone/Acetaminophen (*Crx) 5-325 Mg Tablet PO Q4H PRN Pain Rated 4-6 Albuterol/Ipratropium 3 ml 10/03/23 08:00 10/04/23 07:18 Ipratropium 0.5 Mg/Albuterol Sulfate 2.5 Mg Ampul.Neb 3 Ml INHALATION 3 ml Q6HRT JORJE Administration Aspirin 81 mg 10/02/23 09:00 10/04/23 09:02 Aspirin 81 Mg Chewable Tablet PO 81 mg DAILY JORJE Administration Atorvastatin Calcium 80 mg 10/02/23 12:20 10/04/23 09:02 Atorvastatin 40 Mg Tablet PO 80 mg DAILY JORJE Administration Clopidogrel Bisulfate 75 mg 10/02/23 09:00 10/04/23 09:02 Clopidogrel Bisulfate 75 Mg Tablet PO 75 mg DAILY JORJE Administration Furosemide 20 mg 10/03/23 09:00 10/04/23 09:02 Furosemide 20 Mg Tablet PO 20 mg DAILY JORJE Administration Gabapentin 300 mg 10/02/23 09:00 10/04/23 09:02 Gabapentin 300 Mg Capsule PO 300 mg BID JORJE Administration Guaifenesin 600 mg 10/02/23 09:00 10/04/23 09:02 Guaifenesin 12 Hr 600 Mg Tabcr PO 600 mg Q12HR JORJE Administration Lidocaine 1 patch 10/02/23 21:00 10/03/23 21:10 Lidocaine 5% Patch TRANSDERM 11/01/23 20:59 1 patch QHS JORJE Administration Metoprolol Succinate 12.5 mg 10/04/23 11:05 10/04/23 11:38 Metoprolol Succinate Ext Rel 12.5 Mg Tabcr PO 12.5 mg QAM JORJE Administration Morphine Sulfate 2 mg 10/01/23 19:44 Morphine Sulfate (*Crx) 2 Mg/Ml Inj IV PUSH Q2H PRN Pain Rated 7-10 Ondansetron HCl 4 mg 10/01/23 19:44 Ondansetron Inj 4 Mg/2 Ml Vial IV PUSH Q4H PRN Nausea Polyethylene Glycol 17 gm 10/02/23 02:00 Polyethylene Glycol 3350 17 Gm Powd.Pack PO DAILY PRN Constipation Senna/Docusate Sodium 2 tab 10/02/23 09:00 10/04/23 09:02 Senna/Docusate Sodium Tablet PO 2 tab DAILY JORJE Administration Senna/Docusate Sodium 1 tab 10/04/23 21:00 Senna/Docusate Sodium Tablet PO HS JORJE Tramadol HCl 25 mg 10/02/23 02:00 Tramadol Hcl (*Crx) 25 Mg Tablet PO Q6H PRN Pain Rated 6 Or Greater Trazodone HCl 50 mg 10/02/23 21:00 10/03/23 21:10 Trazodone Hcl 50 Mg Tablet PO 50 mg HS JORJE Administration Radiology Results: ITS Impressions Abdomen/Pelvis CT 09/30/23 22:02 Impression: Small right pleural effusion with probable emphysema at the lung bases. 5.2 cm infrarenal abdominal aortic aneurysm. Extensive, severe atherosclerotic disease of the aorta, common iliac arteries, and external iliac arteries. Severe stenoses and/or focal occlusions involving the common iliac arteries and external iliac arteries bilaterally. Correlate with any relevant patient's symptomatology. Large wide necked ventral/umbilical hernia containing multiple small bowel loops, similar to prior exam. No bowel obstruction or bowel wall thickening. Chest X-Ray 10/02/23 10:02 Impression: Extensive groundglass and interstitial pulmonary disease. Findings probably represent mixed alveolar/interstitial pulmonary edema. Correlate for other chronic interstitial disease which is significantly worsened from prior exam. Small pleural effusions. Labs Labs: Laboratory Results - last 24 hr 10/03/23 10/04/23 14:31 04:44 WBC 7.0 RBC 4.64 Hgb 13.9 L Hct 43.8 MCV 94.4 MCH 30.0 MCHC 31.7 L RDW 14.3 Plt Count 203 MPV 11.9 H PT 14.1 INR 1.0 APTT 73.6 H 84.8 H Sodium 137 Potassium 4.4 Chloride 96 L Carbon Dioxide 33 H Anion Gap 8 BUN 22 H Creatinine 1.10 Estim Creat Clear Calc 49 Estimated GFR > 60 Glucose 99 Calcium 9.1 Magnesium 2.1
[2023-10-04] MEDS: traZODone HCL 50 MG TABLET PO (21:08)
[2023-10-04] MEDS: LIDOCAINE 5% PATCH 1 PATCH TRANSDERM (21:08)
[2023-10-04] MEDS: SENNA/DOCUSATE SODIUM TABLET 1 TAB PO (21:08)
--- NOTE | 2023-10-04 21:34 | ECG_ITS ---
Test Date: 2023-10-04 21:38:37 Measurements Intervals [place] Rate: 99 P: 58 HI: 183 QRS: 61 QRSD: 128 T: 60 QT: 338 QTc: 435 Interpretive Statements SINUS RHYTHM POSSIBLE LEFT ATRIAL ENLARGEMENT INTRAVENTRICULAR CONDUCTION DELAY CANNOT R/O SEPTAL INFARCT, AGE INDETERMINATE ST-T WAVE ABNORMALITY IN DIFFUSE LEADS- CONSIDER ISCHEMIA ABNORMAL ECG Compared to ECG 10/04/2023 08:33:45 HEART RATE HAS DECREASED Electronically Signed On 10-05-2023 06:01:05 CDT by Ashish Salguero D.O.
--- NOTE | 2023-10-04 21:34 | PC.NURSE ---
Pt with 6 beat runs of V-tach on air sampling and monitoring. Pt resting in bed. Dr. Rojas made aware with orders to obtain EKG and order magnesium level in the morning.
[2023-10-05] VITALS (26 sets, daily range): BP systolic 84–116; BP diastolic 54–77; PULSE 73–109; RESP 16–24; TEMP 36.6–36.9; O2SAT 91–100
--- NOTE | 2023-10-05 | ECHO_ITS ---
Patient Info Name: Jacob Tam Age: 78 years : 1945 Gender: Male Ht: 67 in Wt: 180 lbs BSA: 1.98 m2 HR: 107 bpm Heart Rhythm: Tachycardia, Sinus Rhythm Technical Quality: Fair Exam Date: 10/05/2023 10:24 AM Exam Location: Echo Lab Patient Status: Inpatient Admit Date: 10/02/2023 Staff Ordering Physician: Alisha Wilburn MD [employer] Vendor: Jewel Coronel RDCS Attending Provider: Suki Polanco MD Exam Type: CA echo dop color flow w con Study Info Indications - vtach Complete two-dimensional, color flow and Doppler transthoracic echocardiogram is performed with contrast to opacify the left ventricle and to improve the deliniation of the left ventricle endocardial borders. Summary 1. Mild left ventricular enlargement with global systolic hypokinesia ejection fraction visually estimates at 30-35%. 2. Left atrial enlargement. 3. Mild to moderate mitral regurgitation. 4. Sclerotic aortic valve with maintained leaflet excursion, not significantly stenotic. Left Ventricle Left ventricular chamber dimension is mildly enlarged. Left ventricular systolic function is severely reduced, estimated at 30-35%. The left ventricular diastolic function is normal. Right Ventricle Right ventricular chamber dimension is normal. Left Atria Left atrial chamber dimension is moderately enlarged. Right Atria Right atrial chamber dimension is normal. Aortic Valve The aortic valve is trileaflet. There is moderate aortic valve sclerosis. Pulmonic Valve The pulmonic valve is not well visualized. Mitral Valve The mitral valve has normal leaflets. There is mild to moderate mitral valve regurgitation. The mitral valve annulus is mildly calcified. Tricuspid Valve The tricuspid valve leaflets are normal. Pericardium/Pleural The pericardium appears normal. Aorta The aortic root size at the sinus of Valsalva is normal. Left Ventricular Outflow Tract Name Value Normal LVOT 2D LVOT Diameter 2.10 cm LVOT Doppler LVOT Peak Gradient 3 mmHg LVOT Mean Gradient 2 mmHg LVOT VTI 13.25 cm LVOT VTI/AV VTI Ratio 1.43 LVOT Stroke Volume 45.94 ml LVOT CO 4.18 l/min LVOT CI 2.11 L/min/m2 Pulmonic Valve Name Value Normal PV Doppler PV Peak Gradient 2 mmHg Mitral Valve Name Value Normal MV Doppler MV Decel Pope 301.35 cm/s2 MV PHT 0 s MV Area (PHT) 2.90 cm2 4.00-5.00 MV Diastolic Function MV E Peak Velocity 78.72 cm/s MV A Peak Velocity 52.29 cm/s MV E/A 1.51 MV Decel Time 0 s MV Annular TDI MV E/e' (Septal) 14.79 <=8.00 MV E/e' (Lateral) 12.01 <=8.00 MV E/e' (Average) 13.40 Tricuspid Valve Name Value Normal TV Regurgitation Doppler TR Peak Velocity 204.47 cm/s TR Peak Gradient 17 mmHg Estimated PAP/RSVP RA Pressure 10 mmHg <=5 PA Systolic Pressure 27 mmHg <36 RV Systolic Pressure 27 mmHg <36 Aortic Valve Name Value Normal AV Doppler AV Peak Velocity 75.88 cm/s AV Peak Gradient 2 mmHg AV Mean Gradient 1 mmHg AV VTI 9.28 cm AV Area (Cont Eq VTI) 4.95 cm2 >=3.00 AV Area (Cont Eq Gus) 3.62 cm2 AV Regurgitation 2D LVOT Area 3.47 cm2 Ventricles Name Value Normal LV Dimensions 2D/MM IVS Diastolic Thickness (2D) 0.76 cm 0.60-1.00 LVID Diastole (2D) 5.45 cm 4.20-5.80 LVIW Diastolic Thickness (2D) 0.89 cm 0.60-1.00 LVID Systole (2D) 3.72 cm 2.50-4.00 LVOT Diameter 2.10 cm LV Mass (2D Cubed) 164.18 g 88.00-224.00 LV Mass Index (2D Cubed) 0.01 g/cm2 0.00-0.01 Relative Wall Thickness (2D) 0.33 LV Fractional Shortening/Ejection Fraction 2D/MM LV Fractional Shortening (2D) 32 % 25-43 LV EF (2D Teicholz) 59 % 52-72 LV Diastolic Volume (4C MOD) 217.50 ml LV EF (4C MOD) 54 % LV Diastolic Volume (2C MOD) 165.68 ml LV EF (2C MOD) 52 % LV Diastolic Volume (BP MOD) 196.14 ml 62.00-150.00 LV Diastolic Volume Index (BP MOD) 0.10 l/m2 0.03-0.07 LV Systolic Volume (BP MOD) 99.19 ml 21.00-61.00 LV Systolic Volume Index (BP MOD) 0.05 l/m2 0.01-0.03 LV EF (BP MOD) 49 % 52-72 LV Diastolic Length (4C) 9.58 cm LV Systolic Length (4C) 8.68 cm LV Stroke Volume (4C MOD) 116.46 ml Atria Name Value Normal LA Dimensions LA Volume (4C A-L) 84.72 ml RA Dimensions RA Area (4C) 20.66 cm2 <=18.00 Report Signatures
[2023-10-05] MEDS: IPRATROPIUM 0.5 MG/ALBUTEROL SULFATE 2.5 MG AMPUL.NEB 3 ML INHALATION ×4 (02:43→20:22)
[2023-10-05 04:21] LABS: Basophils Percent Auto 0.3 % (0.2-1.2); Eosinophils Absolute Auto 0.1 K/mm3 (0-0.3); Hematocrit 43.2 % (42.0-52.0); Hemoglobin 14.3 g/dL (14.0-18.0); Immature Granulocyte Absolute 0.02 K/mm3 (0.00-0.031); Immature Granulocyte Percent A 0.3 % (0-0.5); Lymphocytes Absolute Auto 0.89 K/mm3 (0.9-3.2); Lymphocytes Percent Auto 13.3 % (18.3-44.2); Mean Corpuscular HGB Conc 33.1 g/dl (32-36); Mean Corpuscular Hemoglobin 31.2 pg (26-34); Mean Corpuscular Volume 94.3 fl (80-100); Mean Platelet Volume 12.3 fl (7.4-10.4); Monocytes Absolute Auto 0.6 K/mm3 (0.1-0.6); Monocytes Percent Auto 9.2 % (2.6-8.5); Neutrophils Absolute Auto 5.1 K/mm3 (1.3-6.7); Neutrophils Percent Auto 75.9 % (45.5-73.1); Platelet Count Result 187 k/mm3 (150-375); Red Blood Count 4.58 M/mm3 (4.6-6.20); Red Cell Distribution Width 14.5 % (11.5-14.5); White Blood Count 6.7 K/mm3 (4.5-10.0)
[2023-10-05 04:47] LABS: Anion Gap 10 mmol/L (4-12); Blood Urea Nitrogen 18 mg/dL (9-20); Calcium 9.6 mg/dL (8.4-10.2); Carbon Dioxide 30 mmol/L (22-30); Chloride 95 mmol/L (98-107); Estimated CRCL calculation 49 ml/min; Estimated Glomerular Filt Rate > 60; Glucose 116 mg/dL (65-110); Magnesium 2.1 mg/dL (1.6-2.3); Potassium 5.1 mmol/L (3.4-5.0); Sodium 135 mmol/L (137-145)
[2023-10-05] MEDS: METOPROLOL SUCCINATE EXT REL 12.5 MG TABCR PO (09:15)
[2023-10-05] MEDS: ATORVASTATIN 40 MG TABLET 80 MG PO (09:15)
[2023-10-05] MEDS: ASPIRIN 81 MG CHEWABLE TABLET PO (09:15)
[2023-10-05] MEDS: FUROSEMIDE 20 MG TABLET PO (09:15)
[2023-10-05] MEDS: guaiFENesin 12 HR 600 MG TABCR PO ×2 (09:15→20:11)
[2023-10-05] MEDS: GABAPENTIN 300 MG CAPSULE PO ×2 (09:15→17:48)
[2023-10-05] MEDS: CLOPIDOGREL BISULFATE 75 MG TABLET PO (09:15)
[2023-10-05] MEDS: SENNA/DOCUSATE SODIUM TABLET 2 TAB PO (09:15)
[2023-10-05] MEDS: PERFLUTREN LIPID MICROSPHERES 1.5 ML VIAL DILUTED TO 10 ML TOTAL VOLUME IV PUSH (10:20)
--- NOTE | 2023-10-05 11:27 | P.PNCA_ITS ---
Progress Note: A&P Assessment and Plan (1) Non-ST elevation PR (NSTEMI): Code(s): I21.4 - Non-ST elevation (NSTEMI) myocardial infarction Status: Acute Assessment and Plan: This has been treated medically. Troponins peaked at 1.650. Heparin drip has been stopped at this point. Continue ASA and Plavix, high intensity statin. Plan to pursue outpatient coronary angiogram within the next couple of weeks. (2) Aortic aneurysm: Code(s): I71.9 - Aortic aneurysm of unspecified site, without rupture Status: Acute Assessment and Plan: CT abdomen and pelvis 09/29 shows small right pleural effusion with probable emphysema at the lung base, 5.2cm infrarenal abdominal aortic aneurysm. Extensive severe atherosclerotic disease of the aorta, common iliac arteries, and external iliac arteries. Severe stenoses and/or focal occlusions involving the common iliac arteries and external iliac arteries bilaterally. Large wide necked ventral/umbilical hernia containing multiple small bowel loops. Of note, prior CTA Abdominal Aorta and Bilateral Iliofemoral Runoff 05/29/2023: 1. Partially thrombosed 5.0cm infrarenal abdominal aortic aneurysm with significant noncalcified plaque. 2. Significant noncalcified plaque within the common iliac arteries resulting in moderate intraluminal narrowing with severe stenosis of the distal right common iliac artery. Possible old intimal flaps noted. 3. Mild-moderate right external iliac artery stenosis. 4. Severe left external iliac artery stenoses. 5. Right lower extremity: Moderate-severe stenosis of the proximal superficial femoral artery with occlusion distally. Reconstitution of the popliteal artery with severe proximal popliteal arterial stenoses. Diminutive anterior tibial artery with likely occlusions. Two vessel runoff. 6. Left lower extremity: Moderate-severe proximal and mid superficial femoral artery stenoses. Occlusion of the mid to distal superficial femoral and proximal popliteal arteries with reconstitution of the popliteal artery above the knee. Moderate and severe stenoses of the popliteal artery at and below the knee. Diminutive anterior tibial artery. 2 vessel runoff. CTA in May 2023 measured aneurysm at 5.0cm, now measuring at 5.2cm. Possible findings of chronic dissection as well given possible old intimal flaps, dissection noted on past CT scans as well. Recommend Vascular Surgery consultation. Per hospitalist vascular surgery contacted and recommend outpatient evaluation. (3) Hyperlipidemia: Code(s): E78.5 - Hyperlipidemia, unspecified Status: Acute Assessment and Plan: Recommend high intensity statin (4) 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: Code(s): I50.30 - Unspecified diastolic (congestive) heart failure Status: Acute Assessment and Plan: Can continue home PO Lasix (5) Atherosclerosis of [place] arteries of extremities with intermittent claudication, bilateral legs: Code(s): I70.213 - Atherosclerosis of [place] arteries of extremities with intermittent claudication, bilateral legs Status: Acute Assessment and Plan: Continue aggressive risk factor modification, ASA/Plavix, statin. (6) NSVT (nonsustained ventricular tachycardia): Code(s): I47.29 - Other ventricular tachycardia Status: Acute Assessment and Plan: NSVT seen on telemetry this morning. Self limiting and asymptomatic. Per report occurred during physical therapy. Telemetry now shows sinus rhythm/sinus tach with PVC's and PAC's. Did have some bigeminy on telemetry earlier as well. Added beta jadyn yesterday. Continues to have short runs of NSVT. Repeat echo showed decrease in LV systolic function. Therefore, will add amiodarone to his medical regimen. Life vest ordered in the event the patient decides that he wants this. (7) Cardiomyopathy: Code(s): I42.9 - Cardiomyopathy, unspecified Status: Acute Assessment and Plan: Echocardiogram today showed EF 30-35%, previously 55%. * Will plan for outpatient elective coronary angiogram * I talked to the patient and his daughter at great length regarding his risk for sudden cardiac because of his cardiomyopathy in addition to examples of ventricular tachycardia on telemetry. At this point, patient is indecisive about a LifeVest. He does understand that if he leaves the hospital without the LifeVest that he is accepting risk for sudden cardiac . * Continue Toprol * Additional guideline directed medical therapy not able to be initiated at this time because of low blood pressure. * He does not have signs or symptoms of significant clinical heart failure on exam. Subjective Date/time seen: 10/05/23 11:27 Interval history: Cardiology follow up for elevated troponin levels He is complaining of indigestion and constipation stating he hasn't had a bowel movement in 3 days. No shortness of breath, chest pain, palpitations. Date of service 10/05/2023: Feeling well today, does not have any complaints but he is frustrated that he remains hospitalized. Runs of nonsustained ventricular tachycardia noted on telemetry once again in the last 24 hours. He denies feeling any palpitations, chest pain, shortness of breath. Exam Const: General: comfortable and no acute distress HENMT: Mouth: Yes moist mucous membranes Eyes: General: appearance normal, both eyes and all related structures Sclera: sclerae normal Chest: Other: No reproducible chest wall tenderness Resp: Effort & Inspection: normal respiratory effort Auscultation: clear to auscultation bilaterally Cardio: Rate: regular rate Rhythm: regular rhythm Heart sounds: no murmurs Skin: General skin exam: normal color Neuro: Speech: normal speech Psych: Mental Status: mental status grossly normal Affect: normal affect Objective Data Vital Signs Vital Signs: Vital Signs - 24 hr 10/04/23 11:38 10/04/23 12:00 10/04/23 12:00 Temperature 36.3 C L Pulse Rate 98 105 H Respiratory Rate 20 Blood Pressure 91/49 L Pulse Oximetry 94 Oxygen Delivery Room Air Oxygen Flow Rate 10/04/23 12:00 10/04/23 13:43 10/04/23 13:50 Temperature Pulse Rate 105 H 114 H Respiratory Rate 21 H Blood Pressure Pulse Oximetry Oxygen Delivery Room Air Oxygen Flow Rate 10/04/23 14:00 10/04/23 16:02 10/04/23 16:00 Temperature 36.3 C L Pulse Rate 112 H 111 H 100 Respiratory Rate 20 Blood Pressure 101/70 Pulse Oximetry 98 Oxygen Delivery Oxygen Flow Rate 10/04/23 18:00 10/04/23 16:00 10/04/23 19:48 Temperature 36.7 C Pulse Rate 107 H 95 Respiratory Rate 20 Blood Pressure 96/62 L Pulse Oximetry 95 Oxygen Delivery Room Air Oxygen Flow Rate 10/04/23 20:47 10/04/23 20:47 10/04/23 20:00 Temperature Pulse Rate 108 H 102 H Respiratory Rate 20 Blood Pressure Pulse Oximetry 90 Oxygen Delivery Room Air Oxygen Flow Rate 10/04/23 20:00 10/04/23 22:00 10/04/23 23:52 Temperature 36.5 C Pulse Rate 86 98 Respiratory Rate 20 Blood Pressure 88/55 L Pulse Oximetry 95 Oxygen Delivery Room Air Oxygen Flow Rate 10/05/23 00:00 10/05/23 00:00 10/05/23 02:43 Temperature Pulse Rate 85 99 Respiratory Rate 20 Blood Pressure Pulse Oximetry Oxygen Delivery Room Air Oxygen Flow Rate 10/05/23 02:53 10/05/23 04:00 10/05/23 02:00 Temperature 36.9 C Pulse Rate 95 107 H 73 Respiratory Rate 20 24 H Blood Pressure 84/54 L Pulse Oximetry 97 Oxygen Delivery Oxygen Flow Rate 10/05/23 04:00 10/05/23 04:00 10/05/23 06:00 Temperature Pulse Rate 109 H 89 Respiratory Rate Blood Pressure Pulse Oximetry Oxygen Delivery Room Air Oxygen Flow Rate 10/05/23 07:35 10/05/23 07:41 10/05/23 07:45 Temperature 36.6 C Pulse Rate 104 H 101 H 97 Respiratory Rate 20 18 20 Blood Pressure 101/69 Pulse Oximetry 100 Oxygen Delivery Oxygen Flow Rate 10/05/23 07:41 10/05/23 08:00 10/05/23 09:15 Temperature Pulse Rate 107 H 107 H Respiratory Rate Blood Pressure Pulse Oximetry 100 Oxygen Delivery Nasal Cannula Oxygen Flow Rate 2 10/05/23 10:00 10/05/23 08:00 Temperature Pulse Rate 104 H Respiratory Rate Blood Pressure Pulse Oximetry 100 Oxygen Delivery Nasal Cannula Oxygen Flow Rate 2 Intake/Output Intake/Output: Intake & Output 10/02/23 10/03/23 10/04/23 10/05/23 23:59 23:59 23:59 23:59 Intake Total 1067.9 2343.7 2274.3 760 Output Total 625 2450 1250 1000 Balance 442.9 -106.3 1024.3 -240 Meds/Results Medications: Active Medications Generic Name Dose Route Start Last Admin Trade Name Freq PRN Reason Stop Dose Admin Acetaminophen 650 mg 10/01/23 19:44 Acetaminophen 325 Mg Tablet PO Q4H PRN Mild Pain (1-3) or Fever Hydrocodone Bitart/Acetaminophen 1 tab 10/01/23 19:44 Hydrocodone/Acetaminophen (*Crx) 5-325 Mg Tablet PO Q4H PRN Pain Rated 4-6 Albuterol/Ipratropium 3 ml 10/03/23 08:00 10/05/23 07:33 Ipratropium 0.5 Mg/Albuterol Sulfate 2.5 Mg Ampul.Neb 3 Ml INHALATION 3 ml Q6HRT JORJE Administration Aspirin 81 mg 10/02/23 09:00 10/05/23 09:15 Aspirin 81 Mg Chewable Tablet PO 81 mg DAILY JORJE Administration Atorvastatin Calcium 80 mg 10/02/23 12:20 10/05/23 09:15 Atorvastatin 40 Mg Tablet PO 80 mg DAILY JORJE Administration Clopidogrel Bisulfate 75 mg 10/02/23 09:00 10/05/23 09:15 Clopidogrel Bisulfate 75 Mg Tablet PO 75 mg DAILY JORJE Administration Furosemide 20 mg 10/03/23 09:00 10/05/23 09:15 Furosemide 20 Mg Tablet PO 20 mg DAILY JORJE Administration Gabapentin 300 mg 10/02/23 09:00 10/05/23 09:15 Gabapentin 300 Mg Capsule PO 300 mg BID JORJE Administration Guaifenesin 600 mg 10/02/23 09:00 10/05/23 09:15 Guaifenesin 12 Hr 600 Mg Tabcr PO 600 mg Q12HR JORJE Administration Lidocaine 1 patch 10/02/23 21:00 10/04/23 21:08 Lidocaine 5% Patch TRANSDERM 11/01/23 20:59 1 patch QHS JORJE Administration Metoprolol Succinate 12.5 mg 10/04/23 11:05 10/05/23 09:15 Metoprolol Succinate Ext Rel 12.5 Mg Tabcr PO 12.5 mg QAM JORJE Administration Morphine Sulfate 2 mg 10/01/23 19:44 Morphine Sulfate (*Crx) 2 Mg/Ml Inj IV PUSH Q2H PRN Pain Rated 7-10 Ondansetron HCl 4 mg 10/01/23 19:44 Ondansetron Inj 4 Mg/2 Ml Vial IV PUSH Q4H PRN Nausea Perflutren Lipid Microsphere 0 ml 10/05/23 09:53 Perflutren Lipid Microspheres 1.5 Ml Vial Diluted To 10 Ml Total Volume IV PUSH 10/08/23 09:53 ONCE PRN adequate visualization Protocol Polyethylene Glycol 17 gm 10/02/23 02:00 Polyethylene Glycol 3350 17 Gm Powd.Pack PO DAILY PRN Constipation Senna/Docusate Sodium 2 tab 10/02/23 09:00 10/05/23 09:15 Senna/Docusate Sodium Tablet PO 2 tab DAILY JORJE Administration Senna/Docusate Sodium 1 tab 10/04/23 21:00 10/04/23 21:08 Senna/Docusate Sodium Tablet PO 1 tab HS JORJE Administration Tramadol HCl 25 mg 10/02/23 02:00 Tramadol Hcl (*Crx) 25 Mg Tablet PO Q6H PRN Pain Rated 6 Or Greater Trazodone HCl 50 mg 10/02/23 21:00 10/04/23 21:08 Trazodone Hcl 50 Mg Tablet PO 50 mg HS JORJE Administration Radiology Results: ITS Impressions Abdomen/Pelvis CT 09/30/23 22:02 Impression: Small right pleural effusion with probable emphysema at the lung bases. 5.2 cm infrarenal abdominal aortic aneurysm. Extensive, severe atherosclerotic disease of the aorta, common iliac arteries, and external iliac arteries. Severe stenoses and/or focal occlusions involving the common iliac arteries and external iliac arteries bilaterally. Correlate with any relevant patient's symptomatology. Large wide necked ventral/umbilical hernia containing multiple small bowel loops, similar to prior exam. No bowel obstruction or bowel wall thickening. Chest X-Ray 10/02/23 10:02 Impression: Extensive groundglass and interstitial pulmonary disease. Findings probably represent mixed alveolar/interstitial pulmonary edema. Correlate for other chronic interstitial disease which is significantly worsened from prior exam. Small pleural effusions. Labs Labs: Laboratory Results - last 24 hr 10/05/23 04:00 WBC 6.7 RBC 4.58 L Hgb 14.3 Hct 43.2 MCV 94.3 MCH 31.2 MCHC 33.1 RDW 14.5 Plt Count 187 MPV 12.3 H Immature Gran % (Auto) 0.3 Neut % (Auto) 75.9 H Lymph % (Auto) 13.3 L [place] % (Auto) 9.2 H Eos % (Auto) 1.0 Baso % (Auto) 0.3 Lymph # (Auto) 0.89 L [place] # (Auto) 0.6 Eos # (Auto) 0.1 Baso # (Auto) 0.0 Abs Immat Gran (auto) 0.02 Absolute Neuts (auto) 5.1 Absolute Nucleated RBC 0.000 Nucleated RBC % 0.0 Sodium 135 L Potassium 5.1 H Chloride 95 L Carbon Dioxide 30 Anion Gap 10 BUN 18 Creatinine 1.10 Estim Creat Clear Calc 49 Estimated GFR > 60 Glucose 116 H Calcium 9.6 Magnesium 2.1
--- NOTE | 2023-10-05 11:33 | IVDEFINITY ---
Prior to administration of IV Definity the patient was educated on the risks and benefits of the imaging enhancing agent including potential adverse side effects. The patient verbalized understanding. Allergies were verified. No exclusion criteria were identified and at least one of the following inclusion criteria were met: 1) physician request, 2) patient technically difficult to image (per the [place] [employer] guidelines of two or more segments not discernable within the apical view), or 3) questionable left ventricular function. ?
[2023-10-05] MEDS: AMIODARONE HCL 200 MG TABLET 400 MG PO (15:50)
--- NOTE | 2023-10-05 18:26 | P.PNIM_ITS ---
Progress Note: A&P Assessment and Plan (1) Aortic mural thrombus: Code(s): I74.10 - Embolism and thrombosis of unspecified parts of aorta Status: Acute (2) Hyperlipidemia: Code(s): E78.5 - Hyperlipidemia, unspecified Status: Acute (3) Non-ST elevation NC (NSTEMI): Code(s): I21.4 - Non-ST elevation (NSTEMI) myocardial infarction Status: Acute Plan Greater than 100 minute spent on discussions with the patient himself, the daughter pain and the daughter Monique. The patient is very frustrated he cannot leave the hospital yet. His consider multiple times to leave against medical advice. Further discussions held with the daughter the patient and Shanell Darden APN with cardiology. Explained in depth the risk of leaving without LifeVest. Adverse effects, risk and benefits of amiodarone continue telemetry discussed. Patient ultimately willing to stay for another day for telemetry monitoring, amiodarone initiation, LifeVest possibly placed tomorrow. He will not stay another day past tomorrow. full code Subjective Date/time seen: 10/05/23 18:26 Interval history: No major acute overnight events. Review of Systems Review of Systems: All systems reviewed & are unremarkable except as noted in HPI and below (Subjective) Exam Const: General: comfortable and no acute distress Other: A&O x3. A very bright and happy male with intermittent word-finding difficulties. Eyes: Pupils: Equal, round and reactive pupils present Neck: Neck: supple Resp: Effort & Inspection: normal respiratory effort Auscultation: clear to auscultation bilaterally Cardio: Rate: regular rate Rhythm: regular rhythm Heart sounds: no gallops, no murmurs and no rubs GI: Inspection: distended GI Palp: Yes Soft to palpation, No Tenderness to palpation present (GI), No Guarding due to palpation present (GI) and Yes Hernia present Auscultation: normal bowel sounds Other: No bruit Neuro: Motor exam (neuro): 5/5 motor strength present throughout Extrem: Other: 2+ pedal edema and above the ankles. Co ol to touch with faintly palpable pulses and delayed cap refill. No tenderness. Sensation intact. Psych: Mental Status: mental status grossly normal Objective Data Vital Signs Vital Signs: Vital Signs - 24 hr 10/04/23 19:48 10/04/23 20:47 10/04/23 20:47 Temperature 98.1 F Pulse Rate 95 108 H Respiratory Rate 20 20 Blood Pressure 96/62 L Pulse Oximetry 95 90 Oxygen Delivery Room Air Oxygen Flow Rate 10/04/23 20:00 10/04/23 20:00 10/04/23 22:00 Temperature Pulse Rate 102 H 86 Respiratory Rate Blood Pressure Pulse Oximetry Oxygen Delivery Room Air Oxygen Flow Rate 10/04/23 23:52 10/05/23 00:00 10/05/23 00:00 Temperature 97.7 F Pulse Rate 98 85 Respiratory Rate 20 Blood Pressure 88/55 L Pulse Oximetry 95 Oxygen Delivery Room Air Oxygen Flow Rate 10/05/23 02:43 10/05/23 02:53 10/05/23 04:00 Temperature 98.5 F Pulse Rate 99 95 107 H Respiratory Rate 20 20 24 H Blood Pressure 84/54 L Pulse Oximetry 97 Oxygen Delivery Oxygen Flow Rate 10/05/23 02:00 10/05/23 04:00 10/05/23 04:00 Temperature Pulse Rate 73 109 H Respiratory Rate Blood Pressure Pulse Oximetry Oxygen Delivery Room Air Oxygen Flow Rate 10/05/23 06:00 10/05/23 07:35 10/05/23 07:41 Temperature 97.9 F Pulse Rate 89 104 H 101 H Respiratory Rate 20 18 Blood Pressure 101/69 Pulse Oximetry 100 Oxygen Delivery Oxygen Flow Rate 10/05/23 07:45 10/05/23 07:41 10/05/23 08:00 Temperature Pulse Rate 97 107 H Respiratory Rate 20 Blood Pressure Pulse Oximetry 100 Oxygen Delivery Nasal Cannula Oxygen Flow Rate 2 10/05/23 09:15 10/05/23 10:00 10/05/23 08:00 Temperature Pulse Rate 107 H 104 H Respiratory Rate Blood Pressure Pulse Oximetry 100 Oxygen Delivery Nasal Cannula Oxygen Flow Rate 2 10/05/23 11:36 10/05/23 14:01 10/05/23 14:13 Temperature 97.9 F Pulse Rate 101 H 103 H 105 H Respiratory Rate 20 18 20 Blood Pressure 105/77 Pulse Oximetry 98 Oxygen Delivery Oxygen Flow Rate 10/05/23 15:50 10/05/23 16:00 Temperature 97.8 F Pulse Rate 105 H 107 H Respiratory Rate 16 Blood Pressure 109/72 Pulse Oximetry 93 Oxygen Delivery Oxygen Flow Rate Intake/Output Intake/Output: Intake & Output 10/02/23 10/03/23 10/04/23 10/05/23 23:59 23:59 23:59 23:59 Intake Total 1067.9 2343.7 2274.3 880 Output Total 625 2450 1250 1800 Balance 442.9 -106.3 1024.3 -920 Meds/Results Medications: Active Medications Generic Name Dose Route Start Last Admin Trade Name Freq PRN Reason Stop Dose Admin Acetaminophen 650 mg 10/01/23 19:44 Acetaminophen 325 Mg Tablet PO Q4H PRN Mild Pain (1-3) or Fever Hydrocodone Bitart/Acetaminophen 1 tab 10/01/23 19:44 Hydrocodone/Acetaminophen (*Crx) 5-325 Mg Tablet PO Q4H PRN Pain Rated 4-6 Albuterol/Ipratropium 3 ml 10/03/23 08:00 10/05/23 14:00 Ipratropium 0.5 Mg/Albuterol Sulfate 2.5 Mg Ampul.Neb 3 Ml INHALATION 3 ml Q6HRT JORJE Administration Amiodarone HCl 400 mg 10/05/23 13:40 10/05/23 15:50 Amiodarone Hcl 200 Mg Tablet PO 400 mg DAILY@0800 JORJE Administration Aspirin 81 mg 10/02/23 09:00 10/05/23 09:15 Aspirin 81 Mg Chewable Tablet PO 81 mg DAILY OJRJE Administration Atorvastatin Calcium 80 mg 10/02/23 12:20 10/05/23 09:15 Atorvastatin 40 Mg Tablet PO 80 mg DAILY JORJE Administration Clopidogrel Bisulfate 75 mg 10/02/23 09:00 10/05/23 09:15 Clopidogrel Bisulfate 75 Mg Tablet PO 75 mg DAILY JORJE Administration Furosemide 20 mg 10/03/23 09:00 10/05/23 09:15 Furosemide 20 Mg Tablet PO 20 mg DAILY JORJE Administration Gabapentin 300 mg 10/02/23 09:00 10/05/23 17:48 Gabapentin 300 Mg Capsule PO 300 mg BID JORJE Administration Guaifenesin 600 mg 10/02/23 09:00 10/05/23 09:15 Guaifenesin 12 Hr 600 Mg Tabcr PO 600 mg Q12HR JORJE Administration Lidocaine 1 patch 10/02/23 21:00 10/04/23 21:08 Lidocaine 5% Patch TRANSDERM 11/01/23 20:59 1 patch QHS JORJE Administration Metoprolol Succinate 12.5 mg 10/04/23 11:05 10/05/23 09:15 Metoprolol Succinate Ext Rel 12.5 Mg Tabcr PO 12.5 mg QAM JORJE Administration Morphine Sulfate 2 mg 10/01/23 19:44 Morphine Sulfate (*Crx) 2 Mg/Ml Inj IV PUSH Q2H PRN Pain Rated 7-10 Ondansetron HCl 4 mg 10/01/23 19:44 Ondansetron Inj 4 Mg/2 Ml Vial IV PUSH Q4H PRN Nausea Polyethylene Glycol 17 gm 10/02/23 02:00 Polyethylene Glycol 3350 17 Gm Powd.Pack PO DAILY PRN Constipation Senna/Docusate Sodium 2 tab 10/02/23 09:00 10/05/23 09:15 Senna/Docusate Sodium Tablet PO 2 tab DAILY JORJE Administration Senna/Docusate Sodium 1 tab 10/04/23 21:00 10/04/23 21:08 Senna/Docusate Sodium Tablet PO 1 tab HS JORJE Administration Tramadol HCl 25 mg 10/02/23 02:00 Tramadol Hcl (*Crx) 25 Mg Tablet PO Q6H PRN Pain Rated 6 Or Greater Trazodone HCl 50 mg 10/02/23 21:00 10/04/23 21:08 Trazodone Hcl 50 Mg Tablet PO 50 mg HS JORJE Administration Radiology Results: ITS Impressions Abdomen/Pelvis CT 09/30/23 22:02 Impression: Small right pleural effusion with probable emphysema at the lung bases. 5.2 cm infrarenal abdominal aortic aneurysm. Extensive, severe atherosclerotic disease of the aorta, common iliac arteries, and external iliac arteries. Severe stenoses and/or focal occlusions involving the common iliac arteries and external iliac arteries bilaterally. Correlate with any relevant patient's symptomatology. Large wide necked ventral/umbilical hernia containing multiple small bowel loops, similar to prior exam. No bowel obstruction or bowel wall thickening. Chest X-Ray 10/02/23 10:02 Impression: Extensive groundglass and interstitial pulmonary disease. Findings probably represent mixed alveolar/interstitial pulmonary edema. Correlate for other chronic interstitial disease which is significantly worsened from prior exam. Small pleural effusions. Labs Labs: Laboratory Results - last 24 hr 10/05/23 04:00 WBC 6.7 RBC 4.58 L Hgb 14.3 Hct 43.2 MCV 94.3 MCH 31.2 MCHC 33.1 RDW 14.5 Plt Count 187 MPV 12.3 H Immature Gran % (Auto) 0.3 Neut % (Auto) 75.9 H Lymph % (Auto) 13.3 L [place] % (Auto) 9.2 H Eos % (Auto) 1.0 Baso % (Auto) 0.3 Lymph # (Auto) 0.89 L [place] # (Auto) 0.6 Eos # (Auto) 0.1 Baso # (Auto) 0.0 Abs Immat Gran (auto) 0.02 Absolute Neuts (auto) 5.1 Absolute Nucleated RBC 0.000 Nucleated RBC % 0.0 Sodium 135 L Potassium 5.1 H Chloride 95 L Carbon Dioxide 30 Anion Gap 10 BUN 18 Creatinine 1.10 Estim Creat Clear Calc 49 Estimated GFR > 60 Glucose 116 H Calcium 9.6 Magnesium 2.1
[2023-10-05] MEDS: LIDOCAINE 5% PATCH 1 PATCH TRANSDERM (20:11)
[2023-10-05] MEDS: traZODone HCL 50 MG TABLET PO (20:11)
[2023-10-05] MEDS: SENNA/DOCUSATE SODIUM TABLET 1 TAB PO (20:11)
[2023-10-06] VITALS (14 sets, daily range): BP systolic 88–122; BP diastolic 55–80; PULSE 78–103; RESP 16–20; TEMP 36–36.6; O2SAT 93–97
[2023-10-06] MEDS: IPRATROPIUM 0.5 MG/ALBUTEROL SULFATE 2.5 MG AMPUL.NEB 3 ML INHALATION ×2 (02:32→07:45)
[2023-10-06 05:17] LABS: Basophils Percent Auto 0.4 % (0.2-1.2); Eosinophils Absolute Auto 0.1 K/mm3 (0-0.3); Eosinophils Percent Auto 1.2 % (0-4.4); Hematocrit 44.1 % (42.0-52.0); Immature Granulocyte Absolute 0.04 K/mm3 (0.00-0.031); Immature Granulocyte Percent A 0.5 % (0-0.5); Lymphocytes Absolute Auto 1.03 K/mm3 (0.9-3.2); Lymphocytes Percent Auto 12.2 % (18.3-44.2); Mean Corpuscular HGB Conc 31.7 g/dl (32-36); Mean Corpuscular Hemoglobin 30.2 pg (26-34); Mean Corpuscular Volume 95.2 fl (80-100); Mean Platelet Volume 12.1 fl (7.4-10.4); Monocytes Absolute Auto 0.8 K/mm3 (0.1-0.6); Neutrophils Absolute Auto 6.4 K/mm3 (1.3-6.7); Neutrophils Percent Auto 75.7 % (45.5-73.1); Platelet Count Result 189 k/mm3 (150-375); Red Blood Count 4.63 M/mm3 (4.6-6.20); Red Cell Distribution Width 14.4 % (11.5-14.5); White Blood Count 8.4 K/mm3 (4.5-10.0)
[2023-10-06 05:27] LABS: Anion Gap 9 mmol/L (4-12); Blood Urea Nitrogen 23 mg/dL (9-20); Calcium 9.1 mg/dL (8.4-10.2); Carbon Dioxide 32 mmol/L (22-30); Chloride 95 mmol/L (98-107); Estimated CRCL calculation 45 ml/min; Estimated Glomerular Filt Rate 58; Glucose 112 mg/dL (65-110); Magnesium 2.3 mg/dL (1.6-2.3); Potassium 5.3 mmol/L (3.4-5.0); Sodium 136 mmol/L (137-145)
[2023-10-06] MEDS: DEXTROSE 50% 25 GM/50 ML SYRINGE IV PUSH (09:09)
[2023-10-06] MEDS: INSULIN HUMAN REGULAR (*BKC) 100 UNITS/ML 10 UNITS IV PUSH (09:11)
[2023-10-06] MEDS: FUROSEMIDE INJ 40 MG/4 ML VIAL 20 MG IV PUSH (09:14)
[2023-10-06] MEDS: guaiFENesin 12 HR 600 MG TABCR PO (09:18)
[2023-10-06] MEDS: SENNA/DOCUSATE SODIUM TABLET 2 TAB PO (09:18)
[2023-10-06] MEDS: GABAPENTIN 300 MG CAPSULE PO (09:18)
[2023-10-06] MEDS: CLOPIDOGREL BISULFATE 75 MG TABLET PO (09:18)
[2023-10-06] MEDS: METOPROLOL SUCCINATE EXT REL 12.5 MG TABCR PO (09:18)
[2023-10-06] MEDS: ASPIRIN 81 MG CHEWABLE TABLET PO (09:18)
[2023-10-06] MEDS: ATORVASTATIN 40 MG TABLET 80 MG PO (09:18)
[2023-10-06] MEDS: FUROSEMIDE 20 MG TABLET PO (09:18)
[2023-10-06] MEDS: AMIODARONE HCL 200 MG TABLET 400 MG PO (09:19)
--- NOTE | 2023-10-06 09:30 | P.PNCA_ITS ---
Progress Note: A&P Assessment and Plan (1) Non-ST elevation NE (NSTEMI): Code(s): I21.4 - Non-ST elevation (NSTEMI) myocardial infarction Status: Acute Assessment and Plan: This has been treated medically. Troponins peaked at 1.650. Heparin drip has been stopped at this point. Continue ASA and Plavix, high intensity statin. Plan to pursue outpatient coronary angiogram within the next couple of weeks. (2) Aortic aneurysm: Code(s): I71.9 - Aortic aneurysm of unspecified site, without rupture Status: Acute Assessment and Plan: CT abdomen and pelvis 09/29 shows small right pleural effusion with probable emphysema at the lung base, 5.2cm infrarenal abdominal aortic aneurysm. Extensive severe atherosclerotic disease of the aorta, common iliac arteries, and external iliac arteries. Severe stenoses and/or focal occlusions involving the common iliac arteries and external iliac arteries bilaterally. Large wide necked ventral/umbilical hernia containing multiple small bowel loops. Of note, prior CTA Abdominal Aorta and Bilateral Iliofemoral Runoff 05/29/2023: 1. Partially thrombosed 5.0cm infrarenal abdominal aortic aneurysm with significant noncalcified plaque. 2. Significant noncalcified plaque within the common iliac arteries resulting in moderate intraluminal narrowing with severe stenosis of the distal right common iliac artery. Possible old intimal flaps noted. 3. Mild-moderate right external iliac artery stenosis. 4. Severe left external iliac artery stenoses. 5. Right lower extremity: Moderate-severe stenosis of the proximal superficial femoral artery with occlusion distally. Reconstitution of the popliteal artery with severe proximal popliteal arterial stenoses. Diminutive anterior tibial artery with likely occlusions. Two vessel runoff. 6. Left lower extremity: Moderate-severe proximal and mid superficial femoral artery stenoses. Occlusion of the mid to distal superficial femoral and proximal popliteal arteries with reconstitution of the popliteal artery above the knee. Moderate and severe stenoses of the popliteal artery at and below the knee. Diminutive anterior tibial artery. 2 vessel runoff. CTA in May 2023 measured aneurysm at 5.0cm, now measuring at 5.2cm. Possible findings of chronic dissection as well given possible old intimal flaps, dissection noted on past CT scans as well. Recommend Vascular Surgery consultation. Per hospitalist vascular surgery contacted and recommend outpatient evaluation. 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 (6) NSVT (nonsustained ventricular tachycardia): Code(s): I47.29 - Other ventricular tachycardia Status: Acute Assessment and Plan: NSVT seen on telemetry this morning. Self limiting and asymptomatic. Per report occurred during physical therapy. Telemetry now shows sinus rhythm/sinus tach with PVC's and PAC's. Did have some bigeminy on telemetry earlier as well. Continue beta-jadyn and amiodarone Continues to have short runs of NSVT. Repeat echo showed decrease in LV systolic function. Life vest in place (7) Cardiomyopathy: Code(s): I42.9 - Cardiomyopathy, unspecified Status: Acute Assessment and Plan: Echocardiogram today showed EF 30-35%, previously 55%. * Will plan for outpatient elective coronary angiogram * I talked to the patient and his daughter at great length regarding his risk for sudden cardiac because of his cardiomyopathy in addition to examples of ventricular tachycardia on telemetry. At this point, patient is indecisive about a LifeVest. He does understand that if he leaves the hospital without the LifeVest that he is accepting risk for sudden cardiac . * Continue Toprol * Additional guideline directed medical therapy not able to be initiated at this time because of low blood pressure. * PA and lateral chest x-ray today. He is more short of breath. Will also give a dose of IV furosemide 40 mg IV x1. Subjective Date/time seen: 10/06/23 09:30 Interval history: Cardiology follow up for elevated troponin levels He is complaining of indigestion and constipation stating he hasn't had a bowel movement in 3 days. No shortness of breath, chest pain, palpitations. Date of service 10/05/2023: Feeling well today, does not have any complaints but he is frustrated that he remains hospitalized. Runs of nonsustained ventricular tachycardia noted on telemetry once again in the last 24 hours. He denies feeling any palpitations, chest pain, shortness of breath. Date of service 10/06/2023: Feel short of breath with minor activity. No chest pain. Still has swelling. Review of Systems Review of Systems: All systems reviewed & are unremarkable except as noted in HPI and below (HPI) Cardiovascular: Cardiovascular: Denies chest pain and Reports leg edema Respiratory: Respiratory: Reports dyspnea Exam Const: General: comfortable and no acute distress HENMT: Mouth: Yes moist mucous membranes Eyes: General: appearance normal, both eyes and all related structures Sclera: sclerae normal Neck: Neck: supple Chest: Other: No reproducible chest wall tenderness Resp: Effort & Inspection: normal respiratory effort Auscultation: crackles Cardio: Rate: regular rate Rhythm: regular rhythm Heart sounds: no murmurs GI: GI Palp: Yes Soft to palpation Skin: General skin exam: normal color Neuro: Speech: normal speech Extrem: General: edema Other: 1+ bilateral lower extremity Psych: Mental Status: mental status grossly normal Affect: normal affect Objective Data Vital Signs Vital Signs: Vital Signs - 24 hr 10/05/23 10:00 10/05/23 11:36 10/05/23 14:01 Temperature 36.6 C Pulse Rate 104 H 101 H 103 H Respiratory Rate 20 18 Blood Pressure 105/77 Pulse Oximetry 98 Oxygen Delivery Oxygen Flow Rate 10/05/23 14:13 10/05/23 15:50 10/05/23 16:00 Temperature 36.6 C Pulse Rate 105 H 105 H 107 H Respiratory Rate 20 16 Blood Pressure 109/72 Pulse Oximetry 93 Oxygen Delivery Oxygen Flow Rate 10/05/23 12:00 10/05/23 14:00 10/05/23 16:00 Temperature Pulse Rate 92 90 96 Respiratory Rate Blood Pressure Pulse Oximetry Oxygen Delivery Oxygen Flow Rate 10/05/23 18:00 10/05/23 12:00 10/05/23 16:00 Temperature Pulse Rate 95 Respiratory Rate Blood Pressure Pulse Oximetry 94 95 Oxygen Delivery Nasal Cannula Room Air Oxygen Flow Rate 2 10/05/23 20:20 10/05/23 20:22 10/05/23 20:22 Temperature 36.6 C Pulse Rate 100 106 H Respiratory Rate 18 18 Blood Pressure 110/68 Pulse Oximetry 94 92 Oxygen Delivery Room Air Oxygen Flow Rate 10/05/23 20:29 10/05/23 20:00 10/05/23 20:00 Temperature Pulse Rate 102 H 89 Respiratory Rate 18 Blood Pressure Pulse Oximetry 91 Oxygen Delivery Nasal Cannula Oxygen Flow Rate 2 10/05/23 22:00 10/05/23 23:40 10/06/23 00:00 Temperature 36.6 C Pulse Rate 87 87 78 Respiratory Rate 20 Blood Pressure 116/72 Pulse Oximetry 95 Oxygen Delivery Oxygen Flow Rate 10/06/23 00:00 10/06/23 02:32 10/06/23 03:57 Temperature 36.6 C Pulse Rate 93 81 Respiratory Rate 20 Blood Pressure 122/70 Pulse Oximetry 95 96 Oxygen Delivery Nasal Cannula Oxygen Flow Rate 2 10/06/23 02:00 10/06/23 04:00 10/06/23 04:00 Temperature Pulse Rate 81 84 Respiratory Rate Blood Pressure Pulse Oximetry 95 Oxygen Delivery Nasal Cannula Oxygen Flow Rate 2 10/06/23 06:00 10/06/23 07:46 10/06/23 07:46 Temperature Pulse Rate 82 100 Respiratory Rate 18 Blood Pressure Pulse Oximetry 97 Oxygen Delivery Nasal Cannula Oxygen Flow Rate 2 10/06/23 07:56 10/06/23 08:20 10/06/23 08:00 Temperature 36.0 C L Pulse Rate 101 H 99 Respiratory Rate 18 20 Blood Pressure 115/80 Pulse Oximetry 94 93 Oxygen Delivery Room Air Oxygen Flow Rate 10/06/23 09:18 10/06/23 09:19 Temperature Pulse Rate 99 99 Respiratory Rate Blood Pressure Pulse Oximetry Oxygen Delivery Oxygen Flow Rate Intake/Output Intake/Output: Intake & Output 10/03/23 10/04/23 10/05/23 10/06/23 23:59 23:59 23:59 23:59 Intake Total 2343.7 2274.3 880 100 Output Total 2450 1250 1800 200 Balance -106.3 1024.3 -920 -100 Meds/Results Medications: Active Medications Generic Name Dose Route Start Last Admin Trade Name Freq PRN Reason Stop Dose Admin Acetaminophen 650 mg 10/01/23 19:44 Acetaminophen 325 Mg Tablet PO Q4H PRN Mild Pain (1-3) or Fever Hydrocodone Bitart/Acetaminophen 1 tab 10/01/23 19:44 Hydrocodone/Acetaminophen (*Crx) 5-325 Mg Tablet PO Q4H PRN Pain Rated 4-6 Albuterol/Ipratropium 3 ml 10/03/23 08:00 10/06/23 07:45 Ipratropium 0.5 Mg/Albuterol Sulfate 2.5 Mg Ampul.Neb 3 Ml INHALATION 3 ml Q6HRT JORJE Administration Amiodarone HCl 400 mg 10/05/23 13:40 10/06/23 09:19 Amiodarone Hcl 200 Mg Tablet PO 400 mg DAILY@0800 JORJE Administration Aspirin 81 mg 10/02/23 09:00 10/06/23 09:18 Aspirin 81 Mg Chewable Tablet PO 81 mg DAILY JORJE Administration Atorvastatin Calcium 80 mg 10/02/23 12:20 10/06/23 09:18 Atorvastatin 40 Mg Tablet PO 80 mg DAILY JORJE Administration Clopidogrel Bisulfate 75 mg 10/02/23 09:00 10/06/23 09:18 Clopidogrel Bisulfate 75 Mg Tablet PO 75 mg DAILY JORJE Administration Dextrose 12.5 gm 10/06/23 07:29 Dextrose 50% 25 Gm/50 Ml Syringe IV PUSH PRN PRN Hypoglycemia Protocol Furosemide 20 mg 10/03/23 09:00 10/06/23 09:18 Furosemide 20 Mg Tablet PO 20 mg DAILY JORJE Administration Gabapentin 300 mg 10/02/23 09:00 10/06/23 09:18 Gabapentin 300 Mg Capsule PO 300 mg BID JORJE Administration Glucose 15 gm 10/06/23 07:29 Glucose Oral Gel 15 Gm Of Glucse In 37.5 Gm Tube PO PRN PRN Hypoglycemia Protocol Guaifenesin 600 mg 10/02/23 09:00 10/06/23 09:18 Guaifenesin 12 Hr 600 Mg Tabcr PO 600 mg Q12HR JORJE Administration Dextrose 1,000 mls @ 100 mls/hr 10/06/23 07:29 Dextrose 5% 1,000 Ml IVPB PRN PRN Hypoglycemia Protocol Lidocaine 1 patch 10/02/23 21:00 10/05/23 20:11 Lidocaine 5% Patch TRANSDERM 11/01/23 20:59 1 patch QHS JORJE Administration Metoprolol Succinate 12.5 mg 10/04/23 11:05 10/06/23 09:18 Metoprolol Succinate Ext Rel 12.5 Mg Tabcr PO 12.5 mg QAM JORJE Administration Morphine Sulfate 2 mg 10/01/23 19:44 Morphine Sulfate (*Crx) 2 Mg/Ml Inj IV PUSH Q2H PRN Pain Rated 7-10 Ondansetron HCl 4 mg 10/01/23 19:44 Ondansetron Inj 4 Mg/2 Ml Vial IV PUSH Q4H PRN Nausea Polyethylene Glycol 17 gm 10/02/23 02:00 Polyethylene Glycol 3350 17 Gm Powd.Pack PO DAILY PRN Constipation Senna/Docusate Sodium 2 tab 10/02/23 09:00 10/06/23 09:18 Senna/Docusate Sodium Tablet PO 2 tab DAILY JORJE Administration Senna/Docusate Sodium 1 tab 10/04/23 21:00 10/05/23 20:11 Senna/Docusate Sodium Tablet PO 1 tab HS JORJE Administration Tramadol HCl 25 mg 10/02/23 02:00 Tramadol Hcl (*Crx) 25 Mg Tablet PO Q6H PRN Pain Rated 6 Or Greater Trazodone HCl 50 mg 10/02/23 21:00 10/05/23 20:11 Trazodone Hcl 50 Mg Tablet PO 50 mg HS JORJE Administration Radiology Results: ITS Impressions Abdomen/Pelvis CT 09/30/23 22:02 Impression: Small right pleural effusion with probable emphysema at the lung bases. 5.2 cm infrarenal abdominal aortic aneurysm. Extensive, severe atherosclerotic disease of the aorta, common iliac arteries, and external iliac arteries. Severe stenoses and/or focal occlusions involving the common iliac arteries and external iliac arteries bilaterally. Correlate with any relevant patient's symptomatology. Large wide necked ventral/umbilical hernia containing multiple small bowel loops, similar to prior exam. No bowel obstruction or bowel wall thickening. Chest X-Ray 10/02/23 10:02 Impression: Extensive groundglass and interstitial pulmonary disease. Findings probably represent mixed alveolar/interstitial pulmonary edema. Correlate for other chronic interstitial disease which is significantly worsened from prior exam. Small pleural effusions. Labs Labs: Laboratory Results - last 24 hr 10/06/23 04:54 WBC 8.4 RBC 4.63 Hgb 14.0 Hct 44.1 MCV 95.2 MCH 30.2 MCHC 31.7 L RDW 14.4 Plt Count 189 MPV 12.1 H Immature Gran % (Auto) 0.5 Neut % (Auto) 75.7 H Lymph % (Auto) 12.2 L [place] % (Auto) 10.0 H Eos % (Auto) 1.2 Baso % (Auto) 0.4 Lymph # (Auto) 1.03 [place] # (Auto) 0.8 H Eos # (Auto) 0.1 Baso # (Auto) 0.0 Abs Immat Gran (auto) 0.04 H Absolute Neuts (auto) 6.4 Absolute Nucleated RBC 0.000 Nucleated RBC % 0.0 Sodium 136 L Potassium 5.3 H Chloride 95 L Carbon Dioxide 32 H Anion Gap 9 BUN 23 H Creatinine 1.20 Estim Creat Clear Calc 45 Estimated GFR 58 L Glucose 112 H Calcium 9.1 Magnesium 2.3
[2023-10-06 09:52] LABS: Glucose Point of Care 140 mg/dl (65-105)
[2023-10-06 10:51] LABS: Anion Gap 11 mmol/L (4-12); Blood Urea Nitrogen 23 mg/dL (9-20); Calcium 9.5 mg/dL (8.4-10.2); Carbon Dioxide 30 mmol/L (22-30); Chloride 95 mmol/L (98-107); Estimated CRCL calculation 49 ml/min; Estimated Glomerular Filt Rate > 60; Glucose 54 mg/dL (65-110); Potassium 4.6 mmol/L (3.4-5.0); Sodium 136 mmol/L (137-145)
[2023-10-06 12:04] LABS: Glucose Point of Care 106 mg/dl (65-105)
--- NOTE | 2023-10-06 12:31 | P.DS_ITS ---
DS: Admitting Diagnosis Discharge Date October 06, 2023 Admitting Diagnosis Indigestion DS: Discharge Diagnosis Discharge Diagnosis (1) Cardiomyopathy: Code(s): I42.9 - Cardiomyopathy, unspecified Status: Acute (2) NSVT (nonsustained ventricular tachycardia): Code(s): I47.29 - Other ventricular tachycardia Status: Acute (3) Aortic mural thrombus: Code(s): I74.10 - Embolism and thrombosis of unspecified parts of aorta Status: Acute (4) Aortic aneurysm: Code(s): I71.9 - Aortic aneurysm of unspecified site, without rupture Status: Acute (5) Non-ST elevation [place] (NSTEMI): Code(s): I21.4 - Non-ST elevation (NSTEMI) myocardial infarction Status: Acute (6) Acute hypoxemic respiratory failure: Code(s): J96.01 - Acute respiratory failure with hypoxia Status: Acute (7) Acute decompensated heart failure: Code(s): I50.9 - Heart failure, unspecified Status: Acute DS: Summary Hospital Course Hospital Course: This 78-year-old male with a PMH hypertension, NSTEMI, recent CVA in 08/09 (s/p R ICA stenting at [facility]), heart failure reduced ejection fraction, cardiomyopathy, hyperlipidemia, chronic abdominal aortic aneurysm with likely chronic dissection, severe peripheral artery disease. The patient presented with aphasia and a right-sided weakness in July of 2023 at [facility]. Ultimately he was transferred to [facility], receive stenting of the right ICA. He is found to have a low volume left MCA infarct in the setting of left ICA occlusion and right ICA 80% stenosis. Thereafter he participated in a course of rehab in [facility]. His symptoms improved greatly. The patient returned home and had been doing well. He again presented to [facility] with complaints of nausea and indigestion for 3 days. Troponins found to be elevated. Patient subsequently admitted on 10/02/2023 for NSTEMI. Patient was evaluated in conjunction with the tying machine operator. His troponin peaked at 1.650. EKG demonstrated minimal ST elevation in AVR with ST depressions in the inferior lateral leads which were similar to prior. The patient's indigestion did resolve. A CT-AP on 09/30/2023 demonstrated a 5.2 cm infrarenal abdominal aortic aneurysm with small right pleural effusion and evidence of emphysema. There is extensive atherosclerotic disease of the aorta, common iliac arteries. This is well known for the patient. A CTA aorta with runoff in April 2022 demonstrated aneurysm with 4.5 cm diameter with small intimal flaps. Then, a CTA in May 2023 demonstrated the aneurysm at 5 cm. Spoke with the patient's usual vascular surgeon Dr. Sams, who recommended outpatient follow-up. This was confirmed by [facility] vascular surgery. With the above considered, the patient was not deemed a candidate cardiac catheterization at this facility due to his aortic aneurysm with mural thrombus. He had a NSTEMI in 2019. This was treated medically and he follow-up with Dr. Fraga. He has been taking aspirin and Plavix. This hospitalization, the patient was treated with 48 hours of heparin infusion. Again, his symptoms resolved. Thereafter, telemetry monitoring captured nonsustained V-tach. He was asymptomatic. A repeat surface echocardiogram on 10/05/2023 demonstrated EF of 30-35% with mild left ventricular enlargement with global systolic hypokinesia, left atrial enlargement, [id number] mitral regurgitation, sclerotic aortic valve with maintain leaflet excursion. Due to this a LifeVest was ordered and placed. Metoprolol succinate 12.5 mg p.o. q.day was started. Amiodarone 400 mg p.o. q.day was started. He is on Lasix 20 mg p.o. q.day at home. Nearing discharge, he began to develop shortness of breath and increasing lower extremity edema and bibasilar rales. Developed acute hypoxia. He was given additional doses of Lasix. He had good response to this and on day of discharge saturating 96% SpO2 on room air. The patient was full code. Decision making was held in conjunction with the daughter Hedy, daughter Monique, son Jacob, and the patient. The patient threatened 4 days in a row to leave against medical advice as he was becoming impatient with care, reasonably so (he was on [facility] transfer list since admission). On 10/06/2023 he wants no further workup or treatment. Multiple discussions held on benefits of monitoring and treatment and risks of leaving and refusing further care. As well, although the patient was following up with [facility] the family has reported they have been able to set up appointment with [facility] That is where they will follow up shortly for further cardiac eval and catheterization. Physical referral provided as well at their request. Advised he should establish within a week and they report they will be able to. Adverse effects, risk and benefits of medication discussed with the patient to which he understood. He also agreed to the above plan. He will continue aspirin, Plavix, statin, metoprolol, amiodarone, LifeVest. Lasix has been increased from 20 mg p.o. q.day to 40 mg p.o. q.day. Other medications for guideline directed medical therapy unable to be instituted due to his borderline low blood pressure. Time Spent with Patient Time attestation: Total time spent providing and/or coordinating discharge services: Exam Const: General: comfortable and no acute distress Eyes: Pupils: Equal, round and reactive pupils present Neck: Neck: supple Resp: Effort & Inspection: normal respiratory effort Other: Mild bibasilar rales Cardio: Rate: regular rate Rhythm: regular rhythm Heart sounds: no gallops, no murmurs and no rubs GI: GI Palp: Yes Soft to palpation and No Tenderness to palpation present (GI) Extrem: Other: 1+ edema bilateral lower extremities dis filemon to the knees DS: Data Data Completed and Pending Labs on day of discharge: Labs from last 24 hours 10/06/23 10/06/23 10/06/23 11:59 10:28 09:08 WBC RBC Hgb Hct MCV MCH MCHC RDW Plt Count MPV Immature Gran % (Auto) Neut % (Auto) Lymph % (Auto) [place] % (Auto) Eos % (Auto) Baso % (Auto) Lymph # (Auto) [place] # (Auto) Eos # (Auto) Baso # (Auto) Abs Immat Gran (auto) Absolute Neuts (auto) Absolute Nucleated RBC Nucleated RBC % Sodium 136 L Potassium 4.6 Chloride 95 L Carbon Dioxide 30 Anion Gap 11 BUN 23 H Creatinine 1.10 Estim Creat Clear Calc 49 Estimated GFR > 60 Glucose 54 L* POC Capillary Glucose 106 H 140 H Calcium 9.5 Magnesium 10/06/23 04:54 WBC 8.4 RBC 4.63 Hgb 14.0 Hct 44.1 MCV 95.2 MCH 30.2 MCHC 31.7 L RDW 14.4 Plt Count 189 MPV 12.1 H Immature Gran % (Auto) 0.5 Neut % (Auto) 75.7 H Lymph % (Auto) 12.2 L [place] % (Auto) 10.0 H Eos % (Auto) 1.2 Baso % (Auto) 0.4 Lymph # (Auto) 1.03 [place] # (Auto) 0.8 H Eos # (Auto) 0.1 Baso # (Auto) 0.0 Abs Immat Gran (auto) 0.04 H Absolute Neuts (auto) 6.4 Absolute Nucleated RBC 0.000 Nucleated RBC % 0.0 Sodium 136 L Potassium 5.3 H Chloride 95 L Carbon Dioxide 32 H Anion Gap 9 BUN 23 H Creatinine 1.20 Estim Creat Clear Calc 45 Estimated GFR 58 L Glucose 112 H POC Capillary Glucose Calcium 9.1 Magnesium 2.3 Discharge Plan Discharge Attending physician on discharge: Alisha Wilburn Consulting providers: Murali Gonzalez Discharging Clinician: Alisha Wilburn Patient Disposition: Home, Self-Care Activity: may shower Diet: heart healthy and low sodium Patient Instructions: Heart Failure (GEN) Stand Alone Forms: General Discharge Information Follow-up/Referrals: Carroll Pepe MD [Primary Care Provider] - Call for Appointment (Call within 1 day to schedule follow-up appointment for 7-10 days) Discharge Medications: New amiodarone [Pacerone] 200 mg Tablet 400 mg PO DAILY@0800 Qty: 60 0RF atorvastatin 40 mg Tablet 80 mg PO DAILY Qty: 30 0RF furosemide 20 mg Tablet 40 mg PO DAILY Qty: 60 0RF metoprolol succinate 25 mg tablet extended release 24 hr 12.5 mg PO DAILY Qty: 30 0RF Continued clopidogrel 75 mg tablet 75 mg PO DAILY Qty: 90 2RF gabapentin [Neurontin] 300 mg capsule 300 mg PO BID Qty: 60 5RF ipratropium-albuterol 0.5 mg-3 mg(2.5 mg base)/3 mL solution for nebulization 3 ml INHALATION Q6H PRN (Reason: Shortness Of Breath Or Wheezing) Qty: 180 5RF lidocaine [Lidocaine Pain Relief] 4 % adhesive patch,medicated 1 patch transdermal QHS Qty: 30 3RF Rx Instructions: lower back/buttox trazodone 50 mg tablet 50 mg PO HS Qty: 30 5RF polyethylene glycol 3350 17 gram/dose Powder 17 g PO DAILY PRN (Reason: Constipation) aspirin 81 mg tablet,chewable 81 mg PO DAILY sennosides-docusate sodium [Senna-S] 8.6-50 mg Tablet 2 tablet PO DAILY acetaminophen 325 mg Tablet 650 mg PO Q4H PRN (Reason: Mild Pain (1-3) Or Fever) Qty: 30 0RF guaifenesin [Mucus Relief ER] 600 mg Tablet Extended Release 12hr 600 mg PO Q12HR Qty: 30 0RF tramadol 50 mg Tablet 25 mg PO Q6H PRN (Reason: Pain Rated 6 Or Greater) Qty: 20 0RF Discontinued furosemide 20 mg tablet 30 mg PO DAILY Qty: 45 5RF Date of admission: 10/02/23 11:22 Primary Care Provider: Carroll Pepe Admitting Provider: Suki Polanco V. Attending physician on admission: Suki Polanco V. Condition: Improved Hospitalist MIPS Heart Failure (Exclusion) Patient has history of Heart Transplant or Left Ventricular Assistive Device?: No IF YES, STOP HERE Heart Failure (Qualifier) Patient has current or prior documentation of LVEF less than or equal to 40%, or mod/servere depressed LVSF?: Yes IF NO, STOP HERE If Yes, Heart Failure (Qualifier) Patient was prescribed or already taking an Angiotensin-Converting Enzyme (SHABBIR) Inhibitor, or Antiotensin Receptor [place] (ARB): No Patient was prescribed or already taking bisoprolol, carvedilol, or sustained release metoprolol succinate: Yes If Medications not prescribed/taking Reason patient not prescribed/taking SHABBIR or ARB: Medical reasons: allergy, intolerance, contraindication or other (Low blood pressure)
== END 2023-10-06 14:00 | disposition home or self-care (01) | DRG 281 ==
LOC: ANHED 10-01 19:44 → ANHIMU 10-01 21:42
PROVIDERS: Emergency Medicine; Admitting Provider Internal Medicine; Emergency Provider Emergency Medicine; PCP Family Medicine Adolescent Medicine; Visit Provider General Practice
DX: I21.4 Non-ST elevation (NSTEMI) myocardial infarction (principal); I42.9 Cardiomyopathy, unspecified; I47.29 Other ventricular tachycardia; I50.32 Chronic diastolic (congestive) heart failure; I10 Essential (primary) hypertension; D69.6 Thrombocytopenia, unspecified; I25.10 Atherosclerotic heart disease of native coronary artery without angina pectoris; I71.40 Abdominal aortic aneurysm, without rupture, unspecified; I70.8 Atherosclerosis of other arteries; I70.213 Atherosclerosis of native arteries of extremities with intermittent claudication, bilateral legs; J44.9 Chronic obstructive pulmonary disease, unspecified; R53.81 Other malaise; R26.9 Unspecified abnormalities of gait and mobility; Z20.822 Contact with and (suspected) exposure to COVID-19; I25.2 Old myocardial infarction; Z79.02 Long term (current) use of antithrombotics/antiplatelets; Z79.82 Long term (current) use of aspirin; Z86.73 Personal history of transient ischemic attack (TIA), and cerebral infarction without residual deficits; Z87.891 Personal history of nicotine dependence
CPT/HCPCS: 36415; 71045; 71046; 74177; 80048; 80053; 81003; 82948; 83690; 83735; 84100; 84484; 85025; 85027; 85610; 85730; 87637; 93005; 94640; 96365; 96366; 96375; 96376; 97110; 97161; 97165; 97530; 99285; A9270; C8929; G0378; J1644; J1815; J1940; J2060; J2270; J2405; J2470; Q9957; Q9967